=== PATIENT | female | born 1965 | race Caucasian/White ===

== ENCOUNTER 2016-05-09 00:04 | Inpatient (IN) | payer MEDICARE ==
[2016-05-09] MEDS ORDERED: IV VANCOMYCIN PER PHARMACY 1 EACH MISC MISCELLANE PRN (00:44)
[2016-05-09] MEDS ORDERED: SODIUM CHLORIDE 0.9% 1,000 ML IV STA (00:44)
[2016-05-09] MEDS ORDERED: VANCOMYCIN 1,500 MG in SODIUM CHLORIDE 0.9% 250 ML IVPB ONE (01:00)
[2016-05-09] MEDS ORDERED: SODIUM CHLORIDE 0.9% 1,000 ML IV ONE (01:20)
--- NOTE | 2016-05-09 01:24 | ED ---
General Adult HPI - General Chief complaint: Skin/Abscess/Foreign Body Stated complaint: Infection Axilla Time Seen by Provider: 05/09/16 00:39 Source: patient, RN notes reviewed, old records reviewed Mode of arrival: wheelchair Limitations: no limitations - History of Present Illness Initial comments: This is a 20-year-old female ER for evaluation. Patient brought every effort continued drainage of left arm abscess. Patient has history of severe rheumatoid arthritis and chronic steroid dose. Patient coming in with feel outpatient treatment Bactrim for Infection, No Improvement. Patient Also Has Significant Ulcers of Her Lower Extremities Which Are Chronic in Nature and She Does See the Wound Clinic for. Patient Denies Any Fevers Cough or Congestion. No Abdominal Pain. Patient States This Abscess, Ulcers Getting Worse on Her Arm with Increasing Redness - Related Data Home Medications Medication Instructions Recorded Confirmed Ascorbic Acid [Vitamin C] 500 mg PO DAILY 01/03/15 04/29/16 Aspirin 81 mg PO DAILY 01/03/15 05/09/16 Biotin 4,000 mcg PO DAILY 01/03/15 05/09/16 Ca/D3/Mag/Zinc/Crow/Jorge/Mgbor 1 each PO BID 01/03/15 05/09/16 [Caltrate 600+D3+Min Chew Tab] Celecoxib [CeleBREX] 200 mg PO BID 01/03/15 04/29/16 Folic Acid 1 mg PO DAILY 01/03/15 05/09/16 Glimepiride [Amaryl] 4 mg PO BID 01/03/15 05/09/16 Methotrexate Sodium [Methotrexate] 25 mg PO TH 01/03/15 05/09/16 Omeprazole [PriLOSEC] 40 mg PO DAILY 01/03/15 05/09/16 Potassium Chloride ER [K-Dur 10] 10 meq PO DAILY PRN 01/03/15 05/09/16 Potassium Gluconate 595 mg PO DAILY 01/03/15 05/09/16 metFORMIN HCL 1,000 mg PO TID 01/03/15 05/09/16 predniSONE 10 mg PO TID 01/03/15 05/09/16 Cyclobenzaprine [Flexeril] 10 mg PO Q8H PRN 03/07/15 05/09/16 Hydrocodone/Acetaminophen [[place] 1 each PO Q6H 03/07/15 05/09/16 10-325] Pyridoxine [Vitamin B-6] 25 mg PO TID 03/06/16 05/09/16 Triamcinolone 0.5% Cream [Kenalog 1 applic TOPICAL DAILY PRN 03/06/16 05/09/16 0.5% Cream] Azithromycin [Zithromax Z-pack] 250 mg PO DIRECTED 04/29/16 04/29/16 Abatacept [Orencia] 0 mg SQ 05/09/16 Albuterol Inhaler [Ventolin Hfa 1 - 2 puff INHALATION Q6HR PRN 05/09/16 05/09/16 Inhaler] Ascorbic Acid [Vitamin C] 500 mg PO DAILY 05/09/16 05/09/16 Celecoxib [CeleBREX] 200 mg PO BID 05/09/16 05/09/16 Diphenoxylate HCl/Atropine 2 tab PO QID PRN 05/09/16 05/09/16 [Lomotil] Loperamide HCl [Imodium A-D] 2 mg PO 05/09/16 [place]-3 Acid Ethyl Esters [Lovaza] 4 gm PO DAILY 05/09/16 05/09/16 Telmisartan [Micardis] 40 mg PO DAILY 05/09/16 05/09/16 hydrOXYzine PAMOATE [Vistaril] 25 mg PO 05/09/16 Previous Rx's Medication Instructions Recorded Sulfamethox-Tmp 800-160Mg [Bactrim 1 tab PO Q12HR #20 tab 04/29/16 DS 800-160 mg] Allergies Allergy/AdvReac Type Severity Reaction Status Date / Time latex AdvReac Mild Swelling Verified 04/22/16 11:58 Penicillins AdvReac states Verified 04/22/16 11:58 "penicillin resistant-does not work on me" Review of Systems ROS Statement: Those systems with pertinent positive or pertinent negative responses have been documented in the HPI. ROS Other: All systems not noted in ROS Statement are negative. Past Medical History Past Medical History: Rheumatoid Arthritis (RA) Additional Past Medical History / Comment(s): sjogrens, raynauds, urinary urgency and incontinence, bowel incontinence, wound rt foot plantar surface, immunosuppressed, ventral hernia, rheumatic lung, rheumatic fever as a child, varicose veins, current steroid,pm>2yrs, severe cervical stenosis-bilat. neuro deficits in arms, PCN resistant, pleural pain, bleeding peptic ulcer,coffee ground emesis History of Any Multi-Drug Resistant Organisms: None Reported Past Surgical History: Adenoidectomy, Heart Catheterization, Hernia Repair, Orthopedic Surgery, Tonsillectomy Additional Past Surgical History / Comment(s): closed reduction rt elbow,laser vein surgery lt leg. CAT SCAN Past Anesthesia/Blood Transfusion Reactions: Previous Problems w/ Anesthesia Additional Past Anesthesia/Blood Transfusion Reaction / Comment(s): pt states experienced swelling of throat with anesthesia as a child with tonsil removal- no further swelling problems with anesthesia,Severe Cervical Stenosis, family hx of blood transfusion reaction with mother and brother-rx rash,hives Past Psychological History: Anxiety, Depression Smoking Status: Current every day smoker Past Alcohol Use History: None Reported Additional Past Alcohol Use History / Comment(s): started smoking 1979 Past Drug Use History: None Reported - Past Family History Brother(s) Family Medical History: Coronary Artery Disease (CAD) Mother Family Medical History: Diabetes Mellitus Additional Family Medical History / Comment(s): with Castro's Disease Father Family Medical History: Coronary Artery Disease (CAD), Diabetes Mellitus, Hyperlipidemia, Vascular Disorder Additional Family Medical History / Comment(s): at age 89 General Exam Limitations: no limitations General appearance: anxious Head exam: Present: atraumatic, normocephalic, normal inspection Eye exam: Present: normal appearance, PERRL, EOMI. Absent: scleral icterus, conjunctival injection, periorbital swelling ENT exam: Present: normal exam, mucous membranes moist Neck exam: Present: normal inspection. Absent: tenderness, meningismus, lymphadenopathy Respiratory exam: Present: normal lung sounds bilaterally. Absent: respiratory distress, wheezes, rales, rhonchi, stridor Cardiovascular Exam: Present: regular rate, normal rhythm, normal heart sounds. Absent: systolic murmur, diastolic murmur, rubs, gallop, clicks GI/Abdominal exam: Present: soft, normal bowel sounds. Absent: distended, tenderness, guarding, rebound, rigid Extremities exam: Present: normal inspection, full ROM, normal capillary refill , other (She does have also left upper axilla with drainage). Absent: tenderness, pedal edema, joint swelling, calf tenderness Back exam: Present: normal inspection Neurological exam: Present: alert, oriented X3, CN II-XII intact Psychiatric exam: Present: normal affect, normal mood Skin exam: Present: warm, dry, intact, normal color. Absent: rash Course Vital Signs 05/09/16 00:19 Temperature 99.3 F Pulse Rate 122 H Respiratory 18 Rate Blood Pressure 131/78 O2 Sat by Pulse 95 Oximetry - Reevaluation(s) Reevaluation #1: 05/09/16 01:23 Patient is in no significant acute distress, tachycardic Medical Decision Making - Medical Decision Making 50 seen at ER for evaluation of drainage of left axillary all circumflex, abscess, draining by itself, no one did incise or drain it. Abscess is open and draining at this time. Low-grade fever, patient is seen by wound clinic not getting any better, has been on Bactrim for a week with no improvement. Disposition Clinical Impression: Abscess of left arm, Ulcer, Failure of outpatient treatment Disposition: ADMITTED IP TO THIS HOSP Condition: Good
[2016-05-09 01:56] LABS: Anisocytosis Slight; Basophils # (A) 0.1 k/uL (0-0.2); Basophils % (A) 1 %; CHCM 34.5; Eosinophils % (A) 0 %; HGB 14.8 gm/dL (11.4-16.0); Luc # (Auto) 0.09; Luc % (Auto) 1; Lymphocytes # (A) 1.3 k/uL (1.0-4.8); Lymphocytes % (A) 8 %; MCH 30.8 pg (25.0-35.0); MCV 93.3 fL (80.0-100.0); Mean Platelet Volume 7.7; Monocytes # (A) 0.7 k/uL (0-1.0); Monocytes % (A) 4 %; Neutrophils # (A) 14.7 k/uL (1.3-7.7); Neutrophils % (A) 87 %; RBC 4.82 m/uL (3.80-5.40); WBC 16.9 k/uL (3.8-10.6); WBC (Perox) 16.16
[2016-05-09 02:10] LABS: ALT 37 U/L (9-52); AST 20 U/L (14-36); Alkaline Phosphatase 152 U/L (38-126); Anion Gap 11 mmol/L; Blood Urea Nitrogen 21 mg/dL (7-17); Calcium 9.5 mg/dL (8.4-10.2); Carbon Dioxide 25 mmol/L (22-30); Chloride 93 mmol/L (98-107); Glucose 316 mg/dL (74-99); Magnesium 1.6 mg/dL (1.6-2.3); Non-African American GFR(MDRD) >60 (>60 ml/min/1.73 sqM); Phosphorous 3.4 mg/dL (2.5-4.5); Potassium 4.9 mmol/L (3.5-5.1); Sodium 129 mmol/L (137-145); Total Bilirubin 0.4 mg/dL (0.2-1.3); Total Protein 5.9 g/dL (6.3-8.2)
[2016-05-09 02:12] LABS: INR 1.1 (<1.1)
[2016-05-09 02:21] LABS: Partial Thromboplastin Time 21.6 sec (22.0-30.0)
[2016-05-09] MEDS ORDERED: MORPHINE SULFATE 4 MG/ML SYRINGE IVP STA (02:49)
[2016-05-09 02:59] LABS: Glucose,Whole Blood 231 mg/dL (75-99)
[2016-05-09 03:03] LABS: Creatine Kinase MB 3.3 ng/mL (0.0-2.4)
[2016-05-09 03:09] LABS: Appearance,Urine Clear (Clear); Bilirubin,Urine Negative (Negative); Glucose,Urine (UA) 4+ (Negative); Granular Casts,Urine 1 /lpf (0); Ketones,Urine Negative (Negative); Leukocyte Esterase,Urine Negative (Negative); Mucus,Urine Rare /hpf; Nitrite,Urine Negative (Negative); Particle Count 2112; Protein,Urine Trace (Negative); RBC,Urine 42 /hpf (0-5); Specific Gravity,Urine 1.012 (1.001-1.035); Squamous Epithelial Cell,Urine 1 /hpf (0-4); UA Billing (MACRO vs. MICRO) MICRO; Urobilinogen,Urine <2.0 mg/dL (<2.0); WBC,Urine 2 /hpf (0-5)
[2016-05-09 07:38] LABS: Glucose,Whole Blood 187 mg/dL (75-99)
[2016-05-09] MEDS: ENOXAPARIN 40 MG/0.4 ML SYRINGE SQ SCH (09:07)
[2016-05-09] MEDS: INSULIN LISPRO (humaLOG) 300 UNIT/3 ML VIAL SQ SCH ×3 (09:07→17:36)
[2016-05-09 10:47] VITALS: BMI 28.8
[2016-05-09] MEDS ORDERED: TRIAMCINOLONE ACET 0.5% CREAM 15 GM TUBE TOPICAL PRN (11:02)
[2016-05-09] MEDS ORDERED: hydrOXYzine PAMOATE 25 MG CAP PO PRN (11:02)
[2016-05-09] MEDS ORDERED: POTASSIUM CHLORIDE ER 10 MEQ TAB.ER.PRT PO PRN (11:02)
[2016-05-09] MEDS ORDERED: DIPHENOX-ATROP 2.5-0.025 MG 1 EACH TAB PO PRN (11:02)
[2016-05-09] MEDS ORDERED: CYCLOBENZAPRINE 10 MG TAB PO PRN (11:02)
[2016-05-09] MEDS ORDERED: HYDROcodone/APAP 10-325MG 1 EACH TAB PO SCH (11:15)
[2016-05-09] MEDS ORDERED: BIOTIN PO SCH (11:15)
[2016-05-09 11:33] LABS: Glucose,Whole Blood 221 mg/dL (75-99)
[2016-05-09] MEDS ORDERED: VANCOMYCIN 1,500 MG in SODIUM CHLORIDE 0.9% 250 ML IVPB SCH ×2 (12:00→14:00)
[2016-05-09] MEDS: MELOXICAM 7.5 MG TAB PO SCH ×2 (12:31→12:58)
[2016-05-09] MEDS: predniSONE 10 MG TAB PO SCH ×3 (12:31→20:30)
[2016-05-09] MEDS: ASCORBIC ACID 500 MG TAB PO SCH (12:31)
[2016-05-09] MEDS: LOSARTAN 50 MG TAB PO SCH (12:31)
[2016-05-09] MEDS: metFORMIN 500 MG TAB PO SCH ×2 (12:31→16:37)
[2016-05-09] MEDS ORDERED: OMEGA ACID ETHYL ESTERS PO SCH (13:00)
[2016-05-09] MEDS: NICOTINE 21MG/24HR PATCH TRANSDERM SCH ×2 (14:06→21:59)
--- NOTE | 2016-05-09 14:52 | XR ---
EXAMINATION TYPE: XR chest 2V DATE OF EXAM: 05/09/2016 2:34 PM COMPARISON: 02/05/2016 HISTORY: Pain FINDINGS: The lungs are clear and there is no pneumothorax, pleural effusion, or focal pneumonia. Chronic rib cage deformities noted. Heart is enlarged. Underlying COPD suspected. Compression deformities in the thoracic spine are seen. Kyphosis of the spine noted. Pleural-based thickening appears stable. IMPRESSION: 1. Stable suspected chronic interstitial lung disease and COPD. 2. Stable cardiomegaly
--- NOTE | 2016-05-09 16:22 | P.GSCN ---
History of Present Illness Consult date: 05/09/16 Reason for Consult: Left Axillary Abscess Requesting physician: Nydia Christiansen History of present illness: 50 years old female with multiple comorbid conditions including rheumatoid arthritis and immunosuppression secondary to steroids and methotrexate presents with draining ulcer in the left axilla. Patient is well-known at wound center for evaluation of bilateral lower extremity ulcers. She is a chronic active smoker. Uses wheelchair. She noticed copulent drainage from the left axilla . Also has some pinpoint openings in the left armpit. No fever, chills or rigors. She has chronic leukocytosis. WBC greater than 15 back in 2015. Currently WBC is 16.9 Her comorbid conditions include sjogrens, raynauds, urinary urgency and incontinence, bowel incontinence, wound rt foot plantar surface, immunosuppressed, ventral hernia, rheumatic lung, rheumatic fever as a child, varicose veins, current steroid,pm>2yrs, severe cervical stenosis-bilat. neuro deficits in arms, Review of Systems As stated in history of present illness Past Medical History Past Medical History: Diabetes Mellitus, Hyperlipidemia, Hypertension, Rheumatoid Arthritis (RA) Additional Past Medical History / Comment(s): sjogrens, raynauds, urinary urgency and incontinence, bowel incontinence, wound rt foot plantar surface, immunosuppressed, ventral hernia, rheumatic lung, rheumatic fever as a child, varicose veins, current steroid,pm>2yrs, severe cervical stenosis-bilat. neuro deficits in arms, PCN resistant, pleural pain, bleeding peptic ulcer,coffee ground emesis,hemmroids, heart rate usually runs 100-120 History of Any Multi-Drug Resistant Organisms: None Reported Past Surgical History: Adenoidectomy, Heart Catheterization, Hernia Repair, Orthopedic Surgery, Tonsillectomy Additional Past Surgical History / Comment(s): closed reduction rt elbow as a child,laser vein surgery lt leg. Past Anesthesia/Blood Transfusion Reactions: Previous Problems w/ Anesthesia Additional Past Anesthesia/Blood Transfusion Reaction / Comm: pt states experienced swelling of throat with anesthesia as a child with tonsil removal- no further swelling problems with anesthesia,Severe Cervical Stenosis, family hx of blood transfusion reaction with mother and brother-rx rash,hives Past Psychological History: Anxiety, Depression Smoking Status: Current every day smoker Past Alcohol Use History: None Reported Additional Past Alcohol Use History / Comment(s): started smoking 1979 Past Drug Use History: None Reported - Past Family History Brother(s) Family Medical History: Coronary Artery Disease (CAD) Mother Family Medical History: Diabetes Mellitus Additional Family Medical History / Comment(s): with Castro's Disease Father Family Medical History: Coronary Artery Disease (CAD), Diabetes Mellitus, Hyperlipidemia, Vascular Disorder Additional Family Medical History / Comment(s): at age 89 Medications and Allergies Home Medications Medication Instructions Recorded Confirmed Type Aspirin 81 mg PO HS 01/03/15 05/09/16 History Biotin 4,000 mcg PO BID 01/03/15 05/09/16 History Ca/D3/Mag/Zinc/Crow/Jorge/Mgbor 1 each PO BID 01/03/15 05/09/16 History [Caltrate 600+D3+Min Chew Tab] Folic Acid 1 mg PO DAILY 01/03/15 05/09/16 History Glimepiride [Amaryl] 4 mg PO BID 01/03/15 05/09/16 History Methotrexate Sodium [Methotrexate] 25 mg PO TH 01/03/15 05/09/16 History Omeprazole [PriLOSEC] 40 mg PO HS 01/03/15 05/09/16 History Potassium Chloride ER [K-Dur 10] 10 meq PO DAILY PRN 01/03/15 05/09/16 History Potassium Gluconate 595 mg PO DAILY 01/03/15 05/09/16 History metFORMIN HCL 1,000 mg PO TID 01/03/15 05/09/16 History predniSONE 10 mg PO TID 01/03/15 05/09/16 History Cyclobenzaprine [Flexeril] 10 mg PO Q8H PRN 03/07/15 05/09/16 History Hydrocodone/Acetaminophen [[place] 1 each PO Q6H 03/07/15 05/09/16 History 10-325] Pyridoxine [Vitamin B-6] 50 mg PO TID 03/06/16 05/09/16 History Triamcinolone 0.5% Cream [Kenalog 1 applic TOPICAL DAILY PRN 03/06/16 05/09/16 History 0.5% Cream] Albuterol Inhaler [Ventolin Hfa 1 - 2 puff INHALATION Q6HR PRN 05/09/16 History Inhaler] Ascorbic Acid [Vitamin C] 500 mg PO DAILY 05/09/16 05/09/16 History Celecoxib [CeleBREX] 200 mg PO BID 05/09/16 05/09/16 History Diphenoxylate HCl/Atropine 2 tab PO QID PRN 05/09/16 05/09/16 History [Lomotil] Loperamide HCl [Imodium A-D] 2 mg PO BID 05/09/16 05/09/16 History [place]-3 Acid Ethyl Esters [Lovaza] 4 gm PO QID 05/09/16 05/09/16 History Telmisartan [Micardis] 40 mg PO DAILY 05/09/16 05/09/16 History hydrOXYzine PAMOATE [Vistaril] 25 mg PO Q6HR PRN 05/09/16 05/09/16 History Allergies Allergy/AdvReac Type Severity Reaction Status Date / Time latex AdvReac Mild Swelling Verified 05/09/16 04:15 Penicillins AdvReac states Verified 05/09/16 04:15 "penicillin resistant-does not work on me" Surgical - Exam Vital Signs Temp Pulse Resp BP Pulse Ox 99.3 F 122 H 18 131/78 95 05/09/16 00:19 05/09/16 00:19 05/09/16 00:19 05/09/16 00:19 05/09/16 00:19 Patient is alert and oriented to time place and person and cooperative with exam. Integumentary: 4 x 4 centimeter opening in the left axilla with deep undermining and tunneling extending to the subcutaneous tissue and muscle. Multiple pinpoint openings along the left axilla. There is a 0.5 x 0.5 cm ulcer in the left elbow with exudates and drainage Results - Labs 05/09/16 01:30 05/09/16 01:30 Abnormal Lab Results - Last 24 Hours (Table) 05/09/16 05/09/16 05/09/16 Range/Units 01:30 01:30 01:30 WBC 16.9 H (3.8-10.6) k/uL RDW 16.0 H (11.5-15.5) % Neutrophils # 14.7 H (1.3-7.7) k/uL APTT (22.0-30.0) sec Sodium 129 L (137-145) mmol/L Chloride 93 L (98-107) mmol/L BUN 21 H (7-17) mg/dL Glucose 316 H (74-99) mg/dL POC Glucose (mg/dL) (75-99) mg/dL Hemoglobin A1c (4.2-6.1) % Alkaline Phosphatase 152 H (38-126) U/L CK-MB (CK-2) 3.3 H* (0.0-2.4) ng/mL Total Protein 5.9 L (6.3-8.2) g/dL Urine Protein (Negative) Urine Glucose (UA) (Negative) Urine Blood (Negative) Urine RBC (0-5) /hpf Urine Mucus (None) /hpf 05/09/16 05/09/16 05/09/16 Range/Units 01:30 01:30 02:50 WBC (3.8-10.6) k/uL RDW (11.5-15.5) % Neutrophils # (1.3-7.7) k/uL APTT 21.6 L (22.0-30.0) sec Sodium (137-145) mmol/L Chloride (98-107) mmol/L BUN (7-17) mg/dL Glucose (74-99) mg/dL POC Glucose (mg/dL) (75-99) mg/dL Hemoglobin A1c 9.0 H (4.2-6.1) % Alkaline Phosphatase (38-126) U/L CK-MB (CK-2) (0.0-2.4) ng/mL Total Protein (6.3-8.2) g/dL Urine Protein Trace H (Negative) Urine Glucose (UA) 4+ H (Negative) Urine Blood Small H (Negative) Urine RBC 42 H (0-5) /hpf Urine Mucus Rare H (None) /hpf 05/09/16 05/09/16 05/09/16 Range/Units 02:56 07:32 11:31 WBC (3.8-10.6) k/uL RDW (11.5-15.5) % Neutrophils # (1.3-7.7) k/uL APTT (22.0-30.0) sec Sodium (137-145) mmol/L Chloride (98-107) mmol/L BUN (7-17) mg/dL Glucose (74-99) mg/dL POC Glucose (mg/dL) 231 H 187 H 221 H (75-99) mg/dL Hemoglobin A1c (4.2-6.1) % Alkaline Phosphatase (38-126) U/L CK-MB (CK-2) (0.0-2.4) ng/mL Total Protein (6.3-8.2) g/dL Urine Protein (Negative) Urine Glucose (UA) (Negative) Urine Blood (Negative) Urine RBC (0-5) /hpf Urine Mucus (None) /hpf Microbiology - Last 24 Hours (Table) 05/09/16 02:50 Urine Culture - Preliminary Urine,Voided Diabetes panel 05/09/16 05/09/16 Range/Units 01:30 01:30 Sodium 129 L (137-145) mmol/L Potassium 4.9 (3.5-5.1) mmol/L Chloride 93 L (98-107) mmol/L Carbon Dioxide 25 (22-30) mmol/L BUN 21 H (7-17) mg/dL Creatinine 0.60 (0.52-1.04) mg/dL Glucose 316 H (74-99) mg/dL Hemoglobin A1c 9.0 H (4.2-6.1) % Calcium 9.5 (8.4-10.2) mg/dL AST 20 (14-36) U/L ALT 37 (9-52) U/L Alkaline Phosphatase 152 H (38-126) U/L Total Protein 5.9 L (6.3-8.2) g/dL Albumin 3.5 (3.5-5.0) g/dL Calcium panel 05/09/16 Range/Units 01:30 Calcium 9.5 (8.4-10.2) mg/dL Phosphorus 3.4 (2.5-4.5) mg/dL Albumin 3.5 (3.5-5.0) g/dL Pituitary panel 05/09/16 Range/Units 01:30 Sodium 129 L (137-145) mmol/L Potassium 4.9 (3.5-5.1) mmol/L Chloride 93 L (98-107) mmol/L Carbon Dioxide 25 (22-30) mmol/L BUN 21 H (7-17) mg/dL Creatinine 0.60 (0.52-1.04) mg/dL Glucose 316 H (74-99) mg/dL Calcium 9.5 (8.4-10.2) mg/dL Adrenal panel 05/09/16 Range/Units 01:30 Sodium 129 L (137-145) mmol/L Potassium 4.9 (3.5-5.1) mmol/L Chloride 93 L (98-107) mmol/L Carbon Dioxide 25 (22-30) mmol/L BUN 21 H (7-17) mg/dL Creatinine 0.60 (0.52-1.04) mg/dL Glucose 316 H (74-99) mg/dL Calcium 9.5 (8.4-10.2) mg/dL Total Bilirubin 0.4 (0.2-1.3) mg/dL AST 20 (14-36) U/L ALT 37 (9-52) U/L Alkaline Phosphatase 152 H (38-126) U/L Total Protein 5.9 L (6.3-8.2) g/dL Albumin 3.5 (3.5-5.0) g/dL Assessment and Plan (1) Abscess of left axilla Status: Acute (2) Diabetic foot ulcer associated with type 2 diabetes mellitus, with fat layer exposed Status: Acute (3) Rheumatoid arthritis Status: Acute Plan: 1. Incision and drainage of left axillary abscesses with possible application of wound VAC 2. Incision and drainage of left elbow abscess 3. Nothing by mouth after midnight 4. Clindamycin 600 mg IV piggyback 1 in preop 5. Informed consent obtained and patient elected to undergo the procedure
[2016-05-09] MEDS: GLIMEPIRIDE 4 MG TAB PO SCH (16:36)
[2016-05-09] MEDS: oxyCODONE-APAP 7.5-325MG 1 EACH TAB PO PRN ×2 (16:36→20:28)
[2016-05-09] MEDS: COLLAGENASE 250 UNIT/GM OINTMENT 30 GM TUBE TOPICAL SCH (16:37)
[2016-05-09] MEDS: AMPICILLIN-SULBACTAM 3 GM in SODIUM CHLORIDE 0.9% 100 ML IVPB SCH ×2 (16:37→23:05)
[2016-05-09 17:20] LABS: Glucose,Whole Blood 204 mg/dL (75-99)
[2016-05-09] MEDS: CALCIUM CARB-VIT D 500MG-200UN 1 EACH TAB PO SCH ×2 (17:38→20:30)
[2016-05-09] MEDS: FOLIC ACID 1 MG TAB PO SCH (17:38)
--- NOTE | 2016-05-09 19:19 | P.HPIM ---
History of Present Illness H&P Date: 05/09/16 Chief Complaint: Left armpit swelling redness and drainage, purulent This is a 50-year-old pleasant female patient of Dr. Spring and Dr. Downing. She has underlying history of rheumatid arthritis, Sjogren's, Raynaud's, diabetes mellitus type 2, hyperlipidemia, hypertension, rheumatoid lung, chronic immunosuppression cervical stenosis with upper extremity weakness, impaired balance impaired gait admitted to emergency room secondary to left axillary abscess. She follows at the wound clinic secondary to cellulitis of the lower extremities bilateral, she complained off swelling in the left arm. 1-1/2 weeks prior to admission for which patient took notice and got to see Dr. Spring and Dr. Downing. She had been started on Bactrim DS 1 tab twice a day for which she is completing her last 2 doses for this treatment. Patient refused are to be admitted week ago when he saw Dr. Munoz. The swelling in the left armpit now has gotten so big she said it was a red tomato, she developed fever of 101, patient does not have any diarrhea this time. She has off-and-on chills chills she has off-and-on fever she was last seen by Dr. Downing in the 1 clinic approximately 04/29/2016 for bilateral lower extremity ulcers and redness. She says that the left plantar ulcer is stable however the redness in the left leg medially shinbone is new, she has chronic changes in the right foot plantar region for which she has full-thickness debridement last 04/29/2016, on her stage II lesions please see full documentation off the visit from Dr. Downing . Cultures from the left arm shows streptococcus species from 2015 also growing diphtheroid species She presented to emergency room with failure off improvement using Bactrim on a lesion in the left elbow, drainage on the right axilla with now an open fistula measuring 3 cm long by 0.5 cm wide and subcutaneous tissues including muscles are visible on this hole. Consults were made with Dr. Luo general surgery Dr. Downing, infectious disease. Patient currently is on IV clindamycin IV Unasyn. Cultures would need to be sent intraoperatively Review of Systems Constitutional: Reports as per HPI, Denies anorexia, Denies chills, Denies chronic headaches, Denies chronic pain, Denies daytime sleepiness, Denies fatigue, Denies fever, Denies lethargy, Denies malaise, Denies night sweats, Denies poor appetite, Denies sweats, Denies weakness, Denies weight gain, Denies weight loss Ears, nose, mouth and throat: Reports as per HPI, Denies ant. neck pain, Denies bleeding gums, Denies dental pain, Denies dysphagia, Denies epistaxis, Denies headache, Denies hoarseness, Denies mouth pain, Denies nasal congestion, Denies nasal discharge, Denies neck fullness/pressure, Denies neck lump, Denies nose pain, Denies odynophagia, Denies post-nasal drip, Denies sinus pain, Denies sinus pressure, Denies swelling in mouth, Denies swelling in throat, Denies sore throat, Denies vertigo, Denies voice changes Cardiovascular: Reports as per HPI, Denies chest pain, Denies claudication, Denies decreased exercise tolerance, Denies dyspnea on exertion, Denies edema, Denies high blood pressure, Denies irregular heart beat, Denies leg edema, Denies lightheadedness, Denies orthopnea, Denies palpitations, Denies paroxysmal nocturnal dyspnea, Denies phlebitis, Denies rapid heart beat, Denies shortness of breath, Denies syncope Respiratory: Reports as per HPI, Reports cough, Reports cough with sputum, Reports pain on inspiration Gastrointestinal: Reports as per HPI, Denies abdominal pain, Denies belching, Denies bloating, Denies BRBPR, Denies change in bowel habits, Denies coffee ground emesis, Denies constipation, Denies diarrhea, Denies dyspepsia, Denies early satiety, Denies excessive gas, Denies heartburn, Denies hematemesis, Denies hematochezia, Denies indigestion, Denies jaundice, Denies lactose intolerance, Denies loss of appetite, Denies melena, Denies nausea, Denies vomiting Genitourinary: Reports as per HPI, Denies abnormal vaginal bleeding, Denies decreased libido, Denies difficulty conceiving, Denies difficulty voiding, Denies dysmenorrhea, Denies dyspareunia, Denies dysuria, Denies flank pain, Denies genital sores, Denies hematuria, Denies hot flashes, Denies incomplete emptying, Denies kidney stones, Denies menorrhagia, Denies mixed incontinence, Denies nocturia, Denies pelvic pain, Denies post void dribbling, Denies , Denies prolapse symptoms, Denies stress incontinence, Denies urge incontinence , Denies urgency, Denies urinary frequency, Denies vaginal discharge, Denies vaginal dryness, Denies vaginal itching, Denies vaginal odor Menstruation: Reports as per HPI Musculoskeletal: Reports as per HPI, Reports gait dysfunction, Reports limitation of motion, Reports loss of height, Reports low back pain, Reports shooting arm pain, Denies arm numbness/tingling, Denies atrophy, Denies fractures, Denies frequent falls, Denies hot joints, Denies leg numbness/ tingling, Denies morning stiffness, Denies muscle cramps, Denies muscle weakness , Denies myalgias, Denies neck pain, Denies neck stiffness, Denies prior amputations, Denies redness of joints, Denies shooting leg pain Integumentary: Reports as per HPI, Reports boils, Reports color changes, Reports lesions, Reports wounds Neurological: Reports as per HPI, Reports gait dysfunction, Reports motor disturbance, Denies aphasia, Denies ataxia, Denies balance difficulties, Denies burning pain, Denies change in mentation, Denies change in smell/taste, Denies change in speech, Denies confusion, Denies convulsions, Denies double vision, Denies head injury, Denies headaches, Denies hearing difficulties, Denies lack of coordination, Denies loss of vision, Denies memory loss, Denies migraines, Denies numbness, Denies paralysis, Denies paresthesias, Denies seizures, Denies sensory deficit, Denies spasticity, Denies syncope, Denies tic, Denies tingling , Denies transient paralysis, Denies tremors, Denies vertigo, Denies weakness, Denies visual changes Psychiatric: Reports as per HPI, Denies anhedonia, Denies anxiety, Denies anxiety attacks, Denies change in appetite, Denies change in libido, Denies change in sleep habits, Denies confusion, Denies depression, Denies difficulty concentrating, Denies disorientation, Denies hallucinations, Denies hopelessness , Denies hypersomnia, Denies insomnia, Denies irritability, Denies memory loss, Denies mood swings, Denies paranoia, Denies sadness/tearfulness, Denies sleep disturbances, Denies suicidal ideation Endocrine: Reports as per HPI, Denies cold intolerance, Denies deepening of the voice, Denies excessive sweating, Denies excessive thirst, Denies fatigue, Denies flushing, Denies heat intolerance, Denies high blood sugars, Denies increase in ring/shoe/hat size, Denies low blood sugars, Denies nocturia, Denies palpitations, Denies polydipsia, Denies polyphagia, Denies polyuria, Denies proptosis, Denies recent glucocorticoid use, Denies thyroid mass, Denies weight change Hematologic/Lymphatic: Reports as per HPI, Denies easy bleeding, Denies easy bruising, Denies lymphadenopathy, Denies lymphedema, Denies thrombophilia Allergic/Immunologic: Reports as per HPI, Denies allergic rhinitis, Denies anaphylaxis, Denies angioedema, Denies gluten intolerance, Denies persistent infections, Denies seasonal allergies, Denies urticaria, Denies wheezing Past Medical History Past Medical History: Diabetes Mellitus, Hyperlipidemia, Hypertension, Rheumatoid Arthritis (RA) Additional Past Medical History / Comment(s): sjogrens, raynauds, urinary urgency and incontinence, bowel incontinence, wound rt foot plantar surface, immunosuppressed, ventral hernia, rheumatic lung, rheumatic fever as a child, varicose veins, current steroid,pm>2yrs, severe cervical stenosis-bilat. neuro deficits in arms, PCN resistant, pleural pain, bleeding peptic ulcer,coffee ground emesis,hemmroids, heart rate usually runs 100-120 History of Any Multi-Drug Resistant Organisms: None Reported Past Surgical History: Adenoidectomy, Heart Catheterization, Hernia Repair, Orthopedic Surgery, Tonsillectomy Additional Past Surgical History / Comment(s): closed reduction rt elbow as a child,laser vein surgery lt leg. Past Anesthesia/Blood Transfusion Reactions: Previous Problems w/ Anesthesia Additional Past Anesthesia/Blood Transfusion Reaction / Comment(s): pt states experienced swelling of throat with anesthesia as a child with tonsil removal- no further swelling problems with anesthesia,Severe Cervical Stenosis, family hx of blood transfusion reaction with mother and brother-rx rash,hives Past Psychological History: Anxiety, Depression Smoking Status: Current every day smoker Past Alcohol Use History: None Reported Additional Past Alcohol Use History / Comment(s): started smoking 1979 Past Drug Use History: None Reported - Past Family History Brother(s) Family Medical History: Coronary Artery Disease (CAD) Mother Family Medical History: Diabetes Mellitus Additional Family Medical History / Comment(s): with Castro's Disease Father Family Medical History: Coronary Artery Disease (CAD), Diabetes Mellitus, Hyperlipidemia, Vascular Disorder Additional Family Medical History / Comment(s): at age 89 Medications and Allergies Home Medications Medication Instructions Recorded Confirmed Type Aspirin 81 mg PO HS 01/03/15 05/09/16 History Biotin 4,000 mcg PO BID 01/03/15 05/09/16 History Ca/D3/Mag/Zinc/Crow/Jorge/Mgbor 1 each PO BID 01/03/15 05/09/16 History [Caltrate 600+D3+Min Chew Tab] Folic Acid 1 mg PO DAILY 01/03/15 05/09/16 History Glimepiride [Amaryl] 4 mg PO BID 01/03/15 05/09/16 History Methotrexate Sodium [Methotrexate] 25 mg PO TH 01/03/15 05/09/16 History Omeprazole [PriLOSEC] 40 mg PO HS 01/03/15 05/09/16 History Potassium Chloride ER [K-Dur 10] 10 meq PO DAILY PRN 01/03/15 05/09/16 History Potassium Gluconate 595 mg PO DAILY 01/03/15 05/09/16 History metFORMIN HCL 1,000 mg PO TID 01/03/15 05/09/16 History predniSONE 10 mg PO TID 01/03/15 05/09/16 History Cyclobenzaprine [Flexeril] 10 mg PO Q8H PRN 03/07/15 05/09/16 History Hydrocodone/Acetaminophen [[place] 1 each PO Q6H 03/07/15 05/09/16 History 10-325] Pyridoxine [Vitamin B-6] 50 mg PO TID 03/06/16 05/09/16 History Triamcinolone 0.5% Cream [Kenalog 1 applic TOPICAL DAILY PRN 03/06/16 05/09/16 History 0.5% Cream] Albuterol Inhaler [Ventolin Hfa 1 - 2 puff INHALATION Q6HR PRN 05/09/16 History Inhaler] Ascorbic Acid [Vitamin C] 500 mg PO DAILY 05/09/16 05/09/16 History Celecoxib [CeleBREX] 200 mg PO BID 05/09/16 05/09/16 History Diphenoxylate HCl/Atropine 2 tab PO QID PRN 05/09/16 05/09/16 History [Lomotil] Loperamide HCl [Imodium A-D] 2 mg PO BID 05/09/16 05/09/16 History Beulah-3 Acid Ethyl Esters [Lovaza] 4 gm PO QID 05/09/16 05/09/16 History Telmisartan [Micardis] 40 mg PO DAILY 05/09/16 05/09/16 History hydrOXYzine PAMOATE [Vistaril] 25 mg PO Q6HR PRN 05/09/16 05/09/16 History Allergies Allergy/AdvReac Type Severity Reaction Status Date / Time latex AdvReac Mild Swelling Verified 05/09/16 04:15 Penicillins AdvReac states Verified 05/09/16 04:15 "penicillin resistant-does not work on me" Physical Exam Vitals: Vital Signs Temp Pulse Pulse Resp BP BP Pulse Ox 05/09/16 15:00 98.8 F 66 16 126/51 97 05/09/16 07:00 97.7 F 114 H 18 124/79 91 L 05/09/16 03:50 98.3 F 116 H 19 134/65 94 L 05/09/16 02:59 113 H 18 145/72 94 L 05/09/16 01:34 117 H 18 137/77 95 Intake and Output 05/09/16 05/09/16 05/09/16 06:59 14:59 22:59 Intake Total 950 Balance 950 Intake: Intake, IV Titration 950 Amount Ampicillin-Sulbactam 3 gm 100 In Sodium Chloride 0.9% 100 ml @ 100 mls/hr IVPB Q6HR [facility] Rx#:[id number] Sodium Chloride 0.9% 1, 600 000 ml @ 100 mls/hr IV . Q10H ONE Rx#:[id number] Vancomycin 1,500 mg In 250 Sodium Chloride 0.9% 250 ml @ 125 mls/hr IVPB Q12H [facility] Rx#:[id number] Other: Voiding Method Toilet # Voids 2 Weight 83.461 kg Patient Weight 05/10/16 06:59 Weight 83.461 kg - Constitutional General appearance: cooperative, no acute distress - EENT Eyes: anicteric sclerae, EOMI, PERRLA, dentition normal, normal appearance ENT: hearing grossly normal, NA/AT, normal oropharynx - Neck Neck: no lymphadenopathy, normal ROM, no other, no rigidity, no stridor, no thyromegaly - Respiratory Respiratory: bilateral: CTA, diminished, negative: dullness, rales, rhonchi, wheezing - Cardiovascular Rhythm: regular Heart sounds: normal: S1, S2 Abnormal Heart Sounds: no systolic murmur, no diastolic murmur, no rub, no S3 Gallop, no S4 Gallop, no click, no other - Gastrointestinal General gastrointestinal: no absent bowel sounds, no decreased bowel sounds, no distended, no hepatomegaly, no hyperactive bowel sounds, normal bowel sounds, no organomegaly, no rigid, no scaphoid, soft, no splenomegaly, no tenderness, no umbilical hernia, no ventral hernia - Integumentary Integumentary: cellulitis (Left axilla has a big fistula measuring approximately 5 cm long by 1 cm wide muscle tissue is exposed bone is not visible deep lesion that measured), normal turgor, rash (Redness left tibial anterior region, non-circumferential from below the knee up to up her ankle), ulcer (Decubitus ulcer bilateral ischium 11 5 cm x 1 cm left buttock, unknown depth, right 1 cm x 1 cm x 0.2 cm) - Neurologic Neurologic: CNII-XII intact - Musculoskeletal Musculoskeletal: generalized weakness - Psychiatric Psychiatric: A&O x's 3, appropriate affect, intact judgment & insight Results CBC & Chem 7: 05/09/16 01:30 05/09/16 01:30 Labs: Abnormal Lab Results - Last 24 Hours (Table) 05/09/16 05/09/16 05/09/16 Range/Units 01:30 01:30 01:30 WBC 16.9 H (3.8-10.6) k/uL RDW 16.0 H (11.5-15.5) % Neutrophils # 14.7 H (1.3-7.7) k/uL APTT (22.0-30.0) sec Sodium 129 L (137-145) mmol/L Chloride 93 L (98-107) mmol/L BUN 21 H (7-17) mg/dL Glucose 316 H (74-99) mg/dL POC Glucose (mg/dL) (75-99) mg/dL Hemoglobin A1c (4.2-6.1) % Alkaline Phosphatase 152 H (38-126) U/L CK-MB (CK-2) 3.3 H* (0.0-2.4) ng/mL Total Protein 5.9 L (6.3-8.2) g/dL Urine Protein (Negative) Urine Glucose (UA) (Negative) Urine Blood (Negative) Urine RBC (0-5) /hpf Urine Mucus (None) /hpf 05/09/16 05/09/16 05/09/16 Range/Units 01:30 01:30 02:50 WBC (3.8-10.6) k/uL RDW (11.5-15.5) % Neutrophils # (1.3-7.7) k/uL APTT 21.6 L (22.0-30.0) sec Sodium (137-145) mmol/L Chloride (98-107) mmol/L BUN (7-17) mg/dL Glucose (74-99) mg/dL POC Glucose (mg/dL) (75-99) mg/dL Hemoglobin A1c 9.0 H (4.2-6.1) % Alkaline Phosphatase (38-126) U/L CK-MB (CK-2) (0.0-2.4) ng/mL Total Protein (6.3-8.2) g/dL Urine Protein Trace H (Negative) Urine Glucose (UA) 4+ H (Negative) Urine Blood Small H (Negative) Urine RBC 42 H (0-5) /hpf Urine Mucus Rare H (None) /hpf 05/09/16 05/09/16 05/09/16 Range/Units 02:56 07:32 11:31 WBC (3.8-10.6) k/uL RDW (11.5-15.5) % Neutrophils # (1.3-7.7) k/uL APTT (22.0-30.0) sec Sodium (137-145) mmol/L Chloride (98-107) mmol/L BUN (7-17) mg/dL Glucose (74-99) mg/dL POC Glucose (mg/dL) 231 H 187 H 221 H (75-99) mg/dL Hemoglobin A1c (4.2-6.1) % Alkaline Phosphatase (38-126) U/L CK-MB (CK-2) (0.0-2.4) ng/mL Total Protein (6.3-8.2) g/dL Urine Protein (Negative) Urine Glucose (UA) (Negative) Urine Blood (Negative) Urine RBC (0-5) /hpf Urine Mucus (None) /hpf 05/09/16 Range/Units 17:17 WBC (3.8-10.6) k/uL RDW (11.5-15.5) % Neutrophils # (1.3-7.7) k/uL APTT (22.0-30.0) sec Sodium (137-145) mmol/L Chloride (98-107) mmol/L BUN (7-17) mg/dL Glucose (74-99) mg/dL POC Glucose (mg/dL) 204 H (75-99) mg/dL Hemoglobin A1c (4.2-6.1) % Alkaline Phosphatase (38-126) U/L CK-MB (CK-2) (0.0-2.4) ng/mL Total Protein (6.3-8.2) g/dL Urine Protein (Negative) Urine Glucose (UA) (Negative) Urine Blood (Negative) Urine RBC (0-5) /hpf Urine Mucus (None) /hpf Microbiology - Last 24 Hours (Table) 05/09/16 02:50 Urine Culture - Preliminary Urine,Voided Thrombosis Risk Factor Assmnt - DVT/VTE Prophylaxis DVT/VTE Prophylaxis: Pharmacologic Prophylaxis ordered, Contraindicated - See note (Bilateral leg ulcers and redness deformities from rheumatoid arthritis) - Choose All That Apply Any of the Below Risk Factors Present?: Yes Each Factor Represents 1 point: Age 41-60 years, Obesity (BMI >25), Sepsis (< 1month), Swollen legs (current) Other Risk Factors: No Other congenital or acquired thrombophilia - If yes, enter type in comment: No Thrombosis Risk Factor Assessment Total Risk Factor Score: 4 Thrombosis Risk Factor Assessment Level: Low Risk Assessment and Plan Plan: 1. Abscess formation left medial humerus, with deep fistulous formation, abscess still noted in the axilla, patient's in consultation by Dr. Downing and Dr. Cerda's car, IV Unasyn was started. Patient will be receiving preoperative clindamycin. Intraoperative cultures will be obtained, she has no previous visit April 29 Streptococcus species isolated in the left arm. Patient most likely would need wound VAC. Patient's chronically immunosuppressed with methotrexate for which this is currently on hold until resolution off her infection had 2. Rheumatoid arthritis is chronically on methotrexate, Plaquenil would be an appropriate substitute, patient currently is on prednisone 10 mg 3 times a day which we'll going to maintain Patient follows with Dr. Preston as an outpatient 3. Diabetes mellitus type 2 on metformin, glimepiride A1c will be obtained Accu -Cheks with NovoLog coverage next 5. IBS with diarrhea currently constipated she is on Lomotil 2 mg 4 times a day when necessary no changes were made 6. Decubitus ulcer on santyl 7. DVT prophylaxis on Lovenox 40 8. Chronic pain related to RA and musculoskeletal deformities including spinal stenosis this examination, cervical and lumbar spine affected, patient's on Percocet now and hydrocodone was discontinued secondary to ineffectiveness continue on Flexeril 9. Chronic tobacco dependency at 2 packs per day patient was started on nicotine patch 21 mics per day 10. Hypertension on losartan 100 mg daily 7. DVT prophylaxis with Lovenox GI prophylaxis. On maintenance omeprazole 40 Time with Patient: Greater than 30
[2016-05-09] MEDS: PANTOPRAZOLE 40 MG TABLET PO SCH (20:30)
[2016-05-09] MEDS: ASPIRIN 81 MG CHEW PO SCH (20:30)
[2016-05-09] MEDS ORDERED: LOPERAMIDE 2 MG CAP PO SCH (21:00)
[2016-05-09 21:32] LABS: Glucose,Whole Blood 195 mg/dL (75-99)
[2016-05-09] MEDS ORDERED: SENNOSIDES-DOCUSATE SODIUM 1 EACH TAB PO STA (21:44)
[2016-05-10] MEDS: oxyCODONE-APAP 7.5-325MG 1 EACH TAB PO PRN ×4 (02:09→20:47)
[2016-05-10] MEDS: AMPICILLIN-SULBACTAM 3 GM in SODIUM CHLORIDE 0.9% 100 ML IVPB SCH ×5 (05:11→23:00)
[2016-05-10] MEDS ORDERED: CLINDAMYCIN 600 MG in DEXTROSE 5% IN WATER 50 ML IVPB ONE ×2 (06:00)
[2016-05-10] MEDS ORDERED: LACTATED RINGERS 1,000 ML IV SCH (06:45)
[2016-05-10] MEDS ORDERED: ONDANSETRON 4 MG/2 ML VIAL IVP ONE (06:45)
[2016-05-10 07:02] LABS: Glucose,Whole Blood 80 mg/dL (75-99)
[2016-05-10] MEDS: COLLAGENASE 250 UNIT/GM OINTMENT 30 GM TUBE TOPICAL SCH (09:45)
[2016-05-10] MEDS: GLIMEPIRIDE 4 MG TAB PO SCH ×2 (09:55→16:24)
[2016-05-10] MEDS: CALCIUM CARB-VIT D 500MG-200UN 1 EACH TAB PO SCH ×2 (09:55→20:48)
[2016-05-10] MEDS: INSULIN LISPRO (humaLOG) 300 UNIT/3 ML VIAL SQ SCH ×3 (09:55→18:25)
[2016-05-10] MEDS: metFORMIN 500 MG TAB PO SCH ×3 (09:55→18:26)
--- NOTE | 2016-05-10 10:12 | CONS ---
DATE OF CONSULTATION: DATE OF SERVICE: 05/09/2016 REASON FOR CONSULTATION: Left axilla, left elbow and sacral wound. 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 Patient does follow with Dr. Downing in the wound care center and recently presented to him with painful swelling in her left axillary area that has been going on for a few days prior to being evaluated by Dr. Downing on 04/30/2016. He did obtain cultures and started the patient on Bactrim DS. She subsequently followed with Dr. Spring in the office and she had significant amount of drainage of purulent material from that site. Dr. Spring advised her to go to the hospital and be admitted, however, the patient refused. The patient is now coming to [facility] ER with persistent pain, swelling and drainage from the left axillary wound along with the wound on the left elbow where the patient has been evaluated by the ER physician. She was admitted to the hospital on vancomycin. ID was consulted for further recommendation regarding antibiotic therapy. The wound culture that was obtained by Dr. Downing on 04/29 is growing Peptostreptococcus along with anaerobic gram positive bacilli. The patient also had wound on the sacral area that has been going on for more than a week now. She has some dull pain especially when she sits on it. There is no drainage from it. REVIEW OF SYSTEMS: CONSTITUTIONAL: Positive for weakness and some chills, though no fever has been recorded here. EYES: No complaint. ENT: No complaint. RESPIRATORY: Some shortness of breath. CARDIOVASCULAR: No complaint. GENITOURINARY: No complaint. GASTROINTESTINAL: No complaint. MUSCULOSKELETAL: As per HPI. INTEGUMENTARY: As per HPI. PSYCHOLOGIC: No complaint. ENDOCRINE: No complaint. NEUROLOGIC: No complaint. PAST MEDICAL HISTORY: Significant for diabetes mellitus, hypertension, hyperlipidemia, rheumatoid arthritis. , Sjogren's syndrome, Raynaud's phenomenon, UTI, multiple wounds. PAST SURGICAL HISTORY: Adenoidectomy, heart catheterization, hernia repair, orthopedic surgery, tonsillectomy. SOCIAL HISTORY: Patient is a current every day smoker. Smoked since 1979. Denies any drinking or drug use. FAMILY HISTORY: Brother has history of coronary artery disease. Mother with history of diabetes and from Castro disease. Allergies to PENICILLIN which she said did not work for her, which is not a true allergy. Also allergic to LATEX. Medications currently include the patient is on vancomycin. She is on morphine, prednisone, K-Dur, Protonix, Glucophage, Mobic, Cozaar, Humalog, Restoril, Amaryl, Lovenox, Flexeril, aspirin. On examination, blood pressure is 126/51 with a pulse of 66, temperature 98.8. She is 97% on room air. General description is a middle-age female lying in bed in no distress. No tachypnea or accessory muscles of respiration use. HEENT examination shows no pallor or scleral icterus. Oral mucous membrane dry. NECK: Trachea central. No thyromegaly. LUNGS: Unlabored breathing. Clear to auscultation. HEART: S1, S2, regular rate and rhythm. ABDOMEN: Soft, no tenderness. EXTREMITIES: No edema of feet. EXAMINATION OF LEFT AXILLA: She did have open wound, which is painful to touch. No drainage was noticed though or any induration. She also had wound on the left elbow with minimal slough tissue and some surrounding erythema and stage II pressure ulcer to the sacral area x2 with some slough tissue, but no surrounding erythema. NEUROLOGICAL: The patient is awake, alert, oriented x3. Mood and affect normal. LABS: BUN of 21, creatinine 0.60. Hemoglobin is 14.8, white count 16.9. The wound culture done on 04/29 is growing Peptostreptococcus and anaerobic gram positive bacilli. DIAGNOSTIC IMPRESSION AND PLAN: 1. Patient with left axillary abscess with some spontaneous drainage with resultant wound. Outpatient culture has been Peptostreptococcus and anaerobic gram-negative bacilli likely the pathogen. 2. Patient also had wound on the left elbow with some slough tissue and minimal surrounding erythema. No fluctuance. 3. Patient with stage II pressure ulcer in the sacral area. PLAN: 1. We will discontinue the vancomycin as no MRSA has been grown. 2. We will start the patient on Unasyn 3 grams q.6 hours for the Peptostreptococcus and the anaerobic Gram-positive bacilli. 3. Await the surgical drainage and afterwards recommend applying a wound VAC to the area to help the healing process. 4. Will apply Santyl to the wound of the sacral area and keep the area off pressure. 5. Will follow up on the clinical condition and cultures to further adjust the medication if needed. Thank you for this consultation. We will follow this patient along with you. NELA
[2016-05-10 10:44] LABS: Glucose,Whole Blood 77 mg/dL (75-99)
[2016-05-10] MEDS ORDERED: IV FLUID CONTINUATION 1,000 ML IV ONE (11:24)
[2016-05-10] MEDS: predniSONE 10 MG TAB PO SCH ×3 (11:40→20:48)
[2016-05-10 11:57] LABS: Anisocytosis Slight; Basophils # (A) 0.1 k/uL (0-0.2); Basophils % (A) 1 %; CH 32.1; CHCM 32.9; Eosinophils # (A) 0.1 k/uL (0-0.7); Eosinophils % (A) 0 %; HCT 45.9 % (34.0-46.0); HDW 2.76; HGB 13.8 gm/dL (11.4-16.0); Luc # (Auto) 0.24; Luc % (Auto) 2; Lymphocytes # (A) 3.3 k/uL (1.0-4.8); Lymphocytes % (A) 21 %; MCH 29.4 pg (25.0-35.0); Macrocytosis Slight; Mean Platelet Volume 7.8; Monocytes # (A) 0.7 k/uL (0-1.0); Monocytes % (A) 4 %; Neutrophils # (A) 11.9 k/uL (1.3-7.7); Neutrophils % (A) 73 %; RBC 4.68 m/uL (3.80-5.40); RDW 16.1 % (11.5-15.5); WBC 16.3 k/uL (3.8-10.6); WBC (Perox) 15.44
[2016-05-10] MEDS ORDERED: fentaNYL (PF) 50 MCG/ML 2 ML AMP IV ONE (12:06)
[2016-05-10 12:10] LABS: Glucose,Whole Blood 85 mg/dL (75-99)
[2016-05-10 12:16] LABS: ALT 45 U/L (9-52); AST 29 U/L (14-36); Alkaline Phosphatase 135 U/L (38-126); Anion Gap 10 mmol/L; Blood Urea Nitrogen 11 mg/dL (7-17); Calcium 9.2 mg/dL (8.4-10.2); Carbon Dioxide 26 mmol/L (22-30); Chloride 105 mmol/L (98-107); Glucose 72 mg/dL (74-99); Non-African American GFR(MDRD) >60 (>60 ml/min/1.73 sqM); Potassium 4.4 mmol/L (3.5-5.1); Sodium 141 mmol/L (137-145); Total Bilirubin 0.5 mg/dL (0.2-1.3); Total Protein 5.9 g/dL (6.3-8.2)
[2016-05-10] MEDS ORDERED: HYDROmorphone (PF) 1 MG/ML ONE (12:28)
[2016-05-10] MEDS ORDERED: MIDAZOLAM 2 MG/2 ML VIAL ONE (12:28)
[2016-05-10] MEDS ORDERED: PROPOFOL 10 MG/ML 20 ML VIAL IV ONE (12:28)
[2016-05-10] MEDS ORDERED: fentaNYL (PF) 50 MCG/ML 2 ML AMP ONE (12:28)
[2016-05-10] MEDS ORDERED: LIDOCAINE 1% INJ 10MG/ML (20 ML MDV) SQ ONE (12:57)
[2016-05-10 14:10] LABS: Glucose,Whole Blood 170 mg/dL (75-99)
--- NOTE | 2016-05-10 14:12 | P.OP ---
Date of Procedure: 05/10/16 Preoperative Diagnosis: Multiple skin and subcutaneous abscesses Rheumatoid arthritis Chronic immunosuppression secondary to steroids and methotrexate Diabetes mellitus Chronic nicotine dependence Postoperative Diagnosis: Same Procedure(s) Performed: Sharp excisional debridement of skin, subcu tissue, muscle of left axilla using scalpel and Bovie electrocautery. Post debridement measurement 8 x 7.5 x 4 cm Sharp excisional debridement of skin, subcu tissue of left elbow using scalpel and Bovie electrocautery. Post debridement measurements 2 x 2 x0.3 cm Placement of wound VAC left axilla covering 8 x 7.5 x 4 cm. Implants: Wound vac left axilla Anesthesia: MAC Pathology: other Condition: stable Disposition: PACU Indications for Procedure: 50 years old female with multiple comorbid conditions including rheumatoid arthritis, diabetes mellitus, chronic smoking, immunocompromised state presents with a draining ulceration in the left axilla and left elbow. Informed consent obtained and patient elected to undergo excisional debridement in the OR with application of wound VAC. The risks, benefits and potential complications explained and patient agreed. Operative Findings: Large chronic abscess cavity with septations and tunneling deep to the axilla . Description of Procedure: The patient was brought to the operating room and placed in supine position. The arm was positioned above the head. Betadine was used to prep the skin and a timeout was performed to verify correct patient, correct procedure and correct site. Sterile dressings were applied. Sharp excisional debridement was performed to remove skin, subcu tissue from left elbow ulcer since scalpel and Bovie electrocautery. There was circumferential undermining. Fresh pinpoint bleeding was obtained. Final post- debridement measurement 2 x 2 x0.3cm. The axillary also had circumferential undermining and deep tunneling. The roof of the ulcer was excised using Bovie electrocautery. The underlying abscess cavity was exposed. It had chronic granulation tissue and septations with intermittent tunnels. This is indicating chronic abscess. The abscess cavity was extending deep to the pectoralis major muscle to the deep axillary space. The skin, subcu tissues tissue and hyper granulation tissue was excised. The muscle of the arm and chest wall appeared atrophic. Hemostasis was checked. Final post-debridement measurements 8 x 7.5 x 4 cm. The resulting cavity was copiously irrigated with pulse evacuator with 3 L saline. The resulting cavity was checked for hemostasis. Bleeding vessels were tied using 2-0 silk. Adaptic dressing was applied followed by application of standard wound VAC black foam. The dressing was sealed and was connected to a continuous suction of 125 mm of Hg. The sponge, instrument and needle count were correct 2. Patient tolerated the procedure well and was taken to postanesthesia unit in stable condition.
[2016-05-10] MEDS: HYDROmorphone 1 MG/ML 1 ML SYRINGE IVP PRN ×2 (14:13→14:18)
[2016-05-10] MEDS: LACTATED RINGERS 1,000 ML IV SCH (15:37)
[2016-05-10] MEDS: ENOXAPARIN 40 MG/0.4 ML SYRINGE SQ SCH (16:19)
[2016-05-10] MEDS: LOSARTAN 50 MG TAB PO SCH (16:21)
[2016-05-10] MEDS: FOLIC ACID 1 MG TAB PO SCH (16:22)
[2016-05-10] MEDS: ASCORBIC ACID 500 MG TAB PO SCH (16:23)
[2016-05-10] MEDS: MELOXICAM 7.5 MG TAB PO SCH (16:23)
[2016-05-10] MEDS: NICOTINE 21MG/24HR PATCH TRANSDERM SCH (16:24)
[2016-05-10] MEDS: POTASSIUM CHLORIDE ORAL LIQUID 40 MEQ/30 ML CUP PO SCH (16:24)
[2016-05-10 16:48] LABS: Glucose,Whole Blood 249 mg/dL (75-99)
[2016-05-10] MEDS: PANTOPRAZOLE 40 MG TABLET PO SCH (20:48)
[2016-05-10] MEDS: ASPIRIN 81 MG CHEW PO SCH (20:48)
[2016-05-10 21:20] LABS: Glucose,Whole Blood 326 mg/dL (75-99)
--- NOTE | 2016-05-10 22:00 | P.PN ---
Subjective This is a 50-year-old pleasant female patient of Dr. Spring and Dr. Downing. She has underlying history of rheumatid arthritis, Sjogren's, Raynaud's, diabetes mellitus type 2, hyperlipidemia, hypertension, rheumatoid lung, chronic immunosuppression cervical stenosis with upper extremity weakness, impaired balance impaired gait admitted to emergency room secondary to left axillary abscess. She follows at the wound clinic secondary to cellulitis of the lower extremities bilateral, she complained off swelling in the left arm. 1-1/2 weeks prior to admission for which patient took notice and got to see Dr. Spring and Dr. Downing. She had been started on Bactrim DS 1 tab twice a day for which she is completing her last 2 doses for this treatment. Patient refused are to be admitted week ago when he saw Dr. Munoz. The swelling in the left armpit now has gotten so big she said it was a red tomato, she developed fever of 101, patient does not have any diarrhea this time. She has off-and-on chills chills she has off-and-on fever she was last seen by Dr. Downing in the 1 clinic approximately 04/29/2016 for bilateral lower extremity ulcers and redness. She says that the left plantar ulcer is stable however the redness in the left leg medially shinbone is new, she has chronic changes in the right foot plantar region for which she has full-thickness debridement last 04/29/2016, on her stage II lesions please see full documentation off the visit from Dr. Downing . Cultures from the left arm shows streptococcus species from 2015 also growing diphtheroid species She presented to emergency room with failure off improvement using Bactrim on a lesion in the left elbow, drainage on the right axilla with now an open fistula measuring 3 cm long by 0.5 cm wide and subcutaneous tissues including muscles are visible on this hole. Consults were made with Dr. Luo general surgery Dr. Downing, infectious disease. Patient currently is on IV clindamycin IV Unasyn. Cultures would need to be sent intraoperatively 05/10: patient went for surgical debridement on the left armpit abscess Objective - Vital Signs Vital signs: Vital Signs Temp 97.2 F L 05/10/16 15:54 Pulse 111 H 05/10/16 15:54 Resp 20 05/10/16 15:54 BP 131/67 05/10/16 15:54 Pulse Ox 91 L 05/10/16 15:54 Intake & Output 05/10/16 05/10/16 05/11/16 06:59 18:59 06:59 Intake Total 400 1050 Output Total 2 475 Balance 398 575 Intake: IV 1050 Oral 400 Output: Urine 400 Stool 2 Estimated Blood Loss 75 Other: # Voids 1 2 # Bowel Movements 1 - Constitutional General appearance: Present: cooperative, no acute distress, obese - EENT Eyes: Present: anicteric sclerae, PERRLA, dentition normal ENT: Present: hearing grossly normal, NA/AT, normal oropharynx - Neck Neck: Present: normal ROM - Respiratory Respiratory: bilateral: CTA, negative: diminished, dullness, rales, rhonchi - Cardiovascular Rhythm: irregularly irregular Heart sounds: normal: S1, S2 - Gastrointestinal General gastrointestinal: Present: normal bowel sounds, soft - Integumentary Integumentary Comment(s): see previous Integumentary: Present: normal, normal turgor - Neurologic Neurologic: Present: CNII-XII intact - Psychiatric Psychiatric: Present: A&O x's 3, appropriate affect, intact judgment & insight - Labs CBC & Chem 7: 05/10/16 11:04 05/10/16 11:04 Labs: Abnormal Lab Results - Last 24 Hours (Table) 05/10/16 05/10/16 05/10/16 Range/Units 11:04 11:04 14:07 WBC 16.3 H (3.8-10.6) k/uL MCHC 30.0 L (31.0-37.0) g/dL RDW 16.1 H (11.5-15.5) % Neutrophils # 11.9 H (1.3-7.7) k/uL Glucose 72 L (74-99) mg/dL POC Glucose (mg/dL) 170 H (75-99) mg/dL Alkaline Phosphatase 135 H (38-126) U/L Total Protein 5.9 L (6.3-8.2) g/dL Albumin 3.3 L (3.5-5.0) g/dL 05/10/16 05/10/16 Range/Units 16:46 21:15 WBC (3.8-10.6) k/uL MCHC (31.0-37.0) g/dL RDW (11.5-15.5) % Neutrophils # (1.3-7.7) k/uL Glucose (74-99) mg/dL POC Glucose (mg/dL) 249 H 326 H (75-99) mg/dL Alkaline Phosphatase (38-126) U/L Total Protein (6.3-8.2) g/dL Albumin (3.5-5.0) g/dL Microbiology - Last 24 Hours (Table) 05/09/16 20:18 Gram Stain - Preliminary Axilla - Left Wound Culture - Preliminary 05/10/16 13:10 Wound Culture - Preliminary Elbow - Left 05/10/16 13:10 Anaerobic Culture - Preliminary Elbow - Left 05/10/16 13:10 Wound Culture - Preliminary Axilla - Left 05/10/16 13:10 Anaerobic Culture - Preliminary Axilla - Left 05/09/16 02:50 Urine Culture - Final Urine,Voided 05/09/16 01:30 Blood Culture - Preliminary Blood No Growth after 24 hours 05/09/16 20:18 Anaerobic Culture - Preliminary Axilla - Left Assessment and Plan Plan: 1. Abscess formation left medial humerus, with deep fistulous formation, abscess still noted in the axilla, patient's in consultation by Dr. Downing and Dr. Cerda's car, IV Unasyn was started. Patient will be receiving preoperative clindamycin. Intraoperative cultures will be obtained, she has no previous visit April 29 peptoStreptococcus species isolated in the left arm. Patient most likely would need wound VAC. Patient's chronically immunosuppressed with methotrexate for which this is currently on hold until resolution off her infection. 2. Rheumatoid arthritis is chronically on methotrexate, Plaquenil would be an appropriate substitute, patient currently is on prednisone 10 mg 3 times a day which we'll maintain Patient follows with Dr. Preston as an outpatient 3. Diabetes mellitus type 2 on metformin, glimepiride A1c will be obtained Accu -Cheks with NovoLog coverage next 5. IBS with diarrhea currently constipated she is on Lomotil 2 mg 4 times a day when necessary no changes were made 6. Decubitus ulcer on santyl 7. DVT prophylaxis on Lovenox 40 8. Chronic pain related to RA and musculoskeletal deformities including spinal stenosis this examination, cervical and lumbar spine affected, patient's on Percocet now and hydrocodone was discontinued secondary to ineffectiveness continue on Flexeril 9. Chronic tobacco dependency at 2 packs per day patient was started on nicotine patch 21 mics per day 10. Hypertension on losartan 100 mg daily 7. DVT prophylaxis with Lovenox GI prophylaxis. On maintenance omeprazole 40 Time with Patient: Greater than 30
[2016-05-10 23:15] LABS: Glucose,Whole Blood 183 mg/dL (75-99)
[2016-05-11] MEDS: oxyCODONE-APAP 7.5-325MG 1 EACH TAB PO PRN ×6 (01:42→21:57)
[2016-05-11] MEDS: AMPICILLIN-SULBACTAM 3 GM in SODIUM CHLORIDE 0.9% 100 ML IVPB SCH ×4 (05:19→23:42)
[2016-05-11] MEDS: LACTATED RINGERS 1,000 ML IV SCH (05:19)
[2016-05-11 07:45] LABS: Glucose,Whole Blood 83 mg/dL (75-99)
[2016-05-11] MEDS: GLIMEPIRIDE 4 MG TAB PO SCH ×2 (07:47→17:37)
[2016-05-11] MEDS: INSULIN LISPRO (humaLOG) 300 UNIT/3 ML VIAL SQ SCH ×3 (07:47→17:38)
[2016-05-11] MEDS: metFORMIN 500 MG TAB PO SCH ×3 (07:47→17:37)
[2016-05-11 09:02] LABS: Anisocytosis Slight; Basophils % (A) 0 %; CH 31.9; CHCM 34.1; Eosinophils # (A) 0.1 k/uL (0-0.7); Eosinophils % (A) 0 %; HDW 2.87; HGB 14.8 gm/dL (11.4-16.0); Luc # (Auto) 0.24; Luc % (Auto) 1; Lymphocytes # (A) 2.2 k/uL (1.0-4.8); Lymphocytes % (A) 11 %; MCH 31.6 pg (25.0-35.0); MCHC 33.6 g/dL (31.0-37.0); MCV 94.1 fL (80.0-100.0); Mean Platelet Volume 7.4; Monocytes # (A) 0.8 k/uL (0-1.0); Monocytes % (A) 4 %; Neutrophils # (A) 16.3 k/uL (1.3-7.7); Neutrophils % (A) 83 %; RBC 4.68 m/uL (3.80-5.40); RDW 16.3 % (11.5-15.5); WBC 19.6 k/uL (3.8-10.6); WBC (Perox) 18.51
[2016-05-11] MEDS: CALCIUM CARB-VIT D 500MG-200UN 1 EACH TAB PO SCH ×2 (09:19→21:13)
[2016-05-11] MEDS: ASCORBIC ACID 500 MG TAB PO SCH (09:19)
[2016-05-11] MEDS: POTASSIUM CHLORIDE ORAL LIQUID 40 MEQ/30 ML CUP PO SCH (09:20)
[2016-05-11] MEDS: MELOXICAM 7.5 MG TAB PO SCH (09:20)
[2016-05-11] MEDS: predniSONE 10 MG TAB PO SCH ×3 (09:20→21:13)
[2016-05-11] MEDS: LOSARTAN 50 MG TAB PO SCH (09:20)
[2016-05-11] MEDS: ENOXAPARIN 40 MG/0.4 ML SYRINGE SQ SCH (09:21)
[2016-05-11] MEDS: COLLAGENASE 250 UNIT/GM OINTMENT 30 GM TUBE TOPICAL SCH (09:22)
[2016-05-11] MEDS: NICOTINE 21MG/24HR PATCH TRANSDERM SCH (09:39)
--- NOTE | 2016-05-11 09:44 | PN ---
DATE OF SERVICE: 05/10/2016 Reason for follow-up is left axillary abscess, left elbow wound as well as sacral pressure wound. INTERVAL HISTORY: The patient is status post drainage of the left axillary abscess. Subsequently wound VAC has been applied. Deep cultures have been obtained. Patient's pain is currently controlled. Denies having any chest pain, shortness of breath, or cough. No abdominal pain or any diarrhea. On examination blood pressure is 131/67 with pulse of 111, temperature 97.2. She is 91% on room air. General description is a middle-age female up in the bed in no distress. RESPIRATORY SYSTEM: Unlabored breathing. Clear to auscultation anteriorly. HEART: S1, S2 regular rate and rhythm. ABDOMEN: Soft, no tenderness. LABS: Hemoglobin is 13.8, white count 16.3 with a BUN of 11, creatinine 0.52. Surgical wound culture currently pending. Blood culture so far negative. DIAGNOSTIC IMPRESSION AND PLAN: 1. Patient with left axillary abscess. Culture done as an outpatient did show Peptostreptococcus and status post repeat I&D today. While waiting for the deep cultures to finalize on the basis of previous culture the patient will continue on Unasyn and wound V.A.C. has been applied. 2. Sacral wound to which I will continue with the Santyl and keep the area of pressure. Dr. Downing will follow this patient as of tomorrow to whom the patient is known. NELA
[2016-05-11 09:53] LABS: Anion Gap 11 mmol/L; Calcium 9.5 mg/dL (8.4-10.2); Carbon Dioxide 27 mmol/L (22-30); Chloride 106 mmol/L (98-107); Glucose 55 mg/dL (74-99); Non-African American GFR(MDRD) >60 (>60 ml/min/1.73 sqM); Sodium 144 mmol/L (137-145)
[2016-05-11 10:00] LABS: Potassium 6.1 mmol/L (3.5-5.1); Total Protein 6.1 g/dL (6.3-8.2)
[2016-05-11 10:01] LABS: Blood Urea Nitrogen 9 mg/dL (7-17); Total Bilirubin 0.8 mg/dL (0.2-1.3)
[2016-05-11 10:02] LABS: ALT 41 U/L (9-52); AST 58 U/L (14-36); Alkaline Phosphatase 110 U/L (38-126)
[2016-05-11 12:10] LABS: Glucose,Whole Blood 143 mg/dL (75-99)
[2016-05-11] MEDS: FOLIC ACID 1 MG TAB PO SCH (12:50)
[2016-05-11 17:21] LABS: Glucose,Whole Blood 166 mg/dL (75-99)
--- NOTE | 2016-05-11 18:40 | P.PN ---
Subjective Principal diagnosis: Axillary abscess left 50-year-old woman who has multiple medical troubles and corroboratory arthritis Sjogren's disease and Raynaud's phenomena as well as diabetes mellitus type 2 poorly controlled obesity and lung disease from her chronic smoking presents to the hospital with significant abscess to her left axillary area. She was evaluated in the wound center and she had some scant drainage to the area which was sent elaborative for culture. Antibiotic therapy was begun. However by the time the patient presents to Hospital she is evidence of a large abscess is opened and draining to the axillary area. She's been taking the operating room for the incision and drainage to this area. Wound VAC is being utilized for now. Likely will need outpatient antibiotic therapy and negative pressure therapy system when she goes to home given the size of the defect Objective - Vital Signs Vital signs: Vital Signs Temp 98.1 F 05/11/16 15:00 Pulse 118 H 05/11/16 15:00 Resp 20 05/11/16 15:00 BP 157/75 05/11/16 15:00 Pulse Ox 90 L 05/11/16 15:00 Intake & Output 05/10/16 05/11/16 05/11/16 18:59 06:59 18:59 Intake Total 1050 100 580 Output Total 475 Balance 575 100 580 Intake: IV 1050 100 Ampicillin-Sulbactam 3 gm 100 In Sodium Chloride 0.9% 100 ml @ 100 mls/hr IVPB Q6HR [facility] Rx#:[id number] Oral 100 480 Output: Urine 400 Estimated Blood Loss 75 Other: Voiding Method Toilet # Voids 2 1 - Exam HEENT: Anicteric conjunctiva are pink and moist nasal mucosa grossly intact without significant lesions, there is no thrush. Neck: The neck is supple without significant lymphadenopathy or thyromegaly. Lungs: Symmetrical air entry with expiratory wheezes Heart: Regular rate and rhythm with an audible S1-S2, no S3 no S4. There is no significant murmur click or rub, PMI was nondisplaced. Abdomen: Obese Positive bowel sounds soft and nontender without palpable masses or organomegaly. There was no guarding or rebound. Extremities: The right arm is without difficulties. Left arm reveals evidence of recent surgical intervention to the left axillary area. The wound VAC is in place. The 8 x 3 x 3 cm defect was reported. The site is tender to touch but this running erythema is improved. The small lesion to the left elbow was also depressed. The patient so far is refused the nursing to be able to change the dressing to her right foot. Her friend is being some dressings in and hopefully she'll allow us to use those. This the chronic ulcer Neuro: Awake alert oriented to person place and time. - Labs CBC & Chem 7: 05/11/16 08:00 05/11/16 08:00 Labs: Abnormal Lab Results - Last 24 Hours (Table) 05/10/16 05/10/16 05/11/16 Range/Units 21:15 23:12 08:00 WBC 19.6 H (3.8-10.6) k/uL RDW 16.3 H (11.5-15.5) % Neutrophils # 16.3 H (1.3-7.7) k/uL Potassium (3.5-5.1) mmol/L Creatinine (0.52-1.04) mg/dL Glucose (74-99) mg/dL POC Glucose (mg/dL) 326 H 183 H (75-99) mg/dL AST (14-36) U/L Total Protein (6.3-8.2) g/dL Albumin (3.5-5.0) g/dL 05/11/16 05/11/16 05/11/16 Range/Units 08:00 12:05 17:14 WBC (3.8-10.6) k/uL RDW (11.5-15.5) % Neutrophils # (1.3-7.7) k/uL Potassium 6.1 H (3.5-5.1) mmol/L Creatinine 0.49 L (0.52-1.04) mg/dL Glucose 55 L (74-99) mg/dL POC Glucose (mg/dL) 143 H 166 H (75-99) mg/dL AST 58 H (14-36) U/L Total Protein 6.1 L (6.3-8.2) g/dL Albumin 3.2 L (3.5-5.0) g/dL Microbiology - Last 24 Hours (Table) 05/09/16 20:18 Gram Stain - Final Axilla - Left Wound Culture - Final 05/10/16 13:10 Gram Stain - Preliminary Axilla - Left Tissue Culture - Preliminary 05/10/16 13:10 Gram Stain - Preliminary Elbow - Left Wound Culture - Preliminary 05/10/16 13:10 Gram Stain - Preliminary Axilla - Left Wound Culture - Preliminary 05/09/16 01:30 Blood Culture - Preliminary Blood No Growth after 48 hours 05/10/16 13:10 Anaerobic Culture - Preliminary Elbow - Left 05/10/16 13:10 Anaerobic Culture - Preliminary Axilla - Left 05/09/16 02:50 Urine Culture - Final Urine,Voided Laboratory Results WBC 19.6 k/uL (3.8-10.6) H 05/11/16 08:00 RBC 4.68 m/uL (3.80-5.40) 05/11/16 08:00 Hgb 14.8 gm/dL (11.4-16.0) 05/11/16 08:00 Hct 44.0 % (34.0-46.0) 05/11/16 08:00 MCV 94.1 fL (80.0-100.0) 05/11/16 08:00 MCH 31.6 pg (25.0-35.0) 05/11/16 08:00 MCHC 33.6 g/dL (31.0-37.0) 05/11/16 08:00 RDW 16.3 % (11.5-15.5) H 05/11/16 08:00 Plt Count 367 k/uL (150-450) 05/11/16 08:00 Neutrophils % 83 % 05/11/16 08:00 Lymphocytes % 11 % 05/11/16 08:00 Monocytes % 4 % 05/11/16 08:00 Eosinophils % 0 % 05/11/16 08:00 Basophils % 0 % 05/11/16 08:00 Neutrophils # 16.3 k/uL (1.3-7.7) H 05/11/16 08:00 Lymphocytes # 2.2 k/uL (1.0-4.8) 05/11/16 08:00 Monocytes # 0.8 k/uL (0-1.0) 05/11/16 08:00 Eosinophils # 0.1 k/uL (0-0.7) 05/11/16 08:00 Basophils # 0.0 k/uL (0-0.2) 05/11/16 08:00 Anisocytosis Slight 05/11/16 08:00 Macrocytosis Slight 05/10/16 11:04 PT 11.0 sec (9.0-12.0) 05/09/16 01:30 INR 1.1 (<1.1) 05/09/16 01:30 APTT 21.6 sec (22.0-30.0) L 05/09/16 01:30 Sodium 144 mmol/L (137-145) 05/11/16 08:00 Potassium 6.1 mmol/L (3.5-5.1) H 05/11/16 08:00 Chloride 106 mmol/L (98-107) 05/11/16 08:00 Carbon Dioxide 27 mmol/L (22-30) 05/11/16 08:00 Anion Gap 11 mmol/L 05/11/16 08:00 BUN 9 mg/dL (7-17) 05/11/16 08:00 Creatinine 0.49 mg/dL (0.52-1.04) L 05/11/16 08:00 Est GFR (MDRD) Af Amer >60 (>60 ml/min/1.73 sqM) 05/11/16 08:00 Est GFR (MDRD) Non-Af >60 (>60 ml/min/1.73 sqM) 05/11/16 08:00 Glucose 55 mg/dL (74-99) L 05/11/16 08:00 POC Glucose (mg/dL) 166 mg/dL (75-99) H 05/11/16 17:14 POC Glu [employer] ID Varsha Stoll 05/11/16 17:[address] Glu mg/dL 212 mg/dL 05/09/16 01:30 Hemoglobin A1c 9.0 % (4.2-6.1) H 05/09/16 01:30 Plasma Lactic Acid Rony 1.9 mmol/L (0.7-2.0) 05/09/16 01:30 Calcium 9.5 mg/dL (8.4-10.2) 05/11/16 08:00 Phosphorus 3.4 mg/dL (2.5-4.5) 05/09/16 01:30 Magnesium 1.6 mg/dL (1.6-2.3) 05/09/16 01:30 Total Bilirubin 0.8 mg/dL (0.2-1.3) 05/11/16 08:00 AST 58 U/L (14-36) H 05/11/16 08:00 ALT 41 U/L (9-52) 05/11/16 08:00 Alkaline Phosphatase 110 U/L (38-126) 05/11/16 08:00 Total Creatine Kinase 87 U/L (30-135) 05/09/16 01:30 CK-MB (CK-2) 3.3 ng/mL (0.0-2.4) H* 05/09/16 01:30 CK-MB (CK-2) Rel Index 3.8 05/09/16 01:30 Total Protein 6.1 g/dL (6.3-8.2) L 05/11/16 08:00 Albumin 3.2 g/dL (3.5-5.0) L 05/11/16 08:00 Urine Color Yellow 05/09/16 02:50 Urine Appearance Clear (Clear) 05/09/16 02:50 Urine pH 6.0 (5.0-8.0) 05/09/16 02:50 Ur Specific [place] 1.012 (1.001-1.035) 05/09/16 02:50 Urine Protein Trace (Negative) H 05/09/16 02:50 Urine Glucose (UA) 4+ (Negative) H 05/09/16 02:50 Urine Ketones Negative (Negative) 05/09/16 02:50 Urine Blood Small (Negative) H 05/09/16 02:50 Urine Nitrate Negative (Negative) 05/09/16 02:50 Urine Bilirubin Negative (Negative) 05/09/16 02:50 Urine Urobilinogen <2.0 mg/dL (<2.0) 05/09/16 02:50 Ur Leukocyte Esterase Negative (Negative) 05/09/16 02:50 Urine RBC 42 /hpf (0-5) H 05/09/16 02:50 Urine WBC 2 /hpf (0-5) 05/09/16 02:50 Ur Squamous Epith Cells 1 /hpf (0-4) 05/09/16 02:50 Hyaline Casts 2 /lpf (0-2) 05/09/16 02:50 Granular Casts 1 /lpf (0) 05/09/16 02:50 Urine Mucus Rare /hpf (None) H 05/09/16 02:50 Urine HCG, Qual Not Detected (Not Detectd) 05/10/16 10:35 Vancomycin Trough 6.6 ug/mL 05/10/16 11:04 Microbiology 05/09/16 20:18 Axilla - Left Gram Stain - Final 05/09/16 20:18 Axilla - Left Wound Culture - Final 05/10/16 13:10 Axilla - Left Gram Stain - Preliminary 05/10/16 13:10 Axilla - Left Tissue Culture - Preliminary 05/10/16 13:10 Elbow - Left Gram Stain - Preliminary 05/10/16 13:10 Elbow - Left Wound Culture - Preliminary 05/10/16 13:10 Axilla - Left Gram Stain - Preliminary 05/10/16 13:10 Axilla - Left Wound Culture - Preliminary 05/09/16 01:30 Blood Blood Culture - Preliminary No Growth after 48 hours 05/10/16 13:10 Elbow - Left Anaerobic Culture - Preliminary 05/10/16 13:10 Axilla - Left Anaerobic Culture - Preliminary 05/09/16 02:50 Urine,Voided Urine Culture - Final 05/09/16 20:18 Axilla - Left Anaerobic Culture - Preliminary Assessment and Plan (1) Abscess of left axilla Narrative/Plan: 50-year-old woman who has multiple medical troubles including rheumatoid arthritis and Sjogren's that is on chronic immunosuppressive therapy presents with a significant abscess to her left axillary area. It is Located because of her somewhat uncontrolled diabetes and obesity. She is now status post incision and drainage of the site and a wound VAC has been applied. This seems to be working quite well. There was recent culture that showed evidence of the Peptostreptococcus and anaerobic gram-positive bacilli for which Unison is being utilized in hospital. No other resistant pathogens been found. Deep tissue cultures are pending at this time. We'll continue the antibiotic therapy with Unasyn for now. There may be the option for outpatient intravenous antibiotic therapy at discharge and could be altered to ertapenem. However given the size of this defect negative pressure therapy will likely be utilized in the home setting. If the patient will comply. Alex will be utilizes ulceration to the right foot if she will allow. She does have severe leukocytosis likely due to significant infection to left axillary area. He had no her blood sugars are better in hospital though we would see in the wound center on a routine basis. Status: Acute (2) Diabetic foot ulcer associated with type 2 diabetes mellitus, with fat layer exposed Status: Acute (3) Rheumatoid arthritis Status: Acute
[2016-05-11 19:02] LABS: Anion Gap 11 mmol/L; Blood Urea Nitrogen 13 mg/dL (7-17); Calcium 9.1 mg/dL (8.4-10.2); Carbon Dioxide 26 mmol/L (22-30); Chloride 103 mmol/L (98-107); Glucose 125 mg/dL (74-99); Non-African American GFR(MDRD) >60 (>60 ml/min/1.73 sqM); Potassium 4.6 mmol/L (3.5-5.1); Sodium 140 mmol/L (137-145)
[2016-05-11] MEDS: PANTOPRAZOLE 40 MG TABLET PO SCH (21:13)
[2016-05-11] MEDS: ASPIRIN 81 MG CHEW PO SCH (21:13)
[2016-05-11] MEDS: WITCH HAZEL 1 EACH MED..PAD TOPICAL SCH ×2 (21:15→23:42)
[2016-05-11 21:30] LABS: Glucose,Whole Blood 191 mg/dL (75-99)
[2016-05-12] MEDS: oxyCODONE-APAP 7.5-325MG 1 EACH TAB PO PRN ×6 (02:03→23:42)
[2016-05-12] MEDS: AMPICILLIN-SULBACTAM 3 GM in SODIUM CHLORIDE 0.9% 100 ML IVPB SCH ×4 (05:46→23:41)
[2016-05-12] MEDS: WITCH HAZEL 1 EACH MED..PAD TOPICAL SCH ×5 (05:46→23:42)
[2016-05-12] MEDS: LACTATED RINGERS 1,000 ML IV SCH (05:52)
[2016-05-12 07:33] LABS: Glucose,Whole Blood 86 mg/dL (75-99)
[2016-05-12] MEDS: LOSARTAN 50 MG TAB PO SCH (07:45)
[2016-05-12] MEDS: predniSONE 10 MG TAB PO SCH ×3 (07:45→20:59)
[2016-05-12] MEDS: metFORMIN 500 MG TAB PO SCH ×3 (07:45→17:53)
[2016-05-12] MEDS: ENOXAPARIN 40 MG/0.4 ML SYRINGE SQ SCH (07:45)
[2016-05-12] MEDS: CALCIUM CARB-VIT D 500MG-200UN 1 EACH TAB PO SCH ×2 (07:45→20:58)
[2016-05-12] MEDS: NICOTINE 21MG/24HR PATCH TRANSDERM SCH (07:45)
[2016-05-12] MEDS: MELOXICAM 7.5 MG TAB PO SCH ×2 (07:46→10:32)
[2016-05-12] MEDS: ASCORBIC ACID 500 MG TAB PO SCH (07:46)
[2016-05-12] MEDS: GLIMEPIRIDE 4 MG TAB PO SCH ×2 (07:47→17:53)
[2016-05-12] MEDS: INSULIN LISPRO (humaLOG) 300 UNIT/3 ML VIAL SQ SCH ×4 (07:47→22:19)
[2016-05-12] MEDS: POTASSIUM CHLORIDE ORAL LIQUID 40 MEQ/30 ML CUP PO SCH (07:48)
[2016-05-12 09:13] LABS: Anisocytosis Slight; Basophils % (A) 0 %; CH 31.5; CHCM 32.8; Eosinophils # (A) 0.1 k/uL (0-0.7); Eosinophils % (A) 0 %; HCT 43.8 % (34.0-46.0); HDW 2.78; HGB 13.6 gm/dL (11.4-16.0); Luc # (Auto) 0.24; Luc % (Auto) 1; Lymphocytes # (A) 2.4 k/uL (1.0-4.8); Lymphocytes % (A) 14 %; MCHC 31.1 g/dL (31.0-37.0); MCV 96.4 fL (80.0-100.0); Mean Platelet Volume 6.7; Monocytes # (A) 0.5 k/uL (0-1.0); Monocytes % (A) 3 %; Neutrophils # (A) 13.8 k/uL (1.3-7.7); Neutrophils % (A) 81 %; RBC 4.54 m/uL (3.80-5.40); RDW 16.2 % (11.5-15.5); WBC (Perox) 17.35
[2016-05-12 09:35] LABS: ALT 38 U/L (9-52); AST 20 U/L (14-36); Alkaline Phosphatase 129 U/L (38-126); Anion Gap 9 mmol/L; Blood Urea Nitrogen 15 mg/dL (7-17); Calcium 9.4 mg/dL (8.4-10.2); Carbon Dioxide 29 mmol/L (22-30); Chloride 104 mmol/L (98-107); Glucose 90 mg/dL (74-99); Non-African American GFR(MDRD) >60 (>60 ml/min/1.73 sqM); Potassium 4.4 mmol/L (3.5-5.1); Sodium 142 mmol/L (137-145); Total Bilirubin 0.3 mg/dL (0.2-1.3); Total Protein 5.9 g/dL (6.3-8.2)
--- NOTE | 2016-05-12 11:39 | PN ---
INTERVAL HISTORY: Patient continues to have discomfort to the axillary area, where the wound VAC was applied. The patient seems to be in no acute distress. Denying chest pain, shortness of breath, nausea, vomiting, or abdominal pain. Patient has been tolerating diet without difficulty. PHYSICAL EXAMINATION: VITAL SIGNS: Patient continues to be afebrile over the last 24 hours. Heart rate has been slightly elevated at between 95 and 110, respiratory rate normal, blood pressure is under fair control and saturation is above 90% on room air. LUNGS: Clear to auscultation bilaterally. HEART: S1, S2. ABDOMEN: Soft, nontender. Positive bowel sounds in all 4 quadrants. Left axillary area with wound VAC in place with minimal drainage through the wound VAC machine. PSYCH: Alert, and oriented x3. SKIN: No new rash. IMAGING AND LABS: Normal hemoglobin and platelets. Potassium was elevated at 6.1 this morning. Creatinine at 0.49. Glucose fluctuating between 83 and 166. Total protein is 6.1 and albumin is 3.2. ASSESSMENT AND PLAN: 1. Hyperkalemia, unknown etiology. I would like to repeat the chem 7 right now and reevaluate the hyperkalemia. If still elevated, will do protocol for hyperkalemia. 2. Leukocytosis likely secondary to the abscess and infection process. We will continue monitoring her CBC in the morning. 3. Axillary abscess is status post I&D by General Surgery. We will continue current IV antibiotics and wound VAC and will follow-up on the final culture results. 4. Sacral wound. Patient was started on Santyl. 5. Diabetes, seems to be under fair control. 6. Prognosis is still guarded. 7. Rheumatoid arthritis. Pain under fair control.
[2016-05-12] MEDS: FOLIC ACID 1 MG TAB PO SCH (12:18)
[2016-05-12] MEDS: COLLAGENASE 250 UNIT/GM OINTMENT 30 GM TUBE TOPICAL SCH (12:20)
[2016-05-12 12:23] LABS: Glucose,Whole Blood 85 mg/dL (75-99)
[2016-05-12 16:39] LABS: Glucose,Whole Blood 62 mg/dL (75-99)
[2016-05-12 16:59] LABS: Glucose,Whole Blood 70 mg/dL (75-99)
[2016-05-12] MEDS: ASPIRIN 81 MG CHEW PO SCH (20:58)
[2016-05-12] MEDS: PANTOPRAZOLE 40 MG TABLET PO SCH (20:59)
[2016-05-12 21:49] LABS: Glucose,Whole Blood 85 mg/dL (75-99)
--- NOTE | 2016-05-13 | P.PN ---
Subjective Principal diagnosis: Axillary abscess left 50-year-old woman who has multiple medical troubles and corroboratory arthritis Sjogren's disease and Raynaud's phenomena as well as diabetes mellitus type 2 poorly controlled obesity and lung disease from her chronic smoking presents to the hospital with significant abscess to her left axillary area. She was evaluated in the wound center and she had some scant drainage to the area which was sent elaborative for culture. Antibiotic therapy was begun. However by the time the patient presents to Hospital she is evidence of a large abscess is opened and draining to the axillary area. She's been taking the operating room for the incision and drainage to this area. Wound VAC is being utilized for now. Likely will need outpatient antibiotic therapy and negative pressure therapy system when she goes to home given the size of the defect Denies any new acute difficulties today. Pain is under good control. Does have ongoing troubles with her blood sugars. Objective - Vital Signs Vital signs: Vital Signs Temp 98.1 F 05/12/16 15:00 Pulse 106 H 05/12/16 15:00 Resp 16 05/12/16 15:00 BP 142/83 05/12/16 15:00 Pulse Ox 95 05/12/16 15:00 Intake & Output 05/12/16 05/12/16 05/13/16 06:59 18:59 06:59 Intake Total 200 Balance 200 Intake: Oral 200 Other: Voiding Method Toilet Toilet # Voids 3 1 # Bowel Movements 2 0 - Exam HEENT: Anicteric conjunctiva are pink and moist nasal mucosa grossly intact without significant lesions, there is no thrush. Neck: The neck is supple without significant lymphadenopathy or thyromegaly. Lungs: Symmetrical air entry with expiratory wheezes Heart: Regular rate and rhythm with an audible S1-S2, no S3 no S4. There is no significant murmur click or rub, PMI was nondisplaced. Abdomen: Obese Positive bowel sounds soft and nontender without palpable masses or organomegaly. There was no guarding or rebound. Extremities: The right arm is without difficulties. Left arm reveals evidence of recent surgical intervention to the left axillary area. The wound VAC is in place. The 8 x 3 x 3 cm defect was reported. The site is tender to touch but this running erythema is improved. The small lesion to the left elbow was also depressed. The patient so far is refused the nursing to be able to change the dressing to her right foot. Her friend is being some dressings in and hopefully she'll allow us to use those. This the chronic ulcer Neuro: Awake alert oriented to person place and time. - Labs CBC & Chem 7: 05/12/16 08:47 05/12/16 08:47 Labs: Abnormal Lab Results - Last 24 Hours (Table) 05/12/16 05/12/16 05/12/16 Range/Units 08:47 08:47 16:38 WBC 17.0 H (3.8-10.6) k/uL RDW 16.2 H (11.5-15.5) % Neutrophils # 13.8 H (1.3-7.7) k/uL POC Glucose (mg/dL) 62 L (75-99) mg/dL Alkaline Phosphatase 129 H (38-126) U/L Total Protein 5.9 L (6.3-8.2) g/dL Albumin 3.2 L (3.5-5.0) g/dL 05/12/16 Range/Units 16:54 WBC (3.8-10.6) k/uL RDW (11.5-15.5) % Neutrophils # (1.3-7.7) k/uL POC Glucose (mg/dL) 70 L (75-99) mg/dL Alkaline Phosphatase (38-126) U/L Total Protein (6.3-8.2) g/dL Albumin (3.5-5.0) g/dL Microbiology - Last 24 Hours (Table) 05/10/16 13:10 Gram Stain - Final Elbow - Left Wound Culture - Final 05/10/16 13:10 Gram Stain - Preliminary Axilla - Left Tissue Culture - Preliminary 05/10/16 13:10 Anaerobic Culture - Preliminary Elbow - Left 05/10/16 13:10 Anaerobic Culture - Preliminary Axilla - Left 05/09/16 01:30 Blood Culture - Preliminary Blood No Growth after 72 hours 05/09/16 20:18 Anaerobic Culture - Preliminary Axilla - Left Laboratory Results WBC 17.0 k/uL (3.8-10.6) H 05/12/16 08:47 RBC 4.54 m/uL (3.80-5.40) 05/12/16 08:47 Hgb 13.6 gm/dL (11.4-16.0) 05/12/16 08:47 Hct 43.8 % (34.0-46.0) 05/12/16 08:47 MCV 96.4 fL (80.0-100.0) 05/12/16 08:47 MCH 30.0 pg (25.0-35.0) 05/12/16 08:47 MCHC 31.1 g/dL (31.0-37.0) 05/12/16 08:47 RDW 16.2 % (11.5-15.5) H 05/12/16 08:47 Plt Count 408 k/uL (150-450) 05/12/16 08:47 Neutrophils % 81 % 05/12/16 08:47 Lymphocytes % 14 % 05/12/16 08:47 Monocytes % 3 % 05/12/16 08:47 Eosinophils % 0 % 05/12/16 08:47 Basophils % 0 % 05/12/16 08:47 Neutrophils # 13.8 k/uL (1.3-7.7) H 05/12/16 08:47 Lymphocytes # 2.4 k/uL (1.0-4.8) 05/12/16 08:47 Monocytes # 0.5 k/uL (0-1.0) 05/12/16 08:47 Eosinophils # 0.1 k/uL (0-0.7) 05/12/16 08:47 Basophils # 0.0 k/uL (0-0.2) 05/12/16 08:47 Anisocytosis Slight 05/12/16 08:47 Macrocytosis Slight 05/10/16 11:04 PT 11.0 sec (9.0-12.0) 05/09/16 01:30 INR 1.1 (<1.1) 05/09/16 01:30 APTT 21.6 sec (22.0-30.0) L 05/09/16 01:30 Sodium 142 mmol/L (137-145) 05/12/16 08:47 Potassium 4.4 mmol/L (3.5-5.1) 05/12/16 08:47 Chloride 104 mmol/L (98-107) 05/12/16 08:47 Carbon Dioxide 29 mmol/L (22-30) 05/12/16 08:47 Anion Gap 9 mmol/L 05/12/16 08:47 BUN 15 mg/dL (7-17) 05/12/16 08:47 Creatinine 0.57 mg/dL (0.52-1.04) 05/12/16 08:47 Est GFR (MDRD) Af Amer >60 (>60 ml/min/1.73 sqM) 05/12/16 08:47 Est GFR (MDRD) Non-Af >60 (>60 ml/min/1.73 sqM) 05/12/16 08:47 Glucose 90 mg/dL (74-99) 05/12/16 08:47 POC Glucose (mg/dL) 85 mg/dL (75-99) 05/12/16 21:41 POC Glu Pet Care Attendant Varsha Oliveira 05/12/16 21:[address] Glu mg/dL 212 mg/dL 05/09/16 01:30 Hemoglobin A1c 9.0 % (4.2-6.1) H 05/09/16 01:30 Plasma Lactic Acid Rony 1.9 mmol/L (0.7-2.0) 05/09/16 01:30 Calcium 9.4 mg/dL (8.4-10.2) 05/12/16 08:47 Phosphorus 3.4 mg/dL (2.5-4.5) 05/09/16 01:30 Magnesium 1.6 mg/dL (1.6-2.3) 05/09/16 01:30 Total Bilirubin 0.3 mg/dL (0.2-1.3) 05/12/16 08:47 AST 20 U/L (14-36) 05/12/16 08:47 ALT 38 U/L (9-52) 05/12/16 08:47 Alkaline Phosphatase 129 U/L (38-126) H 05/12/16 08:47 Total Creatine Kinase 87 U/L (30-135) 05/09/16 01:30 CK-MB (CK-2) 3.3 ng/mL (0.0-2.4) H* 05/09/16 01:30 CK-MB (CK-2) Rel Index 3.8 05/09/16 01:30 Total Protein 5.9 g/dL (6.3-8.2) L 05/12/16 08:47 Albumin 3.2 g/dL (3.5-5.0) L 05/12/16 08:47 Urine Color Yellow 05/09/16 02:50 Urine Appearance Clear (Clear) 05/09/16 02:50 Urine pH 6.0 (5.0-8.0) 05/09/16 02:50 Ur Specific [place] 1.012 (1.001-1.035) 05/09/16 02:50 Urine Protein Trace (Negative) H 05/09/16 02:50 Urine Glucose (UA) 4+ (Negative) H 05/09/16 02:50 Urine Ketones Negative (Negative) 05/09/16 02:50 Urine Blood Small (Negative) H 05/09/16 02:50 Urine Nitrate Negative (Negative) 05/09/16 02:50 Urine Bilirubin Negative (Negative) 05/09/16 02:50 Urine Urobilinogen <2.0 mg/dL (<2.0) 05/09/16 02:50 Ur Leukocyte Esterase Negative (Negative) 05/09/16 02:50 Urine RBC 42 /hpf (0-5) H 05/09/16 02:50 Urine WBC 2 /hpf (0-5) 05/09/16 02:50 Ur Squamous Epith Cells 1 /hpf (0-4) 05/09/16 02:50 Hyaline Casts 2 /lpf (0-2) 05/09/16 02:50 Granular Casts 1 /lpf (0) 05/09/16 02:50 Urine Mucus Rare /hpf (None) H 05/09/16 02:50 Urine HCG, Qual Not Detected (Not Detectd) 05/10/16 10:35 Vancomycin Trough 6.6 ug/mL 05/10/16 11:04 Microbiology 05/10/16 13:10 Elbow - Left Gram Stain - Final 05/10/16 13:10 Elbow - Left Wound Culture - Final 05/10/16 13:10 Axilla - Left Gram Stain - Preliminary 05/10/16 13:10 Axilla - Left Tissue Culture - Preliminary 05/10/16 13:10 Elbow - Left Anaerobic Culture - Preliminary 05/10/16 13:10 Axilla - Left Anaerobic Culture - Preliminary 05/09/16 01:30 Blood Blood Culture - Preliminary No Growth after 72 hours 05/09/16 20:18 Axilla - Left Anaerobic Culture - Preliminary 05/09/16 20:18 Axilla - Left Gram Stain - Final 05/09/16 20:18 Axilla - Left Wound Culture - Final 05/09/16 02:50 Urine,Voided Urine Culture - Final Assessment and Plan (1) Abscess of left axilla Narrative/Plan: 50-year-old woman who has multiple medical troubles including rheumatoid arthritis and Sjogren's that is on chronic immunosuppressive therapy presents with a significant abscess to her left axillary area. It is Located because of her somewhat uncontrolled diabetes and obesity. She is now status post incision and drainage of the site and a wound VAC has been applied. This seems to be working quite well. There was recent culture that showed evidence of the Peptostreptococcus and anaerobic gram-positive bacilli for which Unison is being utilized in hospital. No other resistant pathogens been found. Deep tissue cultures are pending at this time. We'll continue the antibiotic therapy with Unasyn for now. There may be the option for outpatient intravenous antibiotic therapy at discharge and could be altered to ertapenem. However given the size of this defect negative pressure therapy will likely be utilized in the home setting. If the patient will comply. Alex will be utilizes ulceration to the right foot if she will allow. She does have leukocytosis likely due to significant infection to left axillary area. currently attempting to have her blood sugars improved while sheis in hospital though we would see in the wound center on a routine basis. Status: Acute (2) Diabetic foot ulcer associated with type 2 diabetes mellitus, with fat layer exposed Status: Acute (3) Rheumatoid arthritis Status: Acute
[2016-05-13] MEDS: oxyCODONE-APAP 7.5-325MG 1 EACH TAB PO PRN ×5 (04:36→20:58)
[2016-05-13] MEDS: AMPICILLIN-SULBACTAM 3 GM in SODIUM CHLORIDE 0.9% 100 ML IVPB SCH ×4 (06:06→23:55)
[2016-05-13] MEDS: WITCH HAZEL 1 EACH MED..PAD TOPICAL SCH ×5 (06:06→23:55)
[2016-05-13 06:58] LABS: Glucose,Whole Blood 134 mg/dL (75-99)
[2016-05-13] MEDS: POTASSIUM CHLORIDE ORAL LIQUID 40 MEQ/30 ML CUP PO SCH (08:10)
[2016-05-13] MEDS: ASCORBIC ACID 500 MG TAB PO SCH (08:11)
[2016-05-13] MEDS: INSULIN LISPRO (humaLOG) 300 UNIT/3 ML VIAL SQ SCH ×4 (08:12→20:59)
[2016-05-13] MEDS: predniSONE 10 MG TAB PO SCH ×3 (08:12→21:00)
[2016-05-13] MEDS: metFORMIN 500 MG TAB PO SCH ×2 (08:12→17:16)
[2016-05-13] MEDS: GLIMEPIRIDE 4 MG TAB PO SCH ×2 (08:13→17:15)
[2016-05-13] MEDS: COLLAGENASE 250 UNIT/GM OINTMENT 30 GM TUBE TOPICAL SCH (08:13)
[2016-05-13] MEDS: LOSARTAN 50 MG TAB PO SCH (08:13)
[2016-05-13] MEDS: CALCIUM CARB-VIT D 500MG-200UN 1 EACH TAB PO SCH ×2 (08:13→20:01)
[2016-05-13] MEDS: ENOXAPARIN 40 MG/0.4 ML SYRINGE SQ SCH (08:14)
[2016-05-13] MEDS: MELOXICAM 7.5 MG TAB PO SCH (08:14)
[2016-05-13] MEDS: NICOTINE 21MG/24HR PATCH TRANSDERM SCH (08:14)
--- NOTE | 2016-05-13 08:22 | PN ---
INTERVAL HISTORY: The patient continues to be hemodynamically stable. No major events reports by nursing staff. The patient currently is complaining of intractable pain in the axillary area and the patient is very lethargic and sleepy due to pain medication at the same time. PHYSICAL EXAMINATION: VITAL SIGNS: Afebrile with stable blood pressure. LUNGS: Clear to auscultation bilaterally. HEART: S1, S2. CHEST: Left axillary area stable from prior examination with wound VAC in place with decent amount of suctioning. SKIN: No new rash. NEUROLOGICAL: Lethargic and sleepy. Imaging and labs: CBC showed white blood count of 17, normal otherwise. Chem-7 showed normal findings. Glucose is on the lower side, albumin is 3.2. Culture still pending, negative. ASSESSMENT AND PLAN: 1. Left axillary abscesses status post incision and drainage with wound VAC placement. We will follow-up on ( ) Final culture results. Continue current antibiotic regimen and infectious disease has been on the case and following up closely. 2. Diabetes. We will optimize her medical management and avoid hypoglycemia. 3. Diabetic foot ulcer associated with Type 2 diabetes. ( ) exposed. Will continue wound care. 4. Rheumatoid arthritis, will continue home regimen. 5. Intractable pain. Discussed with the nursing staff and will avoid heavy sedation. 6. Obesity. 7. Sacral wound will continue Santyl.
[2016-05-13 12:04] LABS: Glucose,Whole Blood 128 mg/dL (75-99)
[2016-05-13] MEDS: FOLIC ACID 1 MG TAB PO SCH (13:04)
[2016-05-13 17:12] LABS: Glucose,Whole Blood 90 mg/dL (75-99)
--- NOTE | 2016-05-13 17:53 | CT ---
EXAMINATION TYPE: CT CervThorLumbar spine wo con DATE OF EXAM: 05/13/2016 4:45 PM COMPARISON: NONE HISTORY: 50-year-old female complains of back pain. TECHNIQUE: Contiguous axial scanning of the cervical, thoracic, and lumbar spine without IV contrast. Coronal and sagittal reconstructions performed. CT DLP: 2633.3 mGycm Automated exposure control for dose reduction was used. FINDINGS: Cervical spine: No craniocervical junction and normally, predental space widening, or prevertebral soft tissue swelli ng. While there is preserved alignment of the cervical spine, there is straightening of the normal cervic al lordosis. Moderate disc/end plate degenerative change present especially from C5 through C7 levels with disc os teophyte complexes causing variable [id number] narrowing of the spinal canal. Additional facet and uncovertebral joint degenerative change. Changes result in variable mild narrowi ng of the spinal canal, moderate on both sides at C5-C6 and C6-C7. Thoracic spine: There are extensive parenchymal changes with a chronic appearing interstitial densities in small area s of microcystic change as well as patchy groundglass. Underlying fibrosis is suspected. There are numerous acute to subacute fractures of right-sided ribs including second second through ei ghth ribs. Suspect mild subpleural hematoma in the right lateral hemithorax. Multilevel mild degenerative disc disease but more moderate to severe from T5 through T10 levels wher e there is significant narrowing of this interspace and vacuum phenomenon. There is endplate sclerosis at the T5-T7 vertebral bodies relating to degenerative disc disease. Ther e is anterior wedging of T6 with approximately 50% anterior height loss and anterior wedging of T7 wi th approximately 40% anterior height loss. The overall anterior height loss has progressed from CT of 02/16/2016. There is accentuated midthoracic kyphosis at this level without retropulsion into the spi nal canal.. Scattered facet arthropathy especially in the upper thoracic spine with variable mild to moderate rig ht-sided neural foraminal stenoses and mild on the left. Alignment is maintained Bilateral punctate renal calculi measuring up to 4 mm in the right kidney. No hydronephrosis. Lumbar spine: No prevertebral or paravertebral soft tissue abnormality seen. There is severe hypertrophic facet arthropathy at L4-L5 and L5-S1 with grade 2 anterolisthesis at L4- L5. Corresponding moderate to severe degenerative disc disease at these levels. Vertebral body heights are preserved. At L4-L5, changes resulting in mild left and moderate to severe right neuroforaminal stenoses. There is moderate to severe spinal canal stenosis. At L5-S1, there is diffuse disc bulge with facet degenerative change resulting in moderate to severe left and mild right neuroforaminal stenosis without spinal canal stenosis. IMPRESSION: CERVICAL SPINE: 1. DISC/ENDPLATE DEGENERATIVE CHANGES ESPECIALLY FROM C5 THROUGH C7 LEVELS AND ADDITIONAL FACET AND U NCOVERTEBRAL JOINT ARTHROPATHY. 2. CHANGES RESULT IN VARIABLE [id number] NARROWING OF THE SPINAL CANAL ESPECIALLY AT THESE LEVE LS. 3. ADDITIONAL MODERATE NEURAL FORAMINAL STENOSES AT C5-C6 AND C6-C7. THORACIC SPINE: 1. MULTIPLE ACUTE AND SUBACUTE RIGHT-SIDED RIB FRACTURES INVOLVING SECOND THROUGH EIGHTH RIBS. 2. ANTERIOR WEDGING OF T6 AND T7 VERTEBRAL BODIES WITH 50% AND 40% ANTERIOR HEIGHT LOSS, RESPECTIVELY . ANTERIOR WEDGING HAS PROGRESSED FROM 02/16/2016 AND ACUTE OR SUBACUTE ON CHRONIC COMPRESSION INJURIE S ARE NOT EXCLUDED. CORRELATE FOR ANY PAIN AT THIS LEVEL. NO RETROPULSION INTO THE SPINAL CANAL. 3. ACCENTUATED MIDTHORACIC KYPHOSIS A RESULT. 4. MODERATE TO SEVERE DISC/ENDPLATE DEGENERATIVE CHANGE FROM T5 THROUGH T10 LEVELS. 5. VARIABLE MILD TO MODERATE NEUROFORAMINAL STENOSES IN THE UPPER THORACIC SPINE. 6. THERE APPEARS TO BE UNDERLYING FIBROTIC CHANGES IN THE LUNGS. LUMBAR SPINE: 1. MODERATE TO SEVERE DEGENERATIVE DISC DISEASE AND HYPERTROPHIC FACET ARTHROPATHY AT L4-L5 AND L5-S1 . 2. AT L4-L5, THERE IS A GRADE 2 ANTEROLISTHESIS WITH MODERATE TO SEVERE SPINAL CANAL STENOSIS AND MOD ERATE TO SEVERE RIGHT NEUROFORAMINAL STENOSIS. 3. AT L5-S1, CHANGES RESULT IN MODERATE TO SEVERE LEFT NEUROFORAMINAL STENOSIS.
[2016-05-13] MEDS: ASPIRIN 81 MG CHEW PO SCH (20:01)
[2016-05-13] MEDS: PANTOPRAZOLE 40 MG TABLET PO SCH (20:59)
[2016-05-13 21:35] LABS: Glucose,Whole Blood 93 mg/dL (75-99)
[2016-05-14] MEDS: oxyCODONE-APAP 7.5-325MG 1 EACH TAB PO PRN ×6 (01:02→22:56)
[2016-05-14] MEDS: WITCH HAZEL 1 EACH MED..PAD TOPICAL SCH ×4 (05:44→21:22)
[2016-05-14] MEDS: AMPICILLIN-SULBACTAM 3 GM in SODIUM CHLORIDE 0.9% 100 ML IVPB SCH ×4 (05:44→23:33)
[2016-05-14 06:56] LABS: Glucose,Whole Blood 127 mg/dL (75-99)
[2016-05-14] MEDS: INSULIN LISPRO (humaLOG) 300 UNIT/3 ML VIAL SQ SCH ×4 (07:51→21:21)
--- NOTE | 2016-05-14 08:13 | PN ---
INTERVAL HISTORY: Patient said that she is complaining of back pain and has reported that this back pain is something new. Patient was complaining of numbness of her left upper extremity radiating from the wound VAC machine all the way to her elbow area but physical examination revealed normal sensation and normal skin without erythema, wound VAC is still suctioning decent amount of drainage. PHYSICAL EXAMINATION: VITAL SIGNS: Reviewed and stable. LUNGS: Clear to auscultation bilaterally. HEART: S1, S2. Left axillary area with wound VAC in place, stable from prior examination. Pulses are positive in all 4 extremities. SPINE: Normal examination with tenderness bilaterally to the mid spine. No erythema or skin break noted. SKIN: No new rash. PSYCH: Alert, and oriented x3. IMAGING AND LABS: Glucose fluctuating between 90 and 134/culture of the axilla is still negative. Blood cultures are pending negative. ASSESSMENT AND PLAN: 1. New onset back pain. Would like to obtain a CT of the lumbar, thoracic and cervical areas to rule out any fractures or any other etiology. Discussed with the patient who agreed to the above. No contrast will be provided during this testing. 2. Left upper extremity numbness. I would like to have Surgery re-evaluate the patient, re-evaluate the wound VAC and I will discuss with the nursing staff who left message to the primary surgery services. Continue wound VAC at this point. 3. Left axillary abscess, status post I&D. Will continue IV antibiotics, PICC line was ordered by Infectious Disease. We will consider discharging in the morning if all the testings turned to be negative. 4. Debility and weakness. Will have PT, OT evaluate the patient, consider discharging patient based on their recommendation. 5. Diabetes. Patient seems to be on the lower side. She is on Amaryl and metformin, but I would like to decrease the dose of metformin by half to 500 mg p.o. twice daily and continue monitoring her sugar closely and avoid any hypoglycemia episodes that were discussed with the nursing staff at length. 6. Discharge planning based on clinical progress.
[2016-05-14] MEDS: GLIMEPIRIDE 4 MG TAB PO SCH ×2 (08:15→17:38)
[2016-05-14] MEDS: NICOTINE 21MG/24HR PATCH TRANSDERM SCH (08:15)
[2016-05-14] MEDS: metFORMIN 500 MG TAB PO SCH ×2 (08:15→17:38)
[2016-05-14] MEDS: ENOXAPARIN 40 MG/0.4 ML SYRINGE SQ SCH (08:16)
[2016-05-14] MEDS: COLLAGENASE 250 UNIT/GM OINTMENT 30 GM TUBE TOPICAL SCH (08:16)
[2016-05-14] MEDS: CALCIUM CARB-VIT D 500MG-200UN 1 EACH TAB PO SCH ×2 (08:16→21:22)
[2016-05-14] MEDS: ASCORBIC ACID 500 MG TAB PO SCH (08:16)
[2016-05-14] MEDS: POTASSIUM CHLORIDE ORAL LIQUID 40 MEQ/30 ML CUP PO SCH (08:17)
[2016-05-14] MEDS: MELOXICAM 7.5 MG TAB PO SCH (08:17)
[2016-05-14] MEDS: LOSARTAN 50 MG TAB PO SCH (08:17)
[2016-05-14] MEDS: predniSONE 10 MG TAB PO SCH ×3 (08:19→22:56)
[2016-05-14 12:30] LABS: Glucose,Whole Blood 116 mg/dL (75-99)
--- NOTE | 2016-05-14 12:48 | IR ---
PICC LINE PLACEMENT: HISTORY: Infection requiring long-term antibiotic therapy PROCEDURE: Ultrasound and fluoroscopic guidance of PICC line placement. COMPLICATIONS: None ANESTHESIA: 1. 1% Lidocaine locally. FINDINGS/TECHNIQUE: The procedure was explained to the patient. The risks, complications, benefits and alternatives were discussed and any questions were answered. Informed consent was obtained. The patient was placed supine on the fluoroscopic table and prepped and draped in the usual sterile [facility] ion. Utilizing a 21 gauge needle and sonographic and fluoroscopic guidance, access in the vein was achieved and there is placement of a 0.018 guidewire. The vein is patent. A 4-F sheath was placed o clarisse the guidewire. The guidewire and dilator were removed and a 4-F. PICC line was placed through th e sheath with the tip at the level of the SVC. The sheath was removed, the catheter was flushed and sutured into position. The patient was stable throughout the procedure and remained stable upon disc harge from the Department of Radiology. The vein puncture was patent under ultrasound. A young scale image was obtained to document patency of the vein punctured. All elements of the maximal barrier technique were utilized. FLUOROSCOPY TIME: 0.1 minute IMPRESSION: Successful PICC line placement under ultrasound and fluoroscopic guidance.
[2016-05-14] MEDS: FOLIC ACID 1 MG TAB PO SCH (12:51)
--- NOTE | 2016-05-14 13:48 | P.CNOR ---
History of Present Illness - [facility] Consult date: 05/14/16 Requesting physician: Lynette Atkinson Consult reason: fracture (T6 and T7), back pain (Thoracic) History of present illness: Patient is a very pleasant 50-year-old female who is seen and examined at bedside for further evaluation of her ongoing thoracic back pain. Patient states she is known to have a significant history of prednisone usage with significant changes along her entire spine. She states she was seen and examined by Dr. Irwin Bolaños approximately 3-1/2 years ago in regards her cervical spine and was planning surgical intervention at that time until an expected loss in the family. Since that time she's been dealing with her symptoms. She states she's had ongoing low back pain for approximately 20 years. Currently her most significant symptom in regards to her spine is midthoracic back pain. She states she is known have significant rheumatoid arthritis with with pleurisy. She states she has experienced multiple falls over the years but cannot state any recent specific fall. She is known to have a draining ulcer of the left axilla. She is being seen and examined by Dr. Luo in general surgery for further evaluation treatment. Patient states she underwent an I&D of the left axilla and is currently playing to have a wound VAC placed over her left axilla. Patient is also been seen by Dr. Downing in infectious disease. A PICC line was placed this morning. They're currently planning for discharge. Patient is also known to have diabetes mellitus type 2 , obesity, and lung disease due to chronic smoking. She also has a chronic foot ulcer the right lower extremity. Patient currently denies any specific upper extremity or lower extremity radiculopathy or weakness symptoms. She states her pain is most significant in the mid thoracic spine. She also has some pain of the right ribs with coughing and certain movements. Past Medical History Past Medical History: Diabetes Mellitus, Hyperlipidemia, Hypertension, Rheumatoid Arthritis (RA) Additional Past Medical History / Comment(s): sjogrens, raynauds, urinary urgency and incontinence, bowel incontinence, wound rt foot plantar surface, immunosuppressed, ventral hernia, rheumatic lung, rheumatic fever as a child, varicose veins, current steroid,pm>2yrs, severe cervical stenosis-bilat. neuro deficits in arms, PCN resistant, pleural pain, bleeding peptic ulcer,coffee ground emesis,hemmroids, heart rate usually runs 100-120 History of Any Multi-Drug Resistant Organisms: None Reported Past Surgical History: Adenoidectomy, Heart Catheterization, Hernia Repair, Orthopedic Surgery, Tonsillectomy Additional Past Surgical History / Comment(s): closed reduction rt elbow as a child,laser vein surgery lt leg. Past Anesthesia/Blood Transfusion Reactions: Previous Problems w/ Anesthesia Additional Past Anesthesia/Blood Transfusion Reaction / Comm: pt states experienced swelling of throat with anesthesia as a child with tonsil removal- no further swelling problems with anesthesia,Severe Cervical Stenosis, family hx of blood transfusion reaction with mother and brother-rx rash,hives Past Psychological History: Anxiety, Depression Smoking Status: Current every day smoker Past Alcohol Use History: None Reported Additional Past Alcohol Use History / Comment(s): started smoking 1979 Past Drug Use History: None Reported - Past Family History Brother(s) Family Medical History: Coronary Artery Disease (CAD) Mother Family Medical History: Diabetes Mellitus Additional Family Medical History / Comment(s): with Castro's Disease Father Family Medical History: Coronary Artery Disease (CAD), Diabetes Mellitus, Hyperlipidemia, Vascular Disorder Additional Family Medical History / Comment(s): at age 89 Medications and Allergies Home Medications Medication Instructions Recorded Confirmed Type Aspirin 81 mg PO HS 01/03/15 05/09/16 History Biotin 4,000 mcg PO BID 01/03/15 05/09/16 History Ca/D3/Mag/Zinc/Crow/Jorge/Mgbor 1 each PO BID 01/03/15 05/09/16 History [Caltrate 600+D3+Min Chew Tab] Folic Acid 1 mg PO DAILY 01/03/15 05/09/16 History Glimepiride [Amaryl] 4 mg PO BID 01/03/15 05/09/16 History Methotrexate Sodium [Methotrexate] 25 mg PO TH 01/03/15 05/09/16 History Omeprazole [PriLOSEC] 40 mg PO HS 01/03/15 05/09/16 History Potassium Chloride ER [K-Dur 10] 10 meq PO DAILY PRN 01/03/15 05/09/16 History Potassium Gluconate 595 mg PO DAILY 01/03/15 05/09/16 History predniSONE 10 mg PO TID 01/03/15 05/09/16 History Cyclobenzaprine [Flexeril] 10 mg PO Q8H PRN 03/07/15 05/09/16 History Pyridoxine [Vitamin B-6] 50 mg PO TID 03/06/16 05/09/16 History Triamcinolone 0.5% Cream [Kenalog 1 applic TOPICAL DAILY PRN 03/06/16 05/09/16 History 0.5% Cream] Albuterol Inhaler [Ventolin Hfa 1 - 2 puff INHALATION Q6HR PRN 05/09/16 History Inhaler] Ascorbic Acid [Vitamin C] 500 mg PO DAILY 05/09/16 05/09/16 History Celecoxib [CeleBREX] 200 mg PO BID 05/09/16 05/09/16 History Diphenoxylate HCl/Atropine 2 tab PO QID PRN 05/09/16 05/09/16 History [Lomotil] Loperamide HCl [Imodium A-D] 2 mg PO BID 05/09/16 05/09/16 History [place]-3 Acid Ethyl Esters [Lovaza] 4 gm PO QID 05/09/16 05/09/16 History Telmisartan [Micardis] 40 mg PO DAILY 05/09/16 05/09/16 History hydrOXYzine PAMOATE [Vistaril] 25 mg PO Q6HR PRN 05/09/16 05/09/16 History Allergies Allergy/AdvReac Type Severity Reaction Status Date / Time latex AdvReac Mild Swelling Verified 05/10/16 11:48 Penicillins AdvReac states Verified 05/10/16 11:48 "penicillin resistant-does not work on me" Physical Examination Physical exam: Patient is awake, alert, and oriented 3 Vital signs stable Good chest excursion with deep inspiration and expiration Abdomen soft nontender Examination of lumbar spine reveals skin is intact with no abrasions, restorations, or bruises; no erythema, purulence or signs of infection Pain with palpation along the midline of the mid thoracic spine Dorsiflexion, plantarflexion, and extensor hallucis longus positive sustained bilaterally Lower extremity strength positive sustained throughout range of motion bilaterally Upper extremity strength positive sustained throughout range of motion bilaterally Evidence of a PICC line placed in the right upper extremity Evidence of an IV placed the distal left upper extremity Adequate range of motion the cervical spine throughout range of motion Results Pertinent studies: CT of the cervical, thoracic, lumbar spines without contrast: C5-6 and C6-7 degenerative disc disease, facet arthropathy, and uncovertebral joint arthropathy resulting in moderate central canal narrowing and moderate neural foraminal stenosis; T6 and T7 wedging compression fracture deformities with approximately 50% height loss and 40% height loss anteriorly in which the wedging has shown some progression as compared to previous study taken on 2015; multiple right sided rib fractures from T2-T8; accenuated midthoracic kyphosis; T5-10 degenerative disc disease; L4-5 grade 2 spondylolisthesis, degenerative disc disease, and hypertrophic facet arthropathy with moderate to severe spinal canal stenosis and severe right neuroforaminal stenosis; L5-S1 degenerative disc disease and hypertrophic facet arthropathy resulting in moderate to severe left neural foraminal stenosis - Labs Labs: Abnormal Lab Results - Last 24 Hours (Table) 05/14/16 05/14/16 Range/Units 06:45 12:28 POC Glucose (mg/dL) 127 H 116 H (75-99) mg/dL Microbiology - Last 24 Hours (Table) 05/10/16 13:10 Gram Stain - Final Axilla - Left Tissue Culture - Final 05/10/16 13:10 Anaerobic Culture - Final Axilla - Left 05/10/16 13:10 Anaerobic Culture - Final Elbow - Left 05/09/16 01:30 Blood Culture - Preliminary Blood No Growth after 120 hours 05/09/16 20:18 Anaerobic Culture - Final Axilla - Left H & H 05/09/16 05/10/16 05/11/16 Range/Units 01:30 11:04 08:00 Hgb 14.8 13.8 14.8 (11.4-16.0) gm/dL Hct 45.0 45.9 44.0 (34.0-46.0) % 05/12/16 Range/Units 08:47 Hgb 13.6 (11.4-16.0) gm/dL Hct 43.8 (34.0-46.0) % Coagulation 05/09/16 Range/Units 01:30 INR 1.1 (<1.1) Result Diagrams: 05/12/16 08:47 05/12/16 08:47 Assessment and Plan (1) Closed T6 spinal fracture Status: Acute (2) Closed T7 fracture Status: Acute (3) Thoracic back pain Status: Acute (4) Spondylolisthesis of lumbar region Status: Acute (5) Lumbar stenosis Status: Acute (6) Lumbar spondylosis Status: Acute (7) Lumbar degenerative disc disease Status: Acute (8) Thoracic degenerative disc disease Status: Acute (9) Degenerative disc disease, cervical Status: Acute (10) Cervical spondylosis Status: Acute (11) Cervical stenosis of spinal canal Status: Acute (12) Abscess of left axilla Status: Acute (13) Diabetic foot ulcer associated with type 2 diabetes mellitus, with fat layer exposed Status: Acute (14) Rheumatoid arthritis Status: Acute Plan: Assessment: T6 wedging compression fracture deformity with approximately 50% height loss T7 wedging compression fracture deformity approximately 40% height loss Multiple right-sided rib fractures Thoracic back pain T5-10 degenerative disc disease Cervical degenerative disc disease and spondylosis with moderate central canal narrowing L4-5 grade 2 spondylolisthesis with spinal canal stenosis Lumbar degenerative disc disease and spondylosis Abscess of the left axilla Diabetic foot ulcer Rheumatoid arthritis Plan: 1. Given her significant symptoms of thoracic back pain and imaging showing compression fracture at T6 and T7, I do feel her compression fractures more acute nature. Given her other significant medical diagnoses I am unsure she would be able to tolerate bracing at this time. We will plan to continue with conservative treatment options and will plan to have her follow-up in office in approximately 2-3 weeks for further evaluation. We discussed she should avoid excessive activities including bending, twisting, and lifting. If her symptoms are not improving at her next follow-up appointment, we may plan to try to obtain a brace at that time if we feel she would be able to tolerable it. We discussed we are not currently planning any surgical intervention as she is currently receiving IV antibiotic medications through her PICC line. 2. Patient will be continue to be followed by Dr. Luo and Dr. Downing. 3. From an orthopedic spine standpoint, patient is clear for discharge once cleared by infectious disease, general surgery, and medicine 4. Following discharge, patient may follow-up with Kalin Isaac PA-C or Dr. Irwin Bolaños at [facility] in approximately 2-3 weeks for further evaluation 5. I have discussed this patient detail with Dr. Irwin Bolaños and he agrees with this plan Time with Patient: Greater than 30
[2016-05-14] MEDS: ERTAPENEM 1 GM in SODIUM CHLORIDE 0.9% 50 ML IVPB SCH (15:08)
--- NOTE | 2016-05-14 16:37 | P.DS ---
Providers Date of admission: 05/09/16 01:20 Expected date of discharge: 05/14/16 Attending physician: Mt Spring Consults: 05/13/16 18:32 Consult Physician Routine Consulting Provider: Genet Bolaños Consult Reason/Comments: spinal arthroplasty, rib fractures, kyphosis Do you want consulting provider notified?: Yes 05/09/16 12:45 Consult Physician Routine Consulting Provider: Mable Luo Consult Reason/Comments: armpit abscess with large fistula Do you want consulting provider notified?: Yes Primary care physician: [facility] Course: This is a 50-year-old pleasant female patient of Dr. Spring and Dr. Downing. She has underlying history of rheumatid arthritis, Sjogren's, Raynaud's, diabetes mellitus type 2, hyperlipidemia, hypertension, rheumatoid lung, chronic immunosuppression cervical stenosis with upper extremity weakness, impaired balance impaired gait admitted to emergency room secondary to left axillary abscess. She follows at the wound clinic secondary to cellulitis of the lower extremities bilateral, she complained off swelling in the left arm. 1-1/2 weeks prior to admission for which patient took notice and got to see Dr. Spring and Dr. Downing. She had been started on Bactrim DS 1 tab twice a day for which she is completing her last 2 doses for this treatment. Patient refused are to be admitted week ago when he saw Dr. Munoz. The swelling in the left armpit now has gotten so big she said it was a red tomato, she developed fever of 101, patient does not have any diarrhea this time. She has off-and-on chills chills she has off-and-on fever she was last seen by Dr. Downing in the 1 clinic approximately 04/29/2016 for bilateral lower extremity ulcers and redness. She says that the left plantar ulcer is stable however the redness in the left leg medially shinbone is new, she has chronic changes in the right foot plantar region for which she has full-thickness debridement last 04/29/2016, on her stage II lesions please see full documentation off the visit from Dr. Downing . Cultures from the left arm shows streptococcus species from 2015 also growing diphtheroid species She presented to emergency room with failure off improvement using Bactrim on a lesion in the left elbow, drainage on the right axilla with now an open fistula measuring 3 cm long by 0.5 cm wide and subcutaneous tissues including muscles are visible on this hole. Consults were made with Dr. Luo general surgery Dr. Downing, infectious disease. Patient currently is on IV clindamycin IV Unasyn. Cultures would need to be sent intraoperatively Patient initially underwent TURP excisional debridement left axilla abscess, left elbow with Dr. Luo on May 10. Dr. Downing as recommended ertapenem for discharge with plan for wound VAC. PICC line has been placed. Patient has been seen by orthopedics for T6 and T7 compression fractures, multiple right-sided rib fractures, T5-10 degenerative disc disease, cervical degenerative disc disease and spondylosis with moderate central canal narrowing L4-5 grade 2 spondylolisthesis and spinal canal stenosis, lumbar degenerative disc disease and spondylosis with recommendations to follow up in the office in 2-3 weeks. Case management is making arrangements for home care and home IV, wound VAC. Patient will be discharged home today in stable condition. Discharge diagnoses: 1. Abscess formation left axilla and left elbow status post debridement, wound VAC. 2. Rheumatoid arthritis 3. Diabetes mellitus type 2 5. IBS 6. Decubitus ulcer right foot 7. Chronic pain related to RA and musculoskeletal deformities including spinal stenosis 9. Chronic tobacco dependency 10. Hypertension Discharge home with [facility] home care Impression and plan of care have been directed as dictated by the signing physician. Tiki Mcpherson nurse practitioner acting as scribe for signing physician. Patient Condition at Discharge: Good Plan - Discharge Summary New Discharge Prescriptions: Ertapenem [INVanz] 1 gm IVPB Q24H #30 bag Nicotine 21Mg/24Hr Patch [Habitrol] 1 patch TRANSDERM DAILY #30 patch oxyCODONE-APAP 7.5-325MG [Percocet 7.5-325 mg] 1 each PO Q4HR PRN #90 tab PRN Reason: Pain Discharge Medication List Aspirin 81 mg PO HS 01/03/15 [History] Biotin 4,000 mcg PO BID 01/03/15 [History] Ca/D3/Mag/Zinc/Crow/Jorge/Mgbor [Caltrate 600+D3+Min Chew Tab] 1 each PO BID [History] Folic Acid 1 mg PO DAILY 01/03/15 [History] Glimepiride [Amaryl] 4 mg PO BID 01/03/15 [History] Methotrexate Sodium [Methotrexate] 25 mg PO TH 01/03/15 [History] Omeprazole [PriLOSEC] 40 mg PO HS 01/03/15 [History] Potassium Chloride ER [K-Dur 10] 10 meq PO DAILY PRN 01/03/15 [History] Potassium Gluconate 595 mg PO DAILY 01/03/15 [History] predniSONE 10 mg PO TID 01/03/15 [History] Cyclobenzaprine [Flexeril] 10 mg PO Q8H PRN 03/07/15 [History] Pyridoxine [Vitamin B-6] 50 mg PO TID 03/06/16 [History] Triamcinolone 0.5% Cream [Kenalog 0.5% Cream] 1 applic TOPICAL DAILY PRN [History] Albuterol Inhaler [Ventolin Hfa Inhaler] 1 - 2 puff INHALATION Q6HR PRN [History] Ascorbic Acid [Vitamin C] 500 mg PO DAILY 05/09/16 [History] Celecoxib [CeleBREX] 200 mg PO BID 05/09/16 [History] Diphenoxylate HCl/Atropine [Lomotil] 2 tab PO QID PRN 05/09/16 [History] Loperamide HCl [Imodium A-D] 2 mg PO BID 05/09/16 [History] [place]-3 Acid Ethyl Esters [Lovaza] 4 gm PO QID 05/09/16 [History] Telmisartan [Micardis] 40 mg PO DAILY 05/09/16 [History] hydrOXYzine PAMOATE [Vistaril] 25 mg PO Q6HR PRN 05/09/16 [History] Ertapenem [INVanz] 1 gm IVPB Q24H #30 bag 05/14/16 [Rx] Nicotine 21Mg/24Hr Patch [Habitrol] 1 patch TRANSDERM DAILY #30 patch 05/14/16 [ Rx] metFORMIN HCL [Glucophage] 500 mg PO BID-W/MEALS tab 05/14/16 [Rx] oxyCODONE-APAP 7.5-325MG [Percocet 7.5-325 mg] 1 each PO Q4HR PRN #90 tab [Rx] Follow up Appointment(s)/Referral(s): Mt Downing MD [STAFF PHYSICIAN] - 05/20/16 ([facility]) Mt Spring MD [Primary Care Provider] - 1 Week ([facility]) Kalin Isaac PAC [PHYSICIAN TOWER CONTROL OPERATOR] - 2 Weeks (Patient may follow-up with Kalin Isaac PA-C or Dr. Irwin Bolaños at [facility] in 2-3 weeks following discharge. ) [facility], [NON-STAFF] - Ambulatory/Diagnostic Orders: Basic Metabolic Panel [LAB.AMB] Location: Determined By Patient Complete Blood Count w/diff [LAB.AMB] Location: Determined By Patient Patient Instructions/Handouts: Type 2 Diabetes in Adults (DC) Activity/Diet/Wound Care/Special Instructions: 1. Patient should avoid excessive bending, twisting, and lifting; no lifting greater than 10 pounds Discharge Disposition: TRANSFER TO SNF/ECF
[2016-05-14 17:29] LABS: Glucose,Whole Blood 126 mg/dL (75-99)
[2016-05-14 20:56] LABS: Glucose,Whole Blood 154 mg/dL (75-99)
[2016-05-14] MEDS: ASPIRIN 81 MG CHEW PO SCH (21:22)
[2016-05-14] MEDS: PANTOPRAZOLE 40 MG TABLET PO SCH (21:22)
--- NOTE | 2016-05-14 22:39 | P.PN ---
Subjective Principal diagnosis: Axillary abscess left 50-year-old woman who has multiple medical troubles and corroboratory arthritis Sjogren's disease and Raynaud's phenomena as well as diabetes mellitus type 2 poorly controlled obesity and lung disease from her chronic smoking presents to the hospital with significant abscess to her left axillary area. She was evaluated in the wound center and she had some scant drainage to the area which was sent elaborative for culture. Antibiotic therapy was begun. However by the time the patient presents to Hospital she is evidence of a large abscess is opened and draining to the axillary area. She's been taking the operating room for the incision and drainage to this area. Wound VAC is being utilized for now. Likely will need outpatient antibiotic therapy and negative pressure therapy system when she goes to home given the size of the defect Denies any new acute difficulties today. Pain is under good control. Does have ongoing troubles with her blood sugars. Patient is very anxious today. Is even contemplating leaving the hospital. Given her complex history and multiple troubles she's been offered a stay at rehab. She relates she would rather than go to rehab and lose her house. Objective - Vital Signs Vital signs: Vital Signs Temp 98.4 F 05/14/16 15:00 Pulse 108 H 05/14/16 15:00 Resp 16 05/14/16 15:00 BP 145/84 05/14/16 15:00 Pulse Ox 96 05/14/16 15:00 Intake & Output 05/14/16 05/14/16 05/15/16 06:59 18:59 06:59 Weight 83.461 kg Other: Voiding Method Toilet Toilet # Voids 2 1 - Exam HEENT: Anicteric conjunctiva are pink and moist nasal mucosa grossly intact without significant lesions, there is no thrush. Neck: The neck is supple without significant lymphadenopathy or thyromegaly. Lungs: Symmetrical air entry with expiratory wheezes Heart: Regular rate and rhythm with an audible S1-S2, no S3 no S4. There is no significant murmur click or rub, PMI was nondisplaced. Abdomen: Obese Positive bowel sounds soft and nontender without palpable masses or organomegaly. There was no guarding or rebound. Extremities: The right arm is without difficulties. Left arm reveals evidence of recent surgical intervention to the left axillary area. The wound VAC is in place. The 8 x 3 x 3 cm defect was reported. The site is tender to touch but this running erythema is improved. The small lesion to the left elbow was also depressed. The patient so far is refused the nursing to be able to change the dressing to her right foot. Her friend is being some dressings in and hopefully she'll allow us to use those. This the chronic ulcer Neuro: Awake alert oriented to person place and time. - Labs CBC & Chem 7: 05/12/16 08:47 05/12/16 08:47 Labs: Abnormal Lab Results - Last 24 Hours (Table) 05/14/16 05/14/16 05/14/16 Range/Units 06:45 12:28 17:28 POC Glucose (mg/dL) 127 H 116 H 126 H (75-99) mg/dL 05/14/16 Range/Units 20:53 POC Glucose (mg/dL) 154 H (75-99) mg/dL Microbiology - Last 24 Hours (Table) 05/10/16 13:10 Gram Stain - Final Axilla - Left Tissue Culture - Final 05/10/16 13:10 Anaerobic Culture - Final Axilla - Left 05/10/16 13:10 Anaerobic Culture - Final Elbow - Left 05/09/16 01:30 Blood Culture - Preliminary Blood No Growth after 120 hours 05/09/16 20:18 Anaerobic Culture - Final Axilla - Left Laboratory Results WBC 17.0 k/uL (3.8-10.6) H 05/12/16 08:47 RBC 4.54 m/uL (3.80-5.40) 05/12/16 08:47 Hgb 13.6 gm/dL (11.4-16.0) 05/12/16 08:47 Hct 43.8 % (34.0-46.0) 05/12/16 08:47 MCV 96.4 fL (80.0-100.0) 05/12/16 08:47 MCH 30.0 pg (25.0-35.0) 05/12/16 08:47 MCHC 31.1 g/dL (31.0-37.0) 05/12/16 08:47 RDW 16.2 % (11.5-15.5) H 05/12/16 08:47 Plt Count 408 k/uL (150-450) 05/12/16 08:47 Neutrophils % 81 % 05/12/16 08:47 Lymphocytes % 14 % 05/12/16 08:47 Monocytes % 3 % 05/12/16 08:47 Eosinophils % 0 % 05/12/16 08:47 Basophils % 0 % 05/12/16 08:47 Neutrophils # 13.8 k/uL (1.3-7.7) H 05/12/16 08:47 Lymphocytes # 2.4 k/uL (1.0-4.8) 05/12/16 08:47 Monocytes # 0.5 k/uL (0-1.0) 05/12/16 08:47 Eosinophils # 0.1 k/uL (0-0.7) 05/12/16 08:47 Basophils # 0.0 k/uL (0-0.2) 05/12/16 08:47 Anisocytosis Slight 05/12/16 08:47 Macrocytosis Slight 05/10/16 11:04 PT 11.0 sec (9.0-12.0) 05/09/16 01:30 INR 1.1 (<1.1) 05/09/16 01:30 APTT 21.6 sec (22.0-30.0) L 05/09/16 01:30 Sodium 142 mmol/L (137-145) 05/12/16 08:47 Potassium 4.4 mmol/L (3.5-5.1) 05/12/16 08:47 Chloride 104 mmol/L (98-107) 05/12/16 08:47 Carbon Dioxide 29 mmol/L (22-30) 05/12/16 08:47 Anion Gap 9 mmol/L 05/12/16 08:47 BUN 15 mg/dL (7-17) 05/12/16 08:47 Creatinine 0.57 mg/dL (0.52-1.04) 05/12/16 08:47 Est GFR (MDRD) Af Amer >60 (>60 ml/min/1.73 sqM) 05/12/16 08:47 Est GFR (MDRD) Non-Af >60 (>60 ml/min/1.73 sqM) 05/12/16 08:47 Glucose 90 mg/dL (74-99) 05/12/16 08:47 POC Glucose (mg/dL) 154 mg/dL (75-99) H 05/14/16 20:53 POC Glu Aircraft Sales Representative ID Geraldine Siegel 05/14/16 20:[address] Glu mg/dL 212 mg/dL 05/09/16 01:30 Hemoglobin A1c 9.0 % (4.2-6.1) H 05/09/16 01:30 Plasma Lactic Acid Rony 1.9 mmol/L (0.7-2.0) 05/09/16 01:30 Calcium 9.4 mg/dL (8.4-10.2) 05/12/16 08:47 Phosphorus 3.4 mg/dL (2.5-4.5) 05/09/16 01:30 Magnesium 1.6 mg/dL (1.6-2.3) 05/09/16 01:30 Total Bilirubin 0.3 mg/dL (0.2-1.3) 05/12/16 08:47 AST 20 U/L (14-36) 05/12/16 08:47 ALT 38 U/L (9-52) 05/12/16 08:47 Alkaline Phosphatase 129 U/L (38-126) H 05/12/16 08:47 Total Creatine Kinase 87 U/L (30-135) 05/09/16 01:30 CK-MB (CK-2) 3.3 ng/mL (0.0-2.4) H* 05/09/16 01:30 CK-MB (CK-2) Rel Index 3.8 05/09/16 01:30 Total Protein 5.9 g/dL (6.3-8.2) L 05/12/16 08:47 Albumin 3.2 g/dL (3.5-5.0) L 05/12/16 08:47 Urine Color Yellow 05/09/16 02:50 Urine Appearance Clear (Clear) 05/09/16 02:50 Urine pH 6.0 (5.0-8.0) 05/09/16 02:50 Ur Specific [place] 1.012 (1.001-1.035) 05/09/16 02:50 Urine Protein Trace (Negative) H 05/09/16 02:50 Urine Glucose (UA) 4+ (Negative) H 05/09/16 02:50 Urine Ketones Negative (Negative) 05/09/16 02:50 Urine Blood Small (Negative) H 05/09/16 02:50 Urine Nitrate Negative (Negative) 05/09/16 02:50 Urine Bilirubin Negative (Negative) 05/09/16 02:50 Urine Urobilinogen <2.0 mg/dL (<2.0) 05/09/16 02:50 Ur Leukocyte Esterase Negative (Negative) 05/09/16 02:50 Urine RBC 42 /hpf (0-5) H 05/09/16 02:50 Urine WBC 2 /hpf (0-5) 05/09/16 02:50 Ur Squamous Epith Cells 1 /hpf (0-4) 05/09/16 02:50 Hyaline Casts 2 /lpf (0-2) 05/09/16 02:50 Granular Casts 1 /lpf (0) 05/09/16 02:50 Urine Mucus Rare /hpf (None) H 05/09/16 02:50 Urine HCG, Qual Not Detected (Not Detectd) 05/10/16 10:35 Vancomycin Trough 6.6 ug/mL 05/10/16 11:04 C. difficile (EIA) Intrp Negative (Negative) 05/13/16 07:46 Microbiology 05/10/16 13:10 Axilla - Left Gram Stain - Final 05/10/16 13:10 Axilla - Left Tissue Culture - Final 05/10/16 13:10 Axilla - Left Anaerobic Culture - Final 05/10/16 13:10 Elbow - Left Anaerobic Culture - Final 05/09/16 01:30 Blood Blood Culture - Preliminary No Growth after 120 hours 05/09/16 20:18 Axilla - Left Anaerobic Culture - Final 05/10/16 13:10 Elbow - Left Gram Stain - Final 05/10/16 13:10 Elbow - Left Wound Culture - Final 05/09/16 20:18 Axilla - Left Gram Stain - Final 05/09/16 20:18 Axilla - Left Wound Culture - Final 05/09/16 02:50 Urine,Voided Urine Culture - Final Assessment and Plan (1) Abscess of left axilla Narrative/Plan: 50-year-old woman who has multiple medical troubles including rheumatoid arthritis and Sjogren's that is on chronic immunosuppressive therapy presents with a significant abscess to her left axillary area. It is Located because of her somewhat uncontrolled diabetes and obesity. She is now status post incision and drainage of the site and a wound VAC has been applied. This seems to be working quite well. There was recent culture that showed evidence of the Peptostreptococcus and anaerobic gram-positive bacilli for which Unison is being utilized in hospital. No other resistant pathogens been found. Deep tissue cultures are pending at this time. We'll continue the antibiotic therapy with Unasyn for now. There may be the option for outpatient intravenous antibiotic therapy at discharge and could be altered to ertapenem. However given the size of this defect negative pressure therapy will likely be utilized in the home setting. If the patient will comply. Alex will be utilizes ulceration to the right foot if she will allow. She does have leukocytosis likely due to significant infection to left axillary area. currently attempting to have her blood sugars improved while sheis in hospital though we would see in the wound center on a routine basis. At this time plan will be for her discharge to home in the near future once her further authorization for her antibiotic therapy and are negative pressure therapy. Prescriptions are written for both. She has only Medicare. We'll continue to come to the hospital on a daily basis for her ertapenem infusion. She understands importance of compliance with this outpatient plan. Status: Acute (2) Diabetic foot ulcer associated with type 2 diabetes mellitus, with fat layer exposed Status: Acute (3) Rheumatoid arthritis Status: Acute
[2016-05-15] MEDS: WITCH HAZEL 1 EACH MED..PAD TOPICAL SCH ×3 (00:03→11:00)
[2016-05-15 02:02] LABS: Glucose,Whole Blood 134 mg/dL (75-99)
[2016-05-15] MEDS: oxyCODONE-APAP 7.5-325MG 1 EACH TAB PO PRN ×3 (03:33→12:02)
[2016-05-15] MEDS: AMPICILLIN-SULBACTAM 3 GM in SODIUM CHLORIDE 0.9% 100 ML IVPB SCH ×2 (05:33→11:00)
[2016-05-15 06:07] VITALS: RESP 18
[2016-05-15 07:02] LABS: Glucose,Whole Blood 192 mg/dL (75-99)
[2016-05-15] MEDS: metFORMIN 500 MG TAB PO SCH (07:36)
[2016-05-15] MEDS: ASCORBIC ACID 500 MG TAB PO SCH (07:36)
[2016-05-15] MEDS: ERTAPENEM 1 GM in SODIUM CHLORIDE 0.9% 50 ML IVPB SCH (07:36)
[2016-05-15] MEDS: ENOXAPARIN 40 MG/0.4 ML SYRINGE SQ SCH (07:36)
[2016-05-15] MEDS: COLLAGENASE 250 UNIT/GM OINTMENT 30 GM TUBE TOPICAL SCH (07:36)
[2016-05-15] MEDS: CALCIUM CARB-VIT D 500MG-200UN 1 EACH TAB PO SCH (07:36)
[2016-05-15] MEDS: GLIMEPIRIDE 4 MG TAB PO SCH (07:36)
[2016-05-15] MEDS: LOSARTAN 50 MG TAB PO SCH (07:37)
[2016-05-15] MEDS: NICOTINE 21MG/24HR PATCH TRANSDERM SCH (07:37)
[2016-05-15] MEDS: MELOXICAM 7.5 MG TAB PO SCH (07:37)
[2016-05-15] MEDS: POTASSIUM CHLORIDE ORAL LIQUID 40 MEQ/30 ML CUP PO SCH (07:37)
[2016-05-15] MEDS: predniSONE 10 MG TAB PO SCH (07:37)
[2016-05-15] MEDS: INSULIN LISPRO (humaLOG) 300 UNIT/3 ML VIAL SQ SCH ×2 (07:41→12:03)
[2016-05-15 07:46] VITALS: BP 161/100; PULSE 107; TEMP 96.7
[2016-05-15] MEDS: FOLIC ACID 1 MG TAB PO SCH (11:00)
--- NOTE | 2016-05-15 11:24 | P.PN ---
Subjective Principal diagnosis: Multiple cutaneous abscesses 50 years old female with multiple comorbid conditions including rheumatoid arthritis, chronic immunosuppression, uncontrolled diabetes mellitus presented with large draining abscess of left axilla and elbow. Status post incision and drainage in or with application of wound VAC. Patient started some tingling sensation and numbness along the inner left arm and hence wound VAC was discontinued. Currently has wet-to-dry dressing and difficulty in maintaining the dressing. No acute overnight events. Last WBC count is 17, her baseline WBC count is 15 during prior hospital admission. Tolerating regular diet. No new complaints. Wound cultures did not grow any organisms Objective - Vital Signs Vital signs: Vital Signs Temp 96.7 F L 05/15/16 07:00 Pulse 107 H 05/15/16 07:00 Resp 18 05/15/16 07:00 BP 161/100 05/15/16 07:00 Pulse Ox 91 L 05/15/16 07:00 Intake & Output 05/14/16 05/15/16 05/15/16 18:59 06:59 18:59 Intake Total 1280 Balance 1280 Weight 83.461 kg Intake: Oral 1280 Other: Voiding Method Toilet Toilet Toilet # Voids 1 2 1 - Exam Left axillary wound: Minimal exudates. Good granulation tissue. Large cavity with serosanguineous drainage. - Labs CBC & Chem 7: 05/12/16 08:47 05/12/16 08:47 Labs: Abnormal Lab Results - Last 24 Hours (Table) 05/14/16 05/14/16 05/14/16 Range/Units 12:28 17:28 20:53 POC Glucose (mg/dL) 116 H 126 H 154 H (75-99) mg/dL 05/15/16 05/15/16 Range/Units 01:56 07:00 POC Glucose (mg/dL) 134 H 192 H (75-99) mg/dL Microbiology - Last 24 Hours (Table) 05/09/16 01:30 Blood Culture - Final Blood No Growth after 144 hours 05/10/16 13:10 Gram Stain - Final Axilla - Left Tissue Culture - Final 05/10/16 13:10 Anaerobic Culture - Final Axilla - Left 05/10/16 13:10 Anaerobic Culture - Final Elbow - Left Assessment and Plan (1) Abscess of left axilla Status: Acute (2) Diabetic foot ulcer associated with type 2 diabetes mellitus, with fat layer exposed Status: Acute (3) Rheumatoid arthritis Status: Acute Plan: 1. Patient reassured. Apply Adaptic dressing followed by wound VAC therapy. 2. Antibiotics as per infectious disease. 3. Follow up at [facility]
[2016-05-15 11:36] LABS: Glucose,Whole Blood 190 mg/dL (75-99)
== END 2016-05-15 13:00 | disposition home health service (06) | DRG 571 ==
LOC: EC 00:04 → 4MS4W 01:20
PROVIDERS: ADMIT Internal Medicine Geriatric Medicine; ATTEND Internal Medicine Geriatric Medicine
DX: L02.412 Cutaneous abscess of left axilla (principal); M48.54XA Collapsed vertebra, not elsewhere classified, thoracic region, initial encounter for fracture; L89.152 Pressure ulcer of sacral region, stage 2; E11.621 Type 2 diabetes mellitus with foot ulcer; E11.65 Type 2 diabetes mellitus with hyperglycemia; S22.41XA Multiple fractures of ribs, right side, initial encounter for closed fracture; E87.5 Hyperkalemia; L03.115 Cellulitis of right lower limb; L03.116 Cellulitis of left lower limb; M35.00 Sjogren syndrome, unspecified; L97.512 Non-pressure chronic ulcer of other part of right foot with fat layer exposed; L02.414 Cutaneous abscess of left upper limb; E78.5 Hyperlipidemia, unspecified; F17.200 Nicotine dependence, unspecified, uncomplicated; F32.9 Major depressive disorder, single episode, unspecified; F41.9 Anxiety disorder, unspecified; G89.29 Other chronic pain; I10 Essential (primary) hypertension; I73.00 Raynaud's syndrome without gangrene; I83.90 Asymptomatic varicose veins of unspecified lower extremity; K58.0 Irritable bowel syndrome with diarrhea; M06.9 Rheumatoid arthritis, unspecified; M40.209 Unspecified kyphosis, site unspecified; M43.16 Spondylolisthesis, lumbar region; M47.812 Spondylosis without myelopathy or radiculopathy, cervical region; M47.816 Spondylosis without myelopathy or radiculopathy, lumbar region; M48.02 Spinal stenosis, cervical region; M48.06 Spinal stenosis, lumbar region; M50.30 Other cervical disc degeneration, unspecified cervical region; M51.34 Other intervertebral disc degeneration, thoracic region; M51.36 Other intervertebral disc degeneration, lumbar region; T38.0X5A Adverse effect of glucocorticoids and synthetic analogues, initial encounter; Z79.52 Long term (current) use of systemic steroids; Z79.82 Long term (current) use of aspirin; Z79.84 Long term (current) use of oral hypoglycemic drugs; Z82.49 Family history of ischemic heart disease and other diseases of the circulatory system
CPT/HCPCS: 36415; 36569; 71020; 72125; 72128; 72131; 76937; 77001; 80048; 80053; 80202; 80299; 81001; 81025; 82550; 82553; 83036; 83605; 83735; 84100; 85025; 85610; 85730; 87040; 87070; 87075; 87086; 87205; 93005; 96365; 99284

== ENCOUNTER → 2016-05-27 | Outpatient (CLI) | payer MEDICARE ==
--- NOTE | 2016-05-27 15:57 | XR ---
"EXAMINATION TYPE: XR chest 2V DATE OF EXAM: 05/27/2016 3:50 PM COMPARISON: Prior chest x-ray April, CT chest 16 February 2016 HISTORY: Shortness of breath TECHNIQUE: Frontal and lateral views of the chest are obtained on a total of 3 images. FINDINGS: Marked kyphosis with compression deformities in the midthoracic spine again noted. Chest w all deformity shows a similar appearance. The heart is enlarged. Interstitium is increased. Lucency i n the subcutaneous tissues of the left axilla noted. No pneumothorax or pleural effusion. Right-sided PICC line shows the distal tip near the cavoatrial junction. IMPRESSION: Correlate to exclude pulmonary venous hypertension with interstitial edema. Correlate fo r postop changes in the left axilla, difficult to exclude gas forming organisms within the soft tissu es, abscess. Findings could be related to axillary lipoma. A Yellow message has been communicated to [place] MD via the [employer] | Critical Result sy stem on 05/27/2016 3:54 PM, Message ID [id number]."
== END | disposition home or self-care (01) ==
LOC: RADXRMAIN 15:32
PROVIDERS: ATTEND Internal Medicine Geriatric Medicine
DX: R06.02 Shortness of breath (principal)
CPT/HCPCS: 71020

== ENCOUNTER 2016-05-28 15:07 | Inpatient (IN) | payer MEDICARE ==
[2016-05-28] MEDS ORDERED: IPRATROPIUM-ALBUTEROL 3 ML NEB INHALATION STA (15:31)
[2016-05-28 16:07] LABS: Appearance,Urine Clear (Clear); Bilirubin,Urine Negative (Negative); Glucose,Urine (UA) Negative (Negative); Ketones,Urine Negative (Negative); Leukocyte Esterase,Urine Negative (Negative); Mucus,Urine Occasional /hpf; Nitrite,Urine Negative (Negative); PH, Urine 5.5 (5.0-8.0); Particle Count 2151; Protein,Urine 1+ (Negative); RBC,Urine >182 /hpf (0-5); Specific Gravity,Urine 1.019 (1.001-1.035); Squamous Epithelial Cell,Urine 1 /hpf (0-4); UA Billing (MACRO vs. MICRO) MICRO; Urobilinogen,Urine <2.0 mg/dL (<2.0); WBC,Urine 9 /hpf (0-5)
--- NOTE | 2016-05-28 16:32 | ED ---
SOB HPI - General Chief Complaint: Shortness of Breath Stated Complaint: Sob Time Seen by Provider: 05/28/16 15:10 Source: patient, RN/MD, RN notes reviewed Mode of arrival: wheelchair Limitations: no limitations - History of Present Illness Initial Comments: This is a 50-year-old female history of COPD who is being treated currently the wound center for the wound including wound VAC who states she had the onset about 2 days ago shortness of breath which is getting progressively worse. She has a cough she denies any overt fevers chills or sweats. She was noted have a pulse ox of 89-93% initially upon arrival here she was noted have a pulse ox of 9192 on 3 L of oxygen. She does not use oxygen at home. She is a smoker 2 packs per day. We a long discussion regarding quitting this. She recently was hospitalized. She's been out of the hospital for 2 weeks. She has been exposed to someone with upper respiratory symptoms recently. MD Complaint: shortness of breath - Related Data Home Medications Medication Instructions Recorded Confirmed Aspirin 81 mg PO HS 01/03/15 05/28/16 Ca/D3/Mag/Zinc/Crow/Jorge/Mgbor 1 tab PO BID 01/03/15 05/28/16 [Caltrate 600+D3+Min Chew Tab] Folic Acid 1 mg PO DAILY 01/03/15 05/28/16 Glimepiride [Amaryl] 4 mg PO BID 01/03/15 05/28/16 Methotrexate Sodium [Methotrexate] 25 mg PO TH 01/03/15 05/28/16 Omeprazole [PriLOSEC] 40 mg PO HS 01/03/15 05/28/16 Potassium Chloride ER [K-Dur 10] 10 meq PO DAILY PRN 01/03/15 05/28/16 Potassium Gluconate 99 mg PO HS 01/03/15 05/28/16 predniSONE 10 mg PO TID 01/03/15 05/28/16 Cyclobenzaprine [Flexeril] 10 mg PO Q8H PRN 03/07/15 05/28/16 Pyridoxine [Vitamin B-6] 50 mg PO TID 03/06/16 05/28/16 Triamcinolone 0.5% Cream [Kenalog 1 applic TOPICAL DAILY PRN 03/06/16 05/28/16 0.5% Cream] Albuterol Inhaler [Ventolin Hfa 2 puff INHALATION Q6HR PRN 05/09/16 05/28/16 Inhaler] Ascorbic Acid [Vitamin C] 500 mg PO DAILY 05/09/16 05/28/16 Celecoxib [CeleBREX] 200 mg PO BID 05/09/16 05/28/16 Diphenoxylate HCl/Atropine 2 tab PO QID PRN 05/09/16 05/28/16 [Lomotil] Loperamide HCl [Imodium A-D] 2 mg PO BID 05/09/16 05/28/16 [place]-3 Acid Ethyl Esters [Lovaza] 1 gm PO QID 05/09/16 05/28/16 Telmisartan [Micardis] 40 mg PO HS 05/09/16 05/28/16 hydrOXYzine PAMOATE [Vistaril] 25 mg PO Q6HR PRN 05/09/16 05/28/16 Fluconazole [Diflucan] 200 mg PO Q72H 05/25/16 05/28/16 Biotin 5 mg PO BID 05/28/16 05/28/16 Nystatin 100,000 Unit/gm Powd 1 applic TOPICAL TID 05/28/16 05/28/16 [Mycostatin Powder] oxyCODONE-APAP 7.5-325MG [Percocet 1 tab PO Q4HR PRN 05/28/16 05/28/16 7.5-325 mg] Previous Rx's Medication Instructions Recorded Ertapenem [INVanz] 1 gm IVPB Q24H #30 bag 05/14/16 metFORMIN HCL [Glucophage] 500 mg PO BID-W/MEALS tab 05/14/16 Allergies Allergy/AdvReac Type Severity Reaction Status Date / Time latex Allergy Mild Swelling Verified 05/28/16 16:31 Penicillins Allergy Rash/Hives Verified 05/28/16 16:31 Review of Systems ROS Statement: Those systems with pertinent positive or pertinent negative responses have been documented in the HPI. ROS Other: All systems not noted in ROS Statement are negative. Past Medical History Past Medical History: Diabetes Mellitus, Hyperlipidemia, Hypertension, Rheumatoid Arthritis (RA), Hypertension, Respiratory Disorder, Rheumatoid Arthritis (RA) Additional Past Medical History / Comment(s): sjogrens, raynauds, urinary urgency and incontinence, bowel incontinence, wound rt foot plantar surface, immunosuppressed, ventral hernia, rheumatic lung, rheumatic fever as a child, varicose veins, current steroid,pm>2yrs, severe cervical stenosis-bilat. neuro deficits in arms, PCN resistant, pleural pain, bleeding peptic ulcer,coffee ground emesis,hemmroids, heart rate usually runs 100-120 History of Any Multi-Drug Resistant Organisms: None Reported Past Surgical History: Adenoidectomy, Heart Catheterization, Hernia Repair, Orthopedic Surgery, Tonsillectomy Additional Past Surgical History / Comment(s): closed reduction rt elbow as a child,laser vein surgery lt leg. Past Anesthesia/Blood Transfusion Reactions: Previous Problems w/ Anesthesia Additional Past Anesthesia/Blood Transfusion Reaction / Comment(s): pt states experienced swelling of throat with anesthesia as a child with tonsil removal- no further swelling problems with anesthesia,Severe Cervical Stenosis, family hx of blood transfusion reaction with mother and brother-rx rash,hives Past Psychological History: Anxiety, Depression Smoking Status: Current every day smoker Past Alcohol Use History: Rare Additional Past Alcohol Use History / Comment(s): started smoking 1979 Past Drug Use History: None Reported - Past Family History Brother(s) Family Medical History: Coronary Artery Disease (CAD) Mother Family Medical History: Diabetes Mellitus Additional Family Medical History / Comment(s): with Castro's Disease Father Family Medical History: Coronary Artery Disease (CAD), Diabetes Mellitus, Hyperlipidemia, Vascular Disorder Additional Family Medical History / Comment(s): at age 89 General Exam - General Exam Comments Initial Comments: This is a well-developed well-nourished awake alert anxious appearing female she is dyspneic Limitations: no limitations General appearance: alert, anxious Head exam: Present: atraumatic, normocephalic, normal inspection Eye exam: Present: normal appearance, PERRL, EOMI. Absent: scleral icterus, conjunctival injection, periorbital swelling ENT exam: Present: normal exam, mucous membranes moist Neck exam: Present: normal inspection. Absent: tenderness, meningismus, lymphadenopathy Respiratory exam: Present: respiratory distress, wheezes, accessory muscle use, decreased breath sounds, prolonged expiratory, other (The patient does demonstrate marked kyphosis) Cardiovascular Exam: Present: normal rhythm, tachycardia, normal heart sounds. Absent: systolic murmur, diastolic murmur, rubs, gallop, clicks GI/Abdominal exam: Present: soft, normal bowel sounds. Absent: distended, tenderness, guarding, rebound, rigid Rectal exam: Present: deferred Extremities exam: Present: pedal edema Course Vital Signs 05/28/16 05/28/16 05/28/16 15:09 15:55 16:10 Temperature 97.8 F Pulse Rate 127 H 118 H 118 H Respiratory 22 Rate Blood Pressure 145/84 O2 Sat by Pulse 92 L Oximetry - Reevaluation(s) Reevaluation #1: 05/28/16 17:10 Reevaluation of the patient after initial treatment revealed some increased aeration rales or appreciable at the bases. Medical Decision Making - Medical Decision Making Did a long discussion with patient regarding the findings and with Dr. Christiansen. Patient be admitted with consultation by cardiology. - Lab Data Result diagrams: 05/28/16 16:28 05/28/16 16:28 Lab Results 05/28/16 05/28/16 05/28/16 Range/Units 15:42 16:28 16:28 WBC 13.1 H (3.8-10.6) k/uL RBC 4.43 (3.80-5.40) m/uL Hgb 13.4 (11.4-16.0) gm/dL Hct 43.1 (34.0-46.0) % MCV 97.2 (80.0-100.0) fL MCH 30.3 (25.0-35.0) pg MCHC 31.2 (31.0-37.0) g/dL RDW 16.9 H (11.5-15.5) % Plt Count 286 (150-450) k/uL Neutrophils % 93 % Lymphocytes % 2 % Monocytes % 4 % Eosinophils % 1 % Basophils % 1 % Neutrophils # 12.1 H (1.3-7.7) k/uL Lymphocytes # 0.3 L (1.0-4.8) k/uL Monocytes # 0.5 (0-1.0) k/uL Eosinophils # 0.1 (0-0.7) k/uL Basophils # 0.1 (0-0.2) k/uL Anisocytosis Slight Macrocytosis Slight PT (9.0-12.0) sec INR (<1.1) APTT (22.0-30.0) sec Sodium (137-145) mmol/L Potassium (3.5-5.1) mmol/L Chloride (98-107) mmol/L Carbon Dioxide (22-30) mmol/L Anion Gap mmol/L BUN (7-17) mg/dL Creatinine (0.52-1.04) mg/dL Est GFR (MDRD) Af Amer (>60 ml/min/1.73 sqM) Est GFR (MDRD) Non-Af (>60 ml/min/1.73 sqM) Glucose (74-99) mg/dL Plasma Lactic Acid Rony 1.5 (0.7-2.0) mmol/L Calcium (8.4-10.2) mg/dL Magnesium (1.6-2.3) mg/dL Total Bilirubin (0.2-1.3) mg/dL AST (14-36) U/L ALT (9-52) U/L Alkaline Phosphatase (38-126) U/L Total Protein (6.3-8.2) g/dL Albumin (3.5-5.0) g/dL Urine Color Yellow Urine Appearance Clear (Clear) Urine pH 5.5 (5.0-8.0) Ur Specific [place] 1.019 (1.001-1.035) Urine Protein 1+ H (Negative) Urine Glucose (UA) Negative (Negative) Urine Ketones Negative (Negative) Urine Blood Moderate H (Negative) Urine Nitrate Negative (Negative) Urine Bilirubin Negative (Negative) Urine Urobilinogen <2.0 (<2.0) mg/dL Ur Leukocyte Esterase Negative (Negative) Urine RBC >182 H (0-5) /hpf Urine WBC 9 H (0-5) /hpf Ur Squamous Epith Cells 1 (0-4) /hpf Urine Mucus Occasional H (None) /hpf 05/28/16 05/28/16 Range/Units 16:28 16:28 WBC (3.8-10.6) k/uL RBC (3.80-5.40) m/uL Hgb (11.4-16.0) gm/dL Hct (34.0-46.0) % MCV (80.0-100.0) fL MCH (25.0-35.0) pg MCHC (31.0-37.0) g/dL RDW (11.5-15.5) % Plt Count (150-450) k/uL Neutrophils % % Lymphocytes % % Monocytes % % Eosinophils % % Basophils % % Neutrophils # (1.3-7.7) k/uL Lymphocytes # (1.0-4.8) k/uL Monocytes # (0-1.0) k/uL Eosinophils # (0-0.7) k/uL Basophils # (0-0.2) k/uL Anisocytosis Macrocytosis PT 10.8 (9.0-12.0) sec INR 1.1 (<1.1) APTT 22.1 (22.0-30.0) sec Sodium 139 (137-145) mmol/L Potassium 4.7 (3.5-5.1) mmol/L Chloride 99 (98-107) mmol/L Carbon Dioxide 33 H (22-30) mmol/L Anion Gap 7 mmol/L BUN 14 (7-17) mg/dL Creatinine 0.52 (0.52-1.04) mg/dL Est GFR (MDRD) Af Amer >60 (>60 ml/min/1.73 sqM) Est GFR (MDRD) Non-Af >60 (>60 ml/min/1.73 sqM) Glucose 195 H (74-99) mg/dL Plasma Lactic Acid Rony (0.7-2.0) mmol/L Calcium 9.0 (8.4-10.2) mg/dL Magnesium 1.8 (1.6-2.3) mg/dL Total Bilirubin 0.3 (0.2-1.3) mg/dL AST 30 (14-36) U/L ALT 59 H (9-52) U/L Alkaline Phosphatase 159 H (38-126) U/L Total Protein 5.7 L (6.3-8.2) g/dL Albumin 3.2 L (3.5-5.0) g/dL Urine Color Urine Appearance (Clear) Urine pH (5.0-8.0) Ur Specific [place] (1.001-1.035) Urine Protein (Negative) Urine Glucose (UA) (Negative) Urine Ketones (Negative) Urine Blood (Negative) Urine Nitrate (Negative) Urine Bilirubin (Negative) Urine Urobilinogen (<2.0) mg/dL Ur Leukocyte Esterase (Negative) Urine RBC (0-5) /hpf Urine WBC (0-5) /hpf Ur Squamous Epith Cells (0-4) /hpf Urine Mucus (None) /hpf - EKG Data -: EKG Interpreted by Me EKG shows normal: sinus rhythm (Sinus tachycardia rate 120 GA interval 134 QRS duration 78 QT/QTC of 324/[address]-T wave changes) - Radiology Data Radiology results: report reviewed (X-ray was reviewed there is evidence of pulmonary edema.), image reviewed Critical Care Time Critical Care Time: Yes Critical Care Time: 37 minutes of critical care time which includes initial history physical lab and x-ray orders reevaluation patient several occasions including after initial therapy. Discussion with the patient regarding the findings review of all x- ray and labs. Discussion with the admitting physician and admission orders and documentation the above. Review of old charting. Disposition Clinical Impression: Congestive heart failure, Acute exacerbation of chronic obstructive airways disease, Adult respiratory distress syndrome, Acute pulmonary edema, Smoking Disposition: ADMITTED IP TO THIS HOSP Condition: Stable
[2016-05-28 16:36] LABS: Anisocytosis Slight; Basophils # (A) 0.1 k/uL (0-0.2); Basophils % (A) 1 %; CH 31.7; CHCM 32.9; Eosinophils # (A) 0.1 k/uL (0-0.7); Eosinophils % (A) 1 %; HCT 43.1 % (34.0-46.0); HDW 2.87; HGB 13.4 gm/dL (11.4-16.0); Luc # (Auto) 0.04; Luc % (Auto) 0; Lymphocytes # (A) 0.3 k/uL (1.0-4.8); Lymphocytes % (A) 2 %; MCH 30.3 pg (25.0-35.0); MCHC 31.2 g/dL (31.0-37.0); MCV 97.2 fL (80.0-100.0); Macrocytosis Slight; Mean Platelet Volume 7.7; Monocytes # (A) 0.5 k/uL (0-1.0); Monocytes % (A) 4 %; Neutrophils # (A) 12.1 k/uL (1.3-7.7); Neutrophils % (A) 93 %; RBC 4.43 m/uL (3.80-5.40); RDW 16.9 % (11.5-15.5); WBC 13.1 k/uL (3.8-10.6); WBC (Perox) 13.66
[2016-05-28 16:43] LABS: ALT 59 U/L (9-52); AST 30 U/L (14-36); Alkaline Phosphatase 159 U/L (38-126); Anion Gap 7 mmol/L; Blood Urea Nitrogen 14 mg/dL (7-17); Carbon Dioxide 33 mmol/L (22-30); Chloride 99 mmol/L (98-107); Glucose 195 mg/dL (74-99); Magnesium 1.8 mg/dL (1.6-2.3); Non-African American GFR(MDRD) >60 (>60 ml/min/1.73 sqM); Potassium 4.7 mmol/L (3.5-5.1); Sodium 139 mmol/L (137-145); Total Bilirubin 0.3 mg/dL (0.2-1.3); Total Protein 5.7 g/dL (6.3-8.2)
[2016-05-28 16:45] LABS: INR 1.1 (<1.1); Partial Thromboplastin Time 22.1 sec (22.0-30.0); Prothrombin Time 10.8 sec (9.0-12.0)
--- NOTE | 2016-05-28 17:10 | XR ---
EXAMINATION TYPE: XR chest 2V DATE OF EXAM: 05/28/2016 5:02 PM COMPARISON: 05/27/2016 INDICATION: Difficulty breathing cough and congestion TECHNIQUE: Frontal and lateral views of the chest are obtained. FINDINGS: The heart size is normal. Pulmonary vascular markings are slightly prominent. Scattered increased lung markings can be compatible some alveolar infiltrate. There is exaggeration of thoracic kyphosis. There may be posttraumatic changes along the right lateral chest. IMPRESSION: 1. Clinical correlation recommended for pulmonary edema.
[2016-05-28] MEDS ORDERED: NICOTINE 21MG/24HR PATCH TRANSDERM STA (17:11)
[2016-05-28] MEDS ORDERED: NITROGLYCERIN OINT 1 INCH/GM PACKET TOPICAL STA (17:12)
[2016-05-28] MEDS ORDERED: POTASSIUM CHLORIDE ER 10 MEQ TAB.ER.PRT PO PRN (17:17)
[2016-05-28] MEDS ORDERED: DIPHENOX-ATROP 2.5-0.025 MG 1 EACH TAB PO PRN (17:17)
[2016-05-28] MEDS ORDERED: TRIAMCINOLONE ACET 0.5% CREAM 15 GM TUBE TOPICAL PRN (17:17)
[2016-05-28] MEDS ORDERED: CYCLOBENZAPRINE 10 MG TAB PO PRN (17:17)
[2016-05-28 17:20] LABS: Creatine Kinase MB 3.3 ng/mL (0.0-2.4); Troponin I 0.047 ng/mL (0.000-0.034)
[2016-05-28] MEDS ORDERED: ERTAPENEM 1 GM VIAL IVPB SCH (17:30)
[2016-05-28] MEDS ORDERED: NON-FORMULARY DRUG (Omega-3 Acid Ethyl Esters [Lovaza] 1 GM) PO SCH (18:00)
[2016-05-28] MEDS: INSULIN LISPRO (humaLOG) 300 UNIT/3 ML VIAL SQ SCH ×2 (18:06→21:51)
[2016-05-28] MEDS: oxyCODONE-APAP 7.5-325MG 1 EACH TAB PO PRN ×2 (18:43→23:21)
[2016-05-28] MEDS: FUROSEMIDE 10 MG/ML 4 ML VIAL IV SCH (18:44)
[2016-05-28] MEDS: SODIUM CHLORIDE 0.9% 1,000 ML IV SCH (18:45)
[2016-05-28] MEDS: metFORMIN 500 MG TAB PO SCH (18:45)
[2016-05-28] MEDS: IPRATROPIUM-ALBUTEROL 3 ML NEB INHALATION SCH (19:56)
[2016-05-28 20:46] LABS: Hemoglobin A1C 8.7 % (4.2-6.1)
[2016-05-28 20:58] LABS: Glucose,Whole Blood 238 mg/dL (75-99)
[2016-05-28] MEDS ORDERED: NON-FORMULARY DRUG (Biotin [Biotin] 5 MG) PO SCH (21:00)
[2016-05-28] MEDS: FLUCONAZOLE 100 MG TAB PO SCH (21:23)
[2016-05-28] MEDS: CALCIUM CARB-VIT D 500MG-200UN 1 EACH TAB PO SCH (21:23)
[2016-05-28] MEDS: ASPIRIN 81 MG CHEW PO SCH (21:23)
[2016-05-28] MEDS: GLIMEPIRIDE 4 MG TAB PO SCH (21:24)
[2016-05-28] MEDS: PANTOPRAZOLE 40 MG TABLET PO SCH (21:24)
[2016-05-28] MEDS: POTASSIUM CHLORIDE ORAL LIQUID 40 MEQ/30 ML CUP PO SCH ×2 (21:24→21:45)
[2016-05-28] MEDS: LOPERAMIDE 2 MG CAP PO SCH (21:24)
[2016-05-28] MEDS: LOSARTAN 50 MG TAB PO SCH (21:24)
[2016-05-28] MEDS: NITROGLYCERIN OINT 1 INCH/GM PACKET TOPICAL SCH (21:25)
[2016-05-28] MEDS: PYRIDOXINE 50 MG TAB PO SCH (21:25)
[2016-05-28] MEDS: predniSONE 10 MG TAB PO SCH (21:25)
[2016-05-28] MEDS: NYSTATIN 100,000 UNIT/GM POWD 15 GM TOPICAL SCH (21:52)
[2016-05-29 00:50] LABS: Creatine Kinase MB 3.1 ng/mL (0.0-2.4)
[2016-05-29] MEDS: IPRATROPIUM-ALBUTEROL 3 ML NEB INHALATION SCH ×6 (01:15→20:04)
[2016-05-29] MEDS: FUROSEMIDE 10 MG/ML 4 ML VIAL IV SCH ×4 (02:27→23:43)
[2016-05-29] MEDS: oxyCODONE-APAP 7.5-325MG 1 EACH TAB PO PRN ×5 (03:57→22:57)
[2016-05-29 06:05] LABS: Glucose,Whole Blood 107 mg/dL (75-99)
[2016-05-29] MEDS: INSULIN LISPRO (humaLOG) 300 UNIT/3 ML VIAL SQ SCH ×4 (07:08→22:54)
[2016-05-29] MEDS: metFORMIN 500 MG TAB PO SCH ×2 (07:20→20:17)
[2016-05-29] MEDS ORDERED: MELOXICAM 7.5 MG TAB PO SCH (09:00)
[2016-05-29] MEDS: predniSONE 10 MG TAB PO SCH (09:09)
[2016-05-29] MEDS: LOPERAMIDE 2 MG CAP PO SCH ×2 (09:10→22:55)
[2016-05-29] MEDS: CALCIUM CARB-VIT D 500MG-200UN 1 EACH TAB PO SCH ×2 (09:10→22:55)
[2016-05-29] MEDS: GLIMEPIRIDE 4 MG TAB PO SCH ×2 (09:10→22:54)
[2016-05-29] MEDS: NICOTINE 21MG/24HR PATCH TRANSDERM SCH (09:11)
[2016-05-29] MEDS: NYSTATIN 100,000 UNIT/GM POWD 15 GM TOPICAL SCH ×3 (09:11→23:42)
[2016-05-29] MEDS: NITROGLYCERIN OINT 1 INCH/GM PACKET TOPICAL SCH ×4 (09:11→22:57)
[2016-05-29] MEDS: PYRIDOXINE 50 MG TAB PO SCH ×3 (09:12→22:57)
--- NOTE | 2016-05-29 09:40 | P.CRDCN ---
History of Present Illness Consult date: 05/29/16 Requesting physician: Nydia Christiansen Consult reason: shortness of breath Chief complaint: Shortness of breath History of present illness: His is a 50-year-old female with history of rheumatoid arthritis, Sjogren's, Ranauds, diabetes, I pretension, hyperlipidemia, nicotine dependence , patient smokes 2 packs of cigarettes per day, emphysema, chronic immunosuppression cervical stenosis, patient was recently in the hospital and was found to have a axillary abscess, patient underwent surgery for this continues to have a drain in place. Follows with Dr. Downing at the wound center , she had a Barriga been following their because of significant bilateral lower extremity ulcers and wounds. On this occasion she presents to the hospital with symptoms of progressively worsening shortness of breath. States she always has some symptoms of shortness of breath but this was much different than her usual. Blood pressure on arrival here 145/80, heart rate 127, room air oxygenation 89%, 92% on 3 L of oxygen. Laboratory data, WBC 13.1, hemoglobin 13.4. Potassium 4.7, BUN 14, creatinine 0.5. Troponin 0.047. BNP level 355. Chest x-ray impression clinical correlation recommended for pulmonary edema. EKG on arrival sinus tachycardia with no acute changes. At the time of my examination this morning, patient is quite short of breath, persistent cough, nonproductive, although patient states when she is able to cough something up it is thick and yellow. She denies any fever or chills at home. The patient has been afebrile here. Past Medical History Past Medical History: Diabetes Mellitus, Hyperlipidemia, Hypertension, Rheumatoid Arthritis (RA), Hypertension, Respiratory Disorder, Rheumatoid Arthritis (RA) Additional Past Medical History / Comment(s): sjogrens, raynauds, urinary urgency and incontinence, bowel incontinence, wound rt foot plantar surface, immunosuppressed, ventral hernia, rheumatic lung, rheumatic fever as a child, varicose veins, current steroid,pm>2yrs, severe cervical stenosis-bilat. neuro deficits in arms, PCN resistant, pleural pain, bleeding peptic ulcer,coffee ground emesis,hemmroids, heart rate usually runs 100-120 History of Any Multi-Drug Resistant Organisms: None Reported Past Surgical History: Adenoidectomy, Heart Catheterization, Hernia Repair, Orthopedic Surgery, Tonsillectomy Additional Past Surgical History / Comment(s): closed reduction rt elbow as a child,laser vein surgery lt leg. Past Anesthesia/Blood Transfusion Reactions: Previous Problems w/ Anesthesia Additional Past Anesthesia/Blood Transfusion Reaction / Comment(s): pt states experienced swelling of throat with anesthesia as a child with tonsil removal- no further swelling problems with anesthesia,Severe Cervical Stenosis, family hx of blood transfusion reaction with mother and brother-rx rash,hives Past Psychological History: Anxiety, Depression Smoking Status: Current every day smoker Past Alcohol Use History: Rare Additional Past Alcohol Use History / Comment(s): started smoking 1979 Past Drug Use History: None Reported - Past Family History Brother(s) Family Medical History: Coronary Artery Disease (CAD) Mother Family Medical History: Diabetes Mellitus Additional Family Medical History / Comment(s): with Castro's Disease Father Family Medical History: Coronary Artery Disease (CAD), Diabetes Mellitus, Hyperlipidemia, Vascular Disorder Additional Family Medical History / Comment(s): at age 89 Medications and Allergies Home Medications Medication Instructions Recorded Confirmed Type Aspirin 81 mg PO HS 01/03/15 05/28/16 History Ca/D3/Mag/Zinc/Crow/Jorge/Mgbor 1 tab PO BID 01/03/15 05/28/16 History [Caltrate 600+D3+Min Chew Tab] Folic Acid 1 mg PO DAILY 01/03/15 05/28/16 History Glimepiride [Amaryl] 4 mg PO BID 01/03/15 05/28/16 History Methotrexate Sodium [Methotrexate] 25 mg PO TH 01/03/15 05/28/16 History Omeprazole [PriLOSEC] 40 mg PO HS 01/03/15 05/28/16 History Potassium Chloride ER [K-Dur 10] 10 meq PO DAILY PRN 01/03/15 05/28/16 History Potassium Gluconate 99 mg PO 01/03/15 05/28/16 History predniSONE 10 mg PO TID 01/03/15 05/28/16 History Cyclobenzaprine [Flexeril] 10 mg PO Q8H PRN 03/07/15 05/28/16 History Pyridoxine [Vitamin B-6] 50 mg PO TID 03/06/16 05/28/16 History Triamcinolone 0.5% Cream [Kenalog 1 applic TOPICAL DAILY PRN 03/06/16 05/28/16 History 0.5% Cream] Albuterol Inhaler [Ventolin Hfa 2 puff INHALATION Q6HR PRN 05/09/16 05/28/16 History Inhaler] Ascorbic Acid [Vitamin C] 500 mg PO DAILY 05/09/16 05/28/16 History Celecoxib [CeleBREX] 200 mg PO BID 05/09/16 05/28/16 History Diphenoxylate HCl/Atropine 2 tab PO QID PRN 05/09/16 05/28/16 History [Lomotil] Loperamide HCl [Imodium A-D] 2 mg PO BID 05/09/16 05/28/16 History [place]-3 Acid Ethyl Esters [Lovaza] 1 gm PO QID 05/09/16 05/28/16 History Telmisartan [Micardis] 40 mg PO HS 05/09/16 05/28/16 History hydrOXYzine PAMOATE [Vistaril] 25 mg PO Q6HR PRN 05/09/16 05/28/16 History Fluconazole [Diflucan] 200 mg PO Q72H 05/25/16 05/28/16 History Biotin 5 mg PO BID 05/28/16 05/28/16 History Nystatin 100,000 Unit/gm Powd 1 applic TOPICAL TID 05/28/16 05/28/16 History [Mycostatin Powder] oxyCODONE-APAP 7.5-325MG [Percocet 1 tab PO Q4HR PRN 05/28/16 05/28/16 History 7.5-325 mg] Allergies Allergy/AdvReac Type Severity Reaction Status Date / Time latex Allergy Mild Swelling Verified 05/28/16 16:31 Penicillins Allergy Rash/Hives Verified 05/28/16 16:31 Physical Exam Vitals: Vital Signs Temp Pulse Pulse Resp BP BP Pulse Ox 05/29/16 08:59 104 H 05/29/16 08:43 104 H 05/29/16 08:00 111 H 20 05/29/16 07:30 96.8 F L 111 H 20 115/84 05/29/16 04:49 120 H 05/29/16 04:35 114 H 05/29/16 04:00 109 H 05/29/16 01:34 100 05/29/16 01:15 104 H 05/29/16 00:00 118 H 18 141/87 94 L 05/28/16 20:05 126 H 05/28/16 20:00 125 H 20 124/97 93 L 05/28/16 19:56 118 H 05/28/16 18:52 120 H 22 05/28/16 18:51 97.0 F L 120 H 22 144/70 92 L 05/28/16 17:52 97.3 F L 115 H 18 144/66 91 L 05/28/16 17:47 97.0 F L 120 H 22 144/70 92 L 05/28/16 17:24 120 H 22 156/94 97 Intake and Output 05/28/16 05/29/16 05/29/16 22:59 06:59 14:59 Intake Total 120 160 Output Total 950 Balance 120 -950 160 Intake: Oral 120 160 Output: Urine 950 Other: Voiding Method Toilet Toilet Toilet Urinal Urinal # Voids 1 # Bowel Movements 1 Weight 85.729 kg 86.7 kg PHYSICAL EXAMINATION: HEENT: Head is atraumatic, normocephalic. Pupils equal, round. Neck is supple. There is elevated jugular venous pressure. HEART EXAMINATION: Heart S1, S2 normal. No murmur or gallop heard. CHEST EXAMINATION: His reveal scattered coarse rhonchi and wheezing throughout. ABDOMEN: Soft, obese, nontender. Bowel sounds are heard. No organomegaly noted. EXTREMITIES: 1+ peripheral pulses with 2+ evidence of peripheral edema and no calf tenderness noted. Drain in place at left axilla area. Positive ulcerations and wounds on bilateral legs, wraps in place. NEUROLOGIC patient is awake, alert and oriented -3. . Results 05/28/16 16:28 05/28/16 16:28 Cardiac Enzymes 05/28/16 05/29/16 Range/Units 23:34 06:13 CK-MB (CK-2) 3.1 H* 2.6 H* (0.0-2.4) ng/mL Current Medications Generic Name Dose Route Start Last Admin Trade Name Freq PRN Reason Stop Dose Admin Albuterol/Ipratropium 3 ml 05/28/16 20:00 05/29/16 08:42 Duoneb 0.5 Mg-3 Mg/3 Ml Soln INHALATION 3 ml RT-Q4H [facility]A Administration Ascorbic Acid 500 mg 05/29/16 12:00 Vitamin C PO DAILY@1200 [facility] Aspirin 81 mg 05/28/16 21:00 05/28/16 21:23 Aspirin PO 81 mg HS [facility] Administration Calcium Carbonate 1 each 05/28/16 21:00 05/28/16 21:23 Oscal 500+D PO 1 each BID [facility] Administration Cyclobenzaprine HCl 10 mg 05/28/16 17:17 Flexeril PO Q8H PRN Pain Diphenoxylate HCl/Atropine 2 each 05/28/16 17:17 Lomotil PO QID PRN Diarrhea Fluconazole 200 mg 05/28/16 21:00 05/28/16 21:23 Diflucan PO 200 mg Q72H [facility] Administration Folic Acid 1 mg 05/29/16 12:00 Folic Acid PO DAILY@1200 [facility] Furosemide 40 mg 05/28/16 18:00 05/29/16 02:27 Lasix IV 40 mg Q8HR [facility] Administration Glimepiride 4 mg 05/28/16 21:00 05/28/16 21:24 Amaryl PO 4 mg BID [facility] Administration Hydroxyzine Pamoate 25 mg 05/28/16 17:17 Vistaril PO Q6HR PRN itching Sodium Chloride 1,000 mls @ 20 mls/hr 05/28/16 17:15 05/28/16 18:45 Saline 0.9% IV Not Given .Q24H [facility] Ertapenem 1 gm/ Sodium 50 mls @ 100 mls/hr 05/29/16 09:00 Chloride IVPB DAILY [facility] Insulin Human Lispro 0 unit 05/28/16 17:30 05/29/16 07:08 Humalog SQ Not Given [facility] Protocol Loperamide HCl 2 mg 05/28/16 21:00 05/28/16 21:24 Imodium PO 2 mg BID [facility] Administration Losartan Potassium 100 mg 05/28/16 21:00 05/28/16 21:24 Cozaar PO 100 mg HS [facility] Administration Meloxicam 15 mg 05/29/16 09:00 05/29/16 07:16 Mobic PO Not Given DAILY [facility] Metformin HCl 500 mg 05/28/16 17:30 05/29/16 07:20 Glucophage PO Not Given BID-W/MEALS [facility] Methotrexate 25 mg 05/30/16 12:00 Methotrexate PO TH [facility] Nicotine 1 patch 05/29/16 09:00 Habitrol 21mg/24hr Patch TRANSDERM DAILY [facility] Nitroglycerin 1 inch 05/28/16 22:00 05/28/16 21:25 Nitro-Bid Oint TOPICAL 1 inch QID [facility] Administration Nystatin 1 applic 05/28/16 22:00 05/28/16 21:52 Mycostatin Powder TOPICAL 1 applic TID [facility] Administration Oxycodone/Acetaminophen 1 each 05/28/16 17:17 05/29/16 03:57 Percocet 7.5-325 PO 1 each Q4HR PRN Administration Pain Pantoprazole Sodium 40 mg 05/28/16 21:00 05/28/16 21:24 Protonix PO 40 mg HS [facility] Administration Potassium Chloride 2.5 meq 05/28/16 21:00 05/28/16 21:45 Potassium Chloride Oral Liquid PO Not Given HS [facility] Potassium Chloride 10 meq 05/28/16 17:17 K-Dur 10 PO DAILY PRN muscle cramps,twitches Prednisone 10 mg 05/28/16 22:00 05/28/16 21:25 PO 10 mg TID [facility] Administration Pyridoxine HCl 50 mg 05/28/16 22:00 05/28/16 21:25 Vitamin B-6 PO 50 mg TID [facility] Administration Triamcinolone Acetonide 1 applic 05/28/16 17:17 Kenalog 0.5% Cream TOPICAL DAILY PRN Rash Intake and Output 05/28/16 05/29/16 05/29/16 22:59 06:59 14:59 Intake Total 120 160 Output Total 950 Balance 120 -950 160 Intake: Oral 120 160 Output: Urine 950 Other: Voiding Method Toilet Toilet Toilet Urinal Urinal # Voids 1 # Bowel Movements 1 Weight 85.729 kg 86.7 kg EKG Interpretations (text) EKG shows a sinus tachycardia with no acute changes. Assessment and Plan Plan: Assessment and plan #1 symptoms of progressively worsening shortness of breath, possible exacerbation of COPD with acute bronchitis, possible mild congestive cardiac failure, BNP level 355. Rule out pulmonary embolism #2 rheumatoid arthritis #3 COPD #4 nicotine dependence, patient smokes 2 packs of cigarettes per day Number 5 diabetes #6 hypertension #7 hyperlipidemia #8 GERD #9 history of abscess in the left axilla area, drain in place. Patient currently on IV antibiotics #10 chronic wounds, followed at the wound clinic. #11 abnormal troponin, likely secondary to oxygen supply and demand mismatch. We will obtain to further troponins. Patient denies having any chest pain. Patient did undergo a cardiac catheterization in 2010 which revealed normal coronary arteries at that time. Plan We will obtain an echocardiogram with Doppler study. Obtained to further troponin values. We will also request a d-dimer, rule out the possibility of a pulmonary embolism. Further recommendations to follow. DNP note has been reviewed, I agree with a documented findings and plan of care. Patient was seen and examined.
[2016-05-29] MEDS: ERTAPENEM 1 GM in SODIUM CHLORIDE 0.9% 50 ML IVPB SCH (10:40)
[2016-05-29] MEDS: SODIUM CHLORIDE 0.9% 1,000 ML IV SCH (10:44)
--- NOTE | 2016-05-29 11:20 | ECHOF ---
Referral Reason:CHF MEASUREMENTS -------- HEIGHT: 170.2 cm WEIGHT: 86.6 kg BP: RVIDd: 3.2 cm (< 3.3) IVSd: 1.2 cm (0.6 - 1.1) LVIDd: 4.4 cm (3.9 - 5.3) LVPWd: 1.3 cm (0.6 - 1.1) IVSs: 1.5 cm LVIDs: 4.1 cm LVPWs: 1.7 cm LAESV Index (A-L): 26.64 ml/m Ao Diam: 2.9 cm (2.0 - 3.7) AV Cusp: 1.4 cm (1.5 - 2.6) LA Diam: 3.7 cm (2.7 - 3.8) MV E Dontae: 0.43 m/s MV DecT: 168 ms MV A Dontae: 0.60 m/s MV E/A Ratio: 0.71 RAP: 5.00 mmHg RVSP: 35.45 mmHg FINDINGS -------- Undetermined rhythm. This was a technically adequate study. There is mild concentric left ventricular hypertrophy. Overall left ventricular systolic function is low-normal with, an EF between 50 - 55 %. The right ventricle is normal in size. RV not well visualised, difficult Pt and limited Acoustic Window-- Consider CARY if there are clinical concerns. Normal LA size by volume 22+/-6 ml/m2. The right atrial size is normal. There is mild aortic valve sclerosis. There is no evidence of aortic regurgitation. Mild mitral annular calcification present. Mild mitral regurgitation is present. Mild tricuspid regurgitation present. There is no evidence of pulmonary hypertension. The right ventricular systolic pressure, as measured by Doppler, is 35.45mmHg. There is no pulmonic regurgitation present. The aortic root size is normal. There is no pericardial effusion. CONCLUSIONS -------- 1. There is mild concentric left ventricular hypertrophy. 2. Normal LA size by volume 22+/-6 ml/m2. 3. There is mild aortic valve sclerosis. 4. Mild mitral annular calcification present. 5. Mild mitral regurgitation is present. 6. Mild tricuspid regurgitation present. 7. There is no evidence of pulmonary hypertension. 8. The right ventricular systolic pressure, as measured by Doppler, is 35.45mmHg. MECHANICAL CAD DESIGNER: Ruma Serna RDCS
[2016-05-29 11:50] LABS: Troponin I 0.045 ng/mL (0.000-0.034)
[2016-05-29 12:11] LABS: Glucose,Whole Blood 133 mg/dL (75-99)
[2016-05-29] MEDS: ASCORBIC ACID 500 MG TAB PO SCH (12:47)
[2016-05-29] MEDS: FOLIC ACID 1 MG TAB PO SCH (12:47)
[2016-05-29] MEDS: methylPREDNISolone SOD SUCCI 125 MG/2 ML VIAL IV SCH ×3 (12:48→23:43)
--- NOTE | 2016-05-29 13:40 | P.HPIM ---
History of Present Illness H&P Date: 05/29/16 Chief Complaint: Shortness of breath This is a 50-year-old pleasant female patient of Dr. Spring and Dr. Downing. She has underlying history of rheumatid arthritis, Sjogren's, Raynaud's, diabetes mellitus type 2, hyperlipidemia, hypertension, rheumatoid lung, chronic immunosuppression, cervical stenosis with upper extremity weakness, impaired balance impaired gait. She had a recent hospitalization from May 09 through 05/15/2016 at which time she was treated for abscess formation left axilla and left elbow status post debridement with Dr. Luo. She was discharged with a wound VAC in place. She has been returning to the [facility] for ertapenem 1 g to complete 30 days. She also follows with Dr. Downing in the wound healing Center and her last appointment was yesterday. Patient states that she developed suddenly shortness of breath. She does have lower extremity edema and chronic venous stasis changes to the lower extremities which has not changed. She denies having any fevers at home. She came into [facility] emergency center for evaluation. It is noted the patient continues to smoke. Chest x-ray shows pulmonary edema. Urinalysis was positive for blood. ALT 59, alkaline phosphatase 159. Troponins 0.047, 0.045 and 0.039. Patient was diagnosed with heart failure and admitted to the selective care unit. Consults requested with cardiology. She has been started on Lasix 40 mg IV every 8 hours. The d-dimer 0.79. Echocardiogram reveals mild concentric left ventricular hypertrophy, mild mitral regurgitation, mild tricuspid regurgitation, no pulmonary hypertension. EF 50-55%. Review of Systems All systems: negative Constitutional: Denies chills, Denies fever Eyes: denies blurred vision, denies pain Ears, nose, mouth and throat: Denies headache, Denies sore throat Cardiovascular: Reports leg edema, Denies chest pain, Denies lightheadedness, Denies shortness of breath, Denies syncope Respiratory: Reports cough, Reports cough with sputum, Reports dyspnea, Reports wheezing Gastrointestinal: Denies abdominal pain, Denies diarrhea, Denies nausea, Denies vomiting Genitourinary: Denies dysuria, Denies hematuria Musculoskeletal: Denies myalgias Integumentary: Reports wounds, Denies pruritus, Denies rash Neurological: Denies numbness, Denies weakness Psychiatric: Denies anxiety, Denies depression Endocrine: Denies fatigue, Denies weight change Past Medical History Past Medical History: Diabetes Mellitus, Hyperlipidemia, Hypertension, Rheumatoid Arthritis (RA), Hypertension, Respiratory Disorder, Rheumatoid Arthritis (RA) Additional Past Medical History / Comment(s): sjogrens, raynauds, urinary urgency and incontinence, bowel incontinence, wound rt foot plantar surface, immunosuppressed, ventral hernia, rheumatic lung, rheumatic fever as a child, varicose veins, current steroid,pm>2yrs, severe cervical stenosis-bilat. neuro deficits in arms, PCN resistant, pleural pain, bleeding peptic ulcer,coffee ground emesis,hemmroids, heart rate usually runs 100-120 History of Any Multi-Drug Resistant Organisms: None Reported Past Surgical History: Adenoidectomy, Heart Catheterization, Hernia Repair, Orthopedic Surgery, Tonsillectomy Additional Past Surgical History / Comment(s): closed reduction rt elbow as a child,laser vein surgery lt leg. Past Anesthesia/Blood Transfusion Reactions: Previous Problems w/ Anesthesia Additional Past Anesthesia/Blood Transfusion Reaction / Comment(s): pt states experienced swelling of throat with anesthesia as a child with tonsil removal- no further swelling problems with anesthesia,Severe Cervical Stenosis, family hx of blood transfusion reaction with mother and brother-rx rash,hives Past Psychological History: Anxiety, Depression Smoking Status: Current every day smoker Past Alcohol Use History: Rare Additional Past Alcohol Use History / Comment(s): started smoking 1979 Past Drug Use History: None Reported - Past Family History Brother(s) Family Medical History: Coronary Artery Disease (CAD) Mother Family Medical History: Diabetes Mellitus Additional Family Medical History / Comment(s): with Castro's Disease Father Family Medical History: Coronary Artery Disease (CAD), Diabetes Mellitus, Hyperlipidemia, Vascular Disorder Additional Family Medical History / Comment(s): at age 89 Medications and Allergies Home Medications Medication Instructions Recorded Confirmed Type Aspirin 81 mg PO HS 01/03/15 05/28/16 History Ca/D3/Mag/Zinc/Crow/Jorge/Mgbor 1 tab PO BID 01/03/15 05/28/16 History [Caltrate 600+D3+Min Chew Tab] Folic Acid 1 mg PO DAILY 01/03/15 05/28/16 History Glimepiride [Amaryl] 4 mg PO BID 01/03/15 05/28/16 History Methotrexate Sodium [Methotrexate] 25 mg PO TH 01/03/15 05/28/16 History Omeprazole [PriLOSEC] 40 mg PO HS 01/03/15 05/28/16 History Potassium Chloride ER [K-Dur 10] 10 meq PO DAILY PRN 01/03/15 05/28/16 History Potassium Gluconate 99 mg PO HS 01/03/15 05/28/16 History predniSONE 10 mg PO TID 01/03/15 05/28/16 History Cyclobenzaprine [Flexeril] 10 mg PO Q8H PRN 03/07/15 05/28/16 History Pyridoxine [Vitamin B-6] 50 mg PO TID 03/06/16 05/28/16 History Triamcinolone 0.5% Cream [Kenalog 1 applic TOPICAL DAILY PRN 03/06/16 05/28/16 History 0.5% Cream] Albuterol Inhaler [Ventolin Hfa 2 puff INHALATION Q6HR PRN 05/09/16 05/28/16 History Inhaler] Ascorbic Acid [Vitamin C] 500 mg PO DAILY 05/09/16 05/28/16 History Celecoxib [CeleBREX] 200 mg PO BID 05/09/16 05/28/16 History Diphenoxylate HCl/Atropine 2 tab PO QID PRN 05/09/16 05/28/16 History [Lomotil] Loperamide HCl [Imodium A-D] 2 mg PO BID 05/09/16 05/28/16 History [place]-3 Acid Ethyl Esters [Lovaza] 1 gm PO QID 05/09/16 05/28/16 History Telmisartan [Micardis] 40 mg PO HS 05/09/16 05/28/16 History hydrOXYzine PAMOATE [Vistaril] 25 mg PO Q6HR PRN 05/09/16 05/28/16 History Fluconazole [Diflucan] 200 mg PO Q72H 05/25/16 05/28/16 History Biotin 5 mg PO BID 05/28/16 05/28/16 History Nystatin 100,000 Unit/gm Powd 1 applic TOPICAL TID 05/28/16 05/28/16 History [Mycostatin Powder] oxyCODONE-APAP 7.5-325MG [Percocet 1 tab PO Q4HR PRN 05/28/16 05/28/16 History 7.5-325 mg] Allergies Allergy/AdvReac Type Severity Reaction Status Date / Time latex Allergy Mild Swelling Verified 05/28/16 16:31 Penicillins Allergy Rash/Hives Verified 05/28/16 16:31 Physical Exam Vitals: Vital Signs Temp Pulse Pulse Resp BP BP Pulse Ox 05/29/16 08:59 104 H 05/29/16 08:43 104 H 05/29/16 07:30 96.8 F L 111 H 20 115/84 05/29/16 04:49 120 H 05/29/16 04:35 114 H 05/29/16 04:00 109 H 05/29/16 01:34 100 05/29/16 01:15 104 H 05/29/16 00:00 118 H 18 141/87 94 L 05/28/16 20:05 126 H 05/28/16 20:00 125 H 20 124/97 93 L 05/28/16 19:56 118 H 05/28/16 18:52 120 H 22 05/28/16 18:51 97.0 F L 120 H 22 144/70 92 L 05/28/16 17:52 97.3 F L 115 H 18 144/66 91 L 05/28/16 17:47 97.0 F L 120 H 22 144/70 92 L 05/28/16 17:24 120 H 22 156/94 97 Intake and Output 05/28/16 05/29/16 05/29/16 22:59 06:59 14:59 Intake Total 120 Output Total 950 Balance 120 -950 Intake: Oral 120 Output: Urine 950 Other: Voiding Method Toilet Toilet Urinal # Voids 1 # Bowel Movements 1 Weight 85.729 kg 86.7 kg General appearance: Present: cooperative, no acute distress, obese - EENT Eyes: Present: anicteric sclerae, PERRLA, dentition normal ENT: Present: hearing grossly normal, NA/AT, normal oropharynx - Neck Neck: Present: normal ROM - Respiratory Respiratory: bilateral: Scattered coarse rhonchi and expiratory wheeze - Cardiovascular Rhythm: regular Heart sounds: normal: S1, S2, 2+ pedal edema - Gastrointestinal General gastrointestinal: Present: normal bowel sounds, soft - Integumentary Integumentary Comment(s): Wound VAC to left axilla wound, dressing in place to the left elbow wound, PICC line right upper arm. Integumentary: Present: normal, normal turgor - Neurologic Neurologic: Present: CNII-XII intact - Psychiatric Psychiatric: Present: A&O x's 3, appropriate affect, intact judgment & insight Results CBC & Chem 7: 05/28/16 16:28 05/28/16 16:28 Labs: Abnormal Lab Results - Last 24 Hours (Table) 05/28/16 05/28/16 05/29/16 Range/Units 20:57 23:34 06:03 POC Glucose (mg/dL) 238 H 107 H (75-99) mg/dL CK-MB (CK-2) 3.1 H* (0.0-2.4) ng/mL 05/29/16 Range/Units 06:13 POC Glucose (mg/dL) (75-99) mg/dL CK-MB (CK-2) 2.6 H* (0.0-2.4) ng/mL Thrombosis Risk Factor Assmnt - DVT/VTE Prophylaxis DVT/VTE Prophylaxis: Pharmacologic Prophylaxis ordered - Choose All That Apply Other Risk Factors: Yes Each Risk Factor Represents 2 Points: Age 61-74 years Thrombosis Risk Factor Assessment Total Risk Factor Score: 2 Thrombosis Risk Factor Assessment Level: Low Risk Assessment and Plan Plan: 1. Acute hypoxic respiratory failure, acute exacerbation of COPD, acute diastolic heart failure. Continue Lasix 40 mg IV every 8 hours, Solu-Medrol 60 mg IV every 8 hours, DuoNeb treatments every 4 hours. Consult with 2. Abscess left medial humerus, with deep fistulous formation, and axilla, status post I&D. Patient currently has wound VAC to the axilla wound. Wound halfway [facility] [place]. She follows in the wound center with Dr. Downing. Consult with Dr. Downing. Patient continued on ertapenem. 3. Rheumatoid arthritis is chronically on methotrexate and prednisone 10 mg 3 times a day. Prednisone on hold while patient is taking Solu-Medrol. Patient follows with Dr. Preston as an outpatient 4. Diabetes mellitus type 2 on metformin, glimepiride and Humalog scale 5. IBS with diarrhea currently constipated she is on Lomotil 2 mg 4 times a day when necessary no changes were made 6. Decubitus ulcer stage II, present on admission on santyl 7. Chronic pain related to RA and musculoskeletal deformities including spinal stenosis. Continue Percocet, Flexeril. 8. Chronic tobacco dependency at 2 packs per day. Nicotine patch 21 mics per day 9. Hypertension on losartan 100 mg daily 10. DVT prophylaxis with Lovenox 11. GI prophylaxis. Protonix. Discharge plan: Social work consult for subacute rehab Patient will be admitted to the hospital for a minimum of 2 night stay. Impression and plan of care have been directed as dictated by the signing physician. Tiki Mcpherson nurse practitioner acting as scribe for signing physician. Time with Patient: Greater than 30
--- NOTE | 2016-05-29 13:47 | P.CONS ---
History of Present Illness - Reason for Consult Consult date: 05/29/16 Wound care - History of Present Illness This is a 50-year-old pleasant female patient well known to ID services due to her recent hospitalization from May 09 through 05/15/2016 at which time she was treated for abscess formation left axilla and left elbow status post debridement with Dr. Luo. She was discharged with a wound VAC in place. She has been returning to the [facility] for ertapenem 1 g to complete 30 days. She follows with Dr. Downing in the wound healing Center and her last appointment was yesterday. She denies having any problems with her wounds at home. She denies any problems with her PICC line. No fever or chills. Patient states that she developed suddenly shortness of breath. She does have lower extremity edema and chronic venous stasis changes to the lower extremities which has not changed. She came into [facility] emergency center for evaluation. It is noted the patient continues to smoke. Chest x-ray shows pulmonary edema. Urinalysis was positive for blood. ALT 59, alkaline phosphatase 159. Troponins 0.047, 0.045 and 0.039. Patient was diagnosed with heart failure and COPD exacerbation and admitted to the selective care unit. Cardiology consult in place. She has been started on Lasix 40 mg IV every 8 hours, Solu-Medrol and DuoNeb treatments. The d-dimer 0.79. Echocardiogram reveals mild concentric left ventricular hypertrophy, mild mitral regurgitation, mild tricuspid regurgitation, no pulmonary hypertension. EF 50-55%. She has been resumed on ertapenem. Review of Systems All systems: negative Constitutional: Denies chills, Denies fever Eyes: denies blurred vision, denies pain Ears, nose, mouth and throat: Denies headache, Denies sore throat Cardiovascular: Reports leg edema, Reports shortness of breath, Denies chest pain Respiratory: Reports cough, Reports cough with sputum, Reports dyspnea, Reports wheezing Gastrointestinal: Denies abdominal pain, Denies diarrhea, Denies nausea, Denies vomiting Genitourinary: Denies dysuria, Denies hematuria Musculoskeletal: Denies myalgias Integumentary: Reports wounds, Denies pruritus, Denies rash Neurological: Denies numbness, Denies weakness Psychiatric: Denies anxiety, Denies depression Endocrine: Denies fatigue, Denies weight change Past Medical History Past Medical History: Diabetes Mellitus, Hyperlipidemia, Hypertension, Rheumatoid Arthritis (RA), Hypertension, Respiratory Disorder, Rheumatoid Arthritis (RA) Additional Past Medical History / Comment(s): sjogrens, raynauds, urinary urgency and incontinence, bowel incontinence, wound rt foot plantar surface, immunosuppressed, ventral hernia, rheumatic lung, rheumatic fever as a child, varicose veins, current steroid,pm>2yrs, severe cervical stenosis-bilat. neuro deficits in arms, PCN resistant, pleural pain, bleeding peptic ulcer,coffee ground emesis,hemmroids, heart rate usually runs 100-120 History of Any Multi-Drug Resistant Organisms: None Reported Past Surgical History: Adenoidectomy, Heart Catheterization, Hernia Repair, Orthopedic Surgery, Tonsillectomy Additional Past Surgical History / Comment(s): closed reduction rt elbow as a child,laser vein surgery lt leg. Past Anesthesia/Blood Transfusion Reactions: Previous Problems w/ Anesthesia Additional Past Anesthesia/Blood Transfusion Reaction / Comm: pt states experienced swelling of throat with anesthesia as a child with tonsil removal- no further swelling problems with anesthesia,Severe Cervical Stenosis, family hx of blood transfusion reaction with mother and brother-rx rash,hives Past Psychological History: Anxiety, Depression Smoking Status: Current every day smoker Past Alcohol Use History: Rare Additional Past Alcohol Use History / Comment(s): started smoking 1979 Past Drug Use History: None Reported - Past Family History Brother(s) Family Medical History: Coronary Artery Disease (CAD) Mother Family Medical History: Diabetes Mellitus Additional Family Medical History / Comment(s): with Castro's Disease Father Family Medical History: Coronary Artery Disease (CAD), Diabetes Mellitus, Hyperlipidemia, Vascular Disorder Additional Family Medical History / Comment(s): at age 89 Medications and Allergies Home Medications Medication Instructions Recorded Confirmed Type Aspirin 81 mg PO HS 01/03/15 05/28/16 History Ca/D3/Mag/Zinc/Crow/Jorge/Mgbor 1 tab PO BID 01/03/15 05/28/16 History [Caltrate 600+D3+Min Chew Tab] Folic Acid 1 mg PO DAILY 01/03/15 05/28/16 History Glimepiride [Amaryl] 4 mg PO BID 01/03/15 05/28/16 History Methotrexate Sodium [Methotrexate] 25 mg PO TH 01/03/15 05/28/16 History Omeprazole [PriLOSEC] 40 mg PO HS 01/03/15 05/28/16 History Potassium Chloride ER [K-Dur 10] 10 meq PO DAILY PRN 01/03/15 05/28/16 History Potassium Gluconate 99 mg PO HS 01/03/15 05/28/16 History predniSONE 10 mg PO TID 01/03/15 05/28/16 History Cyclobenzaprine [Flexeril] 10 mg PO Q8H PRN 03/07/15 05/28/16 History Pyridoxine [Vitamin B-6] 50 mg PO TID 03/06/16 05/28/16 History Triamcinolone 0.5% Cream [Kenalog 1 applic TOPICAL DAILY PRN 03/06/16 05/28/16 History 0.5% Cream] Albuterol Inhaler [Ventolin Hfa 2 puff INHALATION Q6HR PRN 05/09/16 05/28/16 History Inhaler] Ascorbic Acid [Vitamin C] 500 mg PO DAILY 05/09/16 05/28/16 History Celecoxib [CeleBREX] 200 mg PO BID 05/09/16 05/28/16 History Diphenoxylate HCl/Atropine 2 tab PO QID PRN 05/09/16 05/28/16 History [Lomotil] Loperamide HCl [Imodium A-D] 2 mg PO BID 05/09/16 05/28/16 History [place]-3 Acid Ethyl Esters [Lovaza] 1 gm PO QID 05/09/16 05/28/16 History Telmisartan [Micardis] 40 mg PO HS 05/09/16 05/28/16 History hydrOXYzine PAMOATE [Vistaril] 25 mg PO Q6HR PRN 05/09/16 05/28/16 History Fluconazole [Diflucan] 200 mg PO Q72H 05/25/16 05/28/16 History Biotin 5 mg PO BID 05/28/16 05/28/16 History Nystatin 100,000 Unit/gm Powd 1 applic TOPICAL TID 05/28/16 05/28/16 History [Mycostatin Powder] oxyCODONE-APAP 7.5-325MG [Percocet 1 tab PO Q4HR PRN 05/28/16 05/28/16 History 7.5-325 mg] Allergies Allergy/AdvReac Type Severity Reaction Status Date / Time latex Allergy Mild Swelling Verified 05/28/16 16:31 Penicillins Allergy Rash/Hives Verified 05/28/16 16:31 Physical Exam Vitals: Vital Signs Temp Pulse Pulse Resp BP BP Pulse Ox 05/29/16 08:59 104 H 05/29/16 08:43 104 H 05/29/16 08:20 111 H 20 05/29/16 08:00 111 H 20 05/29/16 07:30 96.8 F L 111 H 20 115/84 05/29/16 04:49 120 H 05/29/16 04:35 114 H 05/29/16 04:00 109 H 05/29/16 01:34 100 05/29/16 01:15 104 H 05/29/16 00:00 118 H 18 141/87 94 L 05/28/16 20:05 126 H 05/28/16 20:00 125 H 20 124/97 93 L 05/28/16 19:56 118 H 05/28/16 18:52 120 H 22 05/28/16 18:51 97.0 F L 120 H 22 144/70 92 L 05/28/16 17:52 97.3 F L 115 H 18 144/66 91 L 05/28/16 17:47 97.0 F L 120 H 22 144/70 92 L 05/28/16 17:24 120 H 22 156/94 97 Intake and Output 05/28/16 05/29/16 05/29/16 22:59 06:59 14:59 Intake Total 120 160 Output Total 950 Balance 120 -950 160 Intake: Oral 120 160 Output: Urine 950 Other: Voiding Method Toilet Toilet Toilet Urinal Bedside Commode # Voids 1 # Bowel Movements 1 Weight 85.729 kg 86.7 kg Gen: This is a 50-year-old female. She is sitting up at the edge of the bed and appears to be in no acute distress. HEENT: Head is atraumatic, normocephalic. Pupils equal, round. Sclerae is anicteric. NECK: Supple. No JVD. No lymphadenopathy. No thyromegaly. LUNGS: Scattered coarse rhonchi in the next 3 wheezes. No intercostal retractions. HEART: Regular rate and rhythm. No murmur. ABDOMEN: Soft. Bowel sounds are present. No masses. No tenderness. EXTREMITIES: 2+ pedal edema. Chronic venous stasis changes. Wound VAC in place left axilla, all dressing left elbow, stage II decubitus to the coccyx. NEUROLOGICAL: Patient is awake, alert and oriented x3. Cranial nerves 2 through 12 are grossly intact. Results Results: Laboratory Results WBC 13.1 k/uL (3.8-10.6) H 05/28/16 16:28 RBC 4.43 m/uL (3.80-5.40) 05/28/16 16:28 Hgb 13.4 gm/dL (11.4-16.0) 05/28/16 16: Hct 43.1 % (34.0-46.0) 05/28/16 16: MCV 97.2 fL (80.0-100.0) 05/28/16 16: MCH 30.3 pg (25.0-35.0) 05/28/16 16: MCHC 31.2 g/dL (31.0-37.0) 05/28/16 16: RDW 16.9 % (11.5-15.5) H 05/28/16 16:28 Plt Count 286 k/uL (150-450) 05/28/16 16:28 Neutrophils % 93 % 05/28/16 16:28 Lymphocytes % 2 % 05/28/16 16:28 Monocytes % 4 % 05/28/16 16:28 Eosinophils % 1 % 05/28/16 16:28 Basophils % 1 % 05/28/16 16:28 Neutrophils # 12.1 k/uL (1.3-7.7) H 05/28/16 16:28 Lymphocytes # 0.3 k/uL (1.0-4.8) L 05/28/16 16:28 Monocytes # 0.5 k/uL (0-1.0) 05/28/16 16:28 Eosinophils # 0.1 k/uL (0-0.7) 05/28/16 16:28 Basophils # 0.1 k/uL (0-0.2) 05/28/16 16:28 Anisocytosis Slight 05/28/16 16:28 Macrocytosis Slight 05/28/16 16:28 PT 10.8 sec (9.0-12.0) 05/28/16 16:28 INR 1.1 (<1.1) 05/28/16 16:28 APTT 22.1 sec (22.0-30.0) 05/28/16 16:28 D-Dimer 0.79 mg/L FEU (<0.60) H 05/29/16 09:08 Sodium 139 mmol/L (137-145) 05/28/16 16:28 Potassium 4.7 mmol/L (3.5-5.1) 05/28/16 16:28 Chloride 99 mmol/L (98-107) 05/28/16 16:28 Carbon Dioxide 33 mmol/L (22-30) H 05/28/16 16:28 Anion Gap 7 mmol/L 05/28/16 16:28 BUN 14 mg/dL (7-17) 05/28/16 16:28 Creatinine 0.52 mg/dL (0.52-1.04) 05/28/16 16:28 Est GFR (MDRD) Af Amer >60 (>60 ml/min/1.73 sqM) 05/28/16 16:28 Est GFR (MDRD) Non-Af >60 (>60 ml/min/1.73 sqM) 05/28/16 16:28 Glucose 195 mg/dL (74-99) H 05/28/16 16:28 POC Glucose (mg/dL) 133 mg/dL (75-99) H 05/29/16 11:54 POC Glu Dressing Room Porter ID Julito Schmidt 05/29/16 11:[address] Glu mg/dL 203 mg/dL 05/28/16 16:28 Hemoglobin A1c 8.7 % (4.2-6.1) H 05/28/16 16:28 Plasma Lactic Acid Rony 1.5 mmol/L (0.7-2.0) 05/28/16 16:28 Calcium 9.0 mg/dL (8.4-10.2) 05/28/16 16:28 Magnesium 1.8 mg/dL (1.6-2.3) 05/28/16 16:28 Total Bilirubin 0.3 mg/dL (0.2-1.3) 05/28/16 16:28 AST 30 U/L (14-36) 05/28/16 16:28 ALT 59 U/L (9-52) H 05/28/16 16:28 Alkaline Phosphatase 159 U/L (38-126) H 05/28/16 16:28 Total Creatine Kinase 56 U/L (30-135) 05/28/16 16:28 CK-MB (CK-2) 2.6 ng/mL (0.0-2.4) H* 05/29/16 06:13 CK-MB (CK-2) Rel Index 5.9 05/28/16 16:28 Troponin I 0.039 ng/mL (0.000-0.034) H* 05/29/16 11:57 NT-Pro-B Natriuret Pep 355 pg/mL 05/28/16 16:28 Total Protein 5.7 g/dL (6.3-8.2) L 05/28/16 16:28 Albumin 3.2 g/dL (3.5-5.0) L 05/28/16 16:28 Urine Color Yellow 05/28/16 15:42 Urine Appearance Clear (Clear) 05/28/16 15:42 Urine pH 5.5 (5.0-8.0) 05/28/16 15:42 Ur Specific Vici 1.019 (1.001-1.035) 05/28/16 15:42 Urine Protein 1+ (Negative) H 05/28/16 15:42 Urine Glucose (UA) Negative (Negative) 05/28/16 15:42 Urine Ketones Negative (Negative) 05/28/16 15:42 Urine Blood Moderate (Negative) H 05/28/16 15:42 Urine Nitrate Negative (Negative) 05/28/16 15:42 Urine Bilirubin Negative (Negative) 05/28/16 15:42 Urine Urobilinogen <2.0 mg/dL (<2.0) 05/28/16 15:42 Ur Leukocyte Esterase Negative (Negative) 05/28/16 15:42 Urine RBC >182 /hpf (0-5) H 05/28/16 15:42 Urine WBC 9 /hpf (0-5) H 05/28/16 15:42 Ur Squamous Epith Cells 1 /hpf (0-4) 05/28/16 15:42 Urine Mucus Occasional /hpf (None) H 05/28/16 15:42 CBC & Chem 7: 05/28/16 16:28 05/28/16 16:28 Labs: Abnormal Lab Results - Last 24 Hours (Table) 05/28/16 05/28/16 05/29/16 Range/Units 20:57 23:34 06:03 D-Dimer (<0.60) mg/L FEU POC Glucose (mg/dL) 238 H 107 H (75-99) mg/dL CK-MB (CK-2) 3.1 H* (0.0-2.4) ng/mL 05/29/16 05/29/16 Range/Units 06:13 09:08 D-Dimer 0.79 H (<0.60) mg/L FEU POC Glucose (mg/dL) (75-99) mg/dL CK-MB (CK-2) 2.6 H* (0.0-2.4) ng/mL Assessment and Plan Plan: This is a 50-year-old female who is well-known to ID service. She is under treatment for abscess to the left axilla and left elbow status post I&D on her last hospitalization. Ertapenem will be continued. Local wound care will be addressed. Continue care for acute exacerbation of COPD and acute diastolic heart failure. Further recommendations as patient progresses. The above dictated assessment and findings were discussed with Dr. Dowinng. The impression and plan of care have been directed as dictated. Tiki Mcpherson nurse practitioner acting as scribe for Dr. Downing. Time with Patient: Greater than 30
[2016-05-29] MEDS ORDERED: RX INFO: IV CONTRAST WAS GIVEN 1 EACH MISC MISCELLANE PRN (15:14)
--- NOTE | 2016-05-29 16:28 | CT ---
EXAMINATION TYPE: CT angio chest DATE OF EXAM: 05/29/2016 4:08 PM COMPARISON: 02/16/2016 HISTORY: 50-year-old female complains of chest pain and difficulty breathing. TECHNIQUE: Contiguous axial scanning of the chest performed with IV Contrast, patient injected with 1 00 mL of Omnipaque 350. Coronal/sagittal MIP reconstructions performed. CT DLP: 486 mGycm Automated exposure control for dose reduction was used. FINDINGS: Heart is borderline enlarged without pericardial effusion. Coronary vessel calcifications are present in the remarkable for coronary artery disease. Aorta is normal caliber with conventional arch vessel branching anatomy. Prominent but nonenlarged mediastinal lymph nodes are present measuring up to 9 mm. These lymph nodes are seen in the paratracheal region, AP window, and subcarinal levels and have increased in size fro m 02/16/2016 but are still probably reactive. While there is satisfactory opacification of the pulmonary arterial system, there is excessive respir atory motion degrading the exam and limiting assessment for pulmonary embolus. No definite pulmonary embolus is identified at least to the proximal segmental level. Diffuse increased interstitial opacities with peribronchovascular and subpleural patchy areas of grou ndglass as well as nodular and groundglass nodular densities throughout the lungs are new from prior exam. No pleural effusion. There is soft tissue gas within the left axilla which will require clinical correlation. Visualized upper abdomen shows no gross abnormality. Bones: There are there are worsening vertebral compression deformities of T6 and T7 and new mild ante rior wedging of T8, greatest showing 60% anterior height loss at T6. No prevertebral or paravertebra l soft tissue abnormality seen. Ununited fracture deformities on the right were seen on 02/16/2016 suggesting chronic deformities. There are chronic fracture deformities on the left as well though to appear superimposed acute to sub acute including left lateral fourth and fifth ribs. IMPRESSION: 1. EXTENSIVE NEW PULMONARY FINDINGS COMPARED TO 02/16/2016 INCLUDING INTERSTITIAL LUNG DISEASE, SMA LL NODULES, GROUNDGLASS NODULAR DENSITIES, AND PATCHY PERIBRONCHOVASCULAR AND SUBPLEURAL GROUNDGLASS. SOME DIFFERENTIAL CONSIDERATIONS INCLUDE INTERSTITIAL PNEUMONITIS SUCH USER EXPERIENCE ANALYST, HYPERSENSITIVITY PNEU MONITIS, AND ATYPICAL INFECTIONS. CLINICAL CORRELATION WILL BE REQUIRED. ATYPICAL PULMONARY EDEMA CON SIDERED LESS LIKELY THERE ARE NO PLEURAL EFFUSIONS. 3 MONTH FOLLOW-UP EXAM RECOMMENDED TO ASSESS F OR CLEARANCE. 2. THERE IS RESPIRATORY MOTION DEGRADING THE EXAM BUT NO DEFINITE PULMONARY EMBOLUS AT LEAST TO THE P ROXIMAL SEGMENTAL LEVEL. 3. MULTIPLE CHRONIC NONUNITED RIGHT-SIDED RIB FRACTURES. ADDITIONAL CHRONIC RIB FRACTURE DEFORMITIES ON THE LEFT THOUGH LEFT LATERAL FOURTH AND FIFTH RIB FRACTURES APPEAR ACUTE TO SUBACUTE. 4. CLINICALLY CORRELATE FOR THE SOFT TISSUE GAS IN THE LEFT AXILLA. QUERY ANY PENETRATING INJURY OR S OFT TISSUE INFECTIOUS PROCESS. 5. VERTEBRAL COMPRESSION DEFORMITIES INVOLVING T6 AND T7 HAVE PROGRESSED FROM 02/16/2016 AND COULD BE SUBACUTE TO CHRONIC. MILD ANTERIOR WEDGING OF T8 IS NEW FROM 02/16/2016. CORRELATE FOR ANY FOCAL PAIN AT THESE LEVELS.
[2016-05-29 18:28] LABS: Glucose,Whole Blood 270 mg/dL (75-99)
--- NOTE | 2016-05-29 21:30 | P.CON ---
Consult Note - . Consult date: 05/29/16 Assessment/Plan:: This is a 50-year-old pleasant female patient well known to ID services due to her recent hospitalization from May 09 through 05/15/2016 at which time she was treated for abscess formation left axilla and left elbow status post debridement with Dr. Luo. She was discharged with a wound VAC in place. She has been returning to the [facility] for ertapenem 1 g to complete 30 days. She follows with Dr. Downing in the wound healing Center and her last appointment was yesterday. She denies having any problems with her wounds at home. She denies any problems with her PICC line. No fever or chills. Patient states that she developed suddenly shortness of breath. She does have lower extremity edema and chronic venous stasis changes to the lower extremities which has not changed. She came into [facility] emergency center for evaluation. She has a known history of underlying COPD. But she was a [facility] for her infusion of Invanz for her axillary abscess and a pulse ox of 77%. She was directed to the emergency center It is noted the patient continues to smoke. Chest x-ray shows pulmonary edema. Urinalysis was positive for blood. ALT 59, alkaline phosphatase 159. Troponins 0.047, 0.045 and 0.039. Patient was diagnosed with heart failure and COPD exacerbation and admitted to the selective care unit. Cardiology consult in place. She has been started on Lasix 40 mg IV every 8 hours, Solu-Medrol and DuoNeb treatments. The d-dimer 0.79. Echocardiogram reveals mild concentric left ventricular hypertrophy, mild mitral regurgitation, mild tricuspid regurgitation, no pulmonary hypertension. EF 50-55%. She has been resumed on ertapenem. Please see the consult note as dictated by nurse practitioner Anju Tiki Mcpherson. patient is very short of breath. She is anxious. I'm able to fan her try to make her feel less short of breath help her anxiety. She's had a significant change of her pulmonary status by her last computed tomography scan. We discussed that she'll be seen by pulmonary critical care. Further interventions may need to be performed. In that she is profoundly ill at this point in time. For antibiotic therapy the ertapenem continues. The wound VAC was discontinued and the axillary area while she is in hospital. Silver dressings are applied to the left elbow and the right foot. Compression to the lower extremities discontinued. The patient has difficulties with Hospital dressings in her cling wrap from home is brought in from her friend for the dressing changes. Nursing photography should be able to show the left axillary left elbow and right foot ulcerations. Last evaluation was revealed that the left axillary abscess cavity was much improved. Her pain control seems to be modest at this time but he has significant discomfort in her spine and ribs from the many fracture that she has. She does follow with orthopedic spine. As noted patient is aware that she is acutely and severely ill. She is full code and is being monitored closely in the intensive care unit and may require intubation if there is any further worsening of her pulmonary status. Multiple cultures are in process but ertapenem should be adequate based on the recent findings. I agree with evaluation, assessment and plan is dictated a nurse practitioner Mrs. Tiki Mcpherson.
[2016-05-29 22:51] LABS: Glucose,Whole Blood 288 mg/dL (75-99)
[2016-05-29] MEDS: ASPIRIN 81 MG CHEW PO SCH (22:53)
[2016-05-29] MEDS: PANTOPRAZOLE 40 MG TABLET PO SCH (22:55)
[2016-05-29] MEDS: LOSARTAN 50 MG TAB PO SCH (22:55)
[2016-05-29] MEDS: POTASSIUM CHLORIDE ORAL LIQUID 40 MEQ/30 ML CUP PO SCH (22:55)
[2016-05-30] MEDS: IPRATROPIUM-ALBUTEROL 3 ML NEB INHALATION SCH ×7 (00:45→23:57)
[2016-05-30 01:52] LABS: Glucose,Whole Blood 194 mg/dL (75-99)
[2016-05-30] MEDS: oxyCODONE-APAP 7.5-325MG 1 EACH TAB PO PRN ×5 (03:53→23:09)
[2016-05-30 04:20] LABS: Anisocytosis Slight; Basophils # (A) 0.2 k/uL (0-0.2); Basophils % (A) 2 %; CH 31.4; CHCM 32.4; Eosinophils # (A) 0.1 k/uL (0-0.7); Eosinophils % (A) 0 %; HCT 45.6 % (34.0-46.0); HDW 3.06; Luc # (Auto) 0.05; Luc % (Auto) 0; Lymphocytes # (A) 0.1 k/uL (1.0-4.8); Lymphocytes % (A) 1 %; MCH 29.9 pg (25.0-35.0); MCHC 30.6 g/dL (31.0-37.0); MCV 97.5 fL (80.0-100.0); Macrocytosis Slight; Mean Platelet Volume 7.7; Monocytes # (A) 0.5 k/uL (0-1.0); Monocytes % (A) 3 %; Neutrophils # (A) 13.7 k/uL (1.3-7.7); Neutrophils % (A) 94 %; RBC 4.68 m/uL (3.80-5.40); RDW 16.4 % (11.5-15.5); WBC 14.6 k/uL (3.8-10.6); WBC (Perox) 15.01
[2016-05-30 04:27] LABS: Anion Gap 9 mmol/L; Blood Urea Nitrogen 21 mg/dL (7-17); Calcium 9.1 mg/dL (8.4-10.2); Carbon Dioxide 37 mmol/L (22-30); Chloride 91 mmol/L (98-107); Glucose 179 mg/dL (74-99); Magnesium 1.8 mg/dL (1.6-2.3); Non-African American GFR(MDRD) >60 (>60 ml/min/1.73 sqM); Phosphorous 4.3 mg/dL (2.5-4.5); Potassium 4.7 mmol/L (3.5-5.1); Sodium 137 mmol/L (137-145)
[2016-05-30] MEDS ORDERED: Magnesium Replacement Protocol 1 EACH MISC MISCELLANE PRN (04:43)
[2016-05-30] MEDS: MAGNESIUM SULFATE-D5W PMX 1 GM in DEXTROSE/WATER 1 100ML.BAG IVPB SCH ×2 (06:24→08:43)
[2016-05-30] MEDS: methylPREDNISolone SOD SUCCI 125 MG/2 ML VIAL IV SCH (06:24)
--- NOTE | 2016-05-30 08:14 | XR ---
EXAMINATION TYPE: XR chest 1V portable DATE OF EXAM: 05/30/2016 6:37 AM COMPARISON: Prior chest x-ray 28 May 2016 HISTORY: Congestive heart failure TECHNIQUE: Single frontal view of the chest is obtained. FINDINGS: The heart remains enlarged. Interstitium is increased. Question some associated airspace d isease. Subcutaneous fat shows lucency in the left axilla as on prior exam. Right-sided PICC line rem ains in place, chest wall deformities again noted. No evident pneumothorax or pleural effusion. IMPRESSION: Interstitial lung disease. Suspect there may be an associated alveolar component. See froylan augustin report of chest CT 29 May 2016. Cardiomegaly.
[2016-05-30] MEDS: ERTAPENEM 1 GM in SODIUM CHLORIDE 0.9% 50 ML IVPB SCH (08:44)
[2016-05-30] MEDS: metFORMIN 500 MG TAB PO SCH ×2 (08:46→18:06)
[2016-05-30] MEDS: FUROSEMIDE 10 MG/ML 4 ML VIAL IV SCH ×3 (08:46→23:09)
[2016-05-30] MEDS: NICOTINE 21MG/24HR PATCH TRANSDERM SCH (08:46)
[2016-05-30] MEDS: CALCIUM CARB-VIT D 500MG-200UN 1 EACH TAB PO SCH ×2 (08:46→21:26)
[2016-05-30] MEDS: LOPERAMIDE 2 MG CAP PO SCH ×2 (08:47→21:26)
[2016-05-30] MEDS: GLIMEPIRIDE 4 MG TAB PO SCH ×3 (08:47→21:41)
[2016-05-30] MEDS: ENOXAPARIN 40 MG/0.4 ML SYRINGE SQ SCH (08:47)
[2016-05-30] MEDS: PYRIDOXINE 50 MG TAB PO SCH ×3 (08:48→21:29)
[2016-05-30] MEDS: NYSTATIN 100,000 UNIT/GM POWD 15 GM TOPICAL SCH ×3 (08:48→21:29)
[2016-05-30 10:04] LABS: Glucose,Whole Blood 217 mg/dL (75-99)
[2016-05-30] MEDS: NITROGLYCERIN OINT 1 INCH/GM PACKET TOPICAL SCH ×4 (10:38→21:28)
[2016-05-30] MEDS: HYDROCORTISONE SUCCINATE 100 MG/2 ML VIAL IV SCH ×3 (10:39→23:09)
[2016-05-30] MEDS: INSULIN LISPRO (humaLOG) 300 UNIT/3 ML VIAL SQ SCH ×3 (10:40→21:41)
[2016-05-30 11:55] LABS: Glucose,Whole Blood 256 mg/dL (75-99)
--- NOTE | 2016-05-30 12:24 | P.CNPUL ---
History of Present Illness Consult date: 05/30/16 Requesting physician: Lynette Atkinson Reason for consult: dyspnea Chief complaint: Shortness of breath History of present illness: This is a 50-year-old female with history of severe rheumatoid arthritis. Interstitial lung disease related to rheumatoid arthritis, could also be related to previous medications given to her rheumatoid arthritis including methotrexate, patient is also known to have history of secondary Sjogren's, COPD , nicotine dependence, cervical stenosis, chronic immunosuppression with high dose of prednisone, and this is mostly given for her rheumatoid arthritis. Patient was recently noted to have a large axillary abscess and she underwent surgery by Dr. Luo, and the drain was put in place, patient also had a wound VAC. Patient is being followed by Dr. Downing at the wound care center, he is managing her axillary abscess, and she has bilateral lower extremity ulcers and once being handled by Dr. Downing. Patient had chronic shortness of breath, however this time her shortness of breath seems to be more pronounced. Patient has also been complaining of coughing and wheezing. And her CT of the chest is strongly suspicious for interstitial lung disease, however the possibility of underlying infection is not entirely ruled out. Patient is definitely not the most ideal candidate to consider bronchoscopy or transbronchial biopsy or even a bronchoalveolar lavage at this point. She is being managed empirically with high doses of steroids and antibiotics. Patient is now on Invanz which she has been taking mostly for her axillary abscess. Yesterday, patient was transferred to the ICU and I was asked to see her on consultation. Her sugars have been running to be dehydrated requiring insulin drip. And this not surprising considering the patient is on relatively high doses of steroids. Patient denies any headaches, no blurred vision no dizziness , no nausea no vomiting no abdominal pain, she has mostly symptoms of cough, shortness of breath, wheezing, and issues related to her axillary wound and lower extremities ulcerations. Review of Systems 14 point review of systems were obtained, please refer to pertinent positives and negatives in HPI. Past Medical History Past Medical History: Diabetes Mellitus, Hyperlipidemia, Hypertension, Rheumatoid Arthritis (RA), Hypertension, Respiratory Disorder, Rheumatoid Arthritis (RA) Additional Past Medical History / Comment(s): sjogrens, raynauds, urinary urgency and incontinence, bowel incontinence, wound rt foot plantar surface, immunosuppressed, ventral hernia, rheumatic lung, rheumatic fever as a child, varicose veins, current steroid,pm>2yrs, severe cervical stenosis-bilat. neuro deficits in arms, PCN resistant, pleural pain, bleeding peptic ulcer,coffee ground emesis,hemmroids, heart rate usually runs 100-120 History of Any Multi-Drug Resistant Organisms: None Reported Past Surgical History: Adenoidectomy, Heart Catheterization, Hernia Repair, Orthopedic Surgery, Tonsillectomy Additional Past Surgical History / Comment(s): closed reduction rt elbow as a child,laser vein surgery lt leg. Past Anesthesia/Blood Transfusion Reactions: Previous Problems w/ Anesthesia Additional Past Anesthesia/Blood Transfusion Reaction / Comment(s): pt states experienced swelling of throat with anesthesia as a child with tonsil removal- no further swelling problems with anesthesia,Severe Cervical Stenosis, family hx of blood transfusion reaction with mother and brother-rx rash,hives Past Psychological History: Anxiety, Depression Smoking Status: Current every day smoker Past Alcohol Use History: Rare Additional Past Alcohol Use History / Comment(s): started smoking 1979 Past Drug Use History: None Reported - Past Family History Brother(s) Family Medical History: Coronary Artery Disease (CAD) Mother Family Medical History: Diabetes Mellitus Additional Family Medical History / Comment(s): with Castro's Disease Father Family Medical History: Coronary Artery Disease (CAD), Diabetes Mellitus, Hyperlipidemia, Vascular Disorder Additional Family Medical History / Comment(s): at age 89 Medications and Allergies Home Medications Medication Instructions Recorded Confirmed Type Aspirin 81 mg PO HS 01/03/15 05/28/16 History Ca/D3/Mag/Zinc/Crow/Jorge/Mgbor 1 tab PO BID 01/03/15 05/28/16 History [Caltrate 600+D3+Min Chew Tab] Folic Acid 1 mg PO DAILY 01/03/15 05/28/16 History Glimepiride [Amaryl] 4 mg PO BID 01/03/15 05/28/16 History Methotrexate Sodium [Methotrexate] 25 mg PO TH 01/03/15 05/28/16 History Omeprazole [PriLOSEC] 40 mg PO HS 01/03/15 05/28/16 History Potassium Chloride ER [K-Dur 10] 10 meq PO DAILY PRN 01/03/15 05/28/16 History Potassium Gluconate 99 mg PO HS 01/03/15 05/28/16 History predniSONE 10 mg PO TID 01/03/15 05/28/16 History Cyclobenzaprine [Flexeril] 10 mg PO Q8H PRN 03/07/15 05/28/16 History Pyridoxine [Vitamin B-6] 50 mg PO TID 03/06/16 05/28/16 History Triamcinolone 0.5% Cream [Kenalog 1 applic TOPICAL DAILY PRN 03/06/16 05/28/16 History 0.5% Cream] Albuterol Inhaler [Ventolin Hfa 2 puff INHALATION Q6HR PRN 05/09/16 05/28/16 History Inhaler] Ascorbic Acid [Vitamin C] 500 mg PO DAILY 05/09/16 05/28/16 History Celecoxib [CeleBREX] 200 mg PO BID 05/09/16 05/28/16 History Diphenoxylate HCl/Atropine 2 tab PO QID PRN 05/09/16 05/28/16 History [Lomotil] Loperamide HCl [Imodium A-D] 2 mg PO BID 05/09/16 05/28/16 History [place]-3 Acid Ethyl Esters [Lovaza] 1 gm PO QID 05/09/16 05/28/16 History Telmisartan [Micardis] 40 mg PO HS 05/09/16 05/28/16 History hydrOXYzine PAMOATE [Vistaril] 25 mg PO Q6HR PRN 05/09/16 05/28/16 History Fluconazole [Diflucan] 200 mg PO Q72H 05/25/16 05/28/16 History Biotin 5 mg PO BID 05/28/16 05/28/16 History Nystatin 100,000 Unit/gm Powd 1 applic TOPICAL TID 05/28/16 05/28/16 History [Mycostatin Powder] oxyCODONE-APAP 7.5-325MG [Percocet 1 tab PO Q4HR PRN 05/28/16 05/28/16 History 7.5-325 mg] Allergies Allergy/AdvReac Type Severity Reaction Status Date / Time latex Allergy Mild Swelling Verified 05/28/16 16:31 Penicillins Allergy Rash/Hives Verified 05/28/16 16:31 Physical Exam Vitals: Vital Signs Temp Pulse Pulse Resp BP BP Pulse Ox 05/30/16 12:03 123 H 05/30/16 11:51 127 H 05/30/16 10:00 95 9 L 143/75 97 05/30/16 09:00 101 H 8 L 110/74 96 05/30/16 08:00 101 H 9 L 110/74 96 05/30/16 07:50 98 05/30/16 07:31 99 05/30/16 07:00 100 12 149/77 94 L 05/30/16 06:00 103 H 22 90/65 94 L 05/30/16 05:00 105 H 26 H 121/67 95 05/30/16 04:29 110 H 05/30/16 04:05 105 H 05/30/16 04:00 97.5 F L 109 H 34 H 111/61 92 L 05/30/16 03:00 97 12 109/75 95 05/30/16 02:00 104 H 14 95 05/30/16 01:00 110 H 24 109/75 96 05/30/16 00:58 112 H 05/30/16 00:45 115 H 05/30/16 00:00 98.6 F 115 H 18 138/95 95 05/29/16 23:00 111 H 16 138/95 92 L 05/29/16 22:00 105 H 12 133/86 95 05/29/16 21:00 108 H 13 160/93 94 L 05/29/16 20:15 112 H 05/29/16 20:04 109 H 05/29/16 20:00 98.6 F 114 H 24 153/78 92 L 05/29/16 19:04 121 H 18 153/78 92 L 05/29/16 19:00 98.4 F 119 H 30 H 153/78 93 L 05/29/16 18:50 118 H 12 153/78 90 L 05/29/16 18:46 117 H 28 H 153/78 93 L 05/29/16 15:57 118 H 24 05/29/16 15:56 96.6 F L 118 H 24 154/99 92 L 05/29/16 15:24 93 L Intake and Output 05/29/16 05/30/16 05/30/16 22:59 06:59 14:59 Intake Total 360 380 Output Total 800 1650 900 Balance -800 -1290 -520 Intake: IV 200 Magnesium Sulfate-D5w Pmx 200 1 gm In Dextrose/Water 1 100ml.bag @ 100 mls/hr IVPB Q1H [facility] Rx#: [id number] Intake, IV Titration 60 Amount Ertapenem 1 gm In Sodium 50 Chloride 0.9% 50 ml @ 100 mls/hr IVPB DAILY [facility] Rx #:[id number] Sodium Chloride 0.9% 1, 10 000 ml @ 20 mls/hr IV . Q24H [facility] Rx#:[id number] Oral 360 120 Output: Urine 800 1650 900 Other: Voiding Method Toilet Toilet Toilet Bedside Commode Bedside Commode Bedside Commode # Voids 2 1 1 Weight 80.9 kg 80.9 kg Patient Weight 05/31/16 06:59 Weight 80.9 kg Gen: This is a 50-year-old female. Noted to be dyspneic with activity. HEENT: Cushingoid from chronic use of prednisone. Head is atraumatic, normocephalic. Pupils equal, round. Sclerae is anicteric. NECK: Supple. No JVD. No lymphadenopathy. No thyromegaly. LUNGS: Scattered rhonchi and wheezes bilaterally HEART: Regular rate and rhythm. No murmur. ABDOMEN: Soft. Bowel sounds are present. No masses. No tenderness. EXTREMITIES: 2+ pedal edema. Chronic venous stasis changes. Wound VAC was removed from left axilla, all dressing left elbow, stage II decubitus to the coccyx. NEUROLOGICAL: Patient is awake, alert and oriented x3. Cranial nerves 2 through 12 are grossly intact. Results - Laboratory Findings CBC and BMP: 05/30/16 04:10 05/30/16 04:10 PT/INR, D-dimer PT 10.8 sec (9.0-12.0) 05/28/16 16:28 INR 1.1 (<1.1) 05/28/16 16:28 D-Dimer 0.79 mg/L FEU (<0.60) H 05/29/16 09:08 Abnormal lab findings: Abnormal Labs 05/28/16 05/28/16 05/29/16 20:57 23:34 06:03 WBC MCHC RDW Neutrophils # Lymphocytes # D-Dimer Chloride Carbon Dioxide BUN Creatinine Glucose POC Glucose (mg/dL) 238 H 107 H CK-MB (CK-2) 3.1 H* Troponin I 0.045 H* 05/29/16 05/29/16 05/29/16 06:13 09:08 11:54 WBC MCHC RDW Neutrophils # Lymphocytes # D-Dimer 0.79 H Chloride Carbon Dioxide BUN Creatinine Glucose POC Glucose (mg/dL) 133 H CK-MB (CK-2) 2.6 H* Troponin I 05/29/16 05/29/16 05/29/16 11:57 18:26 22:50 WBC MCHC RDW Neutrophils # Lymphocytes # D-Dimer Chloride Carbon Dioxide BUN Creatinine Glucose POC Glucose (mg/dL) 270 H 288 H CK-MB (CK-2) Troponin I 0.039 H* 05/30/16 05/30/16 05/30/16 01:49 04:10 04:10 WBC 14.6 H MCHC 30.6 L RDW 16.4 H Neutrophils # 13.7 H Lymphocytes # 0.1 L D-Dimer Chloride 91 L Carbon Dioxide 37 H BUN 21 H Creatinine 0.50 L Glucose 179 H POC Glucose (mg/dL) 194 H CK-MB (CK-2) Troponin I 05/30/16 05/30/16 10:01 11:54 WBC MCHC RDW Neutrophils # Lymphocytes # D-Dimer Chloride Carbon Dioxide BUN Creatinine Glucose POC Glucose (mg/dL) 217 H 256 H CK-MB (CK-2) Troponin I - Diagnostic Findings Chest x-ray: image reviewed (Strongly suspect interstitial lung disease, difficult to rule out underlying alveolitis.) Assessment and Plan Plan: Impression: 1 acute hypoxic respiratory failure, multifactorial, it is mostly secondary to interstitial lung disease/rheumatoid lungs, however the possibility of underlying pneumonitis is not entirely ruled out, plus the patient is known to have COPD with acute exacerbation, she is known to have history of diastolic heart failure. Ideally speaking, the patient will need to be bronchoscoped, and at least be able to perform BAL, however considering the patient conditions at this point, she is not actually a candidate for bronchoscopy or transbronchial biopsy. However the patient and supple on mechanical ventilation , that would be the first option is to do a bronchoscopy and BAL. In the meantime I would recommend continuation of medical treatment, she will need to remain on antibiotics, diuretics, bronchodilators, high doses of steroids, and again if her condition gets any worse, or if the patient ends up on mechanical ventilation, I would proceed with bronchoscopy and BAL. At this point it would be best to treat empirically for all the potential causes of her shortness of breath. 2 severe rheumatoid arthritis, chronically on methotrexate and prednisone, her rheumatoid arthritis is usually managed by the industrial relations analyst, but for the time being it would be best to treat the patient with stress doses of Solu-Cortef. 3 multiple comorbidities including diabetes, irritable bowel syndrome, recent left axillary abscess requiring surgery, multiple decubitus ulcers, chronic pain related to rheumatoid arthritis and spinal stenosis, chronic tobacco dependence and underlying COPD, history of hypertension. Recommendation: Continue present treatment plan, and that includes diuretics, antibiotics, bronchodilators, steroids, and we will continue to monitor closely. Her elevated blood sugar is being managed by insulin drip at present. I would likely cut down the dose of hydrocortisone to 50 mg every 8 hours tomorrow. Prognosis is definitely poor and guarded. Time with Patient: Greater than 30
[2016-05-30] MEDS ORDERED: INSULIN REGULAR BOLUS (FROM DRIP BAG) IV PRN ×2 (12:41→12:53)
[2016-05-30] MEDS ORDERED: INSULIN REGULAR 100 UNIT in SODIUM CHLORIDE 0.9% 100 ML IV SCH (13:00)
[2016-05-30] MEDS: METOPROLOL TARTRATE 25 MG TAB PO SCH ×2 (14:22→21:27)
[2016-05-30] MEDS: FOLIC ACID 1 MG TAB PO SCH (14:23)
[2016-05-30] MEDS: METHOTREXATE SODIUM 2.5 MG TAB PO SCH (14:23)
[2016-05-30] MEDS: ASCORBIC ACID 500 MG TAB PO SCH (14:23)
[2016-05-30 14:44] LABS: Glucose,Whole Blood 142 mg/dL (75-99)
--- NOTE | 2016-05-30 14:46 | P.PN ---
Subjective This is a 50-year-old pleasant female patient of Dr. Spring and Dr. Downing. She has underlying history of rheumatid arthritis, Sjogren's, Raynaud's, diabetes mellitus type 2, hyperlipidemia, hypertension, rheumatoid lung, chronic immunosuppression, cervical stenosis with upper extremity weakness, impaired balance impaired gait. She had a recent hospitalization from May 09 through 05/15/2016 at which time she was treated for abscess formation left axilla and left elbow status post debridement with Dr. Luo. She was discharged with a wound VAC in place. She has been returning to the [facility] for ertapenem 1 g to complete 30 days. She also follows with Dr. Downing in the wound healing Center and her last appointment was yesterday. Patient states that she developed suddenly shortness of breath. She does have lower extremity edema and chronic venous stasis changes to the lower extremities which has not changed. She denies having any fevers at home. She came into [facility] emergency center for evaluation. It is noted the patient continues to smoke. Chest x-ray shows pulmonary edema. Urinalysis was positive for blood. ALT 59, alkaline phosphatase 159. Troponins 0.047, 0.045 and 0.039. Patient was diagnosed with heart failure and admitted to the selective care unit. Consults requested with cardiology. She has been started on Lasix 40 mg IV every 8 hours. The d-dimer 0.79. Echocardiogram reveals mild concentric left ventricular hypertrophy, mild mitral regurgitation, mild tricuspid regurgitation, no pulmonary hypertension. EF 50-55%. 05/30: Patient developed respiratory distress last evening and transferred into intensive care unit. She was unable to tolerate BiPAP due to anxiety. Patient' s blood sugars were quite elevated and she refused insulin drip. Consult has been added for Dr. Concepcion for intensive care management and pulmonary medicine with concern for rheumatoid lung.. Patient is now agreeable to have insulin drip. Yesterday she was started on Solu-Medrol 60 mg and this has been changed to hydrocortisone 100 mg IV every [address] Concepcion. Objective - Vital Signs Vital signs: Vital Signs Temp 97.5 F L 05/30/16 04:00 Pulse 95 05/30/16 10:00 Resp 9 L 05/30/16 10:00 BP 143/75 05/30/16 10:00 Pulse Ox 97 05/30/16 10:00 Intake & Output 05/29/16 05/30/16 05/30/16 18:59 06:59 18:59 Intake Total 546 360 380 Output Total 800 1950 900 Balance -567 -8293 -911 Weight 86.7 kg 80.9 kg 80.9 kg Intake: IV 200 Magnesium Sulfate-D5w Pmx 200 1 gm In Dextrose/Water 1 100ml.bag @ 100 mls/hr IVPB Q1H [facility] Rx#: [id number] Intake, IV Titration 150 60 Amount Ertapenem 1 gm In Sodium 50 50 Chloride 0.9% 50 ml @ 100 mls/hr IVPB DAILY [facility] Rx #:[id number] Sodium Chloride 0.9% 1, 100 10 000 ml @ 20 mls/hr IV . Q24H [facility] Rx#:[id number] Oral 396 360 120 Output: Urine 800 1950 900 Other: Voiding Method Toilet Toilet Toilet Bedside Commode Bedside Commode Bedside Commode # Voids 1 1 1 - Exam General appearance: Present: cooperative, mild to moderate acute distress, obese - EENT Eyes: Present: anicteric sclerae, PERRLA, dentition normal ENT: Present: hearing grossly normal, NA/AT, normal oropharynx - Neck Neck: Present: normal ROM - Respiratory Respiratory: bilateral: Scattered coarse rhonchi and expiratory wheeze, accessory muscle usage, tachypnea - Cardiovascular Rhythm: regular Heart sounds: normal: S1, S2, 2+ pedal edema - Gastrointestinal General gastrointestinal: Present: normal bowel sounds, soft - Integumentary Integumentary Comment(s): Wound VAC to left axilla wound, dressing in place to the left elbow wound, PICC line right upper arm. Integumentary: Present: normal, normal turgor - Neurologic Neurologic: Present: CNII-XII intact - Psychiatric Psychiatric: Present: A&O x's 3, appropriate affect, intact judgment & insight - Labs CBC & Chem 7: 05/30/16 04:10 05/30/16 04:10 Labs: Abnormal Lab Results - Last 24 Hours (Table) 05/28/16 05/29/16 05/29/16 Range/Units 23:34 06:13 11:54 WBC (3.8-10.6) k/uL MCHC (31.0-37.0) g/dL RDW (11.5-15.5) % Neutrophils # (1.3-7.7) k/uL Lymphocytes # (1.0-4.8) k/uL Chloride (98-107) mmol/L Carbon Dioxide (22-30) mmol/L BUN (7-17) mg/dL Creatinine (0.52-1.04) mg/dL Glucose (74-99) mg/dL POC Glucose (mg/dL) 133 H (75-99) mg/dL CK-MB (CK-2) 3.1 H* 2.6 H* (0.0-2.4) ng/mL Troponin I 0.045 H* (0.000-0.034) ng/mL 05/29/16 05/29/16 05/29/16 Range/Units 11:57 18:26 22:50 WBC (3.8-10.6) k/uL MCHC (31.0-37.0) g/dL RDW (11.5-15.5) % Neutrophils # (1.3-7.7) k/uL Lymphocytes # (1.0-4.8) k/uL Chloride (98-107) mmol/L Carbon Dioxide (22-30) mmol/L BUN (7-17) mg/dL Creatinine (0.52-1.04) mg/dL Glucose (74-99) mg/dL POC Glucose (mg/dL) 270 H 288 H (75-99) mg/dL CK-MB (CK-2) (0.0-2.4) ng/mL Troponin I 0.039 H* (0.000-0.034) ng/mL 05/30/16 05/30/16 05/30/16 Range/Units 01:49 04:10 04:10 WBC 14.6 H (3.8-10.6) k/uL MCHC 30.6 L (31.0-37.0) g/dL RDW 16.4 H (11.5-15.5) % Neutrophils # 13.7 H (1.3-7.7) k/uL Lymphocytes # 0.1 L (1.0-4.8) k/uL Chloride 91 L (98-107) mmol/L Carbon Dioxide 37 H (22-30) mmol/L BUN 21 H (7-17) mg/dL Creatinine 0.50 L (0.52-1.04) mg/dL Glucose 179 H (74-99) mg/dL POC Glucose (mg/dL) 194 H (75-99) mg/dL CK-MB (CK-2) (0.0-2.4) ng/mL Troponin I (0.000-0.034) ng/mL 05/30/16 Range/Units 10:01 WBC (3.8-10.6) k/uL MCHC (31.0-37.0) g/dL RDW (11.5-15.5) % Neutrophils # (1.3-7.7) k/uL Lymphocytes # (1.0-4.8) k/uL Chloride (98-107) mmol/L Carbon Dioxide (22-30) mmol/L BUN (7-17) mg/dL Creatinine (0.52-1.04) mg/dL Glucose (74-99) mg/dL POC Glucose (mg/dL) 217 H (75-99) mg/dL CK-MB (CK-2) (0.0-2.4) ng/mL Troponin I (0.000-0.034) ng/mL Assessment and Plan Plan: 1. Acute hypoxic respiratory failure, acute exacerbation of COPD, acute diastolic heart failurel pneumonia not entirely ruled out. Continue Lasix 40 mg IV every 8 hours, hydrocortisone IV every 8 hours, DuoNeb treatments every [address] stew goodson. Concern for rheumatoid lung. Patient is not candidate for bronchoscopy at this point. 2. Abscess left medial humerus, with deep fistulous formation, and axilla, status post I&D. Patient currently has wound VAC to the axilla wound. Wound retirement is [facility]. She follows in the wound center with Dr. Downing. Consult with Dr. Downing. Patient continued on ertapenem. 3. Rheumatoid arthritis is chronically on methotrexate and prednisone 10 mg 3 times a day. Prednisone on hold while patient is taking Solu-Cortef. Patient follows with Dr. Preston as an outpatient 4. Diabetes mellitus type 2 on metformin, glimepiride and Humalog scale. She is now agreeable to insulin drip. 5. IBS with diarrhea currently constipated she is on Lomotil 2 mg 4 times a day when necessary no changes were made 6. Decubitus ulcer stage II, present on admission on santyl 7. Chronic pain related to RA and musculoskeletal deformities including spinal stenosis. Continue Percocet, Flexeril. 8. Chronic tobacco dependency at 2 packs per day. Nicotine patch 21 mics per day 9. Hypertension on losartan 100 mg daily 10. DVT prophylaxis with Lovenox 11. GI prophylaxis. Protonix. Discharge plan: Social work consult for subacute rehab Patient will be admitted to the hospital for a minimum of 2 night stay. Impression and plan of care have been directed as dictated by the signing physician. Tiki Mcpherson nurse practitioner acting as scribe for signing physician. Time with Patient: Greater than 30
[2016-05-30 17:29] LABS: Glucose,Whole Blood 138 mg/dL (75-99)
[2016-05-30] MEDS: SODIUM CHLORIDE 0.9% 1,000 ML IV SCH (18:03)
[2016-05-30] MEDS: ASPIRIN 81 MG CHEW PO SCH (21:26)
[2016-05-30] MEDS: LOSARTAN 50 MG TAB PO SCH (21:27)
[2016-05-30] MEDS: PANTOPRAZOLE 40 MG TABLET PO SCH (21:28)
[2016-05-30] MEDS: POTASSIUM CHLORIDE ORAL LIQUID 40 MEQ/30 ML CUP PO SCH (21:28)
[2016-05-30 21:34] LABS: Glucose,Whole Blood 78 mg/dL (75-99)
[2016-05-30] MEDS: hydrOXYzine PAMOATE 25 MG CAP PO PRN (22:26)
--- NOTE | 2016-05-30 22:57 | P.PN ---
Subjective Principal diagnosis: Shortness of breath This is a 50-year-old pleasant female patient well known to ID services due to her recent hospitalization from May 09 through 05/15/2016 at which time she was treated for abscess formation left axilla and left elbow status post debridement with Dr. Luo. She was discharged with a wound VAC in place. She has been returning to the [facility] for ertapenem 1 g to complete 30 days. She follows with Dr. Downing in the wound healing Center and her last appointment was yesterday. She denies having any problems with her wounds at home. She denies any problems with her PICC line. No fever or chills. Patient states that she developed suddenly shortness of breath. She does have lower extremity edema and chronic venous stasis changes to the lower extremities which has not changed. She came into [facility] emergency center for evaluation. It is noted the patient continues to smoke. Chest x-ray shows pulmonary edema. Urinalysis was positive for blood. ALT 59, alkaline phosphatase 159. Troponins 0.047, 0.045 and 0.039. Patient was diagnosed with heart failure and COPD exacerbation and admitted to the selective care unit. Cardiology consult in place. She has been started on Lasix 40 mg IV every 8 hours, Solu-Medrol and DuoNeb treatments. The d-dimer 0.79. Echocardiogram reveals mild concentric left ventricular hypertrophy, mild mitral regurgitation, mild tricuspid regurgitation, no pulmonary hypertension. EF 50-55%. She has been resumed on ertapenem. Her main in intensive care unit. As an extensive diuresis and is feeling considerably better. She is no longer in basia respiratory distress. Still feels somewhat poorly. And when she becomes agitated does get more short of breath. New irritation to the right elbow was noted. Objective - Vital Signs Vital signs: Vital Signs Temp 97.9 F 05/30/16 20:00 Pulse 121 H 05/30/16 22:00 Resp 28 H 05/30/16 22:00 BP 161/89 05/30/16 22:00 Pulse Ox 94 L 05/30/16 22:00 Intake & Output 05/30/16 05/30/16 05/31/16 06:59 18:59 06:59 Intake Total 360 1820 640 Output Total 1950 2400 800 Balance -1590 -580 -160 Weight 80.9 kg 80.9 kg Intake: IV 200 Magnesium Sulfate-D5w Pmx 200 1 gm In Dextrose/Water 1 100ml.bag @ 100 mls/hr IVPB Q1H [facility] Rx#: [id number] Intake, IV Titration 180 40 Amount Ertapenem 1 gm In Sodium 60 Chloride 0.9% 50 ml @ 100 mls/hr IVPB DAILY [facility] Rx #:[id number] Sodium Chloride 0.9% 1, 120 40 000 ml @ 20 mls/hr IV . Q24H [facility] Rx#:[id number] Oral 360 1440 600 Output: Urine 1950 2400 800 Other: Voiding Method Toilet Toilet Toilet Bedside Commode Bedside Commode Bedside Commode # Voids 1 1 # Bowel Movements 1 - Exam Gen: This is a 50-year-old female. She is sitting up at the edge of the bed and appears to be in no acute distress. HEENT: Head is atraumatic, normocephalic. Pupils equal, round. Sclerae is anicteric. NECK: Supple. No JVD. No lymphadenopathy. No thyromegaly. LUNGS: Scattered coarse rhonchi in the next 3 wheezes. No intercostal retractions. HEART: Regular rate and rhythm. No murmur. ABDOMEN: Soft. Bowel sounds are present. No masses. No tenderness. EXTREMITIES: 2+ pedal edema. Chronic venous stasis changes. Wound VAC was removed from the axillary area. Is packed with saline dressing in place. Doing well at this time. Ulcer to the left elbow was been treated with the opticell as has the right ankle wound. optifoam will be utilized to the new irritation to the right elbow area. NEUROLOGICAL: Patient is awake, alert and oriented x3 - Labs CBC & Chem 7: 05/30/16 04:10 05/30/16 04:10 Labs: Abnormal Lab Results - Last 24 Hours (Table) 05/30/16 05/30/16 05/30/16 Range/Units 01:49 04:10 04:10 WBC 14.6 H (3.8-10.6) k/uL MCHC 30.6 L (31.0-37.0) g/dL RDW 16.4 H (11.5-15.5) % Neutrophils # 13.7 H (1.3-7.7) k/uL Lymphocytes # 0.1 L (1.0-4.8) k/uL Chloride 91 L (98-107) mmol/L Carbon Dioxide 37 H (22-30) mmol/L BUN 21 H (7-17) mg/dL Creatinine 0.50 L (0.52-1.04) mg/dL Glucose 179 H (74-99) mg/dL POC Glucose (mg/dL) 194 H (75-99) mg/dL 05/30/16 05/30/16 05/30/16 Range/Units 10:01 11:54 14:42 WBC (3.8-10.6) k/uL MCHC (31.0-37.0) g/dL RDW (11.5-15.5) % Neutrophils # (1.3-7.7) k/uL Lymphocytes # (1.0-4.8) k/uL Chloride (98-107) mmol/L Carbon Dioxide (22-30) mmol/L BUN (7-17) mg/dL Creatinine (0.52-1.04) mg/dL Glucose (74-99) mg/dL POC Glucose (mg/dL) 217 H 256 H 142 H (75-99) mg/dL 05/30/16 Range/Units 17:27 WBC (3.8-10.6) k/uL MCHC (31.0-37.0) g/dL RDW (11.5-15.5) % Neutrophils # (1.3-7.7) k/uL Lymphocytes # (1.0-4.8) k/uL Chloride (98-107) mmol/L Carbon Dioxide (22-30) mmol/L BUN (7-17) mg/dL Creatinine (0.52-1.04) mg/dL Glucose (74-99) mg/dL POC Glucose (mg/dL) 138 H (75-99) mg/dL Laboratory Results WBC 14.6 k/uL (3.8-10.6) H 05/30/16 04:10 RBC 4.68 m/uL (3.80-5.40) 05/30/16 04:10 Hgb 14.0 gm/dL (11.4-16.0) 05/30/16 04:10 Hct 45.6 % (34.0-46.0) 05/30/16 04:10 MCV 97.5 fL (80.0-100.0) 05/30/16 04:10 MCH 29.9 pg (25.0-35.0) 05/30/16 04:10 MCHC 30.6 g/dL (31.0-37.0) L 05/30/16 04:10 RDW 16.4 % (11.5-15.5) H 05/30/16 04:10 Plt Count 285 k/uL (150-450) 05/30/16 04:10 Neutrophils % 94 % 05/30/16 04:10 Lymphocytes % 1 % 05/30/16 04:10 Monocytes % 3 % 05/30/16 04:10 Eosinophils % 0 % 05/30/16 04:10 Basophils % 2 % 05/30/16 04:10 Neutrophils # 13.7 k/uL (1.3-7.7) H 05/30/16 04:10 Lymphocytes # 0.1 k/uL (1.0-4.8) L 05/30/16 04:10 Monocytes # 0.5 k/uL (0-1.0) 05/30/16 04:10 Eosinophils # 0.1 k/uL (0-0.7) 05/30/16 04:10 Basophils # 0.2 k/uL (0-0.2) 05/30/16 04:10 Anisocytosis Slight 05/30/16 04:10 Macrocytosis Slight 05/30/16 04:10 PT 10.8 sec (9.0-12.0) 05/28/16 16:28 INR 1.1 (<1.1) 05/28/16 16:28 APTT 22.1 sec (22.0-30.0) 05/28/16 16:28 D-Dimer 0.79 mg/L FEU (<0.60) H 05/29/16 09:08 Sodium 137 mmol/L (137-145) 05/30/16 04:10 Potassium 4.7 mmol/L (3.5-5.1) 05/30/16 04:10 Chloride 91 mmol/L (98-107) L 05/30/16 04:10 Carbon Dioxide 37 mmol/L (22-30) H 05/30/16 04:10 Anion Gap 9 mmol/L 05/30/16 04:10 BUN 21 mg/dL (7-17) H 05/30/16 04:10 Creatinine 0.50 mg/dL (0.52-1.04) L 05/30/16 04:10 Est GFR (MDRD) Af Amer >60 (>60 ml/min/1.73 sqM) 05/30/16 04:10 Est GFR (MDRD) Non-Af >60 (>60 ml/min/1.73 sqM) 05/30/16 04:10 Glucose 179 mg/dL (74-99) H 05/30/16 04:10 POC Glucose (mg/dL) 78 mg/dL (75-99) 05/30/16 21:32 POC Glu Dry End Tester Luma Shelley 05/30/16 21:[address] Glu mg/dL 203 mg/dL 05/28/16 16:28 Hemoglobin A1c 8.7 % (4.2-6.1) H 05/28/16 16:28 Plasma Lactic Acid Rony 1.5 mmol/L (0.7-2.0) 05/28/16 16:28 Calcium 9.1 mg/dL (8.4-10.2) 05/30/16 04:10 Phosphorus 4.3 mg/dL (2.5-4.5) 05/30/16 04:10 Magnesium 1.8 mg/dL (1.6-2.3) 05/30/16 04:10 Total Bilirubin 0.3 mg/dL (0.2-1.3) 05/28/16 16:28 AST 30 U/L (14-36) 05/28/16 16:28 ALT 59 U/L (9-52) H 05/28/16 16:28 Alkaline Phosphatase 159 U/L (38-126) H 05/28/16 16:28 Total Creatine Kinase 56 U/L (30-135) 05/28/16 16:28 CK-MB (CK-2) 2.6 ng/mL (0.0-2.4) H* 05/29/16 06:13 CK-MB (CK-2) Rel Index 5.9 05/28/16 16:28 Troponin I 0.039 ng/mL (0.000-0.034) H* 05/29/16 11:57 NT-Pro-B Natriuret Pep 355 pg/mL 05/28/16 16:28 Total Protein 5.7 g/dL (6.3-8.2) L 05/28/16 16:28 Albumin 3.2 g/dL (3.5-5.0) L 05/28/16 16:28 Urine Color Yellow 05/28/16 15:42 Urine Appearance Clear (Clear) 05/28/16 15:42 Urine pH 5.5 (5.0-8.0) 05/28/16 15:42 Ur Specific [place] 1.019 (1.001-1.035) 05/28/16 15:42 Urine Protein 1+ (Negative) H 05/28/16 15:42 Urine Glucose (UA) Negative (Negative) 05/28/16 15:42 Urine Ketones Negative (Negative) 05/28/16 15:42 Urine Blood Moderate (Negative) H 05/28/16 15:42 Urine Nitrate Negative (Negative) 05/28/16 15:42 Urine Bilirubin Negative (Negative) 05/28/16 15:42 Urine Urobilinogen <2.0 mg/dL (<2.0) 05/28/16 15:42 Ur Leukocyte Esterase Negative (Negative) 05/28/16 15:42 Urine RBC >182 /hpf (0-5) H 05/28/16 15:42 Urine WBC 9 /hpf (0-5) H 05/28/16 15:42 Ur Squamous Epith Cells 1 /hpf (0-4) 05/28/16 15:42 Urine Mucus Occasional /hpf (None) H 05/28/16 15:42 Assessment and Plan (1) Respiratory failure with hypoxia and hypercapnia Narrative/Plan: 50-year-old female who was multiple medical troubles including rheumatoid arthritis, COPD with what appears to be a new interstitial lung disease. The patient spent about by pulmonary critical care. And when she is more stable bronchoscopy will be planned. At this time metabolic therapy is continuing with ertapenem for her prior isolated pathogens. She is improved with her extensive diuresis. Continues a leukocytosis with receiving large doses of steroid therapy She is less anxious and less short of breath but is having some difficulties with a high doses of steroids affecting her mental status. He has significant hyperglycemia and is starting to come under control she did refuse an insulin drip Dressing changes of been requested with the addition of the foam dressing to the right elbow. Status: Acute (2) Diabetic foot ulcer associated with type 2 diabetes mellitus, with fat layer exposed Status: Acute (3) Smoking Status: Acute (4) Rheumatoid arthritis Status: Acute
[2016-05-31] MEDS: IPRATROPIUM-ALBUTEROL 3 ML NEB INHALATION SCH ×6 (03:52→23:39)
[2016-05-31 04:25] LABS: Anisocytosis Slight; Basophils % (A) 0 %; CHCM 31.9; Eosinophils # (A) 0.1 k/uL (0-0.7); Eosinophils % (A) 1 %; HCT 41.7 % (34.0-46.0); HDW 3.09; HGB 13.1 gm/dL (11.4-16.0); Hypochromasia Slight; Luc % (Auto) 1; Lymphocytes # (A) 0.5 k/uL (1.0-4.8); Lymphocytes % (A) 4 %; MCH 30.7 pg (25.0-35.0); MCHC 31.4 g/dL (31.0-37.0); MCV 97.9 fL (80.0-100.0); Macrocytosis Slight; Mean Platelet Volume 6.8; Monocytes # (A) 0.4 k/uL (0-1.0); Monocytes % (A) 3 %; Neutrophils # (A) 11.6 k/uL (1.3-7.7); Neutrophils % (A) 91 %; RBC 4.27 m/uL (3.80-5.40); RDW 16.4 % (11.5-15.5); WBC 12.7 k/uL (3.8-10.6); WBC (Perox) 13.22
[2016-05-31] MEDS: oxyCODONE-APAP 7.5-325MG 1 EACH TAB PO PRN ×5 (04:26→23:09)
[2016-05-31 04:34] LABS: Blood Urea Nitrogen 32 mg/dL (7-17); Calcium 9.2 mg/dL (8.4-10.2); Chloride 90 mmol/L (98-107); Glucose 52 mg/dL (74-99); Magnesium 1.8 mg/dL (1.6-2.3); Non-African American GFR(MDRD) >60 (>60 ml/min/1.73 sqM); Phosphorous 3.8 mg/dL (2.5-4.5); Potassium 3.8 mmol/L (3.5-5.1); Sodium 138 mmol/L (137-145)
[2016-05-31 04:34] LABS: Glucose,Whole Blood 52 mg/dL (75-99)
[2016-05-31 04:40] LABS: Anion Gap 4 mmol/L
[2016-05-31 04:44] LABS: Carbon Dioxide 44 mmol/L (22-30)
[2016-05-31 04:51] LABS: Glucose,Whole Blood 73 mg/dL (75-99)
[2016-05-31] MEDS ORDERED: Potassium Replacement Protocol 1 EACH MISC MISCELLANE PRN ×2 (05:01→11:10)
[2016-05-31] MEDS: MAGNESIUM SULFATE-D5W PMX 1 GM in DEXTROSE/WATER 1 100ML.BAG IVPB SCH ×2 (05:47→06:51)
[2016-05-31] MEDS ORDERED: POTASSIUM CHLORIDE ORAL LIQUID 40 MEQ/30 ML CUP NG-TUBE SCH (06:00)
[2016-05-31 06:29] LABS: Glucose,Whole Blood 126 mg/dL (75-99)
[2016-05-31] MEDS: INSULIN LISPRO (humaLOG) 300 UNIT/3 ML VIAL SQ SCH ×5 (07:39→20:31)
[2016-05-31] MEDS: metFORMIN 500 MG TAB PO SCH (07:41)
[2016-05-31] MEDS: NICOTINE 21MG/24HR PATCH TRANSDERM SCH (08:13)
[2016-05-31] MEDS: FUROSEMIDE 10 MG/ML 4 ML VIAL IV SCH ×2 (08:15→15:16)
[2016-05-31] MEDS: HYDROCORTISONE SUCCINATE 100 MG/2 ML VIAL IV SCH ×2 (08:20→15:17)
--- NOTE | 2016-05-31 08:22 | XR ---
EXAMINATION TYPE: XR chest 1V portable DATE OF EXAM: 05/31/2016 6:50 AM COMPARISON: Prior chest x-ray May HISTORY: Congestive heart failure TECHNIQUE: Single frontal view of the chest is obtained. FINDINGS: Similar findings. Right-sided PICC line remains in place, the heart is enlarged. Chest wal l deformities are again noted. Interstitium is increased. No pneumothorax or pleural effusion. Left a xillary lucency is again seen. There are overlying cardiac leads. IMPRESSION: Cardiomegaly. Underlying interstitial lung disease. Additional findings above.
[2016-05-31] MEDS: CALCIUM CARB-VIT D 500MG-200UN 1 EACH TAB PO SCH ×2 (08:26→20:33)
[2016-05-31] MEDS: NYSTATIN 100,000 UNIT/GM POWD 15 GM TOPICAL SCH ×3 (08:26→21:16)
[2016-05-31] MEDS: ENOXAPARIN 40 MG/0.4 ML SYRINGE SQ SCH (08:26)
[2016-05-31] MEDS: PYRIDOXINE 50 MG TAB PO SCH ×3 (08:27→21:16)
[2016-05-31] MEDS: NITROGLYCERIN OINT 1 INCH/GM PACKET TOPICAL SCH ×4 (08:27→21:15)
[2016-05-31] MEDS: GLIMEPIRIDE 4 MG TAB PO SCH ×2 (08:30→20:51)
[2016-05-31] MEDS: LOPERAMIDE 2 MG CAP PO SCH ×2 (08:30→20:34)
[2016-05-31] MEDS: METOPROLOL TARTRATE 25 MG TAB PO SCH ×2 (08:30→20:35)
[2016-05-31] MEDS: ERTAPENEM 1 GM in SODIUM CHLORIDE 0.9% 50 ML IVPB SCH (08:35)
[2016-05-31] MEDS ORDERED: POTASSIUM CHLORIDE ER 20 MEQ TAB.ER PO SCH (12:00)
[2016-05-31] MEDS: ASCORBIC ACID 500 MG TAB PO SCH (12:20)
[2016-05-31] MEDS: FOLIC ACID 1 MG TAB PO SCH (12:20)
[2016-05-31 12:25] LABS: Glucose,Whole Blood 76 mg/dL (75-99)
--- NOTE | 2016-05-31 12:32 | PN ---
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 The patient was diagnosed with congestive heart failure exacerbation and was started on Lasix. Last night she was in mild respiratory distress and the patient was transferred to the intensive care unit. On follow up with her today, she feels slightly better in terms of shortness of breath. She continues denying having any chest pain or chest discomfort. Hemodynamically, she continues to be in a sinus tachycardia with a heart rate between 110 to 120. The cardiac enzymes were checked and came in to be slightly abnormal. She underwent a CTA of the chest, which showed no evidence of pulmonary embolus. I am going to start the patient on metoprolol 25 mg p.o. b.i.d. to control the heart rate. She continues to be on Lasix IV and she seems to be diuresing well. Down the line and once the patient is euvolemic, she is to have a heart catheterization to rule out any severe underlying coronary artery disease in view of her abnormal troponin as well as in view of her multiple risk factors for coronary artery disease. PHYSICAL EXAMINATION: GENERAL APPEARANCE: She looks in mild respiratory distress. Vitals showed heart rate is 99, respiratory rate is 30 per minute, pressure is 97/64 mmHg, saturation is 96%. Cardiovascular examination shows regular rate and rhythm with a sinus tachycardia. Respiratory examination showed bilateral crackles. Extremity examination showed bilateral pedal edema. DIAGNOSTIC WORK-UP: WBC 14.6, hemoglobin 14.0, platelet count 285. Sodium 137, potassium 4.7. GFR more than 60. ASSESSMENT: 1. Acute respiratory failure. 2. Mild congestive heart failure secondary to diastole dysfunction. 3. Mildly abnormal cardiac enzymes of unknown etiology at this point. 4. Multiple comorbid conditions. PLAN: 1. Continue the Lasix IV. 2. Continue monitor the kidney function and electrolytes. 3. The patient needs to have a heart catheterization once she is euvolemic. 4. Will continue following up her.
--- NOTE | 2016-05-31 14:54 | P.PN ---
Subjective Principal diagnosis: Acute hypoxic respiratory failure, multifactorial This is a 50-year-old female with history of severe rheumatoid arthritis. Interstitial lung disease related to rheumatoid arthritis, could also be related to previous medications given to her rheumatoid arthritis including methotrexate, patient is also known to have history of secondary Sjogren's, COPD , nicotine dependence, cervical stenosis, chronic immunosuppression with high dose of prednisone, and this is mostly given for her rheumatoid arthritis. Patient was recently noted to have a large axillary abscess and she underwent surgery by Dr. Luo, and the drain was put in place, patient also had a wound VAC. Patient is being followed by Dr. Downing at the wound care center, he is managing her axillary abscess, and she has bilateral lower extremity ulcers and once being handled by Dr. Downing. Patient had chronic shortness of breath, however this time her shortness of breath seems to be more pronounced. Patient has also been complaining of coughing and wheezing. And her CT of the chest is strongly suspicious for interstitial lung disease, however the possibility of underlying infection is not entirely ruled out. Patient is definitely not the most ideal candidate to consider bronchoscopy or transbronchial biopsy or even a bronchoalveolar lavage at this point. She is being managed empirically with high doses of steroids and antibiotics. Patient is now on Invanz which she has been taking mostly for her axillary abscess. Yesterday, patient was transferred to the ICU and I was asked to see her on consultation. Her sugars have been running to be dehydrated requiring insulin drip. And this not surprising considering the patient is on relatively high doses of steroids. Patient denies any headaches, no blurred vision no dizziness , no nausea no vomiting no abdominal pain, she has mostly symptoms of cough, shortness of breath, wheezing, and issues related to her axillary wound and lower extremities ulcerations. Patient was reevaluated today on 05/31/2016, slightly better, but overall about the same. Less shortness of breath, less cough, some wheezing. CBC was reviewed, basic metabolic profile was also reviewed and she has a bicarb of 44 which is not unexpected considering the patient has severe COPD this may improve a bit if we replace some of the Lasix with Diamox. Patient is not in basia respiratory distress at this point, and she is almost near her baseline. Objective - Vital Signs Vital signs: Vital Signs Temp 97.6 F 05/31/16 12:00 Pulse 116 H 05/31/16 14:00 Resp 30 H 05/31/16 14:00 BP 109/79 05/31/16 13:00 Pulse Ox 89 L 05/31/16 13:00 Intake & Output 05/30/16 05/31/16 05/31/16 18:59 06:59 18:59 Intake Total 1820 1200 950 Output Total 2400 1900 700 Balance -580 -700 250 Weight 80.9 kg 80.1 kg 80.1 kg Intake: IV 200 100 Magnesium Sulfate-D5w Pmx 200 100 1 gm In Dextrose/Water 1 100ml.bag @ 100 mls/hr IVPB Q1H [facility] Rx#: [id number] Intake, IV Titration 180 140 50 Amount Ertapenem 1 gm In Sodium 60 50 Chloride 0.9% 50 ml @ 100 mls/hr IVPB DAILY [facility] Rx #:[id number] Magnesium Sulfate-D5w Pmx 100 1 gm In Dextrose/Water 1 100ml.bag @ 100 mls/hr IVPB Q1H [facility] Rx#: [id number] Sodium Chloride 0.9% 1, 120 40 000 ml @ 20 mls/hr IV . Q24H [facility] Rx#:[id number] Oral 1440 960 900 Output: Urine 2400 1900 700 Other: Voiding Method Toilet Toilet Toilet Bedside Commode Bedside Commode Bedside Commode # Voids 1 1 1 # Bowel Movements 1 1 - Exam en: This is a 50-year-old female. Noted to be dyspneic with activity. HEENT: Cushingoid from chronic use of prednisone. Head is atraumatic, normocephalic. Pupils equal, round. Sclerae is anicteric. NECK: Supple. No JVD. No lymphadenopathy. No thyromegaly. LUNGS: Scattered rhonchi and wheezes bilaterally HEART: Regular rate and rhythm. No murmur. ABDOMEN: Soft. Bowel sounds are present. No masses. No tenderness. EXTREMITIES: 2+ pedal edema. Chronic venous stasis changes. Wound VAC was removed from left axilla, all dressing left elbow, stage II decubitus to the coccyx. NEUROLOGICAL: Patient is awake, alert and oriented x3. Cranial nerves 2 through 12 are grossly intact. - Labs CBC & Chem 7: 05/31/16 04:15 05/31/16 10:35 Labs: Abnormal Lab Results - Last 24 Hours (Table) 05/30/16 05/31/16 05/31/16 Range/Units 17:27 04:15 04:15 WBC 12.7 H (3.8-10.6) k/uL RDW 16.4 H (11.5-15.5) % Neutrophils # 11.6 H (1.3-7.7) k/uL Lymphocytes # 0.5 L (1.0-4.8) k/uL Chloride 90 L (98-107) mmol/L Carbon Dioxide 44 H* (22-30) mmol/L BUN 32 H (7-17) mg/dL Glucose 52 L (74-99) mg/dL POC Glucose (mg/dL) 138 H (75-99) mg/dL 05/31/16 05/31/16 05/31/16 Range/Units 04:29 04:49 06:27 WBC (3.8-10.6) k/uL RDW (11.5-15.5) % Neutrophils # (1.3-7.7) k/uL Lymphocytes # (1.0-4.8) k/uL Chloride (98-107) mmol/L Carbon Dioxide (22-30) mmol/L BUN (7-17) mg/dL Glucose (74-99) mg/dL POC Glucose (mg/dL) 52 L 73 L 126 H (75-99) mg/dL Assessment and Plan Plan: Impression: 1 acute hypoxic respiratory failure, multifactorial, it is mostly secondary to interstitial lung disease/rheumatoid lungs, however the possibility of underlying pneumonitis is not entirely ruled out, plus the patient is known to have COPD with acute exacerbation, she is known to have history of diastolic heart failure. Ideally speaking, the patient will need to be bronchoscoped, and at least be able to perform BAL, however considering the patient conditions at this point, she is not actually a candidate for bronchoscopy or transbronchial biopsy. However the patient and supple on mechanical ventilation , that would be the first option is to do a bronchoscopy and BAL. In the meantime I would recommend continuation of medical treatment, she will need to remain on antibiotics, diuretics, bronchodilators, high doses of steroids, and again if her condition gets any worse, or if the patient ends up on mechanical ventilation, I would proceed with bronchoscopy and BAL. At this point it would be best to treat empirically for all the potential causes of her shortness of breath. 2 severe rheumatoid arthritis, chronically on methotrexate and prednisone, her rheumatoid arthritis is usually managed by the edge banding off bearer, but for the time being it would be best to treat the patient with stress doses of Solu-Cortef. 3 multiple comorbidities including diabetes, irritable bowel syndrome, recent left axillary abscess requiring surgery, multiple decubitus ulcers, chronic pain related to rheumatoid arthritis and spinal stenosis, chronic tobacco dependence and underlying COPD, history of hypertension. Recommendation: Continue present treatment plan, and that includes diuretics, antibiotics, bronchodilators, steroids, and we will continue to monitor closely. Her elevated blood sugar is being managed by insulin drip at present. I would likely cut down the dose of hydrocortisone to 50 mg every 8 hours tomorrow. Prognosis is definitely poor and guarded. I will add Diamox today, and I will cut down the Lasix dose. Time with Patient: Less than 30
--- NOTE | 2016-05-31 15:16 | P.PN ---
Subjective This is a 50-year-old pleasant female patient of Dr. Spring and Dr. Downing. She has underlying history of rheumatid arthritis, Sjogren's, Raynaud's, diabetes mellitus type 2, hyperlipidemia, hypertension, rheumatoid lung, chronic immunosuppression, cervical stenosis with upper extremity weakness, impaired balance impaired gait. She had a recent hospitalization from May 09 through 05/15/2016 at which time she was treated for abscess formation left axilla and left elbow status post debridement with Dr. Luo. She was discharged with a wound VAC in place. She has been returning to the [facility] for ertapenem 1 g to complete 30 days. She also follows with Dr. Downing in the wound healing Center and her last appointment was yesterday. Patient states that she developed suddenly shortness of breath. She does have lower extremity edema and chronic venous stasis changes to the lower extremities which has not changed. She denies having any fevers at home. She came into [facility] emergency center for evaluation. It is noted the patient continues to smoke. Chest x-ray shows pulmonary edema. Urinalysis was positive for blood. ALT 59, alkaline phosphatase 159. Troponins 0.047, 0.045 and 0.039. Patient was diagnosed with heart failure and admitted to the selective care unit. Consults requested with cardiology. She has been started on Lasix 40 mg IV every 8 hours. The d-dimer 0.79. Echocardiogram reveals mild concentric left ventricular hypertrophy, mild mitral regurgitation, mild tricuspid regurgitation, no pulmonary hypertension. EF 50-55%. 05/30: Patient developed respiratory distress last evening and transferred into intensive care unit. She was unable to tolerate BiPAP due to anxiety. Patient' s blood sugars were quite elevated and she refused insulin drip. Consult has been added for Dr. Concepcion for intensive care management and pulmonary medicine with concern for rheumatoid lung.. Patient is now agreeable to have insulin drip. Yesterday she was started on Solu-Medrol 60 mg and this has been changed to hydrocortisone 100 mg IV every [address] Concepcion. 05/31: Patient has shortness of breath and cough today. Blood sugar dropped to 52. Metformin has been discontinued. Patient is off insulin drip. She did eat breakfast today. Diamox added. Patient will be transferred selective care. Objective - Vital Signs Vital signs: Vital Signs Temp 97.3 F L 05/31/16 08:00 Pulse 93 05/31/16 10:00 Resp 24 05/31/16 10:00 BP 133/76 05/31/16 10:00 Pulse Ox 92 L 05/31/16 10:00 Intake & Output 05/30/16 05/31/16 05/31/16 18:59 06:59 18:59 Intake Total 1820 1200 350 Output Total 2400 1900 700 Balance -580 -700 -350 Weight 80.9 kg 80.1 kg Intake: IV 200 100 Magnesium Sulfate-D5w Pmx 200 100 1 gm In Dextrose/Water 1 100ml.bag @ 100 mls/hr IVPB Q1H [facility] Rx#: [id number] Intake, IV Titration 180 140 50 Amount Ertapenem 1 gm In Sodium 60 50 Chloride 0.9% 50 ml @ 100 mls/hr IVPB DAILY [facility] Rx #:[id number] Magnesium Sulfate-D5w Pmx 100 1 gm In Dextrose/Water 1 100ml.bag @ 100 mls/hr IVPB Q1H [facility] Rx#: [id number] Sodium Chloride 0.9% 1, 120 40 000 ml @ 20 mls/hr IV . Q24H [facility] Rx#:[id number] Oral 1440 960 300 Output: Urine 2400 1900 700 Other: Voiding Method Toilet Toilet Bedside Commode Bedside Commode # Voids 1 1 1 # Bowel Movements 1 1 - Exam General appearance: Present: cooperative, no acute distress, obese - EENT Eyes: Present: anicteric sclerae, PERRLA, dentition normal ENT: Present: hearing grossly normal, NA/AT, normal oropharynx - Neck Neck: Present: normal ROM - Respiratory Respiratory: bilateral: Scattered coarse rhonchi and expiratory wheeze, no accessory muscle usagea - Cardiovascular Rhythm: regular Heart sounds: normal: S1, S2, 2+ pedal edema - Gastrointestinal General gastrointestinal: Present: normal bowel sounds, soft - Integumentary Integumentary Comment(s): Wound VAC to left axilla wound, dressing in place to the left elbow wound, PICC line right upper arm. Integumentary: Present: normal, normal turgor - Neurologic Neurologic: Present: CNII-XII intact - Psychiatric Psychiatric: Present: A&O x's 3, appropriate affect, intact judgment & insight - Labs CBC & Chem 7: 05/31/16 04:15 05/31/16 10:35 Labs: Abnormal Lab Results - Last 24 Hours (Table) 05/30/16 05/30/16 05/30/16 Range/Units 11:54 14:42 17:27 WBC (3.8-10.6) k/uL RDW (11.5-15.5) % Neutrophils # (1.3-7.7) k/uL Lymphocytes # (1.0-4.8) k/uL Chloride (98-107) mmol/L Carbon Dioxide (22-30) mmol/L BUN (7-17) mg/dL Glucose (74-99) mg/dL POC Glucose (mg/dL) 256 H 142 H 138 H (75-99) mg/dL 05/31/16 05/31/16 05/31/16 Range/Units 04:15 04:15 04:29 WBC 12.7 H (3.8-10.6) k/uL RDW 16.4 H (11.5-15.5) % Neutrophils # 11.6 H (1.3-7.7) k/uL Lymphocytes # 0.5 L (1.0-4.8) k/uL Chloride 90 L (98-107) mmol/L Carbon Dioxide 44 H* (22-30) mmol/L BUN 32 H (7-17) mg/dL Glucose 52 L (74-99) mg/dL POC Glucose (mg/dL) 52 L (75-99) mg/dL 05/31/16 05/31/16 Range/Units 04:49 06:27 WBC (3.8-10.6) k/uL RDW (11.5-15.5) % Neutrophils # (1.3-7.7) k/uL Lymphocytes # (1.0-4.8) k/uL Chloride (98-107) mmol/L Carbon Dioxide (22-30) mmol/L BUN (7-17) mg/dL Glucose (74-99) mg/dL POC Glucose (mg/dL) 73 L 126 H (75-99) mg/dL Assessment and Plan Plan: 1. Acute hypoxic respiratory failure, acute exacerbation of COPD, acute diastolic heart failurel pneumonia not entirely ruled out. Continue Lasix 40 mg IV daily, diamox added, hydrocortisone IV every 8 hours, DuoNeb treatments every [address] Jamey goodson. Concern for rheumatoid lung. Patient is not candidate for bronchoscopy at this point. 2. Abscess left medial humerus, with deep fistulous formation, and axilla, status post I&D. Patient currently has wound VAC to the axilla wound. Wound alf is [facility]. She follows in the wound center with Dr. Downing. Consult with Dr. Downing. Patient continued on ertapenem. 3. Rheumatoid arthritis is chronically on methotrexate and prednisone 10 mg 3 times a day. Prednisone on hold while patient is taking Solu-Cortef. Patient follows with Dr. Preston as an outpatient 4. Diabetes mellitus type 2 on metformin discontinued. Continue glimepiride and Humalog scale. 5. IBS with diarrhea currently constipated she is on Lomotil 2 mg 4 times a day when necessary no changes were made 6. Decubitus ulcer stage II, present on admission on santyl 7. Chronic pain related to RA and musculoskeletal deformities including spinal stenosis. Continue Percocet, Flexeril. 8. Chronic tobacco dependency at 2 packs per day. Nicotine patch 21 mics per day 9. Hypertension on losartan 100 mg daily 10. DVT prophylaxis with Lovenox 11. GI prophylaxis. Protonix. Discharge plan: Social work consult for subacute rehab Patient will be admitted to the hospital for a minimum of 2 night stay. Impression and plan of care have been directed as dictated by the signing physician. Tiki Mcpherson nurse practitioner acting as scribe for signing physician. Time with Patient: Greater than 30
[2016-05-31] MEDS: SODIUM CHLORIDE 0.9% 1,000 ML IV SCH (17:03)
[2016-05-31 17:07] LABS: Glucose,Whole Blood 98 mg/dL (75-99)
[2016-05-31 20:32] LABS: Glucose,Whole Blood 158 mg/dL (75-99)
[2016-05-31] MEDS: ASPIRIN 81 MG CHEW PO SCH (20:33)
[2016-05-31] MEDS: FLUCONAZOLE 100 MG TAB PO SCH (20:34)
[2016-05-31] MEDS: PANTOPRAZOLE 40 MG TABLET PO SCH (20:35)
[2016-05-31] MEDS: POTASSIUM CHLORIDE ORAL LIQUID 40 MEQ/30 ML CUP PO SCH (20:35)
[2016-05-31] MEDS: LOSARTAN 50 MG TAB PO SCH (20:35)
--- NOTE | 2016-05-31 23:58 | P.PN ---
Subjective Principal diagnosis: Shortness of breath This is a 50-year-old pleasant female patient well known to ID services due to her recent hospitalization from May 09 through 05/15/2016 at which time she was treated for abscess formation left axilla and left elbow status post debridement with Dr. Luo. She was discharged with a wound VAC in place. She has been returning to the [facility] for ertapenem 1 g to complete 30 days. She follows with Dr. Downing in the wound healing Center and her last appointment was yesterday. She denies having any problems with her wounds at home. She denies any problems with her PICC line. No fever or chills. Patient states that she developed suddenly shortness of breath. She does have lower extremity edema and chronic venous stasis changes to the lower extremities which has not changed. She came into [facility] emergency center for evaluation. It is noted the patient continues to smoke. Chest x-ray shows pulmonary edema. Urinalysis was positive for blood. ALT 59, alkaline phosphatase 159. Troponins 0.047, 0.045 and 0.039. Patient was diagnosed with heart failure and COPD exacerbation and admitted to the selective care unit. Cardiology consult in place. She has been started on Lasix 40 mg IV every 8 hours, Solu-Medrol and DuoNeb treatments. The d-dimer 0.79. Echocardiogram reveals mild concentric left ventricular hypertrophy, mild mitral regurgitation, mild tricuspid regurgitation, no pulmonary hypertension. EF 50-55%. She has been resumed on ertapenem. Her main in intensive care unit. As an extensive diuresis and is feeling considerably better. She is no longer in basia respiratory distress. Still feels somewhat poorly. And when she becomes agitated does get more short of breath. New irritation to the right elbow was noted. less short of breath today again no other new acute complaints. Objective - Vital Signs Vital signs: Vital Signs Temp 98.5 F 05/31/16 20:00 Pulse 84 05/31/16 23:43 Resp 16 05/31/16 20:00 BP 128/69 05/31/16 20:00 Pulse Ox 93 L 05/31/16 20:00 Intake & Output 05/31/16 05/31/16 06/01/16 06:59 18:59 06:59 Intake Total 1200 1200 320 Output Total 1900 1500 Balance -700 -300 320 Weight 80.1 kg 80.1 kg Intake: IV 100 Magnesium Sulfate-D5w Pmx 100 1 gm In Dextrose/Water 1 100ml.bag @ 100 mls/hr IVPB Q1H [facility] Rx#: [id number] Intake, IV Titration 140 50 Amount Ertapenem 1 gm In Sodium 50 Chloride 0.9% 50 ml @ 100 mls/hr IVPB DAILY [facility] Rx #:[id number] Magnesium Sulfate-D5w Pmx 100 1 gm In Dextrose/Water 1 100ml.bag @ 100 mls/hr IVPB Q1H [facility] Rx#: [id number] Sodium Chloride 0.9% 1, 40 000 ml @ 20 mls/hr IV . Q24H [facility] Rx#:[id number] Oral 960 1150 320 Output: Urine 1900 1500 Other: Voiding Method Toilet Toilet Toilet Bedside Commode Bedside Commode Bedside Commode # Voids 1 0 # Bowel Movements 1 - Exam Gen: This is a 50-year-old female. She is sitting up at the edge of the bed and appears to be in no acute distress. HEENT: Head is atraumatic, normocephalic. Pupils equal, round. Sclerae is anicteric. NECK: Supple. No JVD. No lymphadenopathy. No thyromegaly. LUNGS: Scattered coarse rhonchi as well as inspiratory and expirator wheezes. No intercostal retractions. HEART: Regular rate and rhythm. No murmur. ABDOMEN: Soft. Bowel sounds are present. No masses. No tenderness. EXTREMITIES: 2+ pedal edema. Chronic venous stasis changes. Wound VAC was removed from the axillary area. Is packed with saline dressing in place. Doing well at this time. Ulcer to the left elbow was been treated with the opticell as has the right ankle wound. optifoam will be utilized to the new irritation to the right elbow area.the ulcerations are evaluated and hav NEUROLOGICAL: Patient is awake, alert and oriented x3 - Labs CBC & Chem 7: 05/31/16 04:15 05/31/16 10:35 Labs: Abnormal Lab Results - Last 24 Hours (Table) 05/31/16 05/31/16 05/31/16 Range/Units 04:15 04:15 04:29 WBC 12.7 H (3.8-10.6) k/uL RDW 16.4 H (11.5-15.5) % Neutrophils # 11.6 H (1.3-7.7) k/uL Lymphocytes # 0.5 L (1.0-4.8) k/uL Chloride 90 L (98-107) mmol/L Carbon Dioxide 44 H* (22-30) mmol/L BUN 32 H (7-17) mg/dL Glucose 52 L (74-99) mg/dL POC Glucose (mg/dL) 52 L (75-99) mg/dL 05/31/16 05/31/16 05/31/16 Range/Units 04:49 06:27 20:30 WBC (3.8-10.6) k/uL RDW (11.5-15.5) % Neutrophils # (1.3-7.7) k/uL Lymphocytes # (1.0-4.8) k/uL Chloride (98-107) mmol/L Carbon Dioxide (22-30) mmol/L BUN (7-17) mg/dL Glucose (74-99) mg/dL POC Glucose (mg/dL) 73 L 126 H 158 H (75-99) mg/dL Laboratory Results WBC 12.7 k/uL (3.8-10.6) H 05/31/16 04:15 RBC 4.27 m/uL (3.80-5.40) 05/31/16 04:15 Hgb 13.1 gm/dL (11.4-16.0) 05/31/16 04:15 Hct 41.7 % (34.0-46.0) 05/31/16 04:15 MCV 97.9 fL (80.0-100.0) 05/31/16 04:15 MCH 30.7 pg (25.0-35.0) 05/31/16 04:15 MCHC 31.4 g/dL (31.0-37.0) 05/31/16 04:15 RDW 16.4 % (11.5-15.5) H 05/31/16 04:15 Plt Count 255 k/uL (150-450) 05/31/16 04:15 Neutrophils % 91 % 05/31/16 04:15 Lymphocytes % 4 % 05/31/16 04:15 Monocytes % 3 % 05/31/16 04:15 Eosinophils % 1 % 05/31/16 04:15 Basophils % 0 % 05/31/16 04:15 Neutrophils # 11.6 k/uL (1.3-7.7) H 05/31/16 04:15 Lymphocytes # 0.5 k/uL (1.0-4.8) L 05/31/16 04:15 Monocytes # 0.4 k/uL (0-1.0) 05/31/16 04:15 Eosinophils # 0.1 k/uL (0-0.7) 05/31/16 04:15 Basophils # 0.0 k/uL (0-0.2) 05/31/16 04:15 Hypochromasia Slight 05/31/16 04:15 Anisocytosis Slight 05/31/16 04:15 Macrocytosis Slight 05/31/16 04:15 PT 10.8 sec (9.0-12.0) 05/28/16 16:28 INR 1.1 (<1.1) 05/28/16 16:28 APTT 22.1 sec (22.0-30.0) 05/28/16 16:28 D-Dimer 0.79 mg/L FEU (<0.60) H 05/29/16 09:08 Sodium 138 mmol/L (137-145) 05/31/16 04:15 Potassium 3.8 mmol/L (3.5-5.1) 05/31/16 10:35 Chloride 90 mmol/L (98-107) L 05/31/16 04:15 Carbon Dioxide 44 mmol/L (22-30) H* 05/31/16 04:15 Anion Gap 4 mmol/L 05/31/16 04:15 BUN 32 mg/dL (7-17) H 05/31/16 04:15 Creatinine 0.60 mg/dL (0.52-1.04) 05/31/16 04:15 Est GFR (MDRD) Af Amer >60 (>60 ml/min/1.73 sqM) 05/31/16 04:15 Est GFR (MDRD) Non-Af >60 (>60 ml/min/1.73 sqM) 05/31/16 04:15 Glucose 52 mg/dL (74-99) L 05/31/16 04:15 POC Glucose (mg/dL) 158 mg/dL (75-99) H 05/31/16 20:30 POC Glu Head Sampler Luma Shelley 05/31/16 20:[address] Glu mg/dL 203 mg/dL 05/28/16 16:28 Hemoglobin A1c 8.7 % (4.2-6.1) H 05/28/16 16:28 Plasma Lactic Acid Rony 1.5 mmol/L (0.7-2.0) 05/28/16 16:28 Calcium 9.2 mg/dL (8.4-10.2) 05/31/16 04:15 Phosphorus 3.8 mg/dL (2.5-4.5) 05/31/16 04:15 Magnesium 1.8 mg/dL (1.6-2.3) 05/31/16 04:15 Total Bilirubin 0.3 mg/dL (0.2-1.3) 05/28/16 16:28 AST 30 U/L (14-36) 05/28/16 16:28 ALT 59 U/L (9-52) H 05/28/16 16:28 Alkaline Phosphatase 159 U/L (38-126) H 05/28/16 16:28 Total Creatine Kinase 56 U/L (30-135) 05/28/16 16:28 CK-MB (CK-2) 2.6 ng/mL (0.0-2.4) H* 05/29/16 06:13 CK-MB (CK-2) Rel Index 5.9 05/28/16 16:28 Troponin I 0.039 ng/mL (0.000-0.034) H* 05/29/16 11:57 NT-Pro-B Natriuret Pep 355 pg/mL 05/28/16 16:28 Total Protein 5.7 g/dL (6.3-8.2) L 05/28/16 16:28 Albumin 3.2 g/dL (3.5-5.0) L 05/28/16 16:28 Urine Color Yellow 05/28/16 15:42 Urine Appearance Clear (Clear) 05/28/16 15:42 Urine pH 5.5 (5.0-8.0) 05/28/16 15:42 Ur Specific Anderson 1.019 (1.001-1.035) 05/28/16 15:42 Urine Protein 1+ (Negative) H 05/28/16 15:42 Urine Glucose (UA) Negative (Negative) 05/28/16 15:42 Urine Ketones Negative (Negative) 05/28/16 15:42 Urine Blood Moderate (Negative) H 05/28/16 15:42 Urine Nitrate Negative (Negative) 05/28/16 15:42 Urine Bilirubin Negative (Negative) 05/28/16 15:42 Urine Urobilinogen <2.0 mg/dL (<2.0) 05/28/16 15:42 Ur Leukocyte Esterase Negative (Negative) 05/28/16 15:42 Urine RBC >182 /hpf (0-5) H 05/28/16 15:42 Urine WBC 9 /hpf (0-5) H 05/28/16 15:42 Ur Squamous Epith Cells 1 /hpf (0-4) 05/28/16 15:42 Urine Mucus Occasional /hpf (None) H 05/28/16 15:42 Assessment and Plan (1) Respiratory failure with hypoxia and hypercapnia Narrative/Plan: 50-year-old female who was multiple medical troubles including rheumatoid arthritis, COPD with what appears to be a new interstitial lung disease. The patient spent about by pulmonary critical care. And when she is more stable bronchoscopy will be planned. At this time metabolic therapy is continuing with ertapenem for her prior isolated pathogens. She is improved with her extensive diuresis. Continues a leukocytosis with receiving large doses of steroid therapy She is less anxious and less short of breath but is having some difficulties with a high doses of steroids affecting her mental status. She has significant hyperglycemia and is starting to come under control she did refuse an insulin drip Dressing changes of been requested with the addition of the foam dressing to the right elbow. other than some significant agitation from the doses of steroids she is germán Status: Acute (2) Diabetic foot ulcer associated with type 2 diabetes mellitus, with fat layer exposed Status: Acute (3) Smoking Status: Acute (4) Rheumatoid arthritis Status: Acute
--- NOTE | 2016-06-01 00:15 | P.PN ---
Subjective Principal diagnosis: Acute respiratory failure This is a pleasant 48-year-old female patient with a past medical history significant for diabetes, hypertension, dyslipidemia, and rheumatoid arthritis, was admitted to the hospital with progressive dyspnea and was diagnosed with acute respiratory failure. The patient was diagnosed with acute exacerbation of congestive heart failure. She was started on Lasix IV. I'll follow-up with her today, she seems to be doing slightly better indeterminable shortness of breath. She continues to be dyspneic. I started the patient yesterday on metoprolol for heart rate control and the heart rate has been better over the last 24 hours. Her cardiac enzymes were checked and came in to be slightly abnormal. She underwent a CTA of the chest which showed no evidence of PE. I will continue the current medical treatment including the metoprolol for heart rate control for the sinus tachycardia and also continue the Lasix IV. We 'll continue monitor the kidney function and electrolytes. Down the line, the patient need to be ruled out for severe underlying coronary artery disease in view of her multiple risk factors for CAD, significant history of smoking, and the mildly abnormal cardiac enzymes. Objective - Vital Signs Vital signs: Vital Signs Temp 98.5 F 05/31/16 20:00 Pulse 84 05/31/16 23:43 Resp 16 05/31/16 20:00 BP 128/69 05/31/16 20:00 Pulse Ox 93 L 05/31/16 20:00 Intake & Output 05/31/16 05/31/16 06/01/16 06:59 18:59 06:59 Intake Total 1200 1200 320 Output Total 1900 1500 Balance -700 -300 320 Weight 80.1 kg 80.1 kg Intake: IV 100 Magnesium Sulfate-D5w Pmx 100 1 gm In Dextrose/Water 1 100ml.bag @ 100 mls/hr IVPB Q1H [facility] Rx#: [id number] Intake, IV Titration 140 50 Amount Ertapenem 1 gm In Sodium 50 Chloride 0.9% 50 ml @ 100 mls/hr IVPB DAILY [facility] Rx #:[id number] Magnesium Sulfate-D5w Pmx 100 1 gm In Dextrose/Water 1 100ml.bag @ 100 mls/hr IVPB Q1H [facility] Rx#: [id number] Sodium Chloride 0.9% 1, 40 000 ml @ 20 mls/hr IV . Q24H [facility] Rx#:[id number] Oral 960 1150 320 Output: Urine 1900 1500 Other: Voiding Method Toilet Toilet Toilet Bedside Commode Bedside Commode Bedside Commode # Voids 1 0 # Bowel Movements 1 - Constitutional General appearance: Present: no acute distress - Respiratory Respiratory: bilateral: rhonchi - Cardiovascular Rhythm: regular Heart sounds: normal: S1, S2 - Labs CBC & Chem 7: 05/31/16 04:15 05/31/16 10:35 Labs: Abnormal Lab Results - Last 24 Hours (Table) 05/31/16 05/31/16 05/31/16 Range/Units 04:15 04:15 04:29 WBC 12.7 H (3.8-10.6) k/uL RDW 16.4 H (11.5-15.5) % Neutrophils # 11.6 H (1.3-7.7) k/uL Lymphocytes # 0.5 L (1.0-4.8) k/uL Chloride 90 L (98-107) mmol/L Carbon Dioxide 44 H* (22-30) mmol/L BUN 32 H (7-17) mg/dL Glucose 52 L (74-99) mg/dL POC Glucose (mg/dL) 52 L (75-99) mg/dL 05/31/16 05/31/16 05/31/16 Range/Units 04:49 06:27 20:30 WBC (3.8-10.6) k/uL RDW (11.5-15.5) % Neutrophils # (1.3-7.7) k/uL Lymphocytes # (1.0-4.8) k/uL Chloride (98-107) mmol/L Carbon Dioxide (22-30) mmol/L BUN (7-17) mg/dL Glucose (74-99) mg/dL POC Glucose (mg/dL) 73 L 126 H 158 H (75-99) mg/dL Assessment and Plan Plan: Assessment #1 acute respiratory failure #2 congestive heart failure exacerbation secondary to diastole dysfunction #3 mildly abnormal cardiac enzymes of unknown etiology at this point #4 chronic lung disease #5 multiple comorbid conditions Plan #1 continue the Lasix IV #2 continue monitor the kidney function and electrolytes #3 follow-up with the patient
[2016-06-01] MEDS: HYDROCORTISONE SUCCINATE 100 MG/2 ML VIAL IV SCH ×4 (00:32→23:53)
[2016-06-01 01:18] LABS: Glucose,Whole Blood 96 mg/dL (75-99)
[2016-06-01] MEDS: IPRATROPIUM-ALBUTEROL 3 ML NEB INHALATION SCH ×5 (03:16→18:56)
[2016-06-01 05:17] LABS: Anisocytosis Slight; Basophils % (A) 0 %; CH 30.9; CHCM 31.8; Eosinophils % (A) 0 %; HCT 41.3 % (34.0-46.0); HDW 3.21; HGB 12.6 gm/dL (11.4-16.0); Hypochromasia Slight; Luc # (Auto) 0.04; Luc % (Auto) 0; Lymphocytes # (A) 0.5 k/uL (1.0-4.8); Lymphocytes % (A) 6 %; MCH 29.8 pg (25.0-35.0); MCHC 30.6 g/dL (31.0-37.0); MCV 97.6 fL (80.0-100.0); Macrocytosis Slight; Mean Platelet Volume 7.7; Monocytes # (A) 0.3 k/uL (0-1.0); Monocytes % (A) 4 %; Neutrophils # (A) 7.9 k/uL (1.3-7.7); Neutrophils % (A) 90 %; RBC 4.23 m/uL (3.80-5.40); RDW 16.2 % (11.5-15.5); WBC 8.8 k/uL (3.8-10.6); WBC (Perox) 9.33
[2016-06-01] MEDS: oxyCODONE-APAP 7.5-325MG 1 EACH TAB PO PRN ×5 (05:18→21:27)
[2016-06-01 05:22] LABS: Glucose,Whole Blood 103 mg/dL (75-99)
[2016-06-01 05:33] LABS: Blood Urea Nitrogen 27 mg/dL (7-17); Calcium 9.1 mg/dL (8.4-10.2); Chloride 91 mmol/L (98-107); Glucose 98 mg/dL (74-99); Magnesium 2.2 mg/dL (1.6-2.3); Non-African American GFR(MDRD) >60 (>60 ml/min/1.73 sqM); Phosphorous 3.4 mg/dL (2.5-4.5); Potassium 4.1 mmol/L (3.5-5.1); Sodium 138 mmol/L (137-145)
[2016-06-01 05:39] LABS: Anion Gap 4 mmol/L
[2016-06-01 05:45] LABS: Carbon Dioxide 43 mmol/L (22-30)
[2016-06-01 07:42] LABS: Glucose,Whole Blood 158 mg/dL (75-99)
[2016-06-01] MEDS: GLIMEPIRIDE 4 MG TAB PO SCH ×2 (09:14→20:36)
[2016-06-01] MEDS: ENOXAPARIN 40 MG/0.4 ML SYRINGE SQ SCH (09:14)
[2016-06-01] MEDS: NICOTINE 21MG/24HR PATCH TRANSDERM SCH (09:14)
[2016-06-01] MEDS: FUROSEMIDE 10 MG/ML 4 ML VIAL IV SCH (09:14)
[2016-06-01] MEDS: CALCIUM CARB-VIT D 500MG-200UN 1 EACH TAB PO SCH ×2 (09:15→20:36)
[2016-06-01] MEDS: PYRIDOXINE 50 MG TAB PO SCH ×3 (09:15→20:37)
[2016-06-01] MEDS: LOPERAMIDE 2 MG CAP PO SCH ×2 (09:15→20:37)
[2016-06-01] MEDS: ASCORBIC ACID 500 MG TAB PO SCH (09:15)
[2016-06-01] MEDS: FOLIC ACID 1 MG TAB PO SCH (09:16)
[2016-06-01] MEDS: METOPROLOL TARTRATE 25 MG TAB PO SCH ×2 (09:16→21:27)
[2016-06-01] MEDS: NYSTATIN 100,000 UNIT/GM POWD 15 GM TOPICAL SCH ×3 (09:18→20:39)
[2016-06-01] MEDS: NITROGLYCERIN OINT 1 INCH/GM PACKET TOPICAL SCH ×4 (09:19→20:42)
[2016-06-01] MEDS: ERTAPENEM 1 GM in SODIUM CHLORIDE 0.9% 50 ML IVPB SCH (09:23)
[2016-06-01] MEDS: INSULIN LISPRO (humaLOG) 300 UNIT/3 ML VIAL SQ SCH ×4 (09:24→20:42)
--- NOTE | 2016-06-01 10:03 | XR ---
EXAMINATION TYPE: XR chest 1V portable DATE OF EXAM: 06/01/2016 6:46 AM COMPARISON: 05/31/2016 INDICATION: CHF TECHNIQUE: Single frontal view of the chest is obtained. FINDINGS: The heart size is mildly prominent. The pulmonary vasculature is normal. The lungs are clear. Old deformity along the right lateral chest limited PICC line enters on the right with the tip in the distal superior vena cava region IMPRESSION: 1. Stable examination
--- NOTE | 2016-06-01 13:50 | P.PN ---
Subjective Principal diagnosis: Acute hypoxic respiratory failure, multifactorial This is a 50-year-old female with history of severe rheumatoid arthritis. Interstitial lung disease related to rheumatoid arthritis, could also be related to previous medications given to her rheumatoid arthritis including methotrexate, patient is also known to have history of secondary Sjogren's, COPD , nicotine dependence, cervical stenosis, chronic immunosuppression with high dose of prednisone, and this is mostly given for her rheumatoid arthritis. Patient was recently noted to have a large axillary abscess and she underwent surgery by Dr. Luo, and the drain was put in place, patient also had a wound VAC. Patient is being followed by Dr. Downing at the wound care center, he is managing her axillary abscess, and she has bilateral lower extremity ulcers and once being handled by Dr. Downing. Patient had chronic shortness of breath, however this time her shortness of breath seems to be more pronounced. Patient has also been complaining of coughing and wheezing. And her CT of the chest is strongly suspicious for interstitial lung disease, however the possibility of underlying infection is not entirely ruled out. Patient is definitely not the most ideal candidate to consider bronchoscopy or transbronchial biopsy or even a bronchoalveolar lavage at this point. She is being managed empirically with high doses of steroids and antibiotics. Patient is now on Invanz which she has been taking mostly for her axillary abscess. Yesterday, patient was transferred to the ICU and I was asked to see her on consultation. Her sugars have been running to be dehydrated requiring insulin drip. And this not surprising considering the patient is on relatively high doses of steroids. Patient denies any headaches, no blurred vision no dizziness , no nausea no vomiting no abdominal pain, she has mostly symptoms of cough, shortness of breath, wheezing, and issues related to her axillary wound and lower extremities ulcerations. Patient was reevaluated today on 05/31/2016, slightly better, but overall about the same. Less shortness of breath, less cough, some wheezing. CBC was reviewed, basic metabolic profile was also reviewed and she has a bicarb of 44 which is not unexpected considering the patient has severe COPD this may improve a bit if we replace some of the Lasix with Diamox. Patient is not in basia respiratory distress at this point, and she is almost near her baseline. Patient was reevaluated today on 06/01/2016, continues to slightly improved. Patient still has intermittent cough and wheezing, but overall there has been some improvement over the last couple of days. Patient is hemodynamically stable, her sugars are better controlled, CBC is relatively normal. Bicarb is 43 today, good renal profile. Objective - Vital Signs Vital signs: Vital Signs Temp 98 F 06/01/16 08:00 Pulse 110 H 06/01/16 08:00 Resp 24 06/01/16 08:00 BP 133/74 06/01/16 08:00 Pulse Ox 92 L 06/01/16 08:00 Intake & Output 05/31/16 06/01/16 06/01/16 18:59 06:59 18:59 Intake Total 1200 800 Output Total 1500 1350 Balance -300 -550 Weight 80.1 kg 79.4 kg Intake: Intake, IV Titration 50 Amount Ertapenem 1 gm In Sodium 50 Chloride 0.9% 50 ml @ 100 mls/hr IVPB DAILY [facility] Rx #:[id number] Oral 1150 800 Output: Urine 1500 1350 Other: Voiding Method Toilet Toilet Toilet Bedside Commode Bedside Commode Bedside Commode # Voids 0 1 2 - Exam en: This is a 50-year-old female. Less dyspneic today HEENT: Cushingoid from chronic use of prednisone. Head is atraumatic, normocephalic. Pupils equal, round. Sclerae is anicteric. NECK: Supple. No JVD. No lymphadenopathy. No thyromegaly. LUNGS: Scattered rhonchi and wheezes bilaterally HEART: Regular rate and rhythm. No murmur. ABDOMEN: Soft. Bowel sounds are present. No masses. No tenderness. EXTREMITIES: 2+ pedal edema. Chronic venous stasis changes. Wound VAC was removed from left axilla, all dressing left elbow, stage II decubitus to the coccyx. NEUROLOGICAL: Patient is awake, alert and oriented x3. Cranial nerves 2 through 12 are grossly intact. - Labs CBC & Chem 7: 06/01/16 05:00 06/01/16 05:00 Labs: Abnormal Lab Results - Last 24 Hours (Table) 05/31/16 06/01/16 06/01/16 Range/Units 20:30 05:00 05:00 MCHC 30.6 L (31.0-37.0) g/dL RDW 16.2 H (11.5-15.5) % Neutrophils # 7.9 H (1.3-7.7) k/uL Lymphocytes # 0.5 L (1.0-4.8) k/uL Chloride 91 L (98-107) mmol/L Carbon Dioxide 43 H* (22-30) mmol/L BUN 27 H (7-17) mg/dL POC Glucose (mg/dL) 158 H (75-99) mg/dL 06/01/16 06/01/16 Range/Units 05:20 07:40 MCHC (31.0-37.0) g/dL RDW (11.5-15.5) % Neutrophils # (1.3-7.7) k/uL Lymphocytes # (1.0-4.8) k/uL Chloride (98-107) mmol/L Carbon Dioxide (22-30) mmol/L BUN (7-17) mg/dL POC Glucose (mg/dL) 103 H 158 H (75-99) mg/dL Assessment and Plan Plan: Impression: 1 acute hypoxic respiratory failure, multifactorial, it is mostly secondary to interstitial lung disease/rheumatoid lungs, however the possibility of underlying pneumonitis is not entirely ruled out, plus the patient is known to have COPD with acute exacerbation, she is known to have history of diastolic heart failure. Ideally speaking, the patient will need to be bronchoscoped, and at least be able to perform BAL, however considering the patient conditions at this point, she is not actually a candidate for bronchoscopy or transbronchial biopsy. However the patient and supple on mechanical ventilation , that would be the first option is to do a bronchoscopy and BAL. In the meantime I would recommend continuation of medical treatment, she will need to remain on antibiotics, diuretics, bronchodilators, high doses of steroids, and again if her condition gets any worse, or if the patient ends up on mechanical ventilation, I would proceed with bronchoscopy and BAL. At this point it would be best to treat empirically for all the potential causes of her shortness of breath. 2 severe rheumatoid arthritis, chronically on methotrexate and prednisone, her rheumatoid arthritis is usually managed by the spotlight operator, but for the time being it would be best to treat the patient with stress doses of Solu-Cortef. Yesterday I cut down her Solu-Cortef from 100 mg IV push 3 times a day to 50 mg IV push 3 times a day, and I will cut it down further to 50 mg IV push every 12 hours. Eventually the patient could be switched back to her prednisone dose at 30 mg daily. 3 multiple comorbidities including diabetes, irritable bowel syndrome, recent left axillary abscess requiring surgery, multiple decubitus ulcers, chronic pain related to rheumatoid arthritis and spinal stenosis, chronic tobacco dependence and underlying COPD, history of hypertension. Recommendation: Continue present treatment plan, and that includes diuretics, antibiotics, bronchodilators, steroids, and we will continue to monitor closely. Patient could be transferred to a regular medical floor today. And will continue to follow. Time with Patient: Less than 30
[2016-06-01] MEDS: SODIUM CHLORIDE 0.9% 1,000 ML IV SCH (16:36)
[2016-06-01 17:16] LABS: Glucose,Whole Blood 158 mg/dL (75-99)
--- NOTE | 2016-06-01 19:14 | PN ---
The patient continues to be hemodynamically stable. Wound VAC still taking off. Patient feeling much better after increasing the dose of steroids and has no major events overnight. Currently denying chest pain, nausea, vomiting, abdominal pain, dizziness, lightheadedness or blurry vision. PHYSICAL EXAMINATION: LUNGS: Diffuse wheezing bilaterally, improved from prior examination. HEART: Normal S1, S2. ABDOMEN: Soft, no tenderness, positive bowel sounds in all 4 quadrants. Left axillary area wound seems to be clean, intact and dry. Bilateral lower extremity stable erythema and bandages in place. Imaging and labs: CBC revealed stable findings this morning. Chem-7 revealed elevated carbon dioxide at 43, normal otherwise kidney function. Glucose is fluctuating between 96 and 158. ASSESSMENT AND PLAN: 1. Acute hypoxic respiratory failure multifactorial including interstitial lung disease related to rheumatoid lung exacerbated with chronic obstructive pulmonary disease exacerbation and component of diastolic heart failure. The patient seems to be improving with increasing dose of steroids. We will continue with diuretics. We will monitor her vital signs closely. Monitor her weight closely and monitor her I's and O's as well. The patient will benefit from bronchoscopy still to be discussed by Dr. Concepcion as patient refused on first day and would like to continue monitoring closely. 2. Rheumatoid arthritis. We will continue current management. 3. Diabetes under fair control. We will continue current management. 4. Severe debility and weakness. We will continue with PT, OT recommendation. 5. Left axilla abscess status post I&D and wound VAC placement. We will continue with infectious disease recommendations regarding antibiotics and length of treatment. 6. Diabetic foot ulcer. We will continue wound care and we will continue monitoring the patient's ( ) current antibiotics. 7. Tobacco dependency, counselled regarding ( ).
[2016-06-01] MEDS ORDERED: IPRATROPIUM-ALBUTEROL 3 ML NEB INHALATION PRN (20:26)
[2016-06-01] MEDS: ASPIRIN 81 MG CHEW PO SCH (20:36)
[2016-06-01] MEDS: LOSARTAN 50 MG TAB PO SCH (20:37)
[2016-06-01] MEDS: PANTOPRAZOLE 40 MG TABLET PO SCH (20:37)
[2016-06-01] MEDS: POTASSIUM CHLORIDE ORAL LIQUID 40 MEQ/30 ML CUP PO SCH (20:38)
[2016-06-01 21:26] LABS: Glucose,Whole Blood 150 mg/dL (75-99)
[2016-06-02] MEDS: oxyCODONE-APAP 7.5-325MG 1 EACH TAB PO PRN ×6 (02:57→23:20)
[2016-06-02 06:19] LABS: Anisocytosis Slight; Basophils # (A) 0.1 k/uL (0-0.2); Basophils % (A) 2 %; CH 30.8; CHCM 31.5; Eosinophils % (A) 0 %; HCT 38.5 % (34.0-46.0); HDW 3.26; HGB 11.8 gm/dL (11.4-16.0); Hypochromasia Slight; Luc # (Auto) 0.03; Luc % (Auto) 0; Lymphocytes # (A) 0.3 k/uL (1.0-4.8); Lymphocytes % (A) 4 %; MCH 30.1 pg (25.0-35.0); MCHC 30.6 g/dL (31.0-37.0); MCV 98.2 fL (80.0-100.0); Macrocytosis Slight; Mean Platelet Volume 7.9; Monocytes # (A) 0.2 k/uL (0-1.0); Monocytes % (A) 3 %; Neutrophils # (A) 7.1 k/uL (1.3-7.7); Neutrophils % (A) 92 %; RBC 3.92 m/uL (3.80-5.40); WBC 7.8 k/uL (3.8-10.6); WBC (Perox) 7.55
[2016-06-02 06:34] LABS: Blood Urea Nitrogen 23 mg/dL (7-17); Calcium 8.8 mg/dL (8.4-10.2); Chloride 94 mmol/L (98-107); Glucose 210 mg/dL (74-99); Non-African American GFR(MDRD) >60 (>60 ml/min/1.73 sqM); Phosphorous 3.6 mg/dL (2.5-4.5); Sodium 138 mmol/L (137-145)
[2016-06-02 06:40] LABS: Anion Gap 3 mmol/L
[2016-06-02 06:48] LABS: Carbon Dioxide 41 mmol/L (22-30)
[2016-06-02 07:35] LABS: Glucose,Whole Blood 233 mg/dL (75-99)
[2016-06-02] MEDS: IPRATROPIUM-ALBUTEROL 3 ML NEB INHALATION SCH ×4 (07:44→21:01)
[2016-06-02] MEDS: HYDROCORTISONE SUCCINATE 100 MG/2 ML VIAL IV SCH ×3 (08:31→23:21)
[2016-06-02] MEDS: NICOTINE 21MG/24HR PATCH TRANSDERM SCH (08:31)
[2016-06-02] MEDS: INSULIN LISPRO (humaLOG) 300 UNIT/3 ML VIAL SQ SCH ×4 (08:31→23:18)
[2016-06-02] MEDS: CALCIUM CARB-VIT D 500MG-200UN 1 EACH TAB PO SCH ×2 (08:32→23:18)
[2016-06-02] MEDS: ENOXAPARIN 40 MG/0.4 ML SYRINGE SQ SCH (08:32)
[2016-06-02] MEDS: FUROSEMIDE 10 MG/ML 4 ML VIAL IV SCH (08:32)
[2016-06-02] MEDS: METOPROLOL TARTRATE 25 MG TAB PO SCH ×2 (08:33→23:19)
[2016-06-02] MEDS: PYRIDOXINE 50 MG TAB PO SCH ×3 (08:33→23:20)
[2016-06-02] MEDS: NITROGLYCERIN OINT 1 INCH/GM PACKET TOPICAL SCH ×4 (08:33→23:20)
[2016-06-02] MEDS: GLIMEPIRIDE 4 MG TAB PO SCH ×2 (08:33→23:18)
[2016-06-02] MEDS: NYSTATIN 100,000 UNIT/GM POWD 15 GM TOPICAL SCH ×3 (08:35→23:20)
[2016-06-02] MEDS: LOPERAMIDE 2 MG CAP PO SCH ×2 (08:36→23:19)
[2016-06-02] MEDS: ERTAPENEM 1 GM in SODIUM CHLORIDE 0.9% 50 ML IVPB SCH (10:33)
[2016-06-02 12:00] LABS: Glucose,Whole Blood 311 mg/dL (75-99)
[2016-06-02] MEDS: FOLIC ACID 1 MG TAB PO SCH (12:24)
[2016-06-02] MEDS: ASCORBIC ACID 500 MG TAB PO SCH (12:24)
--- NOTE | 2016-06-02 13:38 | P.PN ---
Subjective Principal diagnosis: Acute hypoxic respiratory failure, multifactorial This is a 50-year-old female with history of severe rheumatoid arthritis. Interstitial lung disease related to rheumatoid arthritis, could also be related to previous medications given to her rheumatoid arthritis including methotrexate, patient is also known to have history of secondary Sjogren's, COPD , nicotine dependence, cervical stenosis, chronic immunosuppression with high dose of prednisone, and this is mostly given for her rheumatoid arthritis. Patient was recently noted to have a large axillary abscess and she underwent surgery by Dr. Luo, and the drain was put in place, patient also had a wound VAC. Patient is being followed by Dr. Downing at the wound care center, he is managing her axillary abscess, and she has bilateral lower extremity ulcers and once being handled by Dr. Downing. Patient had chronic shortness of breath, however this time her shortness of breath seems to be more pronounced. Patient has also been complaining of coughing and wheezing. And her CT of the chest is strongly suspicious for interstitial lung disease, however the possibility of underlying infection is not entirely ruled out. Patient is definitely not the most ideal candidate to consider bronchoscopy or transbronchial biopsy or even a bronchoalveolar lavage at this point. She is being managed empirically with high doses of steroids and antibiotics. Patient is now on Invanz which she has been taking mostly for her axillary abscess. Yesterday, patient was transferred to the ICU and I was asked to see her on consultation. Her sugars have been running to be dehydrated requiring insulin drip. And this not surprising considering the patient is on relatively high doses of steroids. Patient denies any headaches, no blurred vision no dizziness , no nausea no vomiting no abdominal pain, she has mostly symptoms of cough, shortness of breath, wheezing, and issues related to her axillary wound and lower extremities ulcerations. Patient was reevaluated today on 05/31/2016, slightly better, but overall about the same. Less shortness of breath, less cough, some wheezing. CBC was reviewed, basic metabolic profile was also reviewed and she has a bicarb of 44 which is not unexpected considering the patient has severe COPD this may improve a bit if we replace some of the Lasix with Diamox. Patient is not in basia respiratory distress at this point, and she is almost near her baseline. Patient was reevaluated today on 06/01/2016, continues to slightly improved. Patient still has intermittent cough and wheezing, but overall there has been some improvement over the last couple of days. Patient is hemodynamically stable, her sugars are better controlled, CBC is relatively normal. Bicarb is 43 today, good renal profile. Reevaluated today on 06/02/2016, continues to show slight improvement. She has intermittent cough and wheezing, she has mostly aches and pains related to her arthritis. Hemodynamically patient is stable, labs from today were all reviewed including CBC and basic metabolic profile. Blood sugars are running just over 200. Objective - Vital Signs Vital signs: Vital Signs Temp 96.9 F L 06/02/16 07:00 Pulse 96 06/02/16 07:50 Resp 18 06/01/16 23:00 BP 120/67 06/02/16 07:00 Pulse Ox 96 06/02/16 07:44 Intake & Output 06/01/16 06/02/16 06/02/16 18:59 06:59 18:59 Other: Voiding Method Toilet Bedside Commode # Voids 2 3 # Bowel Movements 1 - Exam en: This is a 50-year-old female. Less dyspneic today HEENT: Cushingoid from chronic use of prednisone. Head is atraumatic, normocephalic. Pupils equal, round. Sclerae is anicteric. NECK: Supple. No JVD. No lymphadenopathy. No thyromegaly. LUNGS: Scattered rhonchi and wheezes bilaterally HEART: Regular rate and rhythm. No murmur. ABDOMEN: Soft. Bowel sounds are present. No masses. No tenderness. EXTREMITIES: 2+ pedal edema. Chronic venous stasis changes. Wound VAC was removed from left axilla, all dressing left elbow, stage II decubitus to the coccyx. NEUROLOGICAL: Patient is awake, alert and oriented x3. Cranial nerves 2 through 12 are grossly intact. - Labs CBC & Chem 7: 06/02/16 06:10 06/02/16 06:10 Labs: Abnormal Lab Results - Last 24 Hours (Table) 06/01/16 06/01/16 06/02/16 Range/Units 17:11 20:49 06:10 MCHC 30.6 L (31.0-37.0) g/dL RDW 16.0 H (11.5-15.5) % Lymphocytes # 0.3 L (1.0-4.8) k/uL Chloride (98-107) mmol/L Carbon Dioxide (22-30) mmol/L BUN (7-17) mg/dL Glucose (74-99) mg/dL POC Glucose (mg/dL) 158 H 150 H (75-99) mg/dL 06/02/16 06/02/16 06/02/16 Range/Units 06:10 07:33 11:53 MCHC (31.0-37.0) g/dL RDW (11.5-15.5) % Lymphocytes # (1.0-4.8) k/uL Chloride 94 L (98-107) mmol/L Carbon Dioxide 41 H* (22-30) mmol/L BUN 23 H (7-17) mg/dL Glucose 210 H (74-99) mg/dL POC Glucose (mg/dL) 233 H 311 H (75-99) mg/dL Assessment and Plan Plan: Impression: 1 acute hypoxic respiratory failure, multifactorial, it is mostly secondary to interstitial lung disease/rheumatoid lungs, however the possibility of underlying pneumonitis is not entirely ruled out, plus the patient is known to have COPD with acute exacerbation, she is known to have history of diastolic heart failure. Ideally speaking, the patient will need to be bronchoscoped, and at least be able to perform BAL, however considering the patient conditions at this point, she is not actually a candidate for bronchoscopy or transbronchial biopsy. However the patient and supple on mechanical ventilation , that would be the first option is to do a bronchoscopy and BAL. In the meantime I would recommend continuation of medical treatment, she will need to remain on antibiotics, diuretics, bronchodilators, high doses of steroids, and again if her condition gets any worse, or if the patient ends up on mechanical ventilation, I would proceed with bronchoscopy and BAL. At this point it would be best to treat empirically for all the potential causes of her shortness of breath. 2 severe rheumatoid arthritis, chronically on methotrexate and prednisone, her rheumatoid arthritis is usually managed by the sleeping car porter, but for the time being it would be best to treat the patient with stress doses of Solu-Cortef. Yesterday I cut down her Solu-Cortef from 100 mg IV push 3 times a day to 50 mg IV push 3 times a day, and I will cut it down further to 50 mg IV push every 12 hours. Eventually the patient could be switched back to her prednisone dose at 30 mg daily. 3 multiple comorbidities including diabetes, irritable bowel syndrome, recent left axillary abscess requiring surgery, multiple decubitus ulcers, chronic pain related to rheumatoid arthritis and spinal stenosis, chronic tobacco dependence and underlying COPD, history of hypertension. Recommendation: Continue present treatment plan, and that includes diuretics, antibiotics, bronchodilators, steroids, we'll continue to follow. Time with Patient: Less than 30
[2016-06-02 16:57] LABS: Glucose,Whole Blood 99 mg/dL (75-99)
[2016-06-02] MEDS: SODIUM CHLORIDE 0.9% 1,000 ML IV SCH (18:39)
[2016-06-02 21:46] LABS: Glucose,Whole Blood 154 mg/dL (75-99)
--- NOTE | 2016-06-02 22:43 | PN ---
INTERVAL HISTORY: The patient has been since yesterday without significant improvement. Yesterday she felt much better than before. No major illnesses reported by nursing staff. PHYSICAL EXAM: VITAL SIGNS: 96.9, heart rate 96, respiratory rate of 16, blood pressure 120/67, saturation 97% on nasal cannula. LUNGS: Diminished bilaterally. HEART: S1 and S2. ABDOMEN: Soft, no tenderness. Positive bowel sounds in all four quadrants. EXTREMITIES: Stable from prior examination. Left axillary area with healing wound, stable from prior examination. No wound VAC in place, has been removed over the last 48 hours. IMAGING AND LABS: CBC revealed normal findings. Chem-7 revealed elevation in carbon dioxide at 41. ( ). Glucose fluctuating between 150 and 210. ASSESSMENT AND PLAN: 1. Acute respiratory failure with hypoxia and hypercapnia. 2. Diabetic foot ulcer, associated with type 2 diabetes with fat layer exposed. 3. Recent left axillary abscess status post incision and drainage wound VAC placement currently off. 4. Rheumatoid arthritis with immunosuppression compromised state. 5. Irritable bowel syndrome. 6. Diabetes type 2. 7. Chronic obstructive pulmonary disease with exacerbation. 8. Tobacco dependency, ongoing. 9. Severe debility and weakness. PLAN: I would like to continue current steroid dose. Wean off as tolerated. Dr. Concepcion is following up on the patient's condition closely and we will discuss tapering the steroid dose off upon improvement and switch to oral steroids instead of discharging home. The patient has had difficulty with her condition where she requires steroids. Her immune system with compromised state and recurrent infection in the lower extremity and left axilla. Prognosis is still guarded. We will follow up with Dr. Downing in the morning regarding discharge planning and recommendations for IV antibiotics and wound VAC. Prognosis is still guarded.
[2016-06-02] MEDS: ASPIRIN 81 MG CHEW PO SCH (23:18)
[2016-06-02] MEDS: LOSARTAN 50 MG TAB PO SCH (23:19)
[2016-06-02] MEDS: PANTOPRAZOLE 40 MG TABLET PO SCH (23:19)
[2016-06-02] MEDS: POTASSIUM CHLORIDE ORAL LIQUID 40 MEQ/30 ML CUP PO SCH (23:19)
[2016-06-03] MEDS: oxyCODONE-APAP 7.5-325MG 1 EACH TAB PO PRN ×5 (03:40→20:21)
[2016-06-03 06:55] LABS: Glucose,Whole Blood 239 mg/dL (75-99)
[2016-06-03] MEDS: INSULIN LISPRO (humaLOG) 300 UNIT/3 ML VIAL SQ SCH ×4 (08:04→21:42)
[2016-06-03] MEDS: NICOTINE 21MG/24HR PATCH TRANSDERM SCH (08:05)
[2016-06-03] MEDS: HYDROCORTISONE SUCCINATE 100 MG/2 ML VIAL IV SCH (08:05)
[2016-06-03] MEDS: ERTAPENEM 1 GM in SODIUM CHLORIDE 0.9% 50 ML IVPB SCH (08:07)
[2016-06-03] MEDS: CALCIUM CARB-VIT D 500MG-200UN 1 EACH TAB PO SCH ×2 (08:07→20:18)
[2016-06-03] MEDS: FUROSEMIDE 10 MG/ML 4 ML VIAL IV SCH (08:07)
[2016-06-03] MEDS: GLIMEPIRIDE 4 MG TAB PO SCH ×2 (08:08→20:18)
[2016-06-03] MEDS: METOPROLOL TARTRATE 25 MG TAB PO SCH ×2 (08:09→20:18)
[2016-06-03] MEDS: NITROGLYCERIN OINT 1 INCH/GM PACKET TOPICAL SCH ×4 (08:09→21:44)
[2016-06-03] MEDS: PYRIDOXINE 50 MG TAB PO SCH ×3 (08:10→21:45)
[2016-06-03] MEDS: NYSTATIN 100,000 UNIT/GM POWD 15 GM TOPICAL SCH ×3 (08:10→21:43)
[2016-06-03] MEDS: LOPERAMIDE 2 MG CAP PO SCH ×2 (08:27→20:29)
[2016-06-03] MEDS: IPRATROPIUM-ALBUTEROL 3 ML NEB INHALATION SCH ×4 (09:32→19:17)
[2016-06-03] MEDS: ENOXAPARIN 40 MG/0.4 ML SYRINGE SQ SCH (10:44)
[2016-06-03] MEDS: metFORMIN 500 MG TAB PO SCH ×2 (12:08→18:50)
[2016-06-03] MEDS: ASCORBIC ACID 500 MG TAB PO SCH (12:09)
[2016-06-03] MEDS: FOLIC ACID 1 MG TAB PO SCH (12:09)
--- NOTE | 2016-06-03 12:17 | P.PN ---
Subjective This is a 50-year-old female who was admitted about 6 days ago. Her primary doctor's Dr. Spring. She was seen by Dr. Opal Canchola yesterday. She was showing slight improvement to him. 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 Again she is feeling better. Less short of breath. Objective - Vital Signs Vital signs: Vital Signs Temp 96.3 F L 06/03/16 07:00 Pulse 104 H 06/03/16 09:56 Resp 18 06/03/16 07:00 BP 124/56 06/03/16 07:00 Pulse Ox 97 06/03/16 09:32 Intake & Output 06/02/16 06/03/16 06/03/16 18:59 06:59 18:59 Intake Total 2350 960 Balance 2350 960 Intake: Intake, IV Titration 100 Amount Ertapenem 1 gm In Sodium 100 Chloride 0.9% 50 ml @ 100 mls/hr IVPB DAILY [facility] Rx #:[id number] Oral 2250 960 Other: Voiding Method Toilet Toilet Bedside Commode Bedside Commode # Voids 3 - Exam No acute distress, oriented 3. She is wearing nasal O2. She has a classic cushingoid face E some chronic steroid use. HEENT examination is grossly unremarkable. Neck supple. Full range of motion. Cardiovascular examination reveals regular rhythm rate. Lungs reveal some bibasilar crackles. Breath sounds are equal. May be a bit restricted in her breathing. Abdomen is obese. Extremities are intact. She does have obvious deformities of rheumatoid arthritis. She also has a classic Lagrange hump of chronic steroid use. - Labs CBC & Chem 7: 06/02/16 06:10 06/02/16 06:10 Labs: Abnormal Lab Results - Last 24 Hours (Table) 06/02/16 06/03/16 Range/Units 21:03 06:53 POC Glucose (mg/dL) 154 H 239 H (75-99) mg/dL Assessment and Plan (1) Pulmonary fibrosis Status: Acute (2) Acute exacerbation of chronic obstructive airways disease Status: Acute (3) Respiratory failure with hypoxia and hypercapnia Status: Acute (4) Rheumatoid arthritis Status: Acute Plan: Plan The patient's medications are reviewed. Additional recommendations and suggestions are forthcoming. The patient does not appear to need bronchoscopy at this time. Additional recommendations and suggestions are forthcoming. Time with Patient: Less than 30
[2016-06-03 12:25] LABS: Glucose,Whole Blood 141 mg/dL (75-99)
[2016-06-03 13:07] VITALS: BMI 27.3
--- NOTE | 2016-06-03 14:37 | P.PN ---
Subjective This is a 50-year-old pleasant female patient of Dr. Spring and Dr. Downing. She has underlying history of rheumatid arthritis, Sjogren's, Raynaud's, diabetes mellitus type 2, hyperlipidemia, hypertension, rheumatoid lung, chronic immunosuppression, cervical stenosis with upper extremity weakness, impaired balance impaired gait. She had a recent hospitalization from May 09 through 05/15/2016 at which time she was treated for abscess formation left axilla and left elbow status post debridement with Dr. Luo. She was discharged with a wound VAC in place. She has been returning to the [facility] for ertapenem 1 g to complete 30 days. She also follows with Dr. Downing in the wound healing Center and her last appointment was yesterday. Patient states that she developed suddenly shortness of breath. She does have lower extremity edema and chronic venous stasis changes to the lower extremities which has not changed. She denies having any fevers at home. She came into [facility] emergency center for evaluation. It is noted the patient continues to smoke. Chest x-ray shows pulmonary edema. Urinalysis was positive for blood. ALT 59, alkaline phosphatase 159. Troponins 0.047, 0.045 and 0.039. Patient was diagnosed with heart failure and admitted to the selective care unit. Consults requested with cardiology. She has been started on Lasix 40 mg IV every 8 hours. The d-dimer 0.79. Echocardiogram reveals mild concentric left ventricular hypertrophy, mild mitral regurgitation, mild tricuspid regurgitation, no pulmonary hypertension. EF 50-55%. 05/30: Patient developed respiratory distress last evening and transferred into intensive care unit. She was unable to tolerate BiPAP due to anxiety. Patient' s blood sugars were quite elevated and she refused insulin drip. Consult has been added for Dr. Concepcion for intensive care management and pulmonary medicine with concern for rheumatoid lung.. Patient is now agreeable to have insulin drip. Yesterday she was started on Solu-Medrol 60 mg and this has been changed to hydrocortisone 100 mg IV every [address] Concepcion. 05/31: Patient has shortness of breath and cough today. Blood sugar dropped to 52. Metformin has been discontinued. Patient is off insulin drip. She did eat breakfast today. Diamox added. Patient will be transferred selective care. 06/03: Patient has been transferred to the [facility] floor. She remains on site Cortef 50 mg every 8 hours. We'll plan to start prednisone in the morning and 40 mg. Lasix is 40 mg IV daily. IV fluids changed to saline lock. Patient is agreeable to speak with case management regarding subacute rehab. Objective - Vital Signs Vital signs: Vital Signs Temp 96.3 F L 06/03/16 07:00 Pulse 104 H 06/03/16 09:56 Resp 18 06/03/16 07:00 BP 124/56 06/03/16 07:00 Pulse Ox 97 06/03/16 09:32 Intake & Output 06/02/16 06/03/16 06/03/16 18:59 06:59 18:59 Intake Total 2350 960 Balance 2350 960 Weight 79.4 kg Intake: Intake, IV Titration 100 Amount Ertapenem 1 gm In Sodium 100 Chloride 0.9% 50 ml @ 100 mls/hr IVPB DAILY [facility] Rx #:[id number] Oral 2250 960 Other: Voiding Method Toilet Toilet Bedside Commode Bedside Commode # Voids 3 - Exam General appearance: Present: cooperative, no acute distress, obese - EENT Eyes: Present: anicteric sclerae, PERRLA, dentition normal ENT: Present: hearing grossly normal, NA/AT, normal oropharynx - Neck Neck: Present: normal ROM - Respiratory Respiratory: bilateral: Scattered coarse rhonchi and expiratory wheeze, no accessory muscle usagea - Cardiovascular Rhythm: regular Heart sounds: normal: S1, S2, 2+ pedal edema - Gastrointestinal General gastrointestinal: Present: normal bowel sounds, soft - Integumentary Integumentary Comment(s): Wound VAC to left axilla wound, dressing in place to the left elbow wound, PICC line right upper arm. Integumentary: Present: normal, normal turgor - Neurologic Neurologic: Present: CNII-XII intact - Psychiatric Psychiatric: Present: A&O x's 3, appropriate affect, intact judgment & insight - Labs CBC & Chem 7: 06/02/16 06:10 06/02/16 06:10 Labs: Abnormal Lab Results - Last 24 Hours (Table) 06/02/16 06/03/16 06/03/16 Range/Units 21:03 06:53 12:21 POC Glucose (mg/dL) 154 H 239 H 141 H (75-99) mg/dL Assessment and Plan Plan: 1. Acute hypoxic respiratory failure, acute exacerbation of COPD, acute diastolic heart failurel pneumonia not entirely ruled out. Continue Lasix 40 mg IV daily, diamox added, hydrocortisone IV every 8 hours to be changed to oral prednisone in the morning, DuoNeb treatments every [address] Jamey goodson. Concern for rheumatoid lung. Patient is not candidate for bronchoscopy at this point. 2. Abscess left medial humerus, with deep fistulous formation, and axilla, status post I&D. Patient currently has wound VAC to the axilla wound. Wound residential [facility]. She follows in the wound center with Dr. Downing. Consult with Dr. Downing. Patient continued on ertapenem. 3. Rheumatoid arthritis is chronically on methotrexate and prednisone 10 mg 3 times a day. Prednisone on hold while patient is taking Solu-Cortef. Patient follows with Dr. Preston as an outpatient 4. Diabetes mellitus type 2 on metformin discontinued. Continue glimepiride and Humalog scale. 5. IBS with diarrhea currently constipated she is on Lomotil 2 mg 4 times a day when necessary no changes were made 6. Decubitus ulcer stage II, present on admission on santyl 7. Chronic pain related to RA and musculoskeletal deformities including spinal stenosis. Continue Percocet, Flexeril. 8. Chronic tobacco dependency at 2 packs per day. Nicotine patch 21 mg per day 9. Hypertension on losartan 100 mg daily 10. DVT prophylaxis with Lovenox 11. GI prophylaxis. Protonix. Discharge plan: Social work consult for subacute rehab Impression and plan of care have been directed as dictated by the signing physician. Tiki Mcpherson nurse practitioner acting as scribe for signing physician. Time with Patient: Greater than 30
[2016-06-03] MEDS: SODIUM CHLORIDE 0.9% 1,000 ML IV SCH (16:10)
[2016-06-03 16:50] LABS: Glucose,Whole Blood 115 mg/dL (75-99)
[2016-06-03] MEDS: SYMBICORT 160-4.5 MCG INHALER INHALATION SCH (19:17)
--- NOTE | 2016-06-03 19:26 | P.PN ---
Subjective Principal diagnosis: Shortness of breath This is a 50-year-old pleasant female patient well known to ID services due to her recent hospitalization from May 09 through 05/15/2016 at which time she was treated for abscess formation left axilla and left elbow status post debridement with Dr. Luo. She was discharged with a wound VAC in place. She has been returning to the [facility] for ertapenem 1 g to complete 30 days. She follows with Dr. Downing in the wound healing Center and her last appointment was yesterday. She denies having any problems with her wounds at home. She denies any problems with her PICC line. No fever or chills. Patient states that she developed suddenly shortness of breath. She does have lower extremity edema and chronic venous stasis changes to the lower extremities which has not changed. She came into [facility] emergency center for evaluation. It is noted the patient continues to smoke. Chest x-ray shows pulmonary edema. Urinalysis was positive for blood. ALT 59, alkaline phosphatase 159. Troponins 0.047, 0.045 and 0.039. Patient was diagnosed with heart failure and COPD exacerbation and admitted to the selective care unit. Cardiology consult in place. She has been started on Lasix 40 mg IV every 8 hours, Solu-Medrol and DuoNeb treatments. The d-dimer 0.79. Echocardiogram reveals mild concentric left ventricular hypertrophy, mild mitral regurgitation, mild tricuspid regurgitation, no pulmonary hypertension. EF 50-55%. She has been resumed on ertapenem. Her main in intensive care unit. As an extensive diuresis and is feeling considerably better. She is no longer in basia respiratory distress. Still feels somewhat poorly. And when she becomes agitated does get more short of breath. New ulceration to the right elbow was noted. less short of breath today again no other new acute complaints. Objective - Vital Signs Vital signs: Vital Signs Temp 96.5 F L 06/03/16 15:00 Pulse 98 06/03/16 16:56 Resp 19 06/03/16 15:00 BP 128/75 06/03/16 15:00 Pulse Ox 84 L 06/03/16 16:56 Intake & Output 06/03/16 06/03/16 06/04/16 06:59 18:59 06:59 Intake Total 960 Balance 960 Weight 79.4 kg Intake: Oral 960 Other: Voiding Method Toilet Bedside Commode Bedside Commode # Voids 3 2 - Exam Gen: This is a 50-year-old female. She is sitting up at the edge of the bed and appears to be in no acute distress. HEENT: Head is atraumatic, normocephalic. Pupils equal, round. Sclerae is anicteric. NECK: Supple. No JVD. No lymphadenopathy. No thyromegaly. LUNGS: Scattered coarse rhonchi as well as inspiratory and expirator wheezes. No intercostal retractions. HEART: Regular rate and rhythm. No murmur. ABDOMEN: Soft. Bowel sounds are present. No masses. No tenderness. EXTREMITIES: 2+ pedal edema. Chronic venous stasis changes. Wound VAC was removed from the axillary area. Is packed with saline dressing in place. Doing well at this time. Ulcer to the left elbow was been treated with the opticell as has the right ankle wound. optifoam will be utilized to the new irritation to the right elbow area.the ulcerations are evaluated and have improvement NEUROLOGICAL: Patient is awake, alert and oriented x3 - Labs CBC & Chem 7: 06/02/16 06:10 06/02/16 06:10 Labs: Abnormal Lab Results - Last 24 Hours (Table) 06/02/16 06/03/16 06/03/16 Range/Units 21:03 06:53 12:21 POC Glucose (mg/dL) 154 H 239 H 141 H (75-99) mg/dL 06/03/16 Range/Units 16:48 POC Glucose (mg/dL) 115 H (75-99) mg/dL Laboratory Results WBC 7.8 k/uL (3.8-10.6) 06/02/16 06:10 RBC 3.92 m/uL (3.80-5.40) 06/02/16 06:10 Hgb 11.8 gm/dL (11.4-16.0) 06/02/16 06:10 Hct 38.5 % (34.0-46.0) 06/02/16 06:10 MCV 98.2 fL (80.0-100.0) 06/02/16 06:10 MCH 30.1 pg (25.0-35.0) 06/02/16 06:10 MCHC 30.6 g/dL (31.0-37.0) L 06/02/16 06:10 RDW 16.0 % (11.5-15.5) H 06/02/16 06:10 Plt Count 264 k/uL (150-450) 06/02/16 06:10 Neutrophils % 92 % 06/02/16 06:10 Lymphocytes % 4 % 06/02/16 06:10 Monocytes % 3 % 06/02/16 06:10 Eosinophils % 0 % 06/02/16 06:10 Basophils % 2 % 06/02/16 06:10 Neutrophils # 7.1 k/uL (1.3-7.7) 06/02/16 06:10 Lymphocytes # 0.3 k/uL (1.0-4.8) L 06/02/16 06:10 Monocytes # 0.2 k/uL (0-1.0) 06/02/16 06:10 Eosinophils # 0.0 k/uL (0-0.7) 06/02/16 06:10 Basophils # 0.1 k/uL (0-0.2) 06/02/16 06:10 Hypochromasia Slight 06/02/16 06:10 Anisocytosis Slight 06/02/16 06:10 Macrocytosis Slight 06/02/16 06:10 PT 10.8 sec (9.0-12.0) 05/28/16 16:28 INR 1.1 (<1.1) 05/28/16 16:28 APTT 22.1 sec (22.0-30.0) 05/28/16 16:28 D-Dimer 0.79 mg/L FEU (<0.60) H 05/29/16 09:08 Sodium 138 mmol/L (137-145) 06/02/16 06:10 Potassium 4.0 mmol/L (3.5-5.1) 06/02/16 06:10 Chloride 94 mmol/L (98-107) L 06/02/16 06:10 Carbon Dioxide 41 mmol/L (22-30) H* 06/02/16 06:10 Anion Gap 3 mmol/L 06/02/16 06:10 BUN 23 mg/dL (7-17) H 06/02/16 06:10 Creatinine 0.60 mg/dL (0.52-1.04) 06/02/16 06:10 Est GFR (MDRD) Af Amer >60 (>60 ml/min/1.73 sqM) 06/02/16 06:10 Est GFR (MDRD) Non-Af >60 (>60 ml/min/1.73 sqM) 06/02/16 06:10 Glucose 210 mg/dL (74-99) H 06/02/16 06:10 POC Glucose (mg/dL) 115 mg/dL (75-99) H 06/03/16 16:48 POC Glu Endocrinologist ID Bailey Ornelas 06/03/16 16:[address] Glu mg/dL 203 mg/dL 05/28/16 16:28 Hemoglobin A1c 8.7 % (4.2-6.1) H 05/28/16 16:28 Plasma Lactic Acid Rony 1.5 mmol/L (0.7-2.0) 05/28/16 16:28 Calcium 8.8 mg/dL (8.4-10.2) 06/02/16 06:10 Phosphorus 3.6 mg/dL (2.5-4.5) 06/02/16 06:10 Magnesium 2.0 mg/dL (1.6-2.3) 06/02/16 06:10 Total Bilirubin 0.3 mg/dL (0.2-1.3) 05/28/16 16:28 AST 30 U/L (14-36) 05/28/16 16:28 ALT 59 U/L (9-52) H 05/28/16 16:28 Alkaline Phosphatase 159 U/L (38-126) H 05/28/16 16:28 Total Creatine Kinase 56 U/L (30-135) 05/28/16 16:28 CK-MB (CK-2) 2.6 ng/mL (0.0-2.4) H* 05/29/16 06:13 CK-MB (CK-2) Rel Index 5.9 05/28/16 16:28 Troponin I 0.039 ng/mL (0.000-0.034) H* 05/29/16 11:57 NT-Pro-B Natriuret Pep 355 pg/mL 05/28/16 16:28 Total Protein 5.7 g/dL (6.3-8.2) L 05/28/16 16:28 Albumin 3.2 g/dL (3.5-5.0) L 05/28/16 16:28 Urine Color Yellow 05/28/16 15:42 Urine Appearance Clear (Clear) 05/28/16 15:42 Urine pH 5.5 (5.0-8.0) 05/28/16 15:42 Ur Specific [place] 1.019 (1.001-1.035) 05/28/16 15:42 Urine Protein 1+ (Negative) H 05/28/16 15:42 Urine Glucose (UA) Negative (Negative) 05/28/16 15:42 Urine Ketones Negative (Negative) 05/28/16 15:42 Urine Blood Moderate (Negative) H 05/28/16 15:42 Urine Nitrate Negative (Negative) 05/28/16 15:42 Urine Bilirubin Negative (Negative) 05/28/16 15:42 Urine Urobilinogen <2.0 mg/dL (<2.0) 05/28/16 15:42 Ur Leukocyte Esterase Negative (Negative) 05/28/16 15:42 Urine RBC >182 /hpf (0-5) H 05/28/16 15:42 Urine WBC 9 /hpf (0-5) H 05/28/16 15:42 Ur Squamous Epith Cells 1 /hpf (0-4) 05/28/16 15:42 Urine Mucus Occasional /hpf (None) H 05/28/16 15:42 Assessment and Plan (1) Respiratory failure with hypoxia and hypercapnia Narrative/Plan: 50-year-old female who was multiple medical troubles including rheumatoid arthritis, COPD with what appears to be a new interstitial lung disease. The patient spent about by pulmonary critical care. And when she is more stable bronchoscopy will be planned. At this time metabolic therapy is continuing with ertapenem for her prior isolated pathogens. She is improved with her extensive diuresis. Continues a leukocytosis with receiving large doses of steroid therapy She is less anxious and less short of breath but is having some difficulties with a high doses of steroids affecting her mental status. Leukocytosis has improved Contemplation for rehab after discharge which may allow her Dressing changes of been requested with the addition of the foam dressing to the right elbow. other than some significant agitation from the doses of steroids she is improving. Status: Acute (2) Diabetic foot ulcer associated with type 2 diabetes mellitus, with fat layer exposed Status: Acute (3) Smoking Status: Acute (4) Rheumatoid arthritis Status: Acute
[2016-06-03] MEDS: LOSARTAN 50 MG TAB PO SCH (20:18)
[2016-06-03] MEDS: PANTOPRAZOLE 40 MG TABLET PO SCH (20:18)
[2016-06-03] MEDS: ASPIRIN 81 MG CHEW PO SCH (20:18)
[2016-06-03] MEDS: FLUCONAZOLE 100 MG TAB PO SCH (20:18)
[2016-06-03] MEDS: POTASSIUM CHLORIDE ORAL LIQUID 40 MEQ/30 ML CUP PO SCH (20:19)
[2016-06-03 21:40] LABS: Glucose,Whole Blood 124 mg/dL (75-99)
[2016-06-04] MEDS: oxyCODONE-APAP 7.5-325MG 1 EACH TAB PO PRN ×5 (02:23→23:06)
[2016-06-04] MEDS: hydrOXYzine PAMOATE 25 MG CAP PO PRN ×4 (02:25→23:07)
[2016-06-04 07:28] LABS: Glucose,Whole Blood 66 mg/dL (75-99)
[2016-06-04] MEDS: IPRATROPIUM-ALBUTEROL 3 ML NEB INHALATION SCH ×4 (07:41→19:42)
[2016-06-04] MEDS: SYMBICORT 160-4.5 MCG INHALER INHALATION SCH ×2 (07:42→19:41)
[2016-06-04 07:46] LABS: Glucose,Whole Blood 70 mg/dL (75-99)
[2016-06-04] MEDS: INSULIN LISPRO (humaLOG) 300 UNIT/3 ML VIAL SQ SCH ×4 (07:54→22:45)
[2016-06-04] MEDS: metFORMIN 500 MG TAB PO SCH ×2 (07:54→17:12)
[2016-06-04] MEDS ORDERED: predniSONE 10 MG TAB PO SCH (09:00)
[2016-06-04] MEDS: ERTAPENEM 1 GM in SODIUM CHLORIDE 0.9% 50 ML IVPB SCH (10:07)
[2016-06-04] MEDS: PYRIDOXINE 50 MG TAB PO SCH ×3 (10:08→22:22)
[2016-06-04] MEDS: FOLIC ACID 1 MG TAB PO SCH (10:08)
[2016-06-04] MEDS: METOPROLOL TARTRATE 25 MG TAB PO SCH ×2 (10:08→22:23)
[2016-06-04] MEDS: LOPERAMIDE 2 MG CAP PO SCH ×2 (10:09→22:48)
[2016-06-04] MEDS: ENOXAPARIN 40 MG/0.4 ML SYRINGE SQ SCH (10:11)
[2016-06-04] MEDS: FUROSEMIDE 10 MG/ML 4 ML VIAL IV SCH (10:11)
[2016-06-04] MEDS: GLIMEPIRIDE 4 MG TAB PO SCH ×3 (10:11→22:22)
[2016-06-04] MEDS: CALCIUM CARB-VIT D 500MG-200UN 1 EACH TAB PO SCH ×2 (10:12→22:24)
[2016-06-04] MEDS: NYSTATIN 100,000 UNIT/GM POWD 15 GM TOPICAL SCH ×2 (10:13→17:11)
[2016-06-04] MEDS: NICOTINE 21MG/24HR PATCH TRANSDERM SCH (10:19)
[2016-06-04] MEDS: NITROGLYCERIN OINT 1 INCH/GM PACKET TOPICAL SCH ×4 (10:19→22:22)
--- NOTE | 2016-06-04 12:03 | P.PN ---
Subjective This is a 50-year-old female who was admitted about 6 days ago. Her primary doctor's Dr. Spring. She was seen by Dr. Opal Canchola yesterday. She was showing slight improvement to him. 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 Again she is feeling better. Less short of breath. Progress note dated 06/04/2016 This is a 50-year-old female who was admitted on May 28. She is feeling better. She saw Dr. Concepcion over the weekend. The patient feels better. The patient/short of breath. Minimal cough. 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 Again from my perspective she is doing much better. Objective - Vital Signs Vital signs: Vital Signs Temp 96.7 F L 06/04/16 07:00 Pulse 103 H 06/04/16 11:42 Resp 20 06/04/16 07:00 BP 114/80 06/04/16 07:00 Pulse Ox 95 06/04/16 07:00 Intake & Output 06/03/16 06/04/16 06/04/16 18:59 06:59 18:59 Intake Total 290 Balance 290 Weight 79.4 kg Intake: Oral 290 Other: Voiding Method Bedside Commode Bedside Commode # Voids 2 3 - Exam No acute distress, oriented 3. She is wearing nasal O2. She has a classic cushingoid face E some chronic steroid use. HEENT examination is grossly unremarkable. Neck supple. Full range of motion. Cardiovascular examination reveals regular rhythm rate. Lungs reveal some bibasilar crackles. Breath sounds are equal. May be a bit restricted in her breathing. Abdomen is obese. Extremities are intact. She does have obvious deformities of rheumatoid arthritis. She also has a classic Brooks hump of chronic steroid use. - Labs CBC & Chem 7: 06/02/16 06:10 06/02/16 06:10 Labs: Abnormal Lab Results - Last 24 Hours (Table) 06/03/16 06/03/16 06/03/16 Range/Units 12:21 16:48 21:32 POC Glucose (mg/dL) 141 H 115 H 124 H (75-99) mg/dL 06/04/16 06/04/16 Range/Units 07:21 07:42 POC Glucose (mg/dL) 66 L 70 L (75-99) mg/dL Assessment and Plan (1) Pulmonary fibrosis Status: Acute (2) Acute exacerbation of chronic obstructive airways disease Status: Acute (3) Respiratory failure with hypoxia and hypercapnia Status: Acute (4) Rheumatoid arthritis Status: Acute Plan: Plan The patient's medications are reviewed. Additional recommendations and suggestions are forthcoming. The patient does not appear to need bronchoscopy at this time. Additional recommendations and suggestions are forthcoming. Plan dated 06/04/2016 The patient will continue on her current medications. I suspect discharge in next 24-48 hours. She may have to be discharged to rehab facility for additional strengthening and additional training. We'll continue to follow. No additional recommendations are made. Prognosis is guarded. Time with Patient: Less than 30
[2016-06-04 12:18] LABS: Glucose,Whole Blood 280 mg/dL (75-99)
[2016-06-04] MEDS: ASCORBIC ACID 500 MG TAB PO SCH (13:15)
[2016-06-04] MEDS ORDERED: INSULIN LISPRO (humaLOG) 300 UNIT/3 ML VIAL SQ ONE (13:18)
--- NOTE | 2016-06-04 15:48 | P.PN ---
Subjective This is a 50-year-old pleasant female patient of Dr. Spring and Dr. Downing. She has underlying history of rheumatid arthritis, Sjogren's, Raynaud's, diabetes mellitus type 2, hyperlipidemia, hypertension, rheumatoid lung, chronic immunosuppression, cervical stenosis with upper extremity weakness, impaired balance impaired gait. She had a recent hospitalization from May 09 through 05/15/2016 at which time she was treated for abscess formation left axilla and left elbow status post debridement with Dr. Luo. She was discharged with a wound VAC in place. She has been returning to the [facility] for ertapenem 1 g to complete 30 days. She also follows with Dr. Downing in the wound healing Center and her last appointment was yesterday. Patient states that she developed suddenly shortness of breath. She does have lower extremity edema and chronic venous stasis changes to the lower extremities which has not changed. She denies having any fevers at home. She came into [facility] emergency center for evaluation. It is noted the patient continues to smoke. Chest x-ray shows pulmonary edema. Urinalysis was positive for blood. ALT 59, alkaline phosphatase 159. Troponins 0.047, 0.045 and 0.039. Patient was diagnosed with heart failure and admitted to the selective care unit. Consults requested with cardiology. She has been started on Lasix 40 mg IV every 8 hours. The d-dimer 0.79. Echocardiogram reveals mild concentric left ventricular hypertrophy, mild mitral regurgitation, mild tricuspid regurgitation, no pulmonary hypertension. EF 50-55%. 05/30: Patient developed respiratory distress last evening and transferred into intensive care unit. She was unable to tolerate BiPAP due to anxiety. Patient' s blood sugars were quite elevated and she refused insulin drip. Consult has been added for Dr. Concepcion for intensive care management and pulmonary medicine with concern for rheumatoid lung.. Patient is now agreeable to have insulin drip. Yesterday she was started on Solu-Medrol 60 mg and this has been changed to hydrocortisone 100 mg IV every [address] Concepcion. 05/31: Patient has shortness of breath and cough today. Blood sugar dropped to 52. Metformin has been discontinued. Patient is off insulin drip. She did eat breakfast today. Diamox added. Patient will be transferred selective care. 06/03: Patient has been transferred to the [facility] floor. She remains on site Cortef 50 mg every 8 hours. We'll plan to start prednisone in the morning and 40 mg. Lasix is 40 mg IV daily. IV fluids changed to saline lock. Patient is agreeable to speak with case management regarding subacute rehab. 06/04: Patient is now on prednisone for which we will change to her home dosing of 10 mg 3 times daily which she prefers. Telemetry will be discontinued. Long discussion with patient regarding need for subacute rehab. Patient voices concern that she will lose her house. Social work has been asked to talk to her about this concern. Anticipate she will be ready for discharge tomorrow. Objective - Vital Signs Vital signs: Vital Signs Temp 96.7 F L 06/04/16 07:00 Pulse 98 06/04/16 13:00 Resp 20 06/04/16 07:00 BP 101/53 06/04/16 13:00 Pulse Ox 100 06/04/16 13:00 Intake & Output 06/03/16 06/04/16 06/04/16 18:59 06:59 18:59 Intake Total 290 Balance 290 Weight 79.4 kg Intake: Oral 290 Other: Voiding Method Bedside Commode Bedside Commode # Voids 2 3 2 - Exam General appearance: Present: cooperative, no acute distress, obese - EENT Eyes: Present: anicteric sclerae, PERRLA, dentition normal ENT: Present: hearing grossly normal, NA/AT, normal oropharynx - Neck Neck: Present: normal ROM - Respiratory Respiratory: bilateral: Scattered coarse rhonchi and expiratory wheeze, no accessory muscle usagea - Cardiovascular Rhythm: regular Heart sounds: normal: S1, S2, 2+ pedal edema - Gastrointestinal General gastrointestinal: Present: normal bowel sounds, soft - Integumentary Integumentary Comment(s): Wound VAC to left axilla wound, dressing in place to the left elbow wound, PICC line right upper arm. Integumentary: Present: normal, normal turgor - Neurologic Neurologic: Present: CNII-XII intact - Psychiatric Psychiatric: Present: A&O x's 3, appropriate affect, intact judgment & insight - Labs CBC & Chem 7: 06/02/16 06:10 06/02/16 06:10 Labs: Abnormal Lab Results - Last 24 Hours (Table) 06/03/16 06/03/16 06/04/16 Range/Units 16:48 21:32 07:21 POC Glucose (mg/dL) 115 H 124 H 66 L (75-99) mg/dL 06/04/16 06/04/16 Range/Units 07:42 12:01 POC Glucose (mg/dL) 70 L 280 H (75-99) mg/dL Assessment and Plan Plan: 1. Acute hypoxic respiratory failure, acute exacerbation of COPD, acute diastolic heart failurel pneumonia not entirely ruled out. Continue Lasix 40 mg IV daily, diamox added, hydrocortisone IV every 8 hours to be changed to oral prednisone in the morning, DuoNeb treatments every [address] Jamey goodson. Concern for rheumatoid lung. Patient is not candidate for bronchoscopy at this point. 2. Abscess left medial humerus, with deep fistulous formation, and axilla, status post I&D. Patient currently has wound VAC to the axilla wound. Wound shelter is [facility]. She follows in the wound center with Dr. Downing. Consult with Dr. Downing. Patient continued on ertapenem. 3. Rheumatoid arthritis is chronically on methotrexate and prednisone 10 mg 3 times a day. Prednisone on hold while patient is taking Solu-Cortef. Patient follows with Dr. Preston as an outpatient 4. Diabetes mellitus type 2 on metformin discontinued. Continue glimepiride and Humalog scale. 5. IBS with diarrhea currently constipated she is on Lomotil 2 mg 4 times a day when necessary no changes were made 6. Decubitus ulcer stage II, present on admission on santyl 7. Chronic pain related to RA and musculoskeletal deformities including spinal stenosis. Continue Percocet, Flexeril. 8. Chronic tobacco dependency at 2 packs per day. Nicotine patch 21 mg per day 9. Hypertension on losartan 100 mg daily 10. DVT prophylaxis with Lovenox 11. GI prophylaxis. Protonix. Discharge plan: Social work consult for subacute rehab Impression and plan of care have been directed as dictated by the signing physician. Tiki Mcpherson nurse practitioner acting as scribe for signing physician. Time with Patient: Greater than 30
[2016-06-04] MEDS: predniSONE 10 MG TAB PO SCH (17:11)
[2016-06-04 17:14] LABS: Glucose,Whole Blood 256 mg/dL (75-99)
[2016-06-04] MEDS: SODIUM CHLORIDE 0.9% 1,000 ML IV SCH (17:16)
--- NOTE | 2016-06-04 20:32 | P.PN ---
Subjective Principal diagnosis: Shortness of breath This is a 50-year-old pleasant female patient well known to ID services due to her recent hospitalization from May 09 through 05/15/2016 at which time she was treated for abscess formation left axilla and left elbow status post debridement with Dr. Luo. She was discharged with a wound VAC in place. She has been returning to the [facility] for ertapenem 1 g to complete 30 days. She follows with Dr. Downing in the wound healing Center and her last appointment was yesterday. She denies having any problems with her wounds at home. She denies any problems with her PICC line. No fever or chills. Patient states that she developed suddenly shortness of breath. She does have lower extremity edema and chronic venous stasis changes to the lower extremities which has not changed. She came into [facility] emergency center for evaluation. It is noted the patient continues to smoke. Chest x-ray shows pulmonary edema. Urinalysis was positive for blood. ALT 59, alkaline phosphatase 159. Troponins 0.047, 0.045 and 0.039. Patient was diagnosed with heart failure and COPD exacerbation and admitted to the selective care unit. Cardiology consult in place. She has been started on Lasix 40 mg IV every 8 hours, Solu-Medrol and DuoNeb treatments. The d-dimer 0.79. Echocardiogram reveals mild concentric left ventricular hypertrophy, mild mitral regurgitation, mild tricuspid regurgitation, no pulmonary hypertension. EF 50-55%. She has been resumed on ertapenem. Her main in intensive care unit. As an extensive diuresis and is feeling considerably better. She is no longer in basia respiratory distress. Still feels somewhat poorly. Calm today less agitated, appears to be agreeing to go to extended care less short of breath today again no other new acute complaints. Objective - Vital Signs Vital signs: Vital Signs Temp 97.5 F L 06/04/16 15:00 Pulse 100 06/04/16 19:53 Resp 16 06/04/16 16:00 BP 128/78 06/04/16 15:00 Pulse Ox 96 06/04/16 15:00 Intake & Output 06/04/16 06/04/16 06/05/16 06:59 18:59 06:59 Intake Total 290 490 Balance 290 490 Intake: Oral 290 490 Other: Voiding Method Bedside Commode Bedside Commode # Voids 3 2 - Exam Gen: This is a 50-year-old female. She is sitting up at the edge of the bed and appears to be in no acute distress. HEENT: Head is atraumatic, normocephalic. Pupils equal, round. Sclerae is anicteric. NECK: Supple. No JVD. No lymphadenopathy. No thyromegaly. LUNGS: Scattered coarse rhonchi as well as inspiratory and expirator wheezes. No intercostal retractions. HEART: Regular rate and rhythm. No murmur. ABDOMEN: Soft. Bowel sounds are present. No masses. No tenderness. EXTREMITIES: 2+ pedal edema. Chronic venous stasis changes. Wound VAC was removed from the axillary area. Is packed with saline dressing in place. Doing well at this time. Ulcer to the left elbow was been treated with the opticell as has the right ankle wound. optifoam will be utilized to the new irritation to the right elbow area.the ulcerations are evaluated and have improvement NEUROLOGICAL: Patient is awake, alert and oriented x3 - Labs CBC & Chem 7: 06/02/16 06:10 06/02/16 06:10 Labs: Abnormal Lab Results - Last 24 Hours (Table) 06/03/16 06/04/16 06/04/16 Range/Units 21:32 07:21 07:42 POC Glucose (mg/dL) 124 H 66 L 70 L (75-99) mg/dL 06/04/16 06/04/16 Range/Units 12:01 17:12 POC Glucose (mg/dL) 280 H 256 H (75-99) mg/dL Laboratory Results WBC 7.8 k/uL (3.8-10.6) 06/02/16 06:10 RBC 3.92 m/uL (3.80-5.40) 06/02/16 06:10 Hgb 11.8 gm/dL (11.4-16.0) 06/02/16 06:10 Hct 38.5 % (34.0-46.0) 06/02/16 06:10 MCV 98.2 fL (80.0-100.0) 06/02/16 06:10 MCH 30.1 pg (25.0-35.0) 06/02/16 06:10 MCHC 30.6 g/dL (31.0-37.0) L 06/02/16 06:10 RDW 16.0 % (11.5-15.5) H 06/02/16 06:10 Plt Count 264 k/uL (150-450) 06/02/16 06:10 Neutrophils % 92 % 06/02/16 06:10 Lymphocytes % 4 % 06/02/16 06:10 Monocytes % 3 % 06/02/16 06:10 Eosinophils % 0 % 06/02/16 06:10 Basophils % 2 % 06/02/16 06:10 Neutrophils # 7.1 k/uL (1.3-7.7) 06/02/16 06:10 Lymphocytes # 0.3 k/uL (1.0-4.8) L 06/02/16 06:10 Monocytes # 0.2 k/uL (0-1.0) 06/02/16 06:10 Eosinophils # 0.0 k/uL (0-0.7) 06/02/16 06:10 Basophils # 0.1 k/uL (0-0.2) 06/02/16 06:10 Hypochromasia Slight 06/02/16 06:10 Anisocytosis Slight 06/02/16 06:10 Macrocytosis Slight 06/02/16 06:10 PT 10.8 sec (9.0-12.0) 05/28/16 16:28 INR 1.1 (<1.1) 05/28/16 16:28 APTT 22.1 sec (22.0-30.0) 05/28/16 16:28 D-Dimer 0.79 mg/L FEU (<0.60) H 05/29/16 09:08 Sodium 138 mmol/L (137-145) 06/02/16 06:10 Potassium 4.0 mmol/L (3.5-5.1) 06/02/16 06:10 Chloride 94 mmol/L (98-107) L 06/02/16 06:10 Carbon Dioxide 41 mmol/L (22-30) H* 06/02/16 06:10 Anion Gap 3 mmol/L 06/02/16 06:10 BUN 23 mg/dL (7-17) H 06/02/16 06:10 Creatinine 0.60 mg/dL (0.52-1.04) 06/02/16 06:10 Est GFR (MDRD) Af Amer >60 (>60 ml/min/1.73 sqM) 06/02/16 06:10 Est GFR (MDRD) Non-Af >60 (>60 ml/min/1.73 sqM) 06/02/16 06:10 Glucose 210 mg/dL (74-99) H 06/02/16 06:10 POC Glucose (mg/dL) 256 mg/dL (75-99) H 06/04/16 17:12 POC Glu Clam Shucking Machine Tender Lata Rodriguez 06/04/16 17:[address] Glu mg/dL 203 mg/dL 05/28/16 16:28 Hemoglobin A1c 8.7 % (4.2-6.1) H 05/28/16 16:28 Plasma Lactic Acid Rony 1.5 mmol/L (0.7-2.0) 05/28/16 16:28 Calcium 8.8 mg/dL (8.4-10.2) 06/02/16 06:10 Phosphorus 3.6 mg/dL (2.5-4.5) 06/02/16 06:10 Magnesium 2.0 mg/dL (1.6-2.3) 06/02/16 06:10 Total Bilirubin 0.3 mg/dL (0.2-1.3) 05/28/16 16:28 AST 30 U/L (14-36) 05/28/16 16:28 ALT 59 U/L (9-52) H 05/28/16 16:28 Alkaline Phosphatase 159 U/L (38-126) H 05/28/16 16:28 Total Creatine Kinase 56 U/L (30-135) 05/28/16 16:28 CK-MB (CK-2) 2.6 ng/mL (0.0-2.4) H* 05/29/16 06:13 CK-MB (CK-2) Rel Index 5.9 05/28/16 16:28 Troponin I 0.039 ng/mL (0.000-0.034) H* 05/29/16 11:57 NT-Pro-B Natriuret Pep 355 pg/mL 05/28/16 16:28 Total Protein 5.7 g/dL (6.3-8.2) L 05/28/16 16:28 Albumin 3.2 g/dL (3.5-5.0) L 05/28/16 16:28 Urine Color Yellow 05/28/16 15:42 Urine Appearance Clear (Clear) 05/28/16 15:42 Urine pH 5.5 (5.0-8.0) 05/28/16 15:42 Ur Specific Brandon 1.019 (1.001-1.035) 05/28/16 15:42 Urine Protein 1+ (Negative) H 05/28/16 15:42 Urine Glucose (UA) Negative (Negative) 05/28/16 15:42 Urine Ketones Negative (Negative) 05/28/16 15:42 Urine Blood Moderate (Negative) H 05/28/16 15: Urine Nitrate Negative (Negative) 05/28/16 15: Urine Bilirubin Negative (Negative) 05/28/16 15:42 Urine Urobilinogen <2.0 mg/dL (<2.0) 05/28/16 15:42 Ur Leukocyte Esterase Negative (Negative) 05/28/16:42 Urine RBC >182 /hpf (0-5) H 05/28/16 15:42 Urine WBC 9 /hpf (0-5) H 05/28/16 15:42 Ur Squamous Epith Cells 1 /hpf (0-4) 05/28/16 15:42 Urine Mucus Occasional /hpf (None) H 05/28/16 15:42 Assessment and Plan (1) Respiratory failure with hypoxia and hypercapnia Narrative/Plan: 50-year-old female who was multiple medical troubles including rheumatoid arthritis, COPD with what appears to be a new interstitial lung disease. The patient spent about by pulmonary critical care. And when she is more stable bronchoscopy will be planned. At this time metabolic therapy is continuing with ertapenem for her prior isolated pathogens. She is improved with her extensive diuresis. Continues a leukocytosis with receiving large doses of steroid therapy She is less anxious and less short of breath but is having some difficulties with a high doses of steroids affecting her mental status. Leukocytosis has improved Contemplation for rehab after discharge which may allow her further improvement does not appear she'll be able to care for herself at home independently. Dressing changes of been requested with the addition of the foam dressing to the right elbow. other than some significant agitation from the doses of steroids she is improving. As far as wound care if she will be staying in hospital for the next 48 hours may restart the negative pressure therapy system to the left axillary wound.. Otherwise may restart when she is off to extended care. Continue the other dressing changes as before. Status: Acute (2) Diabetic foot ulcer associated with type 2 diabetes mellitus, with fat layer exposed Status: Acute (3) Smoking Status: Acute (4) Rheumatoid arthritis Status: Acute
[2016-06-04 21:00] LABS: Glucose,Whole Blood 195 mg/dL (75-99)
[2016-06-04] MEDS: PANTOPRAZOLE 40 MG TABLET PO SCH (22:22)
[2016-06-04] MEDS: POTASSIUM CHLORIDE ORAL LIQUID 40 MEQ/30 ML CUP PO SCH (22:22)
[2016-06-04] MEDS: ASPIRIN 81 MG CHEW PO SCH (22:23)
[2016-06-04] MEDS: LOSARTAN 50 MG TAB PO SCH (22:24)
[2016-06-05] MEDS: NYSTATIN 100,000 UNIT/GM POWD 15 GM TOPICAL SCH ×3 (01:14→16:46)
[2016-06-05] MEDS: predniSONE 10 MG TAB PO SCH ×3 (01:14→16:46)
[2016-06-05] MEDS: hydrOXYzine PAMOATE 25 MG CAP PO PRN ×3 (06:47→21:21)
[2016-06-05] MEDS: oxyCODONE-APAP 7.5-325MG 1 EACH TAB PO PRN ×4 (06:47→21:20)
[2016-06-05 07:28] LABS: Glucose,Whole Blood 120 mg/dL (75-99)
[2016-06-05] MEDS: INSULIN LISPRO (humaLOG) 300 UNIT/3 ML VIAL SQ SCH ×4 (08:41→21:22)
[2016-06-05] MEDS: SYMBICORT 160-4.5 MCG INHALER INHALATION SCH ×2 (09:05→19:50)
[2016-06-05] MEDS: IPRATROPIUM-ALBUTEROL 3 ML NEB INHALATION SCH ×4 (09:05→19:49)
[2016-06-05] MEDS: metFORMIN 500 MG TAB PO SCH ×2 (09:24→16:47)
[2016-06-05] MEDS: ENOXAPARIN 40 MG/0.4 ML SYRINGE SQ SCH (09:26)
[2016-06-05] MEDS: FUROSEMIDE 10 MG/ML 4 ML VIAL IV SCH (09:26)
[2016-06-05] MEDS: CALCIUM CARB-VIT D 500MG-200UN 1 EACH TAB PO SCH ×2 (09:26→21:21)
[2016-06-05] MEDS: GLIMEPIRIDE 4 MG TAB PO SCH ×2 (09:27→21:21)
[2016-06-05] MEDS: METOPROLOL TARTRATE 25 MG TAB PO SCH ×2 (09:28→21:20)
[2016-06-05] MEDS: NICOTINE 21MG/24HR PATCH TRANSDERM SCH (09:28)
[2016-06-05] MEDS: NITROGLYCERIN OINT 1 INCH/GM PACKET TOPICAL SCH ×4 (09:29→21:23)
[2016-06-05] MEDS: PYRIDOXINE 50 MG TAB PO SCH ×3 (09:29→21:20)
[2016-06-05] MEDS: ERTAPENEM 1 GM in SODIUM CHLORIDE 0.9% 50 ML IVPB SCH (09:30)
[2016-06-05] MEDS: LOPERAMIDE 2 MG CAP PO SCH ×2 (09:30→21:24)
--- NOTE | 2016-06-05 11:29 | P.PN ---
Subjective This is a 50-year-old female who was admitted about 6 days ago. Her primary doctor's Dr. Spring. She was seen by Dr. Opal Canchola yesterday. She was showing slight improvement to him. 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 Again she is feeling better. Less short of breath. Progress note dated 06/04/2016 This is a 50-year-old female who was admitted on May 28. She is feeling better. She saw Dr. Concepcion over the weekend. The patient feels better. The patient/short of breath. Minimal cough. 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 Again from my perspective she is doing much better. Progress note dated 06/05/2016 The patient continues to show improvement. Was admitted on May 28. Feeling less short of breath. She is a 50-year-old female with a history of multiple medical problems including hypoxia make respiratory failure underlying interstitial lung disease COPD rheumatoid lung and possible pneumonia. Again from the pulmonary perspective doing much better. Objective - Vital Signs Vital signs: Vital Signs Temp 97.1 F L 06/05/16 07:00 Pulse 92 06/05/16 09:15 Resp 22 06/05/16 07:00 BP 124/61 06/05/16 07:00 Pulse Ox 96 06/05/16 07:00 Intake & Output 06/04/16 06/05/16 06/05/16 18:59 06:59 18:59 Intake Total 490 Balance 490 Intake: Oral 490 Other: Voiding Method Bedside Commode Bedside Commode # Voids 2 2 1 # Bowel Movements 0 - Exam No acute distress, oriented 3. She is wearing nasal O2. She has a classic cushingoid face E some chronic steroid use. HEENT examination is grossly unremarkable. Neck supple. Full range of motion. Cardiovascular examination reveals regular rhythm rate. Lungs reveal some bibasilar crackles. Breath sounds are equal. May be a bit restricted in her breathing. Abdomen is obese. Extremities are intact. She does have obvious deformities of rheumatoid arthritis. She also has a classic [place] hump of chronic steroid use. - Labs CBC & Chem 7: 06/02/16 06:10 06/02/16 06:10 Labs: Abnormal Lab Results - Last 24 Hours (Table) 06/04/16 06/04/16 06/04/16 Range/Units 12:01 17:12 20:59 POC Glucose (mg/dL) 280 H 256 H 195 H (75-99) mg/dL 06/05/16 Range/Units 07:12 POC Glucose (mg/dL) 120 H (75-99) mg/dL Assessment and Plan (1) Pulmonary fibrosis Status: Acute (2) Acute exacerbation of chronic obstructive airways disease Status: Acute (3) Respiratory failure with hypoxia and hypercapnia Status: Acute (4) Rheumatoid arthritis Status: Acute Plan: Plan The patient's medications are reviewed. Additional recommendations and suggestions are forthcoming. The patient does not appear to need bronchoscopy at this time. Additional recommendations and suggestions are forthcoming. Plan dated 06/04/2016 The patient will continue on her current medications. I suspect discharge in next 24-48 hours. She may have to be discharged to rehab facility for additional strengthening and additional training. We'll continue to follow. No additional recommendations are made. Prognosis is guarded. Plan dated 06/05/2016 The patient should be discharged in the near future. I think she is at her baseline. No additional recommendations are made. We'll continue to follow. Prognosis is guarded. Time with Patient: Less than 30
[2016-06-05 12:03] LABS: Glucose,Whole Blood 217 mg/dL (75-99)
[2016-06-05] MEDS: FOLIC ACID 1 MG TAB PO SCH (12:30)
[2016-06-05] MEDS: ASCORBIC ACID 500 MG TAB PO SCH (12:30)
--- NOTE | 2016-06-05 15:00 | P.DS ---
Providers Date of admission: 05/28/16 17:15 Expected date of discharge: 06/05/16 Attending physician: Nydia Christiansen Consults: 05/28/16 19:09 Consult Physician Routine Consulting Provider: Mt Downing Consult Reason/Comments: Previous known reasons.-wounds Do you want consulting provider notified?: Yes, Notify in am 05/29/16 19:07 Consult Physician Routine Consulting Provider: Joe Concepcion Consult Reason/Comments: icu managent, pulmonary edema Do you want consulting provider notified?: Yes Primary care physician: [facility] Course: This is a 50-year-old pleasant female patient of Dr. Spring and Dr. Downing. She has underlying history of rheumatid arthritis, Sjogren's, Raynaud's, diabetes mellitus type 2, hyperlipidemia, hypertension, rheumatoid lung, chronic immunosuppression, cervical stenosis with upper extremity weakness, impaired balance impaired gait. She had a recent hospitalization from May 09 through 05/15/2016 at which time she was treated for abscess formation left axilla and left elbow status post debridement with Dr. Luo. She was discharged with a wound VAC in place. She has been returning to the [facility] for ertapenem 1 g to complete 30 days. She also follows with Dr. Downing in the wound healing Center and her last appointment was yesterday. Patient states that she developed suddenly shortness of breath. She does have lower extremity edema and chronic venous stasis changes to the lower extremities which has not changed. She denies having any fevers at home. She came into [facility] emergency center for evaluation. It is noted the patient continues to smoke. Chest x-ray shows pulmonary edema. Urinalysis was positive for blood. ALT 59, alkaline phosphatase 159. Troponins 0.047, 0.045 and 0.039. Patient was diagnosed with heart failure and admitted to the selective care unit. Consults requested with cardiology. She has been started on Lasix 40 mg IV every 8 hours. The d-dimer 0.79. Echocardiogram reveals mild concentric left ventricular hypertrophy, mild mitral regurgitation, mild tricuspid regurgitation, no pulmonary hypertension. EF 50-55%. 05/30: Patient developed respiratory distress last evening and transferred into intensive care unit. She was unable to tolerate BiPAP due to anxiety. Patient' s blood sugars were quite elevated and she refused insulin drip. Consult has been added for Dr. Concepcion for intensive care management and pulmonary medicine with concern for rheumatoid lung.. Patient is now agreeable to have insulin drip. Yesterday she was started on Solu-Medrol 60 mg and this has been changed to hydrocortisone 100 mg IV every [address] Concepcion. 05/31: Patient has shortness of breath and cough today. Blood sugar dropped to 52. Metformin has been discontinued. Patient is off insulin drip. She did eat breakfast today. Diamox added. Patient will be transferred selective care. 06/03: Patient has been transferred to the [facility] floor. She remains on site Cortef 50 mg every 8 hours. We'll plan to start prednisone in the morning and 40 mg. Lasix is 40 mg IV daily. IV fluids changed to saline lock. Patient is agreeable to speak with case management regarding subacute rehab. 06/04: Patient is now on prednisone for which we will change to her home dosing of 10 mg 3 times daily which she prefers. Telemetry will be discontinued. Long discussion with patient regarding need for subacute rehab. Patient voices concern that she will lose her house. Social work has been asked to talk to her about this concern. Anticipate she will be ready for discharge tomorrow. 06/05: Patient met with social work yesterday regarding financial issues. Patient has friend at the bedside who is a nurse and patient is planning to go home with her. Chaitanya has been made aware the patient may failed outpatient treatment and will hang onto her information in case she needs to be admitted after discharge. Patient will be discharged with home care in place and will be following up in the [facility] for IV antibiotics with ertapenem as well as in the wound healing center with Dr. Downing. Discharge diagnoses: 1. Acute hypoxic respiratory failure, acute exacerbation of COPD, acute diastolic heart failure, pneumonia not entirely ruled out. 2. Abscess left medial humerus, with deep fistulous formation, and axilla, status post I&D. 3. Rheumatoid arthritis is chronically on methotrexate and prednisone 10 mg 3 times a day. 4. Diabetes mellitus type 2 5. IBS with diarrhea 6. Decubitus ulcer stage II, present on admission 7. Chronic pain related to RA and musculoskeletal deformities including spinal stenosis. 8. Chronic tobacco dependency at 2 packs per day. 9. Hypertension Discharge plan: [facility] Impression and plan of care have been directed as dictated by the signing physician. Tiki Mcpherson nurse practitioner acting as scribe for signing physician. Patient Condition at Discharge: Good Plan - Discharge Summary New Discharge Prescriptions: Budesonide-Formot 160-4.5 Mcg [Symbicort 160-4.5 Mcg Inhaler] 2 puff INHALATION RT-BID #1 puff Furosemide [Lasix] 40 mg PO DAILY #30 tablet Ipratropium-Albuterol Nebulize [Duoneb 0.5 mg-3 mg/3 ml Soln] 3 ml INHALATION RT -QID #120 ampul.neb Metoprolol Tartrate [Lopressor] 25 mg PO BID #60 tab Nicotine 21Mg/24Hr Patch [Habitrol] 1 patch TRANSDERM DAILY #30 patch Nystatin 100,000 Unit/gm Powd [Mycostatin Powder] 1 applic TOPICAL TID #100 gm Potassium Chloride ER [K-Dur 10] 20 meq PO DAILY PRN #30 tab.er.prt PRN Reason: muscle cramps,twitches oxyCODONE-APAP 7.5-325MG [Percocet 7.5-325 mg] 1 tab PO Q4HR PRN #90 tab PRN Reason: Pain Discharge Medication List Aspirin 81 mg PO HS 01/03/15 [History] Ca/D3/Mag/Zinc/Crow/Jorge/Mgbor [Caltrate 600+D3+Min Chew Tab] 1 tab PO BID 01/03 [History] Folic Acid 1 mg PO DAILY 01/03/15 [History] Glimepiride [Amaryl] 4 mg PO BID 01/03/15 [History] Methotrexate Sodium [Methotrexate] 25 mg PO TH 01/03/15 [History] Omeprazole [PriLOSEC] 40 mg PO HS 01/03/15 [History] predniSONE 10 mg PO TID 01/03/15 [History] Cyclobenzaprine [Flexeril] 10 mg PO Q8H PRN 03/07/15 [History] Pyridoxine [Vitamin B-6] 50 mg PO TID 03/06/16 [History] Triamcinolone 0.5% Cream [Kenalog 0.5% Cream] 1 applic TOPICAL DAILY PRN [History] Albuterol Inhaler [Ventolin Hfa Inhaler] 2 puff INHALATION Q6HR PRN 05/09/16 [ History] Ascorbic Acid [Vitamin C] 500 mg PO DAILY 05/09/16 [History] Diphenoxylate HCl/Atropine [Lomotil] 2 tab PO QID PRN 05/09/16 [History] Loperamide HCl [Imodium A-D] 2 mg PO BID 05/09/16 [History] [place]-3 Acid Ethyl Esters [Lovaza] 1 gm PO QID 05/09/16 [History] Telmisartan [Micardis] 40 mg PO HS 05/09/16 [History] hydrOXYzine PAMOATE [Vistaril] 25 mg PO Q6HR PRN 05/09/16 [History] metFORMIN HCL [Glucophage] 500 mg PO BID-W/MEALS tab 05/14/16 [Rx] Fluconazole [Diflucan] 200 mg PO Q72H 05/25/16 [History] Ertapenem [INVanz] 1 gm IVPB Q24H #10 bag 06/03/16 [Rx] INSULIN LISPRO (humaLOG) [humaLOG (formulary)] 0 unit SQ ACHS vial 06/04/16 [Rx ] Budesonide-Formot 160-4.5 Mcg [Symbicort 160-4.5 Mcg Inhaler] 2 puff INHALATION RT-BID #1 puff 06/05/16 [Rx] Furosemide [Lasix] 40 mg PO DAILY #30 tablet 06/05/16 [Rx] Ipratropium-Albuterol Nebulize [Duoneb 0.5 mg-3 mg/3 ml Soln] 3 ml INHALATION RT -QID #120 ampul.neb 06/05/16 [Rx] Metoprolol Tartrate [Lopressor] 25 mg PO BID #60 tab 06/05/16 [Rx] Nicotine 21Mg/24Hr Patch [Habitrol] 1 patch TRANSDERM DAILY #30 patch 06/05/16 [ Rx] Nystatin 100,000 Unit/gm Powd [Mycostatin Powder] 1 applic TOPICAL TID #100 gm 06/05/16 [Rx] Potassium Chloride ER [K-Dur 10] 20 meq PO DAILY PRN #30 tab.er.prt 06/05/16 [Rx ] oxyCODONE-APAP 7.5-325MG [Percocet 7.5-325 mg] 1 tab PO Q4HR PRN #90 tab [Rx] Follow up Appointment(s)/Referral(s): Mt Downing MD [STAFF PHYSICIAN] - 1 Week (in [facility]aling Center) Mt Spring MD [Primary Care Provider] - 1 Week [facility], [NON-STAFF] - [facility], [REFERRING] - Ambulatory/Diagnostic Orders: Basic Metabolic Panel [LAB.AMB] Location: Determined By Patient Complete Blood Count w/diff [LAB.AMB] Location: Determined By Patient Patient Instructions/Handouts: Type 2 Diabetes in Adults (DC) Discharge Disposition: HOME WITH HOME HEALTH SERVICES
[2016-06-05] MEDS: SODIUM CHLORIDE 0.9% 1,000 ML IV SCH (16:46)
[2016-06-05 17:00] LABS: Glucose,Whole Blood 138 mg/dL (75-99)
[2016-06-05 20:51] LABS: Glucose,Whole Blood 211 mg/dL (75-99)
[2016-06-05] MEDS: PANTOPRAZOLE 40 MG TABLET PO SCH (21:20)
[2016-06-05] MEDS: LOSARTAN 50 MG TAB PO SCH (21:20)
[2016-06-05] MEDS: ASPIRIN 81 MG CHEW PO SCH (21:21)
[2016-06-05] MEDS: POTASSIUM CHLORIDE ORAL LIQUID 40 MEQ/30 ML CUP PO SCH (21:22)
--- NOTE | 2016-06-05 21:58 | P.PN ---
Subjective Principal diagnosis: Shortness of breath This is a 50-year-old pleasant female patient well known to ID services due to her recent hospitalization from May 09 through 05/15/2016 at which time she was treated for abscess formation left axilla and left elbow status post debridement with Dr. Luo. She was discharged with a wound VAC in place. She has been returning to the [facility] for ertapenem 1 g to complete 30 days. She follows with Dr. Downing in the wound healing Center and her last appointment was yesterday. She denies having any problems with her wounds at home. She denies any problems with her PICC line. No fever or chills. Patient states that she developed suddenly shortness of breath. She does have lower extremity edema and chronic venous stasis changes to the lower extremities which has not changed. She came into [facility] emergency center for evaluation. It is noted the patient continues to smoke. Chest x-ray shows pulmonary edema. Urinalysis was positive for blood. ALT 59, alkaline phosphatase 159. Troponins 0.047, 0.045 and 0.039. Patient was diagnosed with heart failure and COPD exacerbation and admitted to the selective care unit. Cardiology consult in place. She has been started on Lasix 40 mg IV every 8 hours, Solu-Medrol and DuoNeb treatments. The d-dimer 0.79. Echocardiogram reveals mild concentric left ventricular hypertrophy, mild mitral regurgitation, mild tricuspid regurgitation, no pulmonary hypertension. EF 50-55%. She has been resumed on ertapenem. Her main in intensive care unit. As an extensive diuresis and is feeling considerably better. She is no longer in basia respiratory distress. Still feels somewhat poorly. Calm today less agitated, appears to being discharged to a home setting with the care of her friend in the family. less short of breath today again no other new acute complaints. Objective - Vital Signs Vital signs: Vital Signs Temp 97.1 F L 06/05/16 15:00 Pulse 88 06/05/16 20:02 Resp 22 06/05/16 15:00 BP 105/55 06/05/16 15:00 Pulse Ox 95 06/05/16 15:00 Intake & Output 06/05/16 06/05/16 06/06/16 06:59 18:59 06:59 Intake Total 480 Balance 480 Intake: Oral 480 Other: Voiding Method Bedside Commode # Voids 2 1 # Bowel Movements 0 - Exam Gen: This is a 50-year-old female. She is sitting up at the edge of the bed and appears to be in no acute distress. HEENT: Head is atraumatic, normocephalic. Pupils equal, round. Sclerae is anicteric. NECK: Supple. No JVD. No lymphadenopathy. No thyromegaly. LUNGS: Scattered coarse rhonchi as well as inspiratory and expirator wheezes. No intercostal retractions. HEART: Regular rate and rhythm. No murmur. ABDOMEN: Soft. Bowel sounds are present. No masses. No tenderness. EXTREMITIES: 2+ pedal edema. Chronic venous stasis changes. Wound VAC was removed from the axillary area. Is packed with saline dressing in place. Doing well at this time. Ulcer to the left elbow was been treated with the opticell as has the right ankle wound. optifoam will be utilized to the new irritation to the right elbow area.the ulcerations are evaluated and have improvement NEUROLOGICAL: Patient is awake, alert and oriented x3 - Labs CBC & Chem 7: 06/02/16 06:10 06/02/16 06:10 Labs: Abnormal Lab Results - Last 24 Hours (Table) 06/05/16 06/05/16 06/05/16 Range/Units 07:12 11:55 16:44 POC Glucose (mg/dL) 120 H 217 H 138 H (75-99) mg/dL 06/05/16 Range/Units 20:50 POC Glucose (mg/dL) 211 H (75-99) mg/dL Laboratory Results WBC 7.8 k/uL (3.8-10.6) 06/02/16 06:10 RBC 3.92 m/uL (3.80-5.40) 06/02/16 06:10 Hgb 11.8 gm/dL (11.4-16.0) 06/02/16 06:10 Hct 38.5 % (34.0-46.0) 06/02/16 06:10 MCV 98.2 fL (80.0-100.0) 06/02/16 06:10 MCH 30.1 pg (25.0-35.0) 06/02/16 06:10 MCHC 30.6 g/dL (31.0-37.0) L 06/02/16 06:10 RDW 16.0 % (11.5-15.5) H 06/02/16 06:10 Plt Count 264 k/uL (150-450) 06/02/16 06:10 Neutrophils % 92 % 06/02/16 06:10 Lymphocytes % 4 % 06/02/16 06:10 Monocytes % 3 % 06/02/16 06:10 Eosinophils % 0 % 06/02/16 06:10 Basophils % 2 % 06/02/16 06:10 Neutrophils # 7.1 k/uL (1.3-7.7) 06/02/16 06:10 Lymphocytes # 0.3 k/uL (1.0-4.8) L 06/02/16 06:10 Monocytes # 0.2 k/uL (0-1.0) 06/02/16 06:10 Eosinophils # 0.0 k/uL (0-0.7) 06/02/16 06:10 Basophils # 0.1 k/uL (0-0.2) 06/02/16 06:10 Hypochromasia Slight 06/02/16 06:10 Anisocytosis Slight 06/02/16 06:10 Macrocytosis Slight 06/02/16 06:10 PT 10.8 sec (9.0-12.0) 05/28/16 16:28 INR 1.1 (<1.1) 05/28/16 16:28 APTT 22.1 sec (22.0-30.0) 05/28/16 16:28 D-Dimer 0.79 mg/L FEU (<0.60) H 05/29/16 09:08 Sodium 138 mmol/L (137-145) 06/02/16 06:10 Potassium 4.0 mmol/L (3.5-5.1) 06/02/16 06:10 Chloride 94 mmol/L (98-107) L 06/02/16 06:10 Carbon Dioxide 41 mmol/L (22-30) H* 06/02/16 06:10 Anion Gap 3 mmol/L 06/02/16 06:10 BUN 23 mg/dL (7-17) H 06/02/16 06:10 Creatinine 0.60 mg/dL (0.52-1.04) 06/02/16 06:10 Est GFR (MDRD) Af Amer >60 (>60 ml/min/1.73 sqM) 06/02/16 06:10 Est GFR (MDRD) Non-Af >60 (>60 ml/min/1.73 sqM) 06/02/16 06:10 Glucose 210 mg/dL (74-99) H 06/02/16 06:10 POC Glucose (mg/dL) 211 mg/dL (75-99) H 06/05/16 20:50 POC Glu [employer] LENORE Rianna Fong 06/05/16 20:[address] Glu mg/dL 203 mg/dL 05/28/16 16:28 Hemoglobin A1c 8.7 % (4.2-6.1) H 05/28/16 16:28 Plasma Lactic Acid Rony 1.5 mmol/L (0.7-2.0) 05/28/16 16:28 Calcium 8.8 mg/dL (8.4-10.2) 06/02/16 06:10 Phosphorus 3.6 mg/dL (2.5-4.5) 06/02/16 06:10 Magnesium 2.0 mg/dL (1.6-2.3) 06/02/16 06:10 Total Bilirubin 0.3 mg/dL (0.2-1.3) 05/28/16 16:28 AST 30 U/L (14-36) 05/28/16 16:28 ALT 59 U/L (9-52) H 05/28/16 16:28 Alkaline Phosphatase 159 U/L (38-126) H 05/28/16 16:28 Total Creatine Kinase 56 U/L (30-135) 05/28/16 16:28 CK-MB (CK-2) 2.6 ng/mL (0.0-2.4) H* 05/29/16 06:13 CK-MB (CK-2) Rel Index 5.9 05/28/16 16:28 Troponin I 0.039 ng/mL (0.000-0.034) H* 05/29/16 11:57 NT-Pro-B Natriuret Pep 355 pg/mL 05/28/16 16:28 Total Protein 5.7 g/dL (6.3-8.2) L 05/28/16 16:28 Albumin 3.2 g/dL (3.5-5.0) L 05/28/16 16:28 Urine Color Yellow 05/28/16 15:42 Urine Appearance Clear (Clear) 05/28/16 15:42 Urine pH 5.5 (5.0-8.0) 05/28/16 15:42 Ur Specific [place] 1.019 (1.001-1.035) 05/28/16 15:42 Urine Protein 1+ (Negative) H 05/28/16 15:42 Urine Glucose (UA) Negative (Negative) 05/28/16 15:42 Urine Ketones Negative (Negative) 05/28/16 15:42 Urine Blood Moderate (Negative) H 05/28/16 15:42 Urine Nitrate Negative (Negative) 05/28/16 15:42 Urine Bilirubin Negative (Negative) 05/28/16 15:42 Urine Urobilinogen <2.0 mg/dL (<2.0) 05/28/16 15:42 Ur Leukocyte Esterase Negative (Negative) 05/28/16 15:42 Urine RBC >182 /hpf (0-5) H 05/28/16 15:42 Urine WBC 9 /hpf (0-5) H 05/28/16 15:42 Ur Squamous Epith Cells 1 /hpf (0-4) 05/28/16 15:42 Urine Mucus Occasional /hpf (None) H 05/28/16 15:42 Assessment and Plan (1) Respiratory failure with hypoxia and hypercapnia Narrative/Plan: 50-year-old female who was multiple medical troubles including rheumatoid arthritis, COPD with what appears to be a new interstitial lung disease. The patient spent about by pulmonary critical care. And when she is more stable bronchoscopy will be planned. At this time metabolic therapy is continuing with ertapenem for her prior isolated pathogens. She is improved with her extensive diuresis. Continues a leukocytosis with receiving large doses of steroid therapy She is less anxious and less short of breath but is having some difficulties with a high doses of steroids affecting her mental status. Leukocytosis has improved Dressing changes of been requested with the addition of the foam dressing to the right elbow. other than some significant agitation from the doses of steroids she is improving. As far as wound care if she will be staying in hospital for the next 48 hours may restart the negative pressure therapy system to the left axillary wound.. Otherwise may restart when she is sent home with home care. Continue the other dressing changes as before. Arrangements are made for her to go to a friend's home. Unclear if home oxygen has been ordered but will be required giving her current oxygen requirements. After discharge light the wound healing center if she can be transported there. The last point of concern would be her intravenous antibiotic therapy. She's been receiving ertapenem for her complex abscess to her left axillary area.. If intravenous antibiotic therapy cannot be arranged for home there is a possibility of moxifloxacin 40 mg a day for the home setting. Status: Acute (2) Diabetic foot ulcer associated with type 2 diabetes mellitus, with fat layer exposed Status: Acute (3) Smoking Status: Acute (4) Rheumatoid arthritis Status: Acute
[2016-06-06] MEDS: oxyCODONE-APAP 7.5-325MG 1 EACH TAB PO PRN ×3 (01:00→12:48)
[2016-06-06] MEDS: SYMBICORT 160-4.5 MCG INHALER INHALATION SCH (07:15)
[2016-06-06] MEDS: IPRATROPIUM-ALBUTEROL 3 ML NEB INHALATION SCH ×3 (07:15→14:40)
[2016-06-06 07:27] LABS: Glucose,Whole Blood 117 mg/dL (75-99)
[2016-06-06] MEDS: INSULIN LISPRO (humaLOG) 300 UNIT/3 ML VIAL SQ SCH ×2 (07:42→12:39)
[2016-06-06] MEDS: metFORMIN 500 MG TAB PO SCH (07:43)
[2016-06-06] MEDS: predniSONE 10 MG TAB PO SCH ×3 (07:43→15:54)
[2016-06-06] MEDS: NICOTINE 21MG/24HR PATCH TRANSDERM SCH (07:43)
[2016-06-06] MEDS: METOPROLOL TARTRATE 25 MG TAB PO SCH (07:44)
[2016-06-06] MEDS: ENOXAPARIN 40 MG/0.4 ML SYRINGE SQ SCH (07:44)
[2016-06-06] MEDS: PYRIDOXINE 50 MG TAB PO SCH ×2 (07:44→15:54)
[2016-06-06] MEDS: GLIMEPIRIDE 4 MG TAB PO SCH (07:44)
[2016-06-06] MEDS: NITROGLYCERIN OINT 1 INCH/GM PACKET TOPICAL SCH ×2 (07:45→12:39)
[2016-06-06] MEDS: CALCIUM CARB-VIT D 500MG-200UN 1 EACH TAB PO SCH (07:46)
[2016-06-06] MEDS: NYSTATIN 100,000 UNIT/GM POWD 15 GM TOPICAL SCH ×3 (07:47→15:54)
[2016-06-06] MEDS: FUROSEMIDE 10 MG/ML 4 ML VIAL IV SCH (07:47)
[2016-06-06] MEDS: LOPERAMIDE 2 MG CAP PO SCH (07:54)
[2016-06-06] MEDS: ERTAPENEM 1 GM in SODIUM CHLORIDE 0.9% 50 ML IVPB SCH (09:00)
[2016-06-06 12:27] LABS: Glucose,Whole Blood 183 mg/dL (75-99)
[2016-06-06] MEDS: METHOTREXATE SODIUM 2.5 MG TAB PO SCH (12:37)
[2016-06-06] MEDS: ASCORBIC ACID 500 MG TAB PO SCH (12:38)
[2016-06-06] MEDS: FOLIC ACID 1 MG TAB PO SCH (12:38)
--- NOTE | 2016-06-06 13:36 | P.PN ---
Subjective This is a 50-year-old female who was admitted about 6 days ago. Her primary doctor's Dr. Spring. She was seen by Dr. Opal Canchola yesterday. She was showing slight improvement to him. 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 Again she is feeling better. Less short of breath. Progress note dated 06/04/2016 This is a 50-year-old female who was admitted on May 28. She is feeling better. She saw Dr. Concepcion over the weekend. The patient feels better. The patient/short of breath. Minimal cough. 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 Again from my perspective she is doing much better. Progress note dated 06/05/2016 The patient continues to show improvement. Was admitted on May 28. Feeling less short of breath. She is a 50-year-old female with a history of multiple medical problems including hypoxia make respiratory failure underlying interstitial lung disease COPD rheumatoid lung and possible pneumonia. Again from the pulmonary perspective doing much better. Progress note dated 06/06/2016 The patient is going to be discharged home today. The patient continues to show improvement. She is a 50-year-old female with a history of multiple medical problems including hypoxia make respiratory failure interstitial lung disease secondary to rheumatoid arthritis COPD and possible pneumonia. Her pulmonary status has stabilized significantly. As mentioned, she'll be discharged home. She does have an appointment in the office for follow-up. Objective - Vital Signs Vital signs: Vital Signs Temp 97.3 F L 06/06/16 07:00 Pulse 98 06/06/16 11:18 Resp 24 06/06/16 08:00 BP 148/72 06/06/16 07:00 Pulse Ox 92 L 06/06/16 08:30 Intake & Output 06/05/16 06/06/16 06/06/16 18:59 06:59 18:59 Intake Total 480 240 Balance 480 240 Intake: Oral 480 240 Other: Voiding Method Bedside Commode # Voids 1 2 # Bowel Movements 0 - Exam No acute distress, oriented 3. She is wearing nasal O2. She has a classic cushingoid face E some chronic steroid use. HEENT examination is grossly unremarkable. Neck supple. Full range of motion. Cardiovascular examination reveals regular rhythm rate. Lungs reveal some bibasilar crackles. Breath sounds are equal. May be a bit restricted in her breathing. Abdomen is obese. Extremities are intact. She does have obvious deformities of rheumatoid arthritis. She also has a classic [place] hump of chronic steroid use. - Labs CBC & Chem 7: 06/02/16 06:10 06/02/16 06:10 Labs: Abnormal Lab Results - Last 24 Hours (Table) 06/05/16 06/05/16 06/06/16 Range/Units 16:44 20:50 07:22 POC Glucose (mg/dL) 138 H 211 H 117 H (75-99) mg/dL 06/06/16 Range/Units 12:23 POC Glucose (mg/dL) 183 H (75-99) mg/dL Assessment and Plan (1) Pulmonary fibrosis Status: Acute (2) Acute exacerbation of chronic obstructive airways disease Status: Acute (3) Respiratory failure with hypoxia and hypercapnia Status: Acute (4) Rheumatoid arthritis Status: Acute Plan: Plan The patient's medications are reviewed. Additional recommendations and suggestions are forthcoming. The patient does not appear to need bronchoscopy at this time. Additional recommendations and suggestions are forthcoming. Plan dated 06/04/2016 The patient will continue on her current medications. I suspect discharge in next 24-48 hours. She may have to be discharged to rehab facility for additional strengthening and additional training. We'll continue to follow. No additional recommendations are made. Prognosis is guarded. Plan dated 06/05/2016 The patient should be discharged in the near future. I think she is at her baseline. No additional recommendations are made. We'll continue to follow. Prognosis is guarded. Plan dated 06/06/2016 The patient's doing well. Will be discharged home today. He has follow-up in the office with Dr. Concepcion. Additional recommendations suggestions are forthcoming. Time with Patient: Less than 30
[2016-06-06 14:46] VITALS: BP 127/59; RESP 23; TEMP 98
[2016-06-06 16:05] VITALS: PULSE 99
--- NOTE | 2016-06-06 21:54 | P.PN ---
Subjective Principal diagnosis: Shortness of breath This is a 50-year-old pleasant female patient well known to ID services due to her recent hospitalization from May 09 through 05/15/2016 at which time she was treated for abscess formation left axilla and left elbow status post debridement with Dr. Luo. She was discharged with a wound VAC in place. She has been returning to the [facility] for ertapenem 1 g to complete 30 days. She follows with Dr. Downing in the wound healing Center and her last appointment was yesterday. She denies having any problems with her wounds at home. She denies any problems with her PICC line. No fever or chills. Patient states that she developed suddenly shortness of breath. She does have lower extremity edema and chronic venous stasis changes to the lower extremities which has not changed. She came into [facility] emergency center for evaluation. It is noted the patient continues to smoke. Chest x-ray shows pulmonary edema. Urinalysis was positive for blood. ALT 59, alkaline phosphatase 159. Troponins 0.047, 0.045 and 0.039. Patient was diagnosed with heart failure and COPD exacerbation and admitted to the selective care unit. Cardiology consult in place. She has been started on Lasix 40 mg IV every 8 hours, Solu-Medrol and DuoNeb treatments. The d-dimer 0.79. Echocardiogram reveals mild concentric left ventricular hypertrophy, mild mitral regurgitation, mild tricuspid regurgitation, no pulmonary hypertension. EF 50-55%. She has been resumed on ertapenem. Her main in intensive care unit. As an extensive diuresis and is feeling considerably better. She is no longer in basia respiratory distress. Still feels somewhat poorly. Calm today less agitated, appears to being discharged to a home setting with the care of her friend in the family. less short of breath today again no other new acute complaints. Objective - Vital Signs Vital signs: Vital Signs Temp 98.0 F 06/06/16 14:45 Pulse 99 06/06/16 15:58 Resp 23 06/06/16 15:58 BP 127/59 06/06/16 14:45 Pulse Ox 98 06/06/16 14:45 Intake & Output 06/06/16 06/06/16 06/07/16 06:59 18:59 06:59 Intake Total 480 Balance 480 Intake: Oral 480 Other: Voiding Method Bedside Commode # Voids 2 2 - Exam Gen: This is a 50-year-old female. She is sitting up at the edge of the bed and appears to be in no acute distress. HEENT: Head is atraumatic, normocephalic. Pupils equal, round. Sclerae is anicteric. NECK: Supple. No JVD. No lymphadenopathy. No thyromegaly. LUNGS: Scattered coarse rhonchi as well as inspiratory and expirator wheezes. No intercostal retractions. HEART: Regular rate and rhythm. No murmur. ABDOMEN: Soft. Bowel sounds are present. No masses. No tenderness. EXTREMITIES: 2+ pedal edema. Chronic venous stasis changes. Wound VAC was removed from the axillary area. Is packed with saline dressing in place. Doing well at this time. Ulcer to the left elbow was been treated with the opticell as has the right ankle wound. optifoam will be utilized to the new irritation to the right elbow area.the ulcerations are evaluated and have improvement NEUROLOGICAL: Patient is awake, alert and oriented x3 - Labs CBC & Chem 7: 06/02/16 06:10 06/02/16 06:10 Labs: Abnormal Lab Results - Last 24 Hours (Table) 06/06/16 06/06/16 Range/Units 07:22 12:23 POC Glucose (mg/dL) 117 H 183 H (75-99) mg/dL Assessment and Plan (1) Respiratory failure with hypoxia and hypercapnia Narrative/Plan: 50-year-old female who was multiple medical troubles including rheumatoid arthritis, COPD with what appears to be a new interstitial lung disease. The patient spent about by pulmonary critical care. And when she is more stable bronchoscopy will be planned. At this time metabolic therapy is continuing with ertapenem for her prior isolated pathogens. She is improved with her extensive diuresis. Continues a leukocytosis with receiving large doses of steroid therapy She is less anxious and less short of breath but is having some difficulties with a high doses of steroids affecting her mental status. Leukocytosis has improved Dressing changes of been requested with the addition of the foam dressing to the right elbow. other than some significant agitation from the doses of steroids she is improving. As far as wound care if she will be staying in hospital for the next 48 hours may restart the negative pressure therapy system to the left axillary wound.. Otherwise may restart when she is sent home with home care. Continue the other dressing changes as before. Arrangements are made for her to go to a friend's home. Unclear if home oxygen has been ordered but will be required giving her current oxygen requirements. After discharge light the wound healing center if she can be transported there. The last point of concern would be her intravenous antibiotic therapy. She's been receiving ertapenem for her complex abscess to her left axillary area. This has been arranged for home. She'll be going home to stay with her friend at the friend's home. If this fails within likely go to extended care. The patient is at great risk of rapid decline of her status which she is aware of. Status: Acute (2) Diabetic foot ulcer associated with type 2 diabetes mellitus, with fat layer exposed Status: Acute (3) Smoking Status: Acute (4) Rheumatoid arthritis Status: Acute
== END 2016-06-06 17:44 | disposition home health service (06) | DRG 291 ==
LOC: EC 15:07 → 6SEL 17:15 → 6ICU 05-29 18:45 → 4MS4W 06-01 12:08
PROVIDERS: ADMIT Family Medicine; ATTEND Family Medicine
DX: I50.33 Acute on chronic diastolic (congestive) heart failure (principal); J18.9 Pneumonia, unspecified organism; J96.01 Acute respiratory failure with hypoxia; J96.02 Acute respiratory failure with hypercapnia; J44.0 Chronic obstructive pulmonary disease with (acute) lower respiratory infection; J44.1 Chronic obstructive pulmonary disease with (acute) exacerbation; L02.412 Cutaneous abscess of left axilla; L02.414 Cutaneous abscess of left upper limb; L89.152 Pressure ulcer of sacral region, stage 2; E11.621 Type 2 diabetes mellitus with foot ulcer; J84.10 Pulmonary fibrosis, unspecified; E11.65 Type 2 diabetes mellitus with hyperglycemia; M35.00 Sjogren syndrome, unspecified; E78.5 Hyperlipidemia, unspecified; F17.200 Nicotine dependence, unspecified, uncomplicated; F32.9 Major depressive disorder, single episode, unspecified; F41.9 Anxiety disorder, unspecified; G89.29 Other chronic pain; I08.1 Rheumatic disorders of both mitral and tricuspid valves; I10 Essential (primary) hypertension; I73.00 Raynaud's syndrome without gangrene; I87.8 Other specified disorders of veins; K21.9 Gastro-esophageal reflux disease without esophagitis; K58.0 Irritable bowel syndrome with diarrhea; M05.10 Rheumatoid lung disease with rheumatoid arthritis of unspecified site; M19.90 Unspecified osteoarthritis, unspecified site; E66.9 Obesity, unspecified; M48.02 Spinal stenosis, cervical region; R15.9 Full incontinence of feces; N39.41 Urge incontinence; I83.90 Asymptomatic varicose veins of unspecified lower extremity; K64.9 Unspecified hemorrhoids; K58.1 Irritable bowel syndrome with constipation; R26.9 Unspecified abnormalities of gait and mobility; L97.502 Non-pressure chronic ulcer of other part of unspecified foot with fat layer exposed; M06.9 Rheumatoid arthritis, unspecified; Z68.27 Body mass index [BMI] 27.0-27.9, adult; Z79.84 Long term (current) use of oral hypoglycemic drugs; Z79.82 Long term (current) use of aspirin; Z79.52 Long term (current) use of systemic steroids; Z79.899 Other long term (current) drug therapy; Z88.0 Allergy status to penicillin; Z91.040 Latex allergy status; Z82.49 Family history of ischemic heart disease and other diseases of the circulatory system
CPT/HCPCS: 36415; 71010; 71020; 71275; 80048; 80053; 81001; 82550; 82553; 83036; 83605; 83735; 83880; 84100; 84132; 84484; 85025; 85379; 85610; 85730; 93005; 93306; 94640; 94660; 94760; 99291

== ENCOUNTER → 2016-10-01 | Outpatient (CLI) | payer MEDICARE ==
--- NOTE | 2016-10-01 17:25 | XR ---
EXAMINATION TYPE: XR chest 2V DATE OF EXAM: 10/01/2016 4:46 PM COMPARISON: Prior chest x-ray 01 June 2016 HISTORY: Chest pain TECHNIQUE: Frontal and lateral views of the chest are obtained. FINDINGS: The heart is enlarged. Chest wall deformity is stable on the right. PICC line has been rem ludwig. There is no evident pneumothorax or pleural effusion. Multiple wedge compression deformities in the thoracic spine are likely osteoporotic compression fractures and resultant kyphosis. Interstitiu m is increased. IMPRESSION: There may be some underlying interstitial lung disease. There is cardiomegaly. Multiple unhealed right-sided rib fractures are likely not healed. Osteoporotic compression deformities appear chronic in the thoracic spine.
== END ==
LOC: RADXRMAIN 16:26
PROVIDERS: ATTEND Internal Medicine Geriatric Medicine
DX: I51.7 Cardiomegaly (principal)
CPT/HCPCS: 71020

== ENCOUNTER 2017-02-06 14:29 | Inpatient (IN) | payer MEDICARE ==
[2017-02-06] MEDS ORDERED: SODIUM CHLORIDE 0.9% 1,000 ML IV STA (14:37)
[2017-02-06 14:51] LABS: Anisocytosis Slight; Basophils % (A) 0 %; CH 32.4; CHCM 35.1; Eosinophils % (A) 0 %; HCT 32.8 % (34.0-46.0); HGB 10.7 gm/dL (11.4-16.0); Luc # (Auto) 0.03; Luc % (Auto) 1; Lymphocytes # (A) 0.3 k/uL (1.0-4.8); Lymphocytes % (A) 7 %; MCH 30.2 pg (25.0-35.0); MCHC 32.6 g/dL (31.0-37.0); MCV 92.6 fL (80.0-100.0); Mean Platelet Volume 7.8; Monocytes # (A) 0.2 k/uL (0-1.0); Monocytes % (A) 3 %; Neutrophils % (A) 89 %; RBC 3.54 m/uL (3.80-5.40); WBC 4.5 k/uL (3.8-10.6); WBC (Perox) 4.82
[2017-02-06 14:58] LABS: INR 1.1 (<1.2); Partial Thromboplastin Time 22.4 sec (22.0-30.0)
[2017-02-06 14:59] LABS: ALT 69 U/L (9-52); AST 36 U/L (14-36); Alkaline Phosphatase 287 U/L (38-126); Anion Gap 11 mmol/L; Blood Urea Nitrogen 32 mg/dL (7-17); Calcium 8.7 mg/dL (8.4-10.2); Carbon Dioxide 32 mmol/L (22-30); Glucose 271 mg/dL (74-99); Magnesium 1.3 mg/dL (1.6-2.3); Non-African American GFR(MDRD) >60 (>60 ml/min/1.73 sqM); Potassium 3.7 mmol/L (3.5-5.1); Total Bilirubin 0.5 mg/dL (0.2-1.3); Total Protein 4.9 g/dL (6.3-8.2)
[2017-02-06 15:03] LABS: Chloride 72 mmol/L (98-107); Sodium 115 mmol/L (137-145)
[2017-02-06 15:22] LABS: Troponin I 0.056 ng/mL (0.000-0.034)
--- NOTE | 2017-02-06 16:05 | XR ---
EXAMINATION TYPE: XR chest 2V DATE OF EXAM: 02/06/2017 COMPARISON: 10/01/2016 HISTORY: Chest pain TECHNIQUE: Frontal and lateral views of the chest are obtained. FINDINGS: Exam is technically limited. Persistent chronic chest wall deformity is appreciated with sia wing medially of the ribs and chronic pleural thickening. Cardiac silhouette is again enlarged. Biapi annika airspace disease is present as well as pulmonary vascular congestion, mild in degree. There is an exaggerated thoracic kyphosis and generalized severe osteopenia with questionable compression deform ities throughout the thoracic spine, poorly visualized. IMPRESSION: Suboptimal examination. Biapical airspace disease and probable mild pulmonary vascular c ongestion. Airspace disease may relate to focal edema and/or pneumonia.
[2017-02-06] MEDS ORDERED: SODIUM CHLORIDE 0.9% 500 ML IV STA (16:13)
--- NOTE | 2017-02-06 16:22 | XR ---
EXAMINATION TYPE: XR abdomen 1V DATE OF EXAM: 02/06/2017 4:00 PM CLINICAL HISTORY: Weakness and fall with possible rectal bleeding TECHNIQUE: Single supine image of the abdomen is obtained. COMPARISON: None. FINDINGS: Scattered gas is seen in non-distended small bowel loops. Gas and fecal material is seen in non-distended colon. Colon measures up to 5.8 cm and is within normal limits. There is a levoscoliot ic curvature of the lumbosacral spine with compensatory dextroscoliotic curvature of the visualized t horacic spine. Moderate osteoarthropathy is seen of the bilateral femoral acetabular joints displayed as cephalad joint space narrowing and acetabular sclerosis. There is no visceromegaly, pneumoperiton eum, or abnormal calcification appreciated. The lung bases are described in the chest radiograph of t he same date. IMPRESSION: Gaseous filled loops of small and large bowel may relate to ileus. No enlarged bowel to s uggest obstruction.
[2017-02-06] MEDS ORDERED: HYDROmorphone 1 MG/ML 1 ML SYRINGE IVP STA (16:55)
[2017-02-06] MEDS ORDERED: predniSONE 10 MG TAB PO STA (16:57)
--- NOTE | 2017-02-06 17:03 | ED ---
General Adult HPI - General Chief complaint: Fall Stated complaint: Fall Time Seen by Provider: 02/06/17 14:29 Source: patient, family, EMS, RN notes reviewed, old records reviewed Mode of arrival: EMS Limitations: physical limitation - History of Present Illness Initial comments: This is a 51-year-old female history of rheumatoid arthritis CHF pulmonary hypertension who is had increased weakness over last week or so. She probably fell last evening but did not sustain any injuries she's here today because of shortness of breath. She also started developing some rectal bleeding at least yesterday though the patient is family member states thinks it was longer. She' s also decreased oral intake shortness of breath no fevers chills or sweats reported. - Related Data Home Medications Medication Instructions Recorded Confirmed Ca/D3/Mag/Zinc/Crow/Jorge/Mgbor 1 tab PO BID 01/03/15 02/06/17 [Caltrate 600+D3+Min Chew Tab] Folic Acid 2 mg PO DAILY 01/03/15 02/06/17 Methotrexate Sodium [Methotrexate] 25 mg PO TH 01/03/15 02/06/17 Omeprazole [PriLOSEC] 40 mg PO DAILY 01/03/15 02/06/17 predniSONE 10 mg PO TID 01/03/15 02/06/17 Cyclobenzaprine [Flexeril] 10 mg PO Q8H PRN 03/07/15 02/06/17 Pyridoxine [Vitamin B-6] 50 mg PO TID 03/06/16 02/06/17 Triamcinolone 0.5% Cream [Kenalog 1 applic TOPICAL BID 03/06/16 02/06/17 0.5% Cream] Albuterol Inhaler [Ventolin Hfa 2 puff INHALATION RT-Q6H PRN 05/09/16 02/06/17 Inhaler] Ascorbic Acid [Vitamin C] 500 mg PO DAILY 05/09/16 02/06/17 Loperamide HCl [Imodium A-D] 2 mg PO QID PRN 05/09/16 02/06/17 Canal [place]-3 Acid Ethyl Esters [Lovaza] 1 gm PO QID 05/09/16 02/06/17 Telmisartan [Micardis] 40 mg PO DAILY 05/09/16 02/06/17 hydrOXYzine PAMOATE [Vistaril] 25 mg PO Q6HR PRN 05/09/16 02/06/17 Glimepiride [Amaryl] 4 mg PO BID 07/02/16 02/06/17 Metolazone [Zaroxolyn] 2.5 mg PO DAILY 07/02/16 02/06/17 Ondansetron [Zofran] 4 mg PO Q8HR PRN 07/02/16 02/06/17 Fluticasone/Salmeterol [Advair 1 puff INHALATION RT-BID 12/31/16 02/06/17 250-50 Diskus] Metoprolol Tartrate [Lopressor] 50 mg PO BID 12/31/16 02/06/17 Aspirin EC [Ecotrin Low Dose] 81 mg PO DAILY 02/06/17 02/06/17 Celecoxib [CeleBREX] 200 mg PO BID PRN 02/06/17 02/06/17 Diphenoxylate HCl/Atropine 1 tab PO TID PRN 02/06/17 02/06/17 [Lomotil] HYDROcodone/APAP 10-325MG [[place] 1 tab PO Q6H PRN 02/06/17 02/06/17 10-325] Awlxsxgi-Hcmypjodp-Hp Otic 4 drops BOTH EARS BID 02/06/17 02/06/17 [Cortisporin Otic Soln] Nystatin 100,000 Unit/gm Powd 1 applic TOPICAL DAILY 02/06/17 02/06/17 [Mycostatin Powder] Potassium 99 mg PO DAILY 02/06/17 02/06/17 Potassium Chloride ER [K-Dur 20] 20 meq PO DAILY 02/06/17 02/06/17 Previous Rx's Medication Instructions Recorded metFORMIN HCL [Glucophage] 500 mg PO BID-W/MEALS tab 05/14/16 Furosemide [Lasix] 40 mg PO DAILY #30 tablet 06/05/16 Ipratropium-Albuterol Nebulize 3 ml INHALATION RT-QID #120 06/05/16 [Duoneb 0.5 mg-3 mg/3 ml Soln] ampul.neb Nicotine 21Mg/24Hr Patch [Habitrol] 1 patch TRANSDERM DAILY #30 patch 06/05/16 Allergies Allergy/AdvReac Type Severity Reaction Status Date / Time latex Allergy Mild Swelling Verified 02/06/17 15:58 Penicillins Allergy Rash/Hives Verified 02/06/17 15:58 Review of Systems ROS Statement: Those systems with pertinent positive or pertinent negative responses have been documented in the HPI. ROS Other: All systems not noted in ROS Statement are negative. Past Medical History Past Medical History: Diabetes Mellitus, Hyperlipidemia, Hypertension, Rheumatoid Arthritis (RA), Hypertension, Respiratory Disorder, Rheumatoid Arthritis (RA) Additional Past Medical History / Comment(s): sjogrens, raynauds, urinary urgency and incontinence, bowel incontinence, wound rt foot plantar surface, immunosuppressed, ventral hernia, rheumatic lung, rheumatic fever as a child, varicose veins, current steroid,pm>2yrs, severe cervical stenosis-bilat. neuro deficits in arms, PCN resistant, pleural pain, bleeding peptic ulcer,coffee ground emesis,hemmroids, heart rate usually runs 100-120 History of Any Multi-Drug Resistant Organisms: None Reported Past Surgical History: Adenoidectomy, Heart Catheterization, Hernia Repair, Orthopedic Surgery, Tonsillectomy Additional Past Surgical History / Comment(s): closed reduction rt elbow as a child,laser vein surgery lt leg. Past Anesthesia/Blood Transfusion Reactions: Previous Problems w/ Anesthesia Additional Past Anesthesia/Blood Transfusion Reaction / Comment(s): pt states experienced swelling of throat with anesthesia as a child with tonsil removal- no further swelling problems with anesthesia,Severe Cervical Stenosis, family hx of blood transfusion reaction with mother and brother-rx rash,hives Past Psychological History: Anxiety, Depression Smoking Status: Current every day smoker Past Alcohol Use History: Rare - Past Family History Brother(s) Family Medical History: Coronary Artery Disease (CAD) Mother Family Medical History: Diabetes Mellitus Additional Family Medical History / Comment(s): with Castro's Disease Father Family Medical History: Coronary Artery Disease (CAD), Diabetes Mellitus, Hyperlipidemia, Vascular Disorder Additional Family Medical History / Comment(s): at age 89 General Exam - General Exam Comments Initial Comments: This is a well-developed asthenic appearing female. Limitations: physical limitation General appearance: alert, lethargic Head exam: Present: atraumatic, normocephalic, normal inspection ENT exam: Present: mucous membranes dry Neck exam: Present: normal inspection. Absent: tenderness, meningismus, lymphadenopathy Respiratory exam: Present: decreased breath sounds (She does demonstrate kyphosis.) Cardiovascular Exam: Present: normal rhythm, tachycardia GI/Abdominal exam: Present: soft, normal bowel sounds. Absent: distended, tenderness, guarding, rebound, rigid Rectal exam: Present: heme (+) stool, other (A positive stool there is red blood on the fingertip after rectal exam. He also has stage I and stage II pressure sores noted in the perianal region.) Extremities exam: Present: full ROM, normal capillary refill, other (He does demonstrate skin slippages and multiple bruising all extremities.) Back exam: Present: other (Kyphosis is noted) Neurological exam: Present: alert, oriented X3, CN II-XII intact Psychiatric exam: Present: normal affect, normal mood Skin exam: Present: warm (Multiple areas of bruising pressure sores some skin slippages), other Course Vital Signs 02/06/17 02/06/17 02/06/17 14:30 14:49 16:38 Temperature 97.0 F L Pulse Rate 116 H 104 H Pulse Rate [ 116 H Pulse Oximetery ] Respiratory 20 23 18 Rate Blood Pressure 138/75 123/68 O2 Sat by Pulse 88 L 100 Oximetry 02/06/17 16:42 Temperature Pulse Rate 100 Pulse Rate [ Pulse Oximetery ] Respiratory 17 Rate Blood Pressure 118/65 O2 Sat by Pulse 96 Oximetry - Reevaluation(s) Reevaluation #1: 02/06/17 17:06 I did reevaluate patient several occasions did discuss [employer] her and her family. Patient will be admitted to ICU for acute care she will be started on 3 % saline at 50 mL an hour as per Dr. Concepcion. The case was discussed with Dr. Noel. Medical Decision Making - Lab Data Result diagrams: 02/06/17 14:30 02/06/17 14:30 Lab Results 02/06/17 02/06/17 02/06/17 Range/Units 14:30 14:30 14:30 WBC 4.5 (3.8-10.6) k/uL RBC 3.54 L (3.80-5.40) m/uL Hgb 10.7 L (11.4-16.0) gm/dL Hct 32.8 L (34.0-46.0) % MCV 92.6 (80.0-100.0) fL MCH 30.2 (25.0-35.0) pg MCHC 32.6 (31.0-37.0) g/dL RDW 17.0 H (11.5-15.5) % Plt Count 268 (150-450) k/uL Neutrophils % 89 % Lymphocytes % 7 % Monocytes % 3 % Eosinophils % 0 % Basophils % 0 % Neutrophils # 4.0 (1.3-7.7) k/uL Lymphocytes # 0.3 L (1.0-4.8) k/uL Monocytes # 0.2 (0-1.0) k/uL Eosinophils # 0.0 (0-0.7) k/uL Basophils # 0.0 (0-0.2) k/uL Anisocytosis Slight PT 11.0 (9.0-12.0) sec INR 1.1 (<1.2) APTT 22.4 (22.0-30.0) sec Sodium (137-145) mmol/L Potassium (3.5-5.1) mmol/L Chloride (98-107) mmol/L Carbon Dioxide (22-30) mmol/L Anion Gap mmol/L BUN (7-17) mg/dL Creatinine (0.52-1.04) mg/dL Est GFR (MDRD) Af Amer (>60 ml/min/1.73 sqM) Est GFR (MDRD) Non-Af (>60 ml/min/1.73 sqM) Glucose (74-99) mg/dL Calcium (8.4-10.2) mg/dL Magnesium (1.6-2.3) mg/dL Total Bilirubin (0.2-1.3) mg/dL AST (14-36) U/L ALT (9-52) U/L Alkaline Phosphatase (38-126) U/L Total Creatine Kinase 86 (30-135) U/L CK-MB (CK-2) 4.0 H* (0.0-2.4) ng/mL CK-MB (CK-2) Rel Index 4.7 Troponin I 0.056 H* (0.000-0.034) ng/mL Total Protein (6.3-8.2) g/dL Albumin (3.5-5.0) g/dL Stool Occult Blood (Negative) Blood Type Blood Type Recheck Antibody Screen Spec Expiration Date 02/06/17 02/06/1717 Range/Units 14:30 14:30 16:29 WBC (3.8-10.6) k/uL RBC (3.80-5.40) m/uL Hgb (11.4-16.0) gm/dL Hct (34.0-46.0) % MCV (80.0-100.0) fL MCH (25.0-35.0) pg MCHC (31.0-37.0) g/dL RDW (11.5-15.5) % Plt Count (150-450) k/uL Neutrophils % % Lymphocytes % % Monocytes % % Eosinophils % % Basophils % % Neutrophils # (1.3-7.7) k/uL Lymphocytes # (1.0-4.8) k/uL Monocytes # (0-1.0) k/uL Eosinophils # (0-0.7) k/uL Basophils # (0-0.2) k/uL Anisocytosis PT (9.0-12.0) sec INR (<1.2) APTT (22.0-30.0) sec Sodium 115 L* (137-145) mmol/L Potassium 3.7 (3.5-5.1) mmol/L Chloride 72 L* (98-107) mmol/L Carbon Dioxide 32 H (22-30) mmol/L Anion Gap 11 mmol/L BUN 32 H (7-17) mg/dL Creatinine 0.70 (0.52-1.04) mg/dL Est GFR (MDRD) Af Amer >60 (>60 ml/min/1.73 sqM) Est GFR (MDRD) Non-Af >60 (>60 ml/min/1.73 sqM) Glucose 271 H (74-99) mg/dL Calcium 8.7 (8.4-10.2) mg/dL Magnesium 1.3 L (1.6-2.3) mg/dL Total Bilirubin 0.5 (0.2-1.3) mg/dL AST 36 (14-36) U/L ALT 69 H (9-52) U/L Alkaline Phosphatase 287 H (38-126) U/L Total Creatine Kinase (30-135) U/L CK-MB (CK-2) (0.0-2.4) ng/mL CK-MB (CK-2) Rel Index Troponin I (0.000-0.034) ng/mL Total Protein 4.9 L (6.3-8.2) g/dL Albumin 2.7 L (3.5-5.0) g/dL Stool Occult Blood Positive H (Negative) Blood Type A Negative Blood Type Recheck CABO Indicated Antibody Screen NEGATIVE Spec Expiration Date 02/09/2017 - 2330 Critical Care Time Critical Care Time: Yes Critical Care Time: 31 minutes of critical care time which includes initial presentation with history physical labs x-rays also included monitoring the EMS run and discussed with paramedics. Review of old charting available. Reevaluation patient on several occasions discussion with admitting physician and consult. Discussed with family members. Admission orders and documentation of the above Disposition Clinical Impression: Fall, Hyponatremia syndrome, GI bleed, Elevated troponin, Anemia Disposition: ADMITTED IP TO THIS [facility] Condition: Serious Referrals: [facility] MD [Primary Care Provider] - 1-2 days
[2017-02-06] MEDS ORDERED: NALOXONE 0.4 MG/ML 1 ML VIAL IV PRN (17:11)
[2017-02-06] MEDS ORDERED: SODIUM CHLORIDE 0.9% 1,000 ML IV SCH (17:15)
[2017-02-06] MEDS: SODIUM CHLORIDE 3%(HYPERTONIC) 500 ML IV SCH (17:35)
[2017-02-06 18:30] LABS: Glucose,Whole Blood 267 mg/dL (75-99)
[2017-02-06] MEDS ORDERED: VANCOMYCIN 1,000 MG in SODIUM CHLORIDE 0.9% 250 ML IVPB STA (19:12)
[2017-02-06] MEDS ORDERED: LOPERAMIDE 2 MG CAP PO PRN (20:17)
[2017-02-06] MEDS ORDERED: MELOXICAM 7.5 MG TAB PO PRN (20:17)
[2017-02-06] MEDS ORDERED: CYCLOBENZAPRINE 10 MG TAB PO PRN (20:17)
[2017-02-06] MEDS ORDERED: ONDANSETRON 4 MG TAB PO PRN (20:17)
[2017-02-06] MEDS: IPRATROPIUM-ALBUTEROL 3 ML NEB INHALATION SCH ×2 (20:34→23:17)
[2017-02-06] MEDS ORDERED: POTASSIUM CHLORIDE ER 20 MEQ TAB.ER PO STA (20:42)
--- NOTE | 2017-02-06 20:44 | P.HPIM ---
History of Present Illness H&P Date: 02/06/17 Chief Complaint: Weakness cough persistent fell at home This is a 50-year-old pleasant female patient of Dr. Spring and Dr. Downing. She has underlying history of rheumatid arthritis, Sjogren's, Raynaud's, diabetes mellitus type 2, hyperlipidemia, hypertension, rheumatoid lung, chronic immunosuppression, cervical stenosis with upper extremity weakness, impaired balance impaired gait. She presented hospital eyes she has gotten so weak, and had gone to the bathroom and had sleep from the wheelchair, has been down for unknown length of time, however it's been quite a while most likely 4-5 hr, she also reports having shortness of breath as her last nebulized treatment was 16 hours or so s she also has had diminished appetite, chronic cough with wheezing , weight loss of 100 pounds over the past one year,, patient denies any fever, she has chronic IBS with diarrhea for quite Lomotil, however the day prior to admission, patient had specks of blood in the stool, patient does not have any [employer] alert and was sent in [facility] through EMS transportation. Patient resides at home alone, multiple stages off ulcers are noted in both extremities sacrum, groin, eczema bilateral, elbows bilateral, blisters in the toes. Patient denies any head concussion. Her last dose for methotrexate was this Friday 2 days prior to admission provided by Dr. Preston In the emergency room, hemoglobin was noted 10.7 from a previous of 12 in June 2016, Dr. Downing count 4.5, serum sodium was 115 from a previous of 130 weeks ago creatinine 0.7, BUN elevated at 32, troponin slightly elevated at 0.056 albumin of 2.7, Hemoccult-positive chest x-ray shows suboptimal examination biapical airspace disease and probably mild pulmonary vascular congestion, EKG shows sinus tachycardia 110, no acute ST-T wave changes, x-rays of the abdomen shows gaseous filled loops of small and large bowel mainly related to ileus, no large bowel to suggest obstruction no perforation.. Diaz catheter was placed the day prior to admission from home care nursing visit Patient was subsequently admitted to ICU with IV saline 3% running at 50 mL an hour consultations with Dr. Concepcion from critical medicine, Dr. Downing from infectious disease, Dr. Brian from nephrology, patient was started on IV vancomycin and IV meropenem with nebulized treatments and IV hydrocortisone Review of Systems Constitutional: Reports as per HPI, Reports anorexia, Reports chronic pain, Reports fatigue, Reports lethargy, Reports poor appetite, Reports weight loss Ears, nose, mouth and throat: Reports as per HPI, Denies ant. neck pain, Denies bleeding gums, Denies dental pain, Denies dysphagia, Denies epistaxis, Denies headache, Denies hoarseness, Denies mouth pain, Denies nasal congestion, Denies nasal discharge, Denies neck fullness/pressure, Denies neck lump, Denies nose pain, Denies odynophagia, Denies post-nasal drip, Denies sinus pain, Denies sinus pressure, Denies swelling in mouth, Denies swelling in throat, Denies sore throat, Denies vertigo, Denies voice changes Cardiovascular: Reports as per HPI, Denies chest pain, Denies claudication, Denies decreased exercise tolerance, Denies dyspnea on exertion, Denies edema, Denies high blood pressure, Denies irregular heart beat, Denies leg edema, Denies lightheadedness, Denies orthopnea, Denies palpitations, Denies paroxysmal nocturnal dyspnea, Denies phlebitis, Denies rapid heart beat, Denies shortness of breath, Denies syncope Respiratory: Reports as per HPI Gastrointestinal: Reports as per HPI, Denies abdominal pain, Denies belching, Denies bloating, Denies BRBPR, Denies change in bowel habits, Denies coffee ground emesis, Denies constipation, Denies diarrhea, Denies dyspepsia, Denies early satiety, Denies excessive gas, Denies heartburn, Denies hematemesis, Denies hematochezia, Denies indigestion, Denies jaundice, Denies lactose intolerance, Denies loss of appetite, Denies melena, Denies nausea, Denies vomiting Genitourinary: Reports as per HPI Menstruation: Reports as per HPI, Reports postmenopausal, Denies amenorrhea, Denies amenorrhea on BC, Denies currently menstrual, Denies cycle < 21 days, Denies cycle > 35 days, Denies cycle variable, Denies menses 1-7 days, Denies menses 8 or > days, Denies menses variable, Denies period heavy, Denies period light, Denies period normal, Denies period spotting, Denies post hysterectomy, Denies premenarcheal Musculoskeletal: Reports as per HPI, Reports gait dysfunction, Reports loss of height, Reports low back pain, Reports morning stiffness, Reports myalgias Integumentary: Reports as per HPI, Denies acne, Denies boils, Denies brittle nails, Denies change in hair/nails, Denies color changes, Denies darkening of skin, Denies depigmentation, Denies dryness, Denies foot/leg ulcers, Denies growths, Denies hirsutism, Denies lesions, Denies onychomycosis, Denies pruritus , Denies rash, Denies sores, Denies striae, Denies unusual bruising, Denies wounds Neurological: Reports as per HPI, Reports lack of coordination, Reports memory loss Psychiatric: Reports as per HPI, Reports change in sleep habits, Reports insomnia, Denies anhedonia, Denies anxiety, Denies anxiety attacks, Denies change in appetite, Denies change in libido, Denies confusion, Denies depression , Denies difficulty concentrating, Denies disorientation, Denies hallucinations , Denies hopelessness, Denies hypersomnia, Denies irritability, Denies memory loss, Denies mood swings, Denies paranoia, Denies sadness/tearfulness, Denies sleep disturbances, Denies suicidal ideation Endocrine: Reports as per HPI, Denies cold intolerance, Denies deepening of the voice, Denies excessive sweating, Denies excessive thirst, Denies fatigue, Denies flushing, Denies heat intolerance, Denies high blood sugars, Denies increase in ring/shoe/hat size, Denies low blood sugars, Denies nocturia, Denies palpitations, Denies polydipsia, Denies polyphagia, Denies polyuria, Denies proptosis, Denies recent glucocorticoid use, Denies thyroid mass, Denies weight change Hematologic/Lymphatic: Reports as per HPI, Denies easy bleeding, Denies easy bruising, Denies lymphadenopathy, Denies lymphedema, Denies thrombophilia Allergic/Immunologic: Reports as per HPI Past Medical History Past Medical History: Diabetes Mellitus, Hyperlipidemia, Hypertension, Rheumatoid Arthritis (RA), Hypertension, Respiratory Disorder, Rheumatoid Arthritis (RA) Additional Past Medical History / Comment(s): sjogrens, raynauds, urinary urgency and incontinence, bowel incontinence, wound rt foot plantar surface, immunosuppressed, ventral hernia, rheumatic lung, rheumatic fever as a child, varicose veins, current steroid,pm>2yrs, severe cervical stenosis-bilat. neuro deficits in arms, PCN resistant, pleural pain, bleeding peptic ulcer,coffee ground emesis,hemmroids, heart rate usually runs 100-120 History of Any Multi-Drug Resistant Organisms: None Reported Past Surgical History: Adenoidectomy, Heart Catheterization, Hernia Repair, Orthopedic Surgery, Tonsillectomy Additional Past Surgical History / Comment(s): closed reduction rt elbow as a child,laser vein surgery lt leg. Past Anesthesia/Blood Transfusion Reactions: Previous Problems w/ Anesthesia Additional Past Anesthesia/Blood Transfusion Reaction / Comment(s): pt states experienced swelling of throat with anesthesia as a child with tonsil removal- no further swelling problems with anesthesia,Severe Cervical Stenosis, family hx of blood transfusion reaction with mother and brother-rx rash,hives Past Psychological History: Anxiety, Depression Smoking Status: Current every day smoker Past Alcohol Use History: Rare - Past Family History Brother(s) Family Medical History: Coronary Artery Disease (CAD) Mother Family Medical History: Diabetes Mellitus Additional Family Medical History / Comment(s): with Castro's Disease Father Family Medical History: Coronary Artery Disease (CAD), Diabetes Mellitus, Hyperlipidemia, Vascular Disorder Additional Family Medical History / Comment(s): at age 89 Medications and Allergies Home Medications Medication Instructions Recorded Confirmed Type Ca/D3/Mag/Zinc/Crow/Jorge/Mgbor 1 tab PO BID 01/03/15 02/06/17 History [Caltrate 600+D3+Min Chew Tab] Folic Acid 2 mg PO DAILY 01/03/15 02/06/17 History Methotrexate Sodium [Methotrexate] 25 mg PO TH 01/03/15 02/06/17 History Omeprazole [PriLOSEC] 40 mg PO DAILY 01/03/15 02/06/17 History predniSONE 10 mg PO TID 01/03/15 02/06/17 History Cyclobenzaprine [Flexeril] 10 mg PO Q8H PRN 03/07/15 02/06/17 History Pyridoxine [Vitamin B-6] 50 mg PO TID 03/06/16 02/06/17 History Triamcinolone 0.5% Cream [Kenalog 1 applic TOPICAL BID 03/06/16 02/06/17 History 0.5% Cream] Albuterol Inhaler [Ventolin Hfa 2 puff INHALATION RT-Q6H PRN 05/09/16 02/06/17 History Inhaler] Ascorbic Acid [Vitamin C] 500 mg PO DAILY 05/09/16 02/06/17 History Loperamide HCl [Imodium A-D] 2 mg PO QID PRN 05/09/16 02/06/17 History [place]-3 Acid Ethyl Esters [Lovaza] 1 gm PO QID 05/09/16 02/06/17 History Telmisartan [Micardis] 40 mg PO DAILY 05/09/16 02/06/17 History hydrOXYzine PAMOATE [Vistaril] 25 mg PO Q6HR PRN 05/09/16 02/06/17 History metFORMIN HCL [Glucophage] 500 mg PO BID-W/MEALS tab 05/14/16 02/06/17 Rx Furosemide [Lasix] 40 mg PO DAILY #30 tablet 06/05/16 02/06/17 Rx Ipratropium-Albuterol Nebulize 3 ml INHALATION RT-QID #120 06/05/16 02/06/17 Rx [Duoneb 0.5 mg-3 mg/3 ml Soln] ampul.neb Nicotine 21Mg/24Hr Patch [Habitrol] 1 patch TRANSDERM DAILY #30 patch 06/05/16 02/06/17 Rx Glimepiride [Amaryl] 4 mg PO BID 07/02/16 02/06/17 History Metolazone [Zaroxolyn] 2.5 mg PO DAILY 07/02/16 02/06/17 History Ondansetron [Zofran] 4 mg PO Q8HR PRN 07/02/16 02/06/17 History Fluticasone/Salmeterol [Advair 1 puff INHALATION RT-BID 12/31/16 02/06/17 History 250-50 Diskus] Metoprolol Tartrate [Lopressor] 50 mg PO BID 12/31/16 02/06/17 History Aspirin EC [Ecotrin Low Dose] 81 mg PO DAILY 02/06/17 02/06/17 History Celecoxib [CeleBREX] 200 mg PO BID PRN 02/06/17 02/06/17 History Diphenoxylate HCl/Atropine 1 tab PO TID PRN 02/06/17 02/06/17 History [Lomotil] HYDROcodone/APAP 10-325MG [[place] 1 tab PO Q6H PRN 02/06/17 02/06/17 History 10-325] Lvomzazw-Nckslxbbe-Aj Otic 4 drops BOTH EARS BID 02/06/17 02/06/17 History [Cortisporin Otic Soln] Nystatin 100,000 Unit/gm Powd 1 applic TOPICAL DAILY 02/06/17 02/06/17 History [Mycostatin Powder] Potassium 99 mg PO DAILY 02/06/17 02/06/17 History Potassium Chloride ER [K-Dur 20] 20 meq PO DAILY 02/06/17 02/06/17 History Allergies Allergy/AdvReac Type Severity Reaction Status Date / Time latex Allergy Mild Swelling Verified 02/06/17 15:58 Penicillins Allergy Rash/Hives Verified 02/06/17 15:58 Physical Exam Vitals: Vital Signs Temp Pulse Pulse Resp BP Pulse Ox 02/06/17 17:59 97.5 F L 105 H 20 132/75 95 02/06/17 17:13 97.4 F L 108 H 24 118/73 96 02/06/17 16:42 100 17 118/65 96 02/06/17 16:38 104 H 18 123/68 100 02/06/17 14:49 116 H 23 02/06/17 14:30 97.0 F L 116 H 20 138/75 88 L Intake and Output 02/06/17 02/06/17 02/06/17 06:59 14:59 22:59 Other: Voiding Method Indwelling Catheter Weight 65.771 kg Patient Weight 02/07/17 06:59 Weight 65.771 kg - Constitutional General appearance: average body habitus, cooperative, no acute distress - EENT Eyes: anicteric sclerae, EOMI, PERRLA, dentition normal, normal appearance ENT: NA/AT, normal oropharynx - Neck Neck: no lymphadenopathy, normal ROM, no other, no rigidity, no stridor, no thyromegaly - Respiratory Respiratory: bilateral: CTA, diminished, rales, wheezing, negative: dullness, rhonchi - Cardiovascular Rhythm: regular Heart sounds: normal: S1, S2 Abnormal Heart Sounds: no systolic murmur, no diastolic murmur, no rub, no S3 Gallop, no S4 Gallop, no click, no other - Gastrointestinal General gastrointestinal: normal bowel sounds, soft - Integumentary Integumentary: decreased turgor, normal - Neurologic Neurologic: CNII-XII intact - Musculoskeletal Musculoskeletal: generalized weakness, strength equal bilaterally - Psychiatric Psychiatric: A&O x's 3, appropriate affect, intact judgment & insight Results CBC & Chem 7: 02/06/17 14:30 02/06/17 14:30 Labs: Abnormal Lab Results - Last 24 Hours (Table) 02/06/17 02/06/17 02/06/17 Range/Units 14:30 14:30 14:30 RBC 3.54 L (3.80-5.40) m/uL Hgb 10.7 L (11.4-16.0) gm/dL Hct 32.8 L (34.0-46.0) % RDW 17.0 H (11.5-15.5) % Lymphocytes # 0.3 L (1.0-4.8) k/uL Sodium 115 L* (137-145) mmol/L Chloride 72 L* (98-107) mmol/L Carbon Dioxide 32 H (22-30) mmol/L BUN 32 H (7-17) mg/dL Glucose 271 H (74-99) mg/dL Magnesium 1.3 L (1.6-2.3) mg/dL ALT 69 H (9-52) U/L Alkaline Phosphatase 287 H (38-126) U/L CK-MB (CK-2) 4.0 H* (0.0-2.4) ng/mL Troponin I 0.056 H* (0.000-0.034) ng/mL Total Protein 4.9 L (6.3-8.2) g/dL Albumin 2.7 L (3.5-5.0) g/dL Stool Occult Blood (Negative) 02/06/17 Range/Units 16:29 RBC (3.80-5.40) m/uL Hgb (11.4-16.0) gm/dL Hct (34.0-46.0) % RDW (11.5-15.5) % Lymphocytes # (1.0-4.8) k/uL Sodium (137-145) mmol/L Chloride (98-107) mmol/L Carbon Dioxide (22-30) mmol/L BUN (7-17) mg/dL Glucose (74-99) mg/dL Magnesium (1.6-2.3) mg/dL ALT (9-52) U/L Alkaline Phosphatase (38-126) U/L CK-MB (CK-2) (0.0-2.4) ng/mL Troponin I (0.000-0.034) ng/mL Total Protein (6.3-8.2) g/dL Albumin (3.5-5.0) g/dL Stool Occult Blood Positive H (Negative) Thrombosis Risk Factor Assmnt - DVT/VTE Prophylaxis DVT/VTE Prophylaxis: Pharmacologic Prophylaxis ordered - Choose All That Apply Each Factor Represents 1 point: Age 41-60 years, Heart failure (<1month), Sepsis (< 1month) Each Risk Factor Represents 2 Points: Patient confined to bed Thrombosis Risk Factor Assessment Total Risk Factor Score: 5 Thrombosis Risk Factor Assessment Level: High Risk Assessment and Plan Plan: 1. Acute hypoxic respiratory failure, acute pneumonia, acquired against aspiration acute exacerbation of COPD, acute diastolic heart failure complicated by iimmununosuppression from methotrexate , ICU management secondary to critical hyponatremia, provide nebulized albuterol Atrovent treatments, IV hydrocortisone 100 mg every 8 hours, 3% saline at 50 mL an hour, meropenem 50 mg daily 8 hours and IV vancomycin Consult with Dr. Concepcion territory account manager Dr. Downing from infectious disease and Dr. Brian nephrology. We'll evaluate for d-dimer, patient would be considered high risk for thromboembolism , CTA of the chest will be performed if elevated, as the patient's dehydrated, we would hold off IV Lasix and would be provided on a when necessary basis depending on clinical symptoms 2. Critical hyponatremia secondary to hypovolemic hyponatremia from diminished oral intake IV 3% saline as provided to 50 mL an hour lites checked every 6 hours 2. Multiple pressure ulcers different locations in the extremities upper and lower extremity and sacrum, stages 2-3, all noted with pictures of present prior to admission as well as with deep fistulous formation, and axilla, status post I&D follows at the wound care center. Wound jail [facility]. She follows in the wound center with Dr. Downing. Consult with Dr. Downing. Patient continued on meropenem IV vancomycin 3. Rheumatoid arthritis is chronically on methotrexate and prednisone 10 mg 3 times a day. Patient follows with Dr. Preston as an outpatient methotrexate on hold, stress dose of hydrocortisone secondary to chronic prednisone, 4. Diabetes mellitus type 2 on metformin, hold glimepiride secondary to diminished appetite, and Humalog scale recent A1c 7.4, 5. Acute lower GI bleed IBS with diarrhea she is on Lomotil 2 mg 4 times a day when necessary no changes were made. will obtain C. diff toxin evaluation stool WBC culture moment monitor for blood losses, might need general surgery evaluation should the bleeding continue, and if noticeable blood losses are noted. 6. Impaired debility with falls at home, evaluate for rhabdomyolysis, as the patient had fallen without assistance over 16 hours community ambulation would be will wheelchair transfers at home, walker outside the home 7. Chronic pain related to RA and musculoskeletal deformities including spinal stenosis. Continue Percocet, Flexeril. 8. CKD stage 1 monitor for rhabdomyolysis regarding falls, monitor for hypotension 9. Chronic anemia secondary to chronic illness, acute blood loss is expected secondary to recent GI losses from one day prior to admission, none currently 9. Hypertension on Micardis 40 mg daily, Lasix, 10. DVT prophylaxis with Lovenox 11. GI prophylaxis. Protonix. Discharge plan: Social work consult for subacute rehab Patient will be admitted to the hospital for a minimum of 2 night stay.
[2017-02-06 20:59] LABS: Appearance,Urine Clear (Clear); Bacteria,Urine Rare /hpf; Bilirubin,Urine Negative (Negative); Glucose,Urine (UA) 2+ (Negative); Ketones,Urine Negative (Negative); Leukocyte Esterase,Urine Trace (Negative); Mucus,Urine Rare /hpf; Nitrite,Urine Negative (Negative); PH, Urine 6.5 (5.0-8.0); Particle Count 3941; Protein,Urine Trace (Negative); RBC,Urine 9 /hpf (0-5); Specific Gravity,Urine 1.012 (1.001-1.035); UA Billing (MACRO vs. MICRO) MICRO; Urobilinogen,Urine <2.0 mg/dL (<2.0); WBC,Urine 4 /hpf (0-5)
[2017-02-06 21:00] LABS: ALT 56 U/L (9-52); AST 27 U/L (14-36); Alkaline Phosphatase 228 U/L (38-126); Anion Gap 5 mmol/L; Blood Urea Nitrogen 26 mg/dL (7-17); Carbon Dioxide 34 mmol/L (22-30); Glucose 217 mg/dL (74-99); Non-African American GFR(MDRD) >60 (>60 ml/min/1.73 sqM); Potassium 3.5 mmol/L (3.5-5.1); Total Bilirubin 0.3 mg/dL (0.2-1.3); Total Protein 4.1 g/dL (6.3-8.2)
[2017-02-06 21:01] LABS: Chloride 78 mmol/L (98-107); Sodium 117 mmol/L (137-145)
[2017-02-06 21:15] LABS: Creatine Kinase MB 2.7 ng/mL (0.0-2.4); Troponin I 0.05 ng/mL (0.000-0.034)
[2017-02-06] MEDS: HYDROmorphone 1 MG/ML 1 ML SYRINGE IVP PRN (21:28)
[2017-02-06] MEDS: METOPROLOL TARTRATE 50 MG TAB PO SCH (21:28)
[2017-02-06 21:48] LABS: Vitamin B12 >1000 pg/mL (239-931)
[2017-02-06 22:17] LABS: CH 31.5; CHCM 33.8; HCT 27.7 % (34.0-46.0); HDW 3.08; MCH 30.7 pg (25.0-35.0); MCHC 32.8 g/dL (31.0-37.0); MCV 93.7 fL (80.0-100.0); Mean Platelet Volume 7.1; RBC 2.95 m/uL (3.80-5.40); RDW 15.9 % (11.5-15.5); WBC 3.6 k/uL (3.8-10.6)
[2017-02-06 22:19] LABS: HGB 9.1 gm/dL (11.4-16.0)
[2017-02-06] MEDS: MEROPENEM 500 MG in SODIUM CHLORIDE 0.9% 50 ML IVPB SCH (23:05)
[2017-02-06] MEDS: HYDROCORTISONE SUCCINATE 100 MG/2 ML VIAL IV SCH (23:05)
[2017-02-06] MEDS ORDERED: Magnesium Replacement Protocol 1 EACH MISC MISCELLANE PRN (23:21)
[2017-02-06] MEDS: MAGNESIUM SULFATE-D5W PMX 1 GM in DEXTROSE/WATER 1 100ML.BAG IVPB SCH (23:59)
[2017-02-07] MEDS: MAGNESIUM SULFATE-D5W PMX 1 GM in DEXTROSE/WATER 1 100ML.BAG IVPB SCH ×2 (01:00→02:31)
[2017-02-07] MEDS: HYDROmorphone 1 MG/ML 1 ML SYRINGE IVP PRN ×6 (02:31→23:32)
[2017-02-07] MEDS: SODIUM CHLORIDE 0.9% 1,000 ML IV SCH ×2 (02:32→17:36)
[2017-02-07 03:19] LABS: Creatine Kinase MB 2.3 ng/mL (0.0-2.4)
[2017-02-07 03:29] LABS: Troponin I 0.035 ng/mL (0.000-0.034)
[2017-02-07] MEDS: IPRATROPIUM-ALBUTEROL 3 ML NEB INHALATION SCH ×5 (03:57→19:24)
[2017-02-07 04:44] LABS: Anisocytosis Slight; Basophils % (A) 0 %; CH 31.9; CHCM 33.6; Eosinophils % (A) 0 %; HDW 3.09; HGB 8.9 gm/dL (11.4-16.0); Luc # (Auto) 0.02; Luc % (Auto) 1; Lymphocytes # (A) 0.2 k/uL (1.0-4.8); Lymphocytes % (A) 6 %; MCH 30.5 pg (25.0-35.0); MCHC 31.9 g/dL (31.0-37.0); MCV 95.7 fL (80.0-100.0); Mean Platelet Volume 8.8; Monocytes # (A) 0.1 k/uL (0-1.0); Monocytes % (A) 4 %; Neutrophils # (A) 3.2 k/uL (1.3-7.7); Neutrophils % (A) 90 %; RBC 2.93 m/uL (3.80-5.40); RDW 16.6 % (11.5-15.5); WBC 3.6 k/uL (3.8-10.6); WBC (Perox) 3.97
[2017-02-07 04:50] LABS: ALT 53 U/L (9-52); AST 39 U/L (14-36); Alkaline Phosphatase 203 U/L (38-126); Anion Gap 7 mmol/L; Bilirubin, Delta 0.1 mg/dL (0.0-0.2); Blood Urea Nitrogen 24 mg/dL (7-17); Calcium 8.1 mg/dL (8.4-10.2); Carbon Dioxide 33 mmol/L (22-30); Chloride 82 mmol/L (98-107); Creatine Kinase 59 U/L (30-135); Glucose 164 mg/dL (74-99); Magnesium 2.7 mg/dL (1.6-2.3); Non-African American GFR(MDRD) >60 (>60 ml/min/1.73 sqM); Potassium 3.7 mmol/L (3.5-5.1); Sodium 122 mmol/L (137-145); Total Bilirubin 0.2 mg/dL (0.2-1.3); Total Protein 4.6 g/dL (6.3-8.2)
[2017-02-07 05:00] LABS: Glucose,Whole Blood 183 mg/dL (75-99)
[2017-02-07] MEDS: SODIUM CHLORIDE 3%(HYPERTONIC) 500 ML IV SCH ×2 (05:53→17:48)
[2017-02-07 07:17] LABS: Magnesium 2.4 mg/dL (1.6-2.3)
[2017-02-07] MEDS ORDERED: PANTOPRAZOLE 40 MG TABLET PO SCH (07:30)
--- NOTE | 2017-02-07 07:34 | XR ---
EXAMINATION TYPE: XR chest 1V DATE OF EXAM: 02/07/2017 COMPARISON: 01/29/2017 HISTORY: Pneumonia TECHNIQUE: Single frontal view of the chest is obtained. FINDINGS: Confluent airspace disease is seen within the right midlung, left upper lung, and right silverman prahilar region. Right suprahilar opacity has improved in the interim. Chronic deformity of the thora cic cage is noted. At least moderate pulmonary vascular congestion is seen. Patient's chin obscures t he lung apex. Cardiomediastinal silhouette is poorly defined but appears enlarged on the prior exam. Nonvisualization of the right costophrenic angle may relate to small pleural effusion or airspace dis ease. IMPRESSION: Multifocal airspace disease, more confluent in the right midlung and improved in the rig ht suprahilar region and persistent in the left upper lung. Finding may relate to multifocal pneumoni a with component of shifting atelectasis and/or confluent pulmonary edema given there is at least mil d pulmonary vascular congestion and small pleural effusion on the right. Continued follow-up to kajal ution is recommended to ensure no underlying pulmonary mass
[2017-02-07] MEDS: SYMBICORT 80-4.5 MCG INHALER INHALATION SCH ×2 (08:14→19:24)
[2017-02-07 08:27] LABS: Glucose,Whole Blood 111 mg/dL (75-99)
[2017-02-07] MEDS: ENOXAPARIN 40 MG/0.4 ML SYRINGE SQ SCH (08:29)
[2017-02-07] MEDS: METOPROLOL TARTRATE 50 MG TAB PO SCH ×2 (08:30→20:41)
[2017-02-07] MEDS: metFORMIN 500 MG TAB PO SCH ×3 (08:30→17:38)
[2017-02-07] MEDS: HYDROCORTISONE SUCCINATE 100 MG/2 ML VIAL IV SCH ×3 (08:30→23:33)
[2017-02-07] MEDS: PANTOPRAZOLE 40 MG/10 ML VIAL IV SCH (08:30)
[2017-02-07] MEDS: ASPIRIN 81 MG PO SCH (08:30)
[2017-02-07] MEDS: FOLIC ACID 1 MG TAB PO SCH (08:30)
[2017-02-07] MEDS: MEROPENEM 500 MG in SODIUM CHLORIDE 0.9% 50 ML IVPB SCH ×3 (08:32→23:32)
[2017-02-07] MEDS ORDERED: POTASSIUM CHLORIDE ER 20 MEQ TAB.ER PO SCH (09:00)
[2017-02-07] MEDS ORDERED: METOLAZONE 2.5 MG TAB PO SCH (09:00)
[2017-02-07 09:53] VITALS: BMI 25.7
--- NOTE | 2017-02-07 11:03 | P.NPCON ---
History of Present Illness - Reason for Consult hyponatremia - History of Present Illness Reason for consultation: Hyponatremia History of present illness: Patient is a 51-year-old female seen in renal consultation for hyponatremia. Her sodium level was 1:15 on admission and she was started on 3% saline. Her sodium level this morning is up to 123. She is off 3% saline and is currently maintained on normal saline at 75 mL an hour. Patient has history of rheumatoid arthritis and is maintained on prednisone as well as methotrexate as an outpatient. She is also noted to have sores on her lower extremity. Apparently the patient fell at home and was down for a few hours. There is no evidence of rhabdomyolysis. She states the last 2 or 3 days her oral intake has been poor but she has been drinking quite a bit of fluids. She also has history of CHF and is maintained on Lasix as well as metolazone at home which she's been taking. She also takes NSAIDs as needed for pain. Her creatinine is 0.57 from this morning. She denies any prior history of kidney disease. She did have diarrhea prior to admission but resolved now. She had some of her breakfast this morning. She is also currently being treated with IV antibiotics for pneumonia. Vital signs are stable. General: The patient appeared well nourished and normally developed. HEENT: Head exam is unremarkable. Neck is without jugular venous distension. LUNGS: Lungs are clear to auscultation and percussion. Breath sounds decreased. HEART: Rate and Rhythm are regular. First and second heart sounds normal. No murmurs, rubs or gallops. ABDOMEN: Abdominal exam reveals normal bowel sounds. Non-tender and non- distended. No evidence of peritonitis. EXTREMITITES: Trace edema. Tender to touch. Erythema noted. Past Medical History Past Medical History: Diabetes Mellitus, Hyperlipidemia, Hypertension, Rheumatoid Arthritis (RA), Hypertension, Respiratory Disorder, Rheumatoid Arthritis (RA) Additional Past Medical History / Comment(s): sjogrens, raynauds, urinary urgency and incontinence, bowel incontinence, wound rt foot plantar surface, immunosuppressed, ventral hernia, rheumatic lung, rheumatic fever as a child, varicose veins, current steroid,pm>2yrs, severe cervical stenosis-bilat. neuro deficits in arms, PCN resistant, pleural pain, bleeding peptic ulcer,coffee ground emesis,hemmroids, heart rate usually runs 100-120 History of Any Multi-Drug Resistant Organisms: None Reported Past Surgical History: Adenoidectomy, Heart Catheterization, Hernia Repair, Orthopedic Surgery, Tonsillectomy Additional Past Surgical History / Comment(s): closed reduction rt elbow as a child,laser vein surgery lt leg. Past Anesthesia/Blood Transfusion Reactions: Previous Problems w/ Anesthesia Additional Past Anesthesia/Blood Transfusion Reaction / Comment(s): pt states experienced swelling of throat with anesthesia as a child with tonsil removal- no further swelling problems with anesthesia,Severe Cervical Stenosis, family hx of blood transfusion reaction with mother and brother-rx rash,hives Past Psychological History: Anxiety, Depression Smoking Status: Current every day smoker Past Alcohol Use History: Rare - Past Family History Brother(s) Family Medical History: Coronary Artery Disease (CAD) Mother Family Medical History: Diabetes Mellitus Additional Family Medical History / Comment(s): with Castro's Disease Father Family Medical History: Coronary Artery Disease (CAD), Diabetes Mellitus, Hyperlipidemia, Vascular Disorder Additional Family Medical History / Comment(s): at age 89 Medications and Allergies Home Medications Medication Instructions Recorded Confirmed Type Ca/D3/Mag/Zinc/Crow/Jorge/Mgbor 1 tab PO BID 01/03/15 02/06/17 History [Caltrate 600+D3+Min Chew Tab] Folic Acid 2 mg PO DAILY 01/03/15 02/06/17 History Methotrexate Sodium [Methotrexate] 25 mg PO TH 01/03/15 02/06/17 History Omeprazole [PriLOSEC] 40 mg PO DAILY 01/03/15 02/06/17 History predniSONE 10 mg PO TID 01/03/15 02/06/17 History Cyclobenzaprine [Flexeril] 10 mg PO Q8H PRN 03/07/15 02/06/17 History Pyridoxine [Vitamin B-6] 50 mg PO TID 03/06/16 02/06/17 History Triamcinolone 0.5% Cream [Kenalog 1 applic TOPICAL BID 03/06/16 02/06/17 History 0.5% Cream] Albuterol Inhaler [Ventolin Hfa 2 puff INHALATION RT-Q6H PRN 05/09/16 02/06/17 History Inhaler] Ascorbic Acid [Vitamin C] 500 mg PO DAILY 05/09/16 02/06/17 History Loperamide HCl [Imodium A-D] 2 mg PO QID PRN 05/09/16 02/06/17 History Raymond-3 Acid Ethyl Esters [Lovaza] 1 gm PO QID 05/09/16 02/06/17 History Telmisartan [Micardis] 40 mg PO DAILY 05/09/16 02/06/17 History hydrOXYzine PAMOATE [Vistaril] 25 mg PO Q6HR PRN 05/09/16 02/06/17 History metFORMIN HCL [Glucophage] 500 mg PO BID-W/MEALS tab 05/14/16 02/06/17 Rx Furosemide [Lasix] 40 mg PO DAILY #30 tablet 06/05/16 02/06/17 Rx Ipratropium-Albuterol Nebulize 3 ml INHALATION RT-QID #120 06/05/16 02/06/17 Rx [Duoneb 0.5 mg-3 mg/3 ml Soln] ampul.neb Nicotine 21Mg/24Hr Patch [Habitrol] 1 patch TRANSDERM DAILY #30 patch 06/05/16 02/06/17 Rx Glimepiride [Amaryl] 4 mg PO BID 07/02/16 02/06/17 History Metolazone [Zaroxolyn] 2.5 mg PO DAILY 07/02/16 02/06/17 History Ondansetron [Zofran] 4 mg PO Q8HR PRN 07/02/16 02/06/17 History Fluticasone/Salmeterol [Advair 1 puff INHALATION RT-BID 12/31/16 02/06/17 History 250-50 Diskus] Metoprolol Tartrate [Lopressor] 50 mg PO BID 12/31/16 02/06/17 History Aspirin EC [Ecotrin Low Dose] 81 mg PO DAILY 02/06/17 02/06/17 History Celecoxib [CeleBREX] 200 mg PO BID PRN 02/06/17 02/06/17 History Diphenoxylate HCl/Atropine 1 tab PO TID PRN 02/06/17 02/06/17 History [Lomotil] HYDROcodone/APAP 10-325MG [[place] 1 tab PO Q6H PRN 02/06/17 02/06/17 History 10-325] Esejmjzc-Hxismqjyn-Xp Otic 4 drops BOTH EARS BID 02/06/17 02/06/17 History [Cortisporin Otic Soln] Nystatin 100,000 Unit/gm Powd 1 applic TOPICAL DAILY 02/06/17 02/06/17 History [Mycostatin Powder] Potassium 99 mg PO DAILY 02/06/17 02/06/17 History Potassium Chloride ER [K-Dur 20] 20 meq PO DAILY 02/06/17 02/06/17 History Allergies Allergy/AdvReac Type Severity Reaction Status Date / Time latex Allergy Mild Swelling Verified 02/06/17 15:58 Penicillins Allergy Rash/Hives Verified 02/06/17 15:58 Physical Exam Vitals: Vital Signs Temp Pulse Pulse Resp BP BP Pulse Ox 02/07/17 08:34 94 02/07/17 08:16 92 96 02/07/17 07:00 104 H 28 H 113/65 92 L 02/07/17 06:00 102 H 18 97/68 60 L 02/07/17 05:00 90 32 H 119/64 91 L 02/07/17 04:12 82 02/07/17 04:00 73 14 104/58 97 02/07/17 03:57 74 02/07/17 03:00 73 15 107/60 95 02/07/17 02:00 73 9 L 100/56 98 02/07/17 01:00 77 12 93/53 98 02/07/17 00:09 79 11 L 97/58 98 02/07/17 00:00 89 30 H 109/63 96 02/06/17 23:40 90 40 H 116/69 93 L 02/06/17 23:28 82 02/06/17 23:20 77 18 117/70 100 02/06/17 23:17 82 02/06/17 22:40 89 108/61 93 L 02/06/17 22:00 98 9 L 108/61 96 02/06/17 21:00 98.2 F 106 H 20 123/68 94 L 02/06/17 20:47 101 H 02/06/17 20:35 101 H 02/06/17 19:00 111 H 137/63 88 L 02/06/17 18:02 98.2 F 101 H 19 123/68 97 02/06/17 17:59 97.5 F L 105 H 20 132/75 95 02/06/17 17:13 97.4 F L 108 H 24 118/73 96 02/06/17 16:42 100 17 118/65 96 02/06/17 16:38 104 H 18 123/68 100 02/06/17 14:49 116 H 23 02/06/17 14:30 97.0 F L 116 H 20 138/75 88 L Intake and Output 02/06/17 02/07/17 02/07/17 22:59 06:59 14:59 Intake Total 200 625 175 Output Total 190 495 90 Balance 10 130 85 Intake: IV 200 625 175 Meropenem 500 mg In 100 Sodium Chloride 0.9% 50 ml @ 100 mls/hr IVPB Q8HR [facility] Rx#:[id number] Sodium Chloride 0.9% 1, 525 75 000 ml @ 75 mls/hr IV . [id number] [facility] Rx#:[id number] Sodium Chloride 3%( 200 100 Hypertonic) 500 ml @ 50 mls/hr IV .Q10H [facility] Rx#: [id number] Output: Urine 190 495 90 Other: Voiding Method Indwelling Catheter Indwelling Catheter Weight 65.7 kg 63.9 kg 63.9 kg Patient Weight 02/08/17 06:59 Weight 63.9 kg Results - Lab Results Most recent lab results Calcium 8.1 mg/dL (8.4-10.2) L 02/07/17 04:28 Phosphorus 4.0 mg/dL (2.5-4.5) 02/07/17 04:28 Magnesium 2.4 mg/dL (1.6-2.3) H 02/07/17 06:39 02/07/17 04:24 02/07/17 08:30 Assessment and Plan Plan: Assessment: #1. Hypovolemic hyponatremia secondary to poor oral intake and further worsened with the use of diuretics. Patient was taking Lasix as well as metolazone at home. She also admits to drinking quite a bit amount of soda as well as water patient further worsened her hyponatremia. Her urine sodium was on the lower end at 27 with urine osmolality of 443. Sodium level was 115 on admission and is up to 123 this morning. No evidence of hypothyroidism. She is currently also receiving IV hydrocortisone. #2. Pneumonia in the setting of immunosuppression currently maintained on IV antibiotics. #3. Diastolic CHF. Appears compensated at this time. #4. Rheumatoid arthritis maintained on prednisone and methotrexate. #5. Multiple pressure ulcers. Infectious disease has been consulted. #6. Anemia. Question of GI bleed. Rule out iron deficiency. Plan: Continue with normal saline to be run at 75 mL an hour. Repeat sodium level at noon today. I will put her on a 1.5 L fluid restriction. Encouraged oral intake. She does have history of CHF so need to be cautious with IV fluids. Will decrease the rate later today. Follow-up cultures. Antibiotics per infectious disease recommendations. Check iron studies. Avoid rapid correction of sodium. Thank you for the consultation. I will continue to follow the patient with you during her hospital stay.
--- NOTE | 2017-02-07 12:24 | ECHOF ---
Referral Reason:dysp[simon, pul htn, ef MEASUREMENTS -------- HEIGHT: 157.5 cm WEIGHT: 65.3 kg BP: 97/68 RVIDd: 3.2 cm (< 3.3) IVSd: 1.4 cm (0.6 - 1.1) LVIDd: 5.0 cm (3.9 - 5.3) LVPWd: 1.5 cm (0.6 - 1.1) IVSs: 2.2 cm LVIDs: 3.3 cm LVPWs: 1.8 cm LA Diam: 3.3 cm (2.7 - 3.8) LAESV Index (A-L): 16.34 ml/m Ao Diam: 3.5 cm (2.0 - 3.7) AV Cusp: 2.0 cm (1.5 - 2.6) MV EXCURSION: 21.866 mm (> 18.000) MV EF SLOPE: 219 mm/s (70 - 150) MV E Dontae: 0.69 m/s MV DecT: 140 ms MV A Dontae: 0.56 m/s MV E/A Ratio: 1.24 RAP: 5.00 mmHg RVSP: 36.61 mmHg FINDINGS -------- Sinus rhythm. This was a technically adequate study. The left ventricular size is normal. There is moderate concentric left ventricular hypertrophy. Overall left ventricular systolic function is normal with, an EF between 60 - 65 %. The right ventricle is normal in size. Normal LA size by volume 22+/-6 ml/m2. The right atrium is normal in size. The aortic valve is trileaflet and appears structurally normal. The mitral valve is normal. The tricuspid valve appears structurally normal. There is no pulmonic regurgitation present. The aortic root size is normal. Normal inferior vena cava with normal inspiratory collapse consistent with estimated right atrial pressure of 5 mmHg. There is no pericardial effusion. CONCLUSIONS -------- 1. Sinus rhythm. 2. The mitral valve is normal. 3. The tricuspid valve appears structurally normal. 4. There is no pulmonic regurgitation present. 5. The aortic root size is normal. 6. Normal inferior vena cava with normal inspiratory collapse consistent with estimated right atrial pressure of 5 mmHg. 7. There is no pericardial effusion. 8. This was a technically adequate study. 9. The left ventricular size is normal. 10. There is moderate concentric left ventricular hypertrophy. 11. Overall left ventricular systolic function is normal with, an EF between 60 - 65 %. 12. The right ventricle is normal in size. 13. Normal LA size by volume 22+/-6 ml/m2. 14. The right atrium is normal in size. 15. The aortic valve is trileaflet and appears structurally normal. [employer] SPECIALIST: Renay Wray RDCS
[2017-02-07 12:53] LABS: Glucose,Whole Blood 79 mg/dL (75-99)
[2017-02-07] MEDS: HYDROcodone/APAP 10-325MG 1 EACH TAB PO PRN ×2 (14:06→20:41)
[2017-02-07] MEDS: NICOTINE 21MG/24HR PATCH TRANSDERM SCH (14:06)
[2017-02-07] MEDS: LOSARTAN 50 MG TAB PO SCH (14:06)
--- NOTE | 2017-02-07 15:56 | P.PN ---
Subjective This is a 50-year-old pleasant female patient of Dr. Spring and Dr. Downing. She has underlying history of rheumatid arthritis, Sjogren's, Raynaud's, diabetes mellitus type 2, hyperlipidemia, hypertension, rheumatoid lung, chronic immunosuppression, cervical stenosis with upper extremity weakness, impaired balance impaired gait. She presented hospital eyes she has gotten so weak, and had gone to the bathroom and had sleep from the wheelchair, has been down for unknown length of time, however it's been quite a while most likely 4-5 hr, she also reports having shortness of breath as her last nebulized treatment was 16 hours or so s she also has had diminished appetite, chronic cough with wheezing , weight loss of 100 pounds over the past one year,, patient denies any fever, she has chronic IBS with diarrhea for quite Lomotil, however the day prior to admission, patient had specks of blood in the stool, patient does not have any [employer] alert and was sent in [facility] through EMS transportation. Patient resides at home alone, multiple stages off ulcers are noted in both extremities sacrum, groin, eczema bilateral, elbows bilateral, blisters in the toes. Patient denies any head concussion. Her last dose for methotrexate was this Friday 2 days prior to admission provided by Dr. Preston In the emergency room, hemoglobin was noted 10.7 from a previous of 12 in June 2016, Dr. Downing count 4.5, serum sodium was 115 from a previous of 130 weeks ago creatinine 0.7, BUN elevated at 32, troponin slightly elevated at 0.056 albumin of 2.7, Hemoccult-positive chest x-ray shows suboptimal examination biapical airspace disease and probably mild pulmonary vascular congestion, EKG shows sinus tachycardia 110, no acute ST-T wave changes, x-rays of the abdomen shows gaseous filled loops of small and large bowel mainly related to ileus, no large bowel to suggest obstruction no perforation.. Diaz catheter was placed the day prior to admission from home care nursing visit Patient was subsequently admitted to ICU with IV saline 3% running at 50 mL an hour consultations with Dr. Concepcion from critical medicine, Dr. Downing from infectious disease, Dr. Brian from nephrology, patient was started on IV vancomycin and IV meropenem with nebulized treatments and IV hydrocortisone 02/07: Patient remains in intensive care unit. Sodium is at 123 she has not had any bowel movements and she has been admitted. She is requesting her hydrocodone P resumed. Echocardiogram has been obtained which shows ejection fraction of 60-65%, moderate concentric left ventricular hypertrophy. Patient has been seen by Dr. Pizarro with recommendations to continue IV fluids at 75 mL per hour. Repeat sodium at noon and continue 1.[address] Downing is on consult and patient is currently on IV antibiotics of meropenem and vancomycin. Objective - Vital Signs Vital signs: Vital Signs Temp 98 F 02/07/17 08:00 Pulse 88 02/07/17 11:43 Resp 11 L 02/07/17 10:00 BP 111/68 02/07/17 10:00 Pulse Ox 97 02/07/17 10:00 Intake & Output 02/06/17 02/07/17 02/07/17 18:59 06:59 18:59 Intake Total 825 325 Output Total 685 165 Balance 140 160 Weight 65.7 kg 63.9 kg 63.9 kg Intake: IV 825 325 Meropenem 500 mg In 100 Sodium Chloride 0.9% 50 ml @ 100 mls/hr IVPB Q8HR [facility] Rx#:[id number] Sodium Chloride 0.9% 1, 525 225 000 ml @ 75 mls/hr IV . [id number] [facility] Rx#:[id number] Sodium Chloride 3%( 300 Hypertonic) 500 ml @ 50 mls/hr IV .Q10H [facility] Rx#: [id number] Output: Urine 685 165 Other: Voiding Method Indwelling Catheter Indwelling Catheter Indwelling Catheter - Exam General appearance: average body habitus, cooperative, no acute distress - EENT Eyes: anicteric sclerae, EOMI, PERRLA, dentition normal, normal appearance ENT: NA/AT, normal oropharynx - Neck Neck: no lymphadenopathy, normal ROM, no other, no rigidity, no stridor, no thyromegaly - Respiratory Respiratory: bilateral: CTA, diminished, rales, wheezing, negative: dullness, rhonchi - Cardiovascular Rhythm: regular Heart sounds: normal: S1, S2 Abnormal Heart Sounds: no systolic murmur, no diastolic murmur, no rub, no S3 Gallop, no S4 Gallop, no click, no other - Gastrointestinal General gastrointestinal: normal bowel sounds, soft - Integumentary Integumentary: decreased turgor, normal - Neurologic Neurologic: CNII-XII intact - Musculoskeletal Musculoskeletal: generalized weakness, strength equal bilaterally - Psychiatric Psychiatric: A&O x's 3, appropriate affect, intact judgment & insight - Labs CBC & Chem 7: 02/07/17 04:24 02/07/17 12:34 Labs: Abnormal Lab Results - Last 24 Hours (Table) 02/06/17 02/06/17 02/06/17 Range/Units 14:30 14:30 14:30 WBC (3.8-10.6) k/uL RBC 3.54 L (3.80-5.40) m/uL Hgb 10.7 L (11.4-16.0) gm/dL Hct 32.8 L (34.0-46.0) % RDW 17.0 H (11.5-15.5) % Lymphocytes # 0.3 L (1.0-4.8) k/uL Sodium 115 L* (137-145) mmol/L Chloride 72 L* (98-107) mmol/L Carbon Dioxide 32 H (22-30) mmol/L BUN 32 H (7-17) mg/dL Glucose 271 H (74-99) mg/dL POC Glucose (mg/dL) (75-99) mg/dL Osmolality (280-301) mosm/kg Calcium (8.4-10.2) mg/dL Magnesium 1.3 L (1.6-2.3) mg/dL AST (14-36) U/L ALT 69 H (9-52) U/L Alkaline Phosphatase 287 H (38-126) U/L CK-MB (CK-2) 4.0 H* (0.0-2.4) ng/mL Troponin I 0.056 H* (0.000-0.034) ng/mL Total Protein 4.9 L (6.3-8.2) g/dL Albumin 2.7 L (3.5-5.0) g/dL Vitamin B12 (239-931) pg/mL TSH (0.465-4.680) mIU/L Urine Protein (Negative) Urine Glucose (UA) (Negative) Urine Blood (Negative) Ur Leukocyte Esterase (Negative) Urine RBC (0-5) /hpf Urine Bacteria (None) /hpf Hyaline Casts (0-2) /lpf Urine Mucus (None) /hpf Ur Random Sodium (30-90) mmol/L Stool Occult Blood (Negative) 02/06/17 02/06/17 02/06/17 Range/Units 16:29 18:29 20:29 WBC (3.8-10.6) k/uL RBC (3.80-5.40) m/uL Hgb (11.4-16.0) gm/dL Hct (34.0-46.0) % RDW (11.5-15.5) % Lymphocytes # (1.0-4.8) k/uL Sodium 117 L* (137-145) mmol/L Chloride 78 L* (98-107) mmol/L Carbon Dioxide 34 H (22-30) mmol/L BUN 26 H (7-17) mg/dL Glucose 217 H (74-99) mg/dL POC Glucose (mg/dL) 267 H (75-99) mg/dL Osmolality 262 L (280-301) mosm/kg Calcium 8.0 L (8.4-10.2) mg/dL Magnesium (1.6-2.3) mg/dL AST (14-36) U/L ALT 56 H (9-52) U/L Alkaline Phosphatase 228 H (38-126) U/L CK-MB (CK-2) (0.0-2.4) ng/mL Troponin I (0.000-0.034) ng/mL Total Protein 4.1 L (6.3-8.2) g/dL Albumin 2.2 L (3.5-5.0) g/dL Vitamin B12 >1000 H (239-931) pg/mL TSH (0.465-4.680) mIU/L Urine Protein (Negative) Urine Glucose (UA) (Negative) Urine Blood (Negative) Ur Leukocyte Esterase (Negative) Urine RBC (0-5) /hpf Urine Bacteria (None) /hpf Hyaline Casts (0-2) /lpf Urine Mucus (None) /hpf Ur Random Sodium (30-90) mmol/L Stool Occult Blood Positive H (Negative) 02/06/17 02/06/17 02/06/17 Range/Units 20:29 20:29 20:44 WBC 3.6 L (3.8-10.6) k/uL RBC 2.95 L (3.80-5.40) m/uL Hgb 9.1 L D (11.4-16.0) gm/dL Hct 27.7 L (34.0-46.0) % RDW 15.9 H (11.5-15.5) % Lymphocytes # (1.0-4.8) k/uL Sodium (137-145) mmol/L Chloride (98-107) mmol/L Carbon Dioxide (22-30) mmol/L BUN (7-17) mg/dL Glucose (74-99) mg/dL POC Glucose (mg/dL) (75-99) mg/dL Osmolality (280-301) mosm/kg Calcium (8.4-10.2) mg/dL Magnesium (1.6-2.3) mg/dL AST (14-36) U/L ALT (9-52) U/L Alkaline Phosphatase (38-126) U/L CK-MB (CK-2) 2.7 H* (0.0-2.4) ng/mL Troponin I 0.050 H* (0.000-0.034) ng/mL Total Protein (6.3-8.2) g/dL Albumin (3.5-5.0) g/dL Vitamin B12 (239-931) pg/mL TSH (0.465-4.680) mIU/L Urine Protein (Negative) Urine Glucose (UA) (Negative) Urine Blood (Negative) Ur Leukocyte Esterase (Negative) Urine RBC (0-5) /hpf Urine Bacteria (None) /hpf Hyaline Casts (0-2) /lpf Urine Mucus (None) /hpf Ur Random Sodium 27 L (30-90) mmol/L Stool Occult Blood (Negative) 02/06/17 02/06/17 02/07/17 Range/Units 20:44 22:28 00:22 WBC (3.8-10.6) k/uL RBC (3.80-5.40) m/uL Hgb (11.4-16.0) gm/dL Hct (34.0-46.0) % RDW (11.5-15.5) % Lymphocytes # (1.0-4.8) k/uL Sodium 118 L* 121 L (137-145) mmol/L Chloride (98-107) mmol/L Carbon Dioxide (22-30) mmol/L BUN (7-17) mg/dL Glucose (74-99) mg/dL POC Glucose (mg/dL) (75-99) mg/dL Osmolality (280-301) mosm/kg Calcium (8.4-10.2) mg/dL Magnesium (1.6-2.3) mg/dL AST (14-36) U/L ALT (9-52) U/L Alkaline Phosphatase (38-126) U/L CK-MB (CK-2) (0.0-2.4) ng/mL Troponin I (0.000-0.034) ng/mL Total Protein (6.3-8.2) g/dL Albumin (3.5-5.0) g/dL Vitamin B12 (239-931) pg/mL TSH (0.465-4.680) mIU/L Urine Protein Trace H (Negative) Urine Glucose (UA) 2+ H (Negative) Urine Blood Small H (Negative) Ur Leukocyte Esterase Trace H (Negative) Urine RBC 9 H (0-5) /hpf Urine Bacteria Rare H (None) /hpf Hyaline Casts 4 H (0-2) /lpf Urine Mucus Rare H (None) /hpf Ur Random Sodium (30-90) mmol/L Stool Occult Blood (Negative) 02/07/17 02/07/17 02/07/17 Range/Units 02:14 02:14 04:24 WBC 3.6 L (3.8-10.6) k/uL RBC 2.93 L (3.80-5.40) m/uL Hgb 8.9 L (11.4-16.0) gm/dL Hct 28.0 L (34.0-46.0) % RDW 16.6 H (11.5-15.5) % Lymphocytes # 0.2 L (1.0-4.8) k/uL Sodium 120 L* (137-145) mmol/L Chloride (98-107) mmol/L Carbon Dioxide (22-30) mmol/L BUN (7-17) mg/dL Glucose (74-99) mg/dL POC Glucose (mg/dL) (75-99) mg/dL Osmolality (280-301) mosm/kg Calcium (8.4-10.2) mg/dL Magnesium (1.6-2.3) mg/dL AST (14-36) U/L ALT (9-52) U/L Alkaline Phosphatase (38-126) U/L CK-MB (CK-2) (0.0-2.4) ng/mL Troponin I 0.035 H* (0.000-0.034) ng/mL Total Protein (6.3-8.2) g/dL Albumin (3.5-5.0) g/dL Vitamin B12 (239-931) pg/mL TSH (0.465-4.680) mIU/L Urine Protein (Negative) Urine Glucose (UA) (Negative) Urine Blood (Negative) Ur Leukocyte Esterase (Negative) Urine RBC (0-5) /hpf Urine Bacteria (None) /hpf Hyaline Casts (0-2) /lpf Urine Mucus (None) /hpf Ur Random Sodium (30-90) mmol/L Stool Occult Blood (Negative) 02/07/17 02/07/17 02/07/17 Range/Units 04:28 04:58 06:39 WBC (3.8-10.6) k/uL RBC (3.80-5.40) m/uL Hgb (11.4-16.0) gm/dL Hct (34.0-46.0) % RDW (11.5-15.5) % Lymphocytes # (1.0-4.8) k/uL Sodium 122 L 123 L (137-145) mmol/L Chloride 82 L (98-107) mmol/L Carbon Dioxide 33 H (22-30) mmol/L BUN 24 H (7-17) mg/dL Glucose 164 H (74-99) mg/dL POC Glucose (mg/dL) 183 H (75-99) mg/dL Osmolality (280-301) mosm/kg Calcium 8.1 L (8.4-10.2) mg/dL Magnesium 2.7 H 2.4 H (1.6-2.3) mg/dL AST 39 H (14-36) U/L ALT 53 H (9-52) U/L Alkaline Phosphatase 203 H (38-126) U/L CK-MB (CK-2) (0.0-2.4) ng/mL Troponin I (0.000-0.034) ng/mL Total Protein 4.6 L (6.3-8.2) g/dL Albumin 2.4 L (3.5-5.0) g/dL Vitamin B12 (239-931) pg/mL TSH 0.240 L (0.465-4.680) mIU/L Urine Protein (Negative) Urine Glucose (UA) (Negative) Urine Blood (Negative) Ur Leukocyte Esterase (Negative) Urine RBC (0-5) /hpf Urine Bacteria (None) /hpf Hyaline Casts (0-2) /lpf Urine Mucus (None) /hpf Ur Random Sodium (30-90) mmol/L Stool Occult Blood (Negative) 02/07/17 02/07/17 Range/Units 08:24 08:30 WBC (3.8-10.6) k/uL RBC (3.80-5.40) m/uL Hgb (11.4-16.0) gm/dL Hct (34.0-46.0) % RDW (11.5-15.5) % Lymphocytes # (1.0-4.8) k/uL Sodium 123 L (137-145) mmol/L Chloride (98-107) mmol/L Carbon Dioxide (22-30) mmol/L BUN (7-17) mg/dL Glucose (74-99) mg/dL POC Glucose (mg/dL) 111 H (75-99) mg/dL Osmolality (280-301) mosm/kg Calcium (8.4-10.2) mg/dL Magnesium (1.6-2.3) mg/dL AST (14-36) U/L ALT (9-52) U/L Alkaline Phosphatase (38-126) U/L CK-MB (CK-2) (0.0-2.4) ng/mL Troponin I (0.000-0.034) ng/mL Total Protein (6.3-8.2) g/dL Albumin (3.5-5.0) g/dL Vitamin B12 (239-931) pg/mL TSH (0.465-4.680) mIU/L Urine Protein (Negative) Urine Glucose (UA) (Negative) Urine Blood (Negative) Ur Leukocyte Esterase (Negative) Urine RBC (0-5) /hpf Urine Bacteria (None) /hpf Hyaline Casts (0-2) /lpf Urine Mucus (None) /hpf Ur Random Sodium (30-90) mmol/L Stool Occult Blood (Negative) Assessment and Plan Plan: 1. Acute hypoxic respiratory failure, acute pneumonia, acquired against aspiration acute exacerbation of COPD, acute diastolic heart failure complicated by iimmununosuppression from methotrexate , ICU management secondary to critical hyponatremia, provide nebulized albuterol Atrovent treatments, IV hydrocortisone 100 mg every 8 hours, 0.9 saline at 75 mL an hour , meropenem 50 mg daily 8 hours and IV vancomycin Consult with Dr. Concepcion as[address] Downing from infectious disease and Dr. Brian nephrology. 2. Critical hyponatremia secondary to hypovolemic hyponatremia from diminished oral intake IV saline as provided to 75 mL an hour 2. Multiple pressure ulcers different locations in the extremities upper and lower extremity and sacrum, stages 2-3, all noted with pictures of present prior to admission as well as with deep fistulous formation, and axilla, status post I&D follows at the wound care center. Wound penitentiary is [facility]. She follows in the wound center with Dr. Downing. Consult with Dr. Downing. Patient continued on meropenem IV vancomycin 3. Rheumatoid arthritis is chronically on methotrexate and prednisone 10 mg 3 times a day. Patient follows with Dr. Preston as an outpatient methotrexate on hold, stress dose of hydrocortisone secondary to chronic prednisone, 4. Diabetes mellitus type 2 on metformin, hold glimepiride secondary to diminished appetite, and Humalog scale recent A1c 7.4, 5. Acute lower GI bleed IBS with diarrhea she is on Lomotil 2 mg 4 times a day when necessary no changes were made. will obtain C. diff toxin evaluation stool WBC culture moment monitor for blood losses, might need general surgery evaluation should the bleeding continue, and if noticeable blood losses are noted. 6. Impaired debility with falls at home, evaluate for rhabdomyolysis, as the patient had fallen without assistance over 16 hours community ambulation would be will wheelchair transfers at home, walker outside the home 7. Chronic pain related to RA and musculoskeletal deformities including spinal stenosis. Continue Percocet, Flexeril. 8. CKD stage 1 monitor for rhabdomyolysis regarding falls, monitor for hypotension 9. Chronic anemia secondary to chronic illness, acute blood loss is expected secondary to recent GI losses from one day prior to admission, none currently 9. Hypertension on Micardis 40 mg daily, Lasix, 10. DVT prophylaxis with Lovenox 11. GI prophylaxis. Protonix. Discharge plan: Social work consult for subacute rehab Impression and plan of care have been directed as dictated by the signing physician. Tiki Mcpherson nurse practitioner acting as scribe for signing physician.
[2017-02-07 16:10] LABS: Iron Saturation 3.56 (12.00-45.00)
--- NOTE | 2017-02-07 17:15 | P.CONS ---
History of Present Illness - Reason for Consult Consult date: 02/07/17 - Chief Complaint Fall and weakness - History of Present Illness 51-year-old female who is a long-standing history of many medical troubles and includes diabetes mellitus type 2 poorly controlled hyperlipidemia hypertension and rheumatoid arthritis is had a marked decline of her physical status over the last 6 months. She was last hospitalized in May of this year at which point in time she had significant respiratory failure. Since that time she's had a stay in the psychiatric hospital at [facility] and eventually was discharged to her home. She continues to decline in her home setting. She's not had multiple falls. Had another fall and was found by the EMS on her commode and it had a large bowel movement with evidence of blood. She was transported to hospital with evidence of sepsis was burn intensive care unit. She is evidence of significant worsening of her respiratory status and concerns pneumonia. Infectious consultation for pneumonia in her many wounds. The patient is crying consistently at this point in time because she just can't do any longer at home. She is very sad about this she may lose her home. Review of Systems Constitutional: Denies chills, Denies fever Eyes: denies blurred vision, denies pain Ears, nose, mouth and throat: Denies headache, Denies sore throat Cardiovascular: Reports leg edema, Reports shortness of breath, Denies chest pain Respiratory: Reports cough, Reports cough with sputum, Reports dyspnea, Reports wheezing Gastrointestinal: Denies abdominal pain, Denies diarrhea, Denies nausea, Denies vomiting Genitourinary: Denies dysuria, Denies hematuria Musculoskeletal: Denies myalgias Integumentary: Reports wounds, Denies pruritus, Denies rash Neurological: Denies numbness, Denies weakness Psychiatric: Denies anxiety, Denies depression Endocrine: Denies fatigue, he has lost about 100 pounds in the last 18 months Past Medical History Past Medical History: Diabetes Mellitus, Hyperlipidemia, Hypertension, Rheumatoid Arthritis (RA), Hypertension, Respiratory Disorder, Rheumatoid Arthritis (RA) Additional Past Medical History / Comment(s): sjogrens, raynauds, urinary urgency and incontinence, bowel incontinence, wound rt foot plantar surface, immunosuppressed, ventral hernia, rheumatic lung, rheumatic fever as a child, varicose veins, current steroid,pm>2yrs, severe cervical stenosis-bilat. neuro deficits in arms, PCN resistant, pleural pain, bleeding peptic ulcer,coffee ground emesis,hemmroids, heart rate usually runs 100-120 History of Any Multi-Drug Resistant Organisms: None Reported Past Surgical History: Adenoidectomy, Heart Catheterization, Hernia Repair, Orthopedic Surgery, Tonsillectomy Additional Past Surgical History / Comment(s): closed reduction rt elbow as a child,laser vein surgery lt leg. Past Anesthesia/Blood Transfusion Reactions: Previous Problems w/ Anesthesia Additional Past Anesthesia/Blood Transfusion Reaction / Comm: pt states experienced swelling of throat with anesthesia as a child with tonsil removal- no further swelling problems with anesthesia,Severe Cervical Stenosis, family hx of blood transfusion reaction with mother and brother-rx rash,hives Past Psychological History: Anxiety, Depression Additional Psychological History / Comment(s): retired nurse. Ongoing tobacco use. No alcohol use or recreational drug use. No international travel. No experience. No animal exposures. Has no support at home Smoking Status: Current every day smoker (Has been smoking since 1979) Past Alcohol Use History: Rare - Past Family History Brother(s) Family Medical History: Coronary Artery Disease (CAD) Mother Family Medical History: Diabetes Mellitus Additional Family Medical History / Comment(s): with Castro's Disease Father Family Medical History: Coronary Artery Disease (CAD), Diabetes Mellitus, Hyperlipidemia, Vascular Disorder Additional Family Medical History / Comment(s): at age 89 Medications and Allergies Home Medications and Allergies Comment(s): Current Medications Hydrocodone Bitart/Acetaminophen (Bellwood 10) 1 each PO Q6H PRN PRN Reason: Pain Last Admin: 02/07/17 14:06 Dose: 1 each Albuterol/Ipratropium (Duoneb 0.5 Mg-3 Mg/3 Ml Soln) 3 ml INHALATION RT-QID [facility] Last Admin: 02/07/17 16:19 Dose: 3 ml Ascorbic Acid (Vitamin C) 500 mg PO 1200 [facility] Aspirin (Aspirin) 81 mg PO DAILY [facility] Last Admin: 02/07/17 08:30 Dose: 81 mg Budesonide/Formoterol Fumarate (Symbicort 80-4.5 Mcg Inhaler) 2 puff INHALATION RT-BID [facility] Last Admin: 02/07/17 08:14 Dose: 2 puff Cyclobenzaprine HCl (Flexeril) 10 mg PO Q8H PRN PRN Reason: Pain Diphenoxylate HCl/Atropine (Lomotil) 1 each PO TID PRN PRN Reason: Diarrhea Enoxaparin Sodium (Lovenox) 40 mg SQ DAILY [facility] Last Admin: 02/07/17 08:29 Dose: 40 mg Folic Acid (Folic Acid) 2 mg PO DAILY@1200 [facility] Last Admin: 02/07/17 08:30 Dose: 2 mg Hydrocortisone Sodium Succinate (Solu-Cortef) 100 mg IV Q8HR [facility] Last Admin: 02/07/17 08:30 Dose: 100 mg Hydromorphone HCl (Dilaudid) 1 mg IVP Q2HR PRN PRN Reason: Pain Scale 6 to 7 Last Admin: 02/07/17 10:41 Dose: 1 mg Sodium Chloride (Hypertonic) (Saline 3% (Hypertonic)) 500 mls @ 50 mls/hr IV .Q10H [facility] PRN Reason: Protocol Stop: 02/07/17 17:17 Last Admin: 02/07/17 05:53 Dose: Not Given Meropenem 500 mg/ Sodium (Chloride) 50 mls @ 100 mls/hr IVPB Q8HR [facility] Last Admin: 02/07/17 08:32 Dose: 100 mls/hr Sodium Chloride (Saline 0.9%) 1,000 mls @ 50 mls/hr IV .Q20H [facility] Last Admin: 02/07/17 02:32 Dose: 75 mls/hr Loperamide HCl (Imodium) 2 mg PO QID PRN PRN Reason: Diarrhea Losartan Potassium (Cozaar) 100 mg PO DAILY [facility] Last Admin: 02/07/17 14:06 Dose: Not Given Metformin HCl (Glucophage) 500 mg PO BID-W/MEALS [facility] Last Admin: 02/07/17 08:30 Dose: 500 mg Metoprolol Tartrate (Lopressor) 50 mg PO BID [facility] Last Admin: 02/07/17 08:30 Dose: 50 mg Miscellaneous Information (Magnesium Per Protocol) 1 each MISCELLANE DAILY PRN ; Protocol PRN Reason: Per Protocol Naloxone HCl (Narcan) 0.2 mg IV Q2M PRN PRN Reason: Opioid Reversal Nicotine (Habitrol 21mg/24hr Patch) 1 patch TRANSDERM DAILY [facility] Last Admin: 02/07/17 14:06 Dose: 1 patch Nystatin (Mycostatin Powder) 1 applic TOPICAL DAILY [facility] Ondansetron HCl (Zofran) 4 mg PO Q8HR PRN PRN Reason: Nausea And Vomiting Pantoprazole Sodium (Protonix) 40 mg IV DAILY [facility] Last Admin: 02/07/17 08:30 Dose: 40 mg Home Medications Medication Instructions Recorded Confirmed Type Ca/D3/Mag/Zinc/Crow/Jorge/Mgbor 1 tab PO BID 01/03/15 02/06/17 History [Caltrate 600+D3+Min Chew Tab] Folic Acid 2 mg PO DAILY 01/03/15 02/06/17 History Methotrexate Sodium [Methotrexate] 25 mg PO TH 01/03/15 02/06/17 History Omeprazole [PriLOSEC] 40 mg PO DAILY 01/03/15 02/06/17 History predniSONE 10 mg PO TID 01/03/15 02/06/17 History Cyclobenzaprine [Flexeril] 10 mg PO Q8H PRN 03/07/15 02/06/17 History Pyridoxine [Vitamin B-6] 50 mg PO TID 03/06/16 02/06/17 History Triamcinolone 0.5% Cream [Kenalog 1 applic TOPICAL BID 03/06/16 02/06/17 History 0.5% Cream] Albuterol Inhaler [Ventolin Hfa 2 puff INHALATION RT-Q6H PRN 05/09/16 02/06/17 History Inhaler] Ascorbic Acid [Vitamin C] 500 mg PO DAILY 05/09/16 02/06/17 History Loperamide HCl [Imodium A-D] 2 mg PO QID PRN 05/09/16 02/06/17 History Lawton-3 Acid Ethyl Esters [Lovaza] 1 gm PO QID 05/09/16 02/06/17 History Telmisartan [Micardis] 40 mg PO DAILY 05/09/16 02/06/17 History hydrOXYzine PAMOATE [Vistaril] 25 mg PO Q6HR PRN 05/09/16 02/06/17 History metFORMIN HCL [Glucophage] 500 mg PO BID-W/MEALS tab 05/14/16 02/06/17 Rx Furosemide [Lasix] 40 mg PO DAILY #30 tablet 06/05/16 02/06/17 Rx Ipratropium-Albuterol Nebulize 3 ml INHALATION RT-QID #120 06/05/16 02/06/17 Rx [Duoneb 0.5 mg-3 mg/3 ml Soln] ampul.neb Nicotine 21Mg/24Hr Patch [Habitrol] 1 patch TRANSDERM DAILY #30 patch 06/05/16 02/06/17 Rx Glimepiride [Amaryl] 4 mg PO BID 07/02/16 02/06/17 History Metolazone [Zaroxolyn] 2.5 mg PO DAILY 07/02/16 02/06/17 History Ondansetron [Zofran] 4 mg PO Q8HR PRN 07/02/16 02/06/17 History Fluticasone/Salmeterol [Advair 1 puff INHALATION RT-BID 12/31/16 02/06/17 History 250-50 Diskus] Metoprolol Tartrate [Lopressor] 50 mg PO BID 12/31/16 02/06/17 History Aspirin EC [Ecotrin Low Dose] 81 mg PO DAILY 02/06/17 02/06/17 History Celecoxib [CeleBREX] 200 mg PO BID PRN 02/06/17 02/06/17 History Diphenoxylate HCl/Atropine 1 tab PO TID PRN 02/06/17 02/06/17 History [Lomotil] HYDROcodone/APAP 10-325MG [Bellwood 1 tab PO Q6H PRN 02/06/17 02/06/17 History 10-325] [id number] Otic 4 drops BOTH EARS BID 02/06/17 02/06/17 History [Cortisporin Otic Soln] Nystatin 100,000 Unit/gm Powd 1 applic TOPICAL DAILY 02/06/17 02/06/17 History [Mycostatin Powder] Potassium 99 mg PO DAILY 02/06/17 02/06/17 History Potassium Chloride ER [K-Dur 20] 20 meq PO DAILY 02/06/17 02/06/17 History Allergies Allergy/AdvReac Type Severity Reaction Status Date / Time latex Allergy Mild Swelling Verified 02/06/17 15:58 Penicillins Allergy Rash/Hives Verified 02/06/17 15:58 Physical Exam Vitals: Vital Signs Temp Pulse Pulse Resp BP BP Pulse Ox 02/07/17 16:30 100 02/07/17 16:20 98 02/07/17 16:00 98.1 F 106 H 27 H 111/63 96 02/07/17 15:00 97 29 H 118/63 95 02/07/17 14:00 86 19 100/58 97 02/07/17 13:00 95 29 H 107/62 94 L 02/07/17 12:00 98.2 F 85 30 H 93 L 02/07/17 11:43 88 02/07/17 11:31 81 02/07/17 11:00 79 28 H 99/67 93 L 02/07/17 10:00 83 11 L 111/68 97 02/07/17 09:00 92 18 127/72 95 02/07/17 08:34 94 02/07/17 08:16 92 96 02/07/17 08:00 98 F 91 12 118/68 97 02/07/17 07:00 104 H 28 H 113/65 92 L 02/07/17 06:00 102 H 18 97/68 60 L 02/07/17 05:00 90 32 H 119/64 91 L 02/07/17 04:12 82 02/07/17 04:00 73 14 104/58 97 02/07/17 03:57 74 02/07/17 03:00 73 15 107/60 95 02/07/17 02:00 73 9 L 100/56 98 02/07/17 01:00 77 12 93/53 98 02/07/17 00:09 79 11 L 97/58 98 02/07/17 00:00 89 30 H 109/63 96 02/06/17 23:40 90 40 H 116/69 93 L 02/06/17 23:28 82 02/06/17 23:20 77 18 117/70 100 02/06/17 23:17 82 02/06/17 22:40 89 108/61 93 L 02/06/17 22:00 98 9 L 108/61 96 02/06/17 21:00 98.2 F 106 H 20 123/68 94 L 02/06/17 20:47 101 H 02/06/17 20:35 101 H 02/06/17 19:00 111 H 137/63 88 L 02/06/17 18:02 98.2 F 101 H 19 123/68 97 02/06/17 17:59 97.5 F L 105 H 20 132/75 95 02/06/17 17:13 97.4 F L 108 H 24 118/73 96 Intake and Output 02/07/17 02/07/17 02/07/17 06:59 14:59 22:59 Intake Total 625 525 100 Output Total 495 295 80 Balance 130 230 20 Intake: IV 625 525 100 Meropenem 500 mg In 100 Sodium Chloride 0.9% 50 ml @ 100 mls/hr IVPB Q8HR [facility] Rx#:[id number] Sodium Chloride 0.9% 1, 525 425 100 000 ml @ 50 mls/hr IV . Q20H [facility] Rx#:[id number] Sodium Chloride 3%( 100 Hypertonic) 500 ml @ 50 mls/hr IV .Q10H [facility] Rx#: [id number] Output: Urine 495 295 80 Other: Voiding Method Indwelling Catheter Indwelling Catheter Indwelling Catheter Weight 63.9 kg 63.9 kg Patient Weight 02/08/17 06:59 Weight 63.9 kg 51-year-old female who appears to be acutely ill this crying readily. He is quite disheveled from her normal position. HEENT: Anicteric conjunctiva are pink and moist nasal mucosa grossly intact without significant lesions, there is no thrush. Neck: The neck is supple without significant lymphadenopathy or thyromegaly. Lungs: Good bilateral air entry without significant crackles or wheezing. There is no significant bronchial sounds. There is no egophony or dullness. Heart: Regular rate and rhythm with an audible S1-S2, no S3 no S4. There is no significant murmur click or rub, PMI was nondisplaced. Abdomen: Positive bowel sounds soft and nontender without palpable masses or organomegaly. There was no guarding or rebound. Extremities: The right arm has evidence of no open lesions. Left arm is evidence of the left elbow lesions in the heels abscess to the axillary area. Right lower extremity reveals evidence of the right heel blister and ulceration Neuro: Awake alert oriented to person place and time. Has generalized weakness Affect almost continuous crying Results Results: Laboratory Results WBC 3.6 k/uL (3.8-10.6) L 02/07/17 04:24 RBC 2.93 m/uL (3.80-5.40) L 02/07/17 04:24 Hgb 8.9 gm/dL (11.4-16.0) L 02/07/17 04:24 Hct 28.0 % (34.0-46.0) L 02/07/17 04:24 MCV 95.7 fL (80.0-100.0) 02/07/17 04:24 MCH 30.5 pg (25.0-35.0) 02/07/17 04:24 MCHC 31.9 g/dL (31.0-37.0) 02/07/17 04:24 RDW 16.6 % (11.5-15.5) H 02/07/17 04:24 Plt Count 205 k/uL (150-450) 02/07/17 04:24 Neutrophils % 90 % 02/07/17 04:24 Lymphocytes % 6 % 02/07/17 04:24 Monocytes % 4 % 02/07/17 04:24 Eosinophils % 0 % 02/07/17 04:24 Basophils % 0 % 02/07/17 04:24 Neutrophils # 3.2 k/uL (1.3-7.7) 02/07/17 04:24 Lymphocytes # 0.2 k/uL (1.0-4.8) L 02/07/17 04:24 Monocytes # 0.1 k/uL (0-1.0) 02/07/17 04:24 Eosinophils # 0.0 k/uL (0-0.7) 02/07/17 04:24 Basophils # 0.0 k/uL (0-0.2) 02/07/17 04:24 Anisocytosis Slight 02/07/17 04:24 PT 11.0 sec (9.0-12.0) 02/06/17 14:30 INR 1.1 (<1.2) 02/06/17 14:30 APTT 22.4 sec (22.0-30.0) 02/06/17 14:30 D-Dimer 0.41 mg/L FEU (<0.60) 02/06/17 20:40 Sodium 123 mmol/L (137-145) L 02/07/17 12:34 Potassium 3.7 mmol/L (3.5-5.1) 02/07/17 04:28 Chloride 82 mmol/L (98-107) L 02/07/17 04:28 Carbon Dioxide 33 mmol/L (22-30) H 02/07/17 04:28 Anion Gap 7 mmol/L 02/07/17 04:28 BUN 24 mg/dL (7-17) H 02/07/17 04:28 Creatinine 0.57 mg/dL (0.52-1.04) 02/07/17 04:28 Est GFR (MDRD) Af Amer >60 (>60 ml/min/1.73 sqM) 02/07/17 04:28 Est GFR (MDRD) Non-Af >60 (>60 ml/min/1.73 sqM) 02/07/17 04:28 Glucose 164 mg/dL (74-99) H 02/07/17 04:28 POC Glucose (mg/dL) 79 mg/dL (75-99) 02/07/17 12:32 POC Glu Mid Level Business Analyst ID Cait Chavarria 02/07/17 12:32 Osmolality 262 mosm/kg (280-301) L 02/06/17 20:29 Calcium 8.1 mg/dL (8.4-10.2) L 02/07/17 04:28 Phosphorus 4.0 mg/dL (2.5-4.5) 02/07/17 04:28 Magnesium 2.4 mg/dL (1.6-2.3) H 02/07/17 06:39 Total Bilirubin 0.2 mg/dL (0.2-1.3) 02/07/17 04:28 Conjugated Bilirubin 0.0 mg/dL (0.0-0.3) 02/07/17 04:28 Unconjugated Bilirubin 0.1 mg/dL (0.0-1.1) 02/07/17 04:28 Delta Bilirubin 0.1 mg/dL (0.0-0.2) 02/07/17 04:28 AST 39 U/L (14-36) H 02/07/17 04:28 ALT 53 U/L (9-52) H 02/07/17 04:28 Alkaline Phosphatase 203 U/L (38-126) H 02/07/17 04:28 Creatine Kinase 59 U/L (30-135) 02/07/17 04:28 Total Creatine Kinase 86 U/L (30-135) 02/06/17 14:30 CK-MB (CK-2) 2.3 ng/mL (0.0-2.4) 02/07/17 02:14 CK-MB (CK-2) Rel Index 4.7 02/06/17 14:30 Troponin I 0.035 ng/mL (0.000-0.034) H* 02/07/17 02:14 NT-Pro-B Natriuret Pep 1030 pg/mL 02/07/17 04:24 Total Protein 4.6 g/dL (6.3-8.2) L 02/07/17 04:28 Albumin 2.4 g/dL (3.5-5.0) L 02/07/17 04:28 Vitamin B12 >1000 pg/mL (239-931) H 02/06/17 20:29 TSH 0.240 mIU/L (0.465-4.680) L 02/07/17 04:28 Free T4 1.00 ng/dL (0.78-2.19) 02/07/17 04:28 Urine Color Yellow 02/06/17 20:44 Urine Appearance Clear (Clear) 02/06/17 20:44 Urine pH 6.5 (5.0-8.0) 02/06/17 20:44 Ur Specific [place] 1.012 (1.001-1.035) 02/06/17 20:44 Urine Protein Trace (Negative) H 02/06/17 20:44 Urine Glucose (UA) 2+ (Negative) H 02/06/17 20:44 Urine Ketones Negative (Negative) 02/06/17 20:44 Urine Blood Small (Negative) H 02/06/17 20:44 Urine Nitrite Negative (Negative) 02/06/17 20:44 Urine Bilirubin Negative (Negative) 02/06/17 20:44 Urine Urobilinogen <2.0 mg/dL (<2.0) 02/06/17 20:44 Ur Leukocyte Esterase Trace (Negative) H 02/06/17 20:44 Urine RBC 9 /hpf (0-5) H 02/06/17 20:44 Urine WBC 4 /hpf (0-5) 02/06/17 20:44 Urine Bacteria Rare /hpf (None) H 02/06/17 20:44 Hyaline Casts 4 /lpf (0-2) H 02/06/17 20:44 Urine Mucus Rare /hpf (None) H 02/06/17 20:44 Urine Osmolality 443 mosm/kg (50-1400) 02/06/17 20:44 Ur Random Sodium 27 mmol/L (30-90) L 02/06/17 20:44 Stool Occult Blood Positive (Negative) H 02/06/17 16:29 Blood Type A Negative 02/06/17 14:30 Blood Type Confirm A Negative 02/06/17 17:08 Blood Type Recheck CABO Indicated 02/06/17 14:30 Antibody Screen NEGATIVE 02/06/17 14:30 Spec Expiration Date 02/09/2017232902/06/17 14:30 CBC & Chem 7: 02/07/17 04:24 02/07/17 12:34 Labs: Abnormal Lab Results - Last 24 Hours (Table) 02/06/17 02/06/17 02/06/17 Range/Units 18:29 20:29 20:29 WBC (3.8-10.6) k/uL RBC (3.80-5.40) m/uL Hgb (11.4-16.0) gm/dL Hct (34.0-46.0) % RDW (11.5-15.5) % Lymphocytes # (1.0-4.8) k/uL Sodium 117 L* (137-145) mmol/L Chloride 78 L* (98-107) mmol/L Carbon Dioxide 34 H (22-30) mmol/L BUN 26 H (7-17) mg/dL Glucose 217 H (74-99) mg/dL POC Glucose (mg/dL) 267 H (75-99) mg/dL Osmolality 262 L (280-301) mosm/kg Calcium 8.0 L (8.4-10.2) mg/dL Magnesium (1.6-2.3) mg/dL AST (14-36) U/L ALT 56 H (9-52) U/L Alkaline Phosphatase 228 H (38-126) U/L CK-MB (CK-2) 2.7 H* (0.0-2.4) ng/mL Troponin I 0.050 H* (0.000-0.034) ng/mL Total Protein 4.1 L (6.3-8.2) g/dL Albumin 2.2 L (3.5-5.0) g/dL Vitamin B12 >1000 H (239-931) pg/mL TSH (0.465-4.680) mIU/L Urine Protein (Negative) Urine Glucose (UA) (Negative) Urine Blood (Negative) Ur Leukocyte Esterase (Negative) Urine RBC (0-5) /hpf Urine Bacteria (None) /hpf Hyaline Casts (0-2) /lpf Urine Mucus (None) /hpf Ur Random Sodium (30-90) mmol/L 02/06/17 02/06/17 02/06/17 Range/Units 20:29 20:44 20:44 WBC 3.6 L (3.8-10.6) k/uL RBC 2.95 L (3.80-5.40) m/uL Hgb 9.1 L D (11.4-16.0) gm/dL Hct 27.7 L (34.0-46.0) % RDW 15.9 H (11.5-15.5) % Lymphocytes # (1.0-4.8) k/uL Sodium (137-145) mmol/L Chloride (98-107) mmol/L Carbon Dioxide (22-30) mmol/L BUN (7-17) mg/dL Glucose (74-99) mg/dL POC Glucose (mg/dL) (75-99) mg/dL Osmolality (280-301) mosm/kg Calcium (8.4-10.2) mg/dL Magnesium (1.6-2.3) mg/dL AST (14-36) U/L ALT (9-52) U/L Alkaline Phosphatase (38-126) U/L CK-MB (CK-2) (0.0-2.4) ng/mL Troponin I (0.000-0.034) ng/mL Total Protein (6.3-8.2) g/dL Albumin (3.5-5.0) g/dL Vitamin B12 (239-931) pg/mL TSH (0.465-4.680) mIU/L Urine Protein Trace H (Negative) Urine Glucose (UA) 2+ H (Negative) Urine Blood Small H (Negative) Ur Leukocyte Esterase Trace H (Negative) Urine RBC 9 H (0-5) /hpf Urine Bacteria Rare H (None) /hpf Hyaline Casts 4 H (0-2) /lpf Urine Mucus Rare H (None) /hpf Ur Random Sodium 27 L (30-90) mmol/L 02/06/17 02/07/17 02/07/17 Range/Units 22:28 00:22 02:14 WBC (3.8-10.6) k/uL RBC (3.80-5.40) m/uL Hgb (11.4-16.0) gm/dL Hct (34.0-46.0) % RDW (11.5-15.5) % Lymphocytes # (1.0-4.8) k/uL Sodium 118 L* 121 L (137-145) mmol/L Chloride (98-107) mmol/L Carbon Dioxide (22-30) mmol/L BUN (7-17) mg/dL Glucose (74-99) mg/dL POC Glucose (mg/dL) (75-99) mg/dL Osmolality (280-301) mosm/kg Calcium (8.4-10.2) mg/dL Magnesium (1.6-2.3) mg/dL AST (14-36) U/L ALT (9-52) U/L Alkaline Phosphatase (38-126) U/L CK-MB (CK-2) (0.0-2.4) ng/mL Troponin I 0.035 H* (0.000-0.034) ng/mL Total Protein (6.3-8.2) g/dL Albumin (3.5-5.0) g/dL Vitamin B12 (239-931) pg/mL TSH (0.465-4.680) mIU/L Urine Protein (Negative) Urine Glucose (UA) (Negative) Urine Blood (Negative) Ur Leukocyte Esterase (Negative) Urine RBC (0-5) /hpf Urine Bacteria (None) /hpf Hyaline Casts (0-2) /lpf Urine Mucus (None) /hpf Ur Random Sodium (30-90) mmol/L 02/07/17 02/07/17 02/07/17 Range/Units 02:14 04:24 04:28 WBC 3.6 L (3.8-10.6) k/uL RBC 2.93 L (3.80-5.40) m/uL Hgb 8.9 L (11.4-16.0) gm/dL Hct 28.0 L (34.0-46.0) % RDW 16.6 H (11.5-15.5) % Lymphocytes # 0.2 L (1.0-4.8) k/uL Sodium 120 L* 122 L (137-145) mmol/L Chloride 82 L (98-107) mmol/L Carbon Dioxide 33 H (22-30) mmol/L BUN 24 H (7-17) mg/dL Glucose 164 H (74-99) mg/dL POC Glucose (mg/dL) (75-99) mg/dL Osmolality (280-301) mosm/kg Calcium 8.1 L (8.4-10.2) mg/dL Magnesium 2.7 H (1.6-2.3) mg/dL AST 39 H (14-36) U/L ALT 53 H (9-52) U/L Alkaline Phosphatase 203 H (38-126) U/L CK-MB (CK-2) (0.0-2.4) ng/mL Troponin I (0.000-0.034) ng/mL Total Protein 4.6 L (6.3-8.2) g/dL Albumin 2.4 L (3.5-5.0) g/dL Vitamin B12 (239-931) pg/mL TSH 0.240 L (0.465-4.680) mIU/L Urine Protein (Negative) Urine Glucose (UA) (Negative) Urine Blood (Negative) Ur Leukocyte Esterase (Negative) Urine RBC (0-5) /hpf Urine Bacteria (None) /hpf Hyaline Casts (0-2) /lpf Urine Mucus (None) /hpf Ur Random Sodium (30-90) mmol/L 02/07/17 02/07/17 02/07/17 Range/Units 04:58 06:39 08:24 WBC (3.8-10.6) k/uL RBC (3.80-5.40) m/uL Hgb (11.4-16.0) gm/dL Hct (34.0-46.0) % RDW (11.5-15.5) % Lymphocytes # (1.0-4.8) k/uL Sodium 123 L (137-145) mmol/L Chloride (98-107) mmol/L Carbon Dioxide (22-30) mmol/L BUN (7-17) mg/dL Glucose (74-99) mg/dL POC Glucose (mg/dL) 183 H 111 H (75-99) mg/dL Osmolality (280-301) mosm/kg Calcium (8.4-10.2) mg/dL Magnesium 2.4 H (1.6-2.3) mg/dL AST (14-36) U/L ALT (9-52) U/L Alkaline Phosphatase (38-126) U/L CK-MB (CK-2) (0.0-2.4) ng/mL Troponin I (0.000-0.034) ng/mL Total Protein (6.3-8.2) g/dL Albumin (3.5-5.0) g/dL Vitamin B12 (239-931) pg/mL TSH (0.465-4.680) mIU/L Urine Protein (Negative) Urine Glucose (UA) (Negative) Urine Blood (Negative) Ur Leukocyte Esterase (Negative) Urine RBC (0-5) /hpf Urine Bacteria (None) /hpf Hyaline Casts (0-2) /lpf Urine Mucus (None) /hpf Ur Random Sodium (30-90) mmol/L 02/07/17 02/07/17 Range/Units 08:30 12:34 WBC (3.8-10.6) k/uL RBC (3.80-5.40) m/uL Hgb (11.4-16.0) gm/dL Hct (34.0-46.0) % RDW (11.5-15.5) % Lymphocytes # (1.0-4.8) k/uL Sodium 123 L 123 L (137-145) mmol/L Chloride (98-107) mmol/L Carbon Dioxide (22-30) mmol/L BUN (7-17) mg/dL Glucose (74-99) mg/dL POC Glucose (mg/dL) (75-99) mg/dL Osmolality (280-301) mosm/kg Calcium (8.4-10.2) mg/dL Magnesium (1.6-2.3) mg/dL AST (14-36) U/L ALT (9-52) U/L Alkaline Phosphatase (38-126) U/L CK-MB (CK-2) (0.0-2.4) ng/mL Troponin I (0.000-0.034) ng/mL Total Protein (6.3-8.2) g/dL Albumin (3.5-5.0) g/dL Vitamin B12 (239-931) pg/mL TSH (0.465-4.680) mIU/L Urine Protein (Negative) Urine Glucose (UA) (Negative) Urine Blood (Negative) Ur Leukocyte Esterase (Negative) Urine RBC (0-5) /hpf Urine Bacteria (None) /hpf Hyaline Casts (0-2) /lpf Urine Mucus (None) /hpf Ur Random Sodium (30-90) mmol/L Microbiology - Last 24 Hours (Table) 02/06/17 20:44 Urine Culture - Preliminary Urine,Catheterized Microbiology 02/06/17 20:44 Urine,Catheterized Urine Culture - Preliminary Assessment and Plan (1) Fall Status: Acute (2) Skin ulcer of multiple sites Narrative/Plan: 51-year-old female well known to the service and is getting center presents to Hospital after a fall and profound weakness. Hospital with concerns of sepsis and pneumonia. Currently receiving antimicrobial therapy with meropenem which she is tolerating well. This will continue. Cultures are in process. He has not she has multiple lesions including left elbow right heel and buttocks area. Zinc the buttocks. The Optisol to the heel. After foam to the elbow and axillary area will be utilized. She is in a specialty bed. She would do well to have addition of a antidepressant and Effexor will be tried in low dose. She's having significant areas of decreased infection and fluconazole be given systemically isn't topical nystatin power to be applied to the groin area as needed. Status: Acute (3) Pneumonia Status: Acute
[2017-02-07 17:30] LABS: Glucose,Whole Blood 83 mg/dL (75-99)
--- NOTE | 2017-02-07 17:33 | P.CNPUL ---
History of Present Illness Consult date: 02/07/17 Requesting physician: Mitra Noel Reason for consult: other (ICU management, acute hypoxic respiratory failure, pneumonia, COPD, interstitial lung disease) Chief complaint: Weakness and shortness of breath, chronic cough. History of present illness: This is a 51-year-old female familiar to my service from previous admission, patient is known to have history of multiple medical problems including rheumatoid lungs, interstitial lung disease/nonspecific interstitial pneumonitis related to rheumatoid arthritis. History of Sjogren's, rheumatoid arthritis, hyperlipidemia, type 2 diabetes, cervical stenosis and chronic upper extremities weakness with impaired gait and balance. Patient was brought in with multiple complaints including profound weakness, she fell asleep while she was on the wheelchair, patient has been complaining of worsening shortness of breath, in spite of multiple updraft treatments. Intermittent cough, wheezing, and weight loss of over 100 pounds over the last one year. Patient also noted some specks of blood in her stool. Patient also has history of multiple stages of ulcers noted in her lower extremities, sacrum, and groin. She also has bilateral blistering of toes. At any rate patient was brought in by EMS to the ER with all these complaints. Looking back at this patient's notes and previous history, I saw on consultation back in May of 2016. At that time the patient had acute hypoxic respiratory failure secondary to interstitial lung disease and underlying pneumonia. As well as COPD exacerbation. I was tempted to consider bronchoscopy on the patient at the time, however the patient was felt to be too much of a high risk for bronchoscopy and transbronchial biopsy. Patient did surprisingly well at the time with antibiotics, diuretics, bronchodilators, and high doses of steroids. Did not require intubation and mechanical ventilation at the time. In the ER, patient had abnormal labs showing sodium of 115, slightly elevated troponin, she had positive Hemoccult stools, possible ileus based on x-rays of the abdomen, and she was noted to have abnormal chest x-ray with biapical airspace disease, it is not clear how much of this is infection related, versus CHF, versus interstitial lung disease worsening. Upon my notification about this patient, I recommended 3% saline, 50 ML per hour over a period of 10 hours. Antibiotics loo, patient was placed on vancomycin and Merrem as per Dr. Downing, and she also received IV hydrocortisone/stress doses. I saw her in the ICU, and the patient seemed to be a bit more comfortable, and her sodium was up to 123. IV fluid was kept at 75 mL per hour in the form of 0.9 normal saline. Patient did receive some 500 mL of 3% saline upon admission. Review of Systems 14 point review of systems were obtained, please refer to pertinent positives in the HPI, otherwise remaining systems are negative. Past Medical History Past Medical History: Diabetes Mellitus, Hyperlipidemia, Hypertension, Rheumatoid Arthritis (RA), Hypertension, Respiratory Disorder, Rheumatoid Arthritis (RA) Additional Past Medical History / Comment(s): sjogrens, raynauds, urinary urgency and incontinence, bowel incontinence, wound rt foot plantar surface, immunosuppressed, ventral hernia, rheumatic lung, rheumatic fever as a child, varicose veins, current steroid,pm>2yrs, severe cervical stenosis-bilat. neuro deficits in arms, PCN resistant, pleural pain, bleeding peptic ulcer,coffee ground emesis,hemmroids, heart rate usually runs 100-120 History of Any Multi-Drug Resistant Organisms: None Reported Past Surgical History: Adenoidectomy, Heart Catheterization, Hernia Repair, Orthopedic Surgery, Tonsillectomy Additional Past Surgical History / Comment(s): closed reduction rt elbow as a child,laser vein surgery lt leg. Past Anesthesia/Blood Transfusion Reactions: Previous Problems w/ Anesthesia Additional Past Anesthesia/Blood Transfusion Reaction / Comment(s): pt states experienced swelling of throat with anesthesia as a child with tonsil removal- no further swelling problems with anesthesia,Severe Cervical Stenosis, family hx of blood transfusion reaction with mother and brother-rx rash,hives Past Psychological History: Anxiety, Depression Smoking Status: Current every day smoker Past Alcohol Use History: Rare - Past Family History Brother(s) Family Medical History: Coronary Artery Disease (CAD) Mother Family Medical History: Diabetes Mellitus Additional Family Medical History / Comment(s): with Castro's Disease Father Family Medical History: Coronary Artery Disease (CAD), Diabetes Mellitus, Hyperlipidemia, Vascular Disorder Additional Family Medical History / Comment(s): at age 89 Medications and Allergies Home Medications Medication Instructions Recorded Confirmed Type Ca/D3/Mag/Zinc/Crow/Jorge/Mgbor 1 tab PO BID 01/03/15 02/06/17 History [Caltrate 600+D3+Min Chew Tab] Folic Acid 2 mg PO DAILY 01/03/15 02/06/17 History Methotrexate Sodium [Methotrexate] 25 mg PO TH 01/03/15 02/06/17 History Omeprazole [PriLOSEC] 40 mg PO DAILY 01/03/15 02/06/17 History predniSONE 10 mg PO TID 01/03/15 02/06/17 History Cyclobenzaprine [Flexeril] 10 mg PO Q8H PRN 03/07/15 02/06/17 History Pyridoxine [Vitamin B-6] 50 mg PO TID 03/06/16 02/06/17 History Triamcinolone 0.5% Cream [Kenalog 1 applic TOPICAL BID 03/06/16 02/06/17 History 0.5% Cream] Albuterol Inhaler [Ventolin Hfa 2 puff INHALATION RT-Q6H PRN 05/09/16 02/06/17 History Inhaler] Ascorbic Acid [Vitamin C] 500 mg PO DAILY 05/09/16 02/06/17 History Loperamide HCl [Imodium A-D] 2 mg PO QID PRN 05/09/16 02/06/17 History [place]-3 Acid Ethyl Esters [Lovaza] 1 gm PO QID 05/09/16 02/06/17 History Telmisartan [Micardis] 40 mg PO DAILY 05/09/16 02/06/17 History hydrOXYzine PAMOATE [Vistaril] 25 mg PO Q6HR PRN 05/09/16 02/06/17 History metFORMIN HCL [Glucophage] 500 mg PO BID-W/MEALS tab 05/14/16 02/06/17 Rx Furosemide [Lasix] 40 mg PO DAILY #30 tablet 06/05/16 02/06/17 Rx Ipratropium-Albuterol Nebulize 3 ml INHALATION RT-QID #120 06/05/16 02/06/17 Rx [Duoneb 0.5 mg-3 mg/3 ml Soln] ampul.neb Nicotine 21Mg/24Hr Patch [Habitrol] 1 patch TRANSDERM DAILY #30 patch 06/05/16 02/06/17 Rx Glimepiride [Amaryl] 4 mg PO BID 07/02/16 02/06/17 History Metolazone [Zaroxolyn] 2.5 mg PO DAILY 07/02/16 02/06/17 History Ondansetron [Zofran] 4 mg PO Q8HR PRN 07/02/16 02/06/17 History Fluticasone/Salmeterol [Advair 1 puff INHALATION RT-BID 12/31/16 02/06/17 History 250-50 Diskus] Metoprolol Tartrate [Lopressor] 50 mg PO BID 12/31/16 02/06/17 History Aspirin EC [Ecotrin Low Dose] 81 mg PO DAILY 02/06/17 02/06/17 History Celecoxib [CeleBREX] 200 mg PO BID PRN 02/06/17 02/06/17 History Diphenoxylate HCl/Atropine 1 tab PO TID PRN 02/06/17 02/06/17 History [Lomotil] HYDROcodone/APAP 10-325MG [[place] 1 tab PO Q6H PRN 02/06/17 02/06/17 History 10-325] Hpvjuqpx-Owksnzhtw-Qz Otic 4 drops BOTH EARS BID 02/06/17 02/06/17 History [Cortisporin Otic Soln] Nystatin 100,000 Unit/gm Powd 1 applic TOPICAL DAILY 02/06/17 02/06/17 History [Mycostatin Powder] Potassium 99 mg PO DAILY 02/06/17 02/06/17 History Potassium Chloride ER [K-Dur 20] 20 meq PO DAILY 02/06/17 02/06/17 History Allergies Allergy/AdvReac Type Severity Reaction Status Date / Time latex Allergy Mild Swelling Verified 02/06/17 15:58 Penicillins Allergy Rash/Hives Verified 02/06/17 15:58 Physical Exam Vitals: Vital Signs Temp Pulse Pulse Resp BP BP Pulse Ox 02/07/17 16:30 100 02/07/17 16:20 98 02/07/17 16:00 98.1 F 106 H 27 H 111/63 96 02/07/17 15:00 97 29 H 118/63 95 02/07/17 14:00 86 19 100/58 97 02/07/17 13:00 95 29 H 107/62 94 L 02/07/17 12:00 98.2 F 85 30 H 93 L 02/07/17 11:43 88 02/07/17 11:31 81 02/07/17 11:00 79 28 H 99/67 93 L 02/07/17 10:00 83 11 L 111/68 97 02/07/17 09:00 92 18 127/72 95 02/07/17 08:34 94 02/07/17 08:16 92 96 02/07/17 08:00 98 F 91 12 118/68 97 02/07/17 07:00 104 H 28 H 113/65 92 L 02/07/17 06:00 102 H 18 97/68 60 L 02/07/17 05:00 90 32 H 119/64 91 L 02/07/17 04:12 82 02/07/17 04:00 73 14 104/58 97 02/07/17 03:57 74 02/07/17 03:00 73 15 107/60 95 02/07/17 02:00 73 9 L 100/56 98 02/07/17 01:00 77 12 93/53 98 02/07/17 00:09 79 11 L 97/58 98 02/07/17 00:00 89 30 H 109/63 96 02/06/17 23:40 90 40 H 116/69 93 L 02/06/17 23:28 82 02/06/17 23:20 77 18 117/70 100 02/06/17 23:17 82 02/06/17 22:40 89 108/61 93 L 02/06/17 22:00 98 9 L 108/61 96 02/06/17 21:00 98.2 F 106 H 20 123/68 94 L 02/06/17 20:47 101 H 02/06/17 20:35 101 H 02/06/17 19:00 111 H 137/63 88 L 02/06/17 18:02 98.2 F 101 H 19 123/68 97 02/06/17 17:59 97.5 F L 105 H 20 132/75 95 Intake and Output 02/07/17 02/07/17 02/07/17 06:59 14:59 22:59 Intake Total 625 525 100 Output Total 495 295 80 Balance 130 230 20 Intake: IV 625 525 100 Meropenem 500 mg In 100 Sodium Chloride 0.9% 50 ml @ 100 mls/hr IVPB Q8HR [facility] Rx#:[id number] Sodium Chloride 0.9% 1, 525 425 100 000 ml @ 50 mls/hr IV . Q20H [facility] Rx#:[id number] Sodium Chloride 3%( 100 Hypertonic) 500 ml @ 50 mls/hr IV .Q10H [facility] Rx#: [id number] Output: Urine 495 295 80 Other: Voiding Method Indwelling Catheter Indwelling Catheter Indwelling Catheter Weight 63.9 kg 63.9 kg Patient Weight 02/08/17 06:59 Weight 63.9 kg General appearance: Physical examination revealed a 51-year-old female in no distress, looks frail and chronically ill, deformities of rheumatoid arthritis noted. Head exam: Slightly cushingoid, atraumatic, normocephalic. ENT exam: Dry mucous membranes, normal nasal mucosa. Throat is clear. Neck exam: No thyromegaly, no stridor, no neck masses, no cervical lymphadenopathy. Respiratory exam: Diminished breath sound bilaterally, minimal fine crackles at the bases, no rhonchi, no wheezes..) Cardiovascular Exam: Normal S1 and S2, no S3 gallop, no murmur. GI/Abdominal exam: Soft, nontender, no megaly, no rebound, no guarding. Positive bowel sounds. Rectal exam: Deferred, patient had a positive Hemoccult stools in the ER.) Extremities exam: The right arm has evidence of no open lesions. Left arm is evidence of the left elbow lesions in the heels abscess to the axillary area. Right lower extremity reveals evidence of the right heel blister and ulceration Back exam: No flank tenderness noted. Rheumatoid arthritis deformities noted bilaterally. Neurological exam: No gross focal neurologic deficit. Psychiatric exam: Present: normal affect, normal mood Skin exam: Multiple areas of ulcerations and the blistering noted as noted above. Results - Laboratory Findings CBC and BMP: 02/07/17 04:24 02/07/17 12:34 PT/INR, D-dimer PT 11.0 sec (9.0-12.0) 02/06/17 14:30 INR 1.1 (<1.2) 02/06/17 14:30 D-Dimer 0.41 mg/L FEU (<0.60) 02/06/17 20:40 Abnormal lab findings: Abnormal Labs 02/06/17 02/06/17 02/06/17 14:30 14:30 14:30 WBC RBC 3.54 L Hgb 10.7 L Hct 32.8 L RDW 17.0 H Lymphocytes # 0.3 L Sodium 115 L* Chloride 72 L* Carbon Dioxide 32 H BUN 32 H Glucose 271 H POC Glucose (mg/dL) Osmolality Calcium Magnesium 1.3 L AST ALT 69 H Alkaline Phosphatase 287 H CK-MB (CK-2) 4.0 H* Troponin I 0.056 H* Total Protein 4.9 L Albumin 2.7 L Vitamin B12 TSH Urine Protein Urine Glucose (UA) Urine Blood Ur Leukocyte Esterase Urine RBC Urine Bacteria Hyaline Casts Urine Mucus Ur Random Sodium Stool Occult Blood 02/06/17 02/06/17 02/06/17 16:29 18:29 20:29 WBC RBC Hgb Hct RDW Lymphocytes # Sodium 117 L* Chloride 78 L* Carbon Dioxide 34 H BUN 26 H Glucose 217 H POC Glucose (mg/dL) 267 H Osmolality 262 L Calcium 8.0 L Magnesium AST ALT 56 H Alkaline Phosphatase 228 H CK-MB (CK-2) Troponin I Total Protein 4.1 L Albumin 2.2 L Vitamin B12 >1000 H TSH Urine Protein Urine Glucose (UA) Urine Blood Ur Leukocyte Esterase Urine RBC Urine Bacteria Hyaline Casts Urine Mucus Ur Random Sodium Stool Occult Blood Positive H 02/06/17 02/06/17 02/06/17 20:29 20:29 20:44 WBC 3.6 L RBC 2.95 L Hgb 9.1 L D Hct 27.7 L RDW 15.9 H Lymphocytes # Sodium Chloride Carbon Dioxide BUN Glucose POC Glucose (mg/dL) Osmolality Calcium Magnesium AST ALT Alkaline Phosphatase CK-MB (CK-2) 2.7 H* Troponin I 0.050 H* Total Protein Albumin Vitamin B12 TSH Urine Protein Urine Glucose (UA) Urine Blood Ur Leukocyte Esterase Urine RBC Urine Bacteria Hyaline Casts Urine Mucus Ur Random Sodium 27 L Stool Occult Blood 02/06/17 02/06/17 02/07/17 20:44 22:28 00:22 WBC RBC Hgb Hct RDW Lymphocytes # Sodium 118 L* 121 L Chloride Carbon Dioxide BUN Glucose POC Glucose (mg/dL) Osmolality Calcium Magnesium AST ALT Alkaline Phosphatase CK-MB (CK-2) Troponin I Total Protein Albumin Vitamin B12 TSH Urine Protein Trace H Urine Glucose (UA) 2+ H Urine Blood Small H Ur Leukocyte Esterase Trace H Urine RBC 9 H Urine Bacteria Rare H Hyaline Casts 4 H Urine Mucus Rare H Ur Random Sodium Stool Occult Blood 09/29/17 09/29/17 09/29/17 02:14 02:14 04:24 WBC 3.6 L RBC 2.93 L Hgb 8.9 L Hct 28.0 L RDW 16.6 H Lymphocytes # 0.2 L Sodium 120 L* Chloride Carbon Dioxide BUN Glucose POC Glucose (mg/dL) Osmolality Calcium Magnesium AST ALT Alkaline Phosphatase CK-MB (CK-2) Troponin I 0.035 H* Total Protein Albumin Vitamin B12 TSH Urine Protein Urine Glucose (UA) Urine Blood Ur Leukocyte Esterase Urine RBC Urine Bacteria Hyaline Casts Urine Mucus Ur Random Sodium Stool Occult Blood 02/07/17 02/07/17 02/07/17 04:28 04:58 06:39 WBC RBC Hgb Hct RDW Lymphocytes # Sodium 122 L 123 L Chloride 82 L Carbon Dioxide 33 H BUN 24 H Glucose 164 H POC Glucose (mg/dL) 183 H Osmolality Calcium 8.1 L Magnesium 2.7 H 2.4 H AST 39 H ALT 53 H Alkaline Phosphatase 203 H CK-MB (CK-2) Troponin I Total Protein 4.6 L Albumin 2.4 L Vitamin B12 TSH 0.240 L Urine Protein Urine Glucose (UA) Urine Blood Ur Leukocyte Esterase Urine RBC Urine Bacteria Hyaline Casts Urine Mucus Ur Random Sodium Stool Occult Blood 02/07/17 02/07/17 02/07/17 08:24 08:30 12:34 WBC RBC Hgb Hct RDW Lymphocytes # Sodium 123 L 123 L Chloride Carbon Dioxide BUN Glucose POC Glucose (mg/dL) 111 H Osmolality Calcium Magnesium AST ALT Alkaline Phosphatase CK-MB (CK-2) Troponin I Total Protein Albumin Vitamin B12 TSH Urine Protein Urine Glucose (UA) Urine Blood Ur Leukocyte Esterase Urine RBC Urine Bacteria Hyaline Casts Urine Mucus Ur Random Sodium Stool Occult Blood - Diagnostic Findings Chest x-ray: image reviewed (It is rather suboptimal examination, biapical airspace disease is suspected, prominence of the pulmonary vasculature noted, may relate to pneumonia, interstitial lung disease, and CHF.) Assessment and Plan Plan: Impression: 1 acute hypoxic respiratory failure, multifactorial. I believe the patient clearly has interstitial lung disease, underlying pulmonary infection is strongly suspected in the form of bilateral pneumonia, community-acquired, although aspiration is likely considering the patient has been so weak and even falling asleep while she was on her wheelchair. Not to mention that the patient presented with profound hyponatremia contributing to her worsening mental status upon presentation. Patient is also immunosuppressed, receiving treatment for rheumatoid arthritis, and makes her at a high risk for pulmonary infection. 2 acute hypovolemic hyponatremia responding well to 3% saline and now 75 mL per hour of 0.9 normal saline. 3 history of rheumatoid arthritis and some component of interstitial lung disease/rheumatoid lungs. 4 type 2 diabetes, on treatment. 5 multiple pressure ulcers in multiple areas of upper and lower extremities, history of axillary abscesses requiring drainage history of chronic wound infection requiring ongoing care by infectious disease and wound debridement by Dr. Downing on outpatient basis. 6 medical debility, multifactorial, related to her multiple complex medical problems as noted above. 7 history of cervical stenosis and bilateral upper extremities weakness. 8 anemia of chronic disease 9 history of hypertension 10 acute lower GI bleeding and history of irritable bowel syndrome. Recommendation: I fully agree with the present treatment plan including antibiotics, IV fluids, watch closely her pulmonary status, may or may not use diuretics at this point. We'll continue to follow closely. If her pulmonary condition gets any worse, may consider bronchoscopy and BAL. Time with Patient: Greater than 30
[2017-02-07] MEDS: DIPHENOX-ATROP 2.5-0.025 MG 1 EACH TAB PO PRN (17:37)
[2017-02-07] MEDS: FLUCONAZOLE 100 MG TAB PO SCH (17:50)
[2017-02-07 20:47] LABS: Glucose,Whole Blood 101 mg/dL (75-99)
[2017-02-07] MEDS ORDERED: [UNRECOGNIZED DRUG - OTHER] PO SCH (21:00)
[2017-02-08] MEDS: HYDROcodone/APAP 10-325MG 1 EACH TAB PO PRN ×4 (03:56→23:08)
[2017-02-08] MEDS: HYDROmorphone 1 MG/ML 1 ML SYRINGE IVP PRN (04:25)
[2017-02-08 04:46] LABS: Anisocytosis Slight; Basophils % (A) 0 %; CH 31.6; CHCM 32.7; Eosinophils % (A) 0 %; HCT 29.7 % (34.0-46.0); HDW 3.26; HGB 9.1 gm/dL (11.4-16.0); Hypochromasia Slight; Luc # (Auto) 0.04; Luc % (Auto) 1; Lymphocytes # (A) 0.2 k/uL (1.0-4.8); Lymphocytes % (A) 7 %; MCH 29.9 pg (25.0-35.0); MCHC 30.7 g/dL (31.0-37.0); MCV 97.4 fL (80.0-100.0); Macrocytosis Slight; Mean Platelet Volume 7.9; Monocytes # (A) 0.1 k/uL (0-1.0); Monocytes % (A) 3 %; Neutrophils # (A) 2.9 k/uL (1.3-7.7); Neutrophils % (A) 88 %; RBC 3.05 m/uL (3.80-5.40); RDW 16.5 % (11.5-15.5); WBC 3.3 k/uL (3.8-10.6); WBC (Perox) 3.64
[2017-02-08 05:00] LABS: ALT 61 U/L (9-52); AST 34 U/L (14-36); Alkaline Phosphatase 239 U/L (38-126); Anion Gap 7 mmol/L; Bilirubin, Delta 0.2 mg/dL (0.0-0.2); Blood Urea Nitrogen 23 mg/dL (7-17); Calcium 8.5 mg/dL (8.4-10.2); Carbon Dioxide 32 mmol/L (22-30); Chloride 85 mmol/L (98-107); Creatine Kinase 48 U/L (30-135); Glucose 68 mg/dL (74-99); Magnesium 2.2 mg/dL (1.6-2.3); Non-African American GFR(MDRD) >60 (>60 ml/min/1.73 sqM); Phosphorus 3.5 mg/dL (2.5-4.5); Potassium 3.7 mmol/L (3.5-5.1); Sodium 124 mmol/L (137-145); Total Bilirubin 0.2 mg/dL (0.2-1.3); Total Protein 4.7 g/dL (6.3-8.2)
[2017-02-08 05:26] LABS: Glucose,Whole Blood 73 mg/dL (75-99)
[2017-02-08] MEDS ORDERED: Potassium Replacement Protocol 1 EACH MISC MISCELLANE PRN (05:36)
[2017-02-08] MEDS ORDERED: POTASSIUM CHLORIDE ORAL LIQUID 40 MEQ/30 ML CUP NG-TUBE SCH ×2 (06:00→07:00)
[2017-02-08] MEDS ORDERED: POTASSIUM CHLORIDE ER 20 MEQ TAB.ER PO SCH (06:00)
[2017-02-08] MEDS: IPRATROPIUM-ALBUTEROL 3 ML NEB INHALATION SCH ×4 (07:47→21:07)
[2017-02-08] MEDS: SYMBICORT 80-4.5 MCG INHALER INHALATION SCH ×2 (07:47→21:07)
[2017-02-08 07:56] LABS: Glucose,Whole Blood 83 mg/dL (75-99)
--- NOTE | 2017-02-08 08:23 | XR ---
EXAMINATION TYPE: XR chest 1V DATE OF EXAM: 02/08/2017 HISTORY: Pneumonia. REFERENCE: Previous study dated 02/07/2017. FINDINGS: Lung volumes are prominent. The heart is enlarged. There is vascular congestion. There is p atchy bilateral airspace disease. This may represent confluent edema or pneumonia. The overall appear ance has improved slightly from previous. IMPRESSION: 1. COPD. 2. FINDINGS CONSISTENT WITH CONGESTIVE HEART FAILURE. 3. I CANNOT EXCLUDE SUPERIMPOSED PNEUMONIA. 4. THE OVERALL APPEARANCE OF THE LUNGS HAS IMPROVED.
[2017-02-08] MEDS: METOPROLOL TARTRATE 50 MG TAB PO SCH ×2 (09:07→20:39)
[2017-02-08] MEDS: metFORMIN 500 MG TAB PO SCH ×2 (09:07→17:15)
[2017-02-08] MEDS: ASCORBIC ACID 500 MG TAB PO SCH (09:07)
[2017-02-08] MEDS: ASPIRIN 81 MG PO SCH (09:07)
[2017-02-08] MEDS: FOLIC ACID 1 MG TAB PO SCH (09:07)
[2017-02-08] MEDS: PANTOPRAZOLE 40 MG/10 ML VIAL IV SCH (09:08)
[2017-02-08] MEDS: ENOXAPARIN 40 MG/0.4 ML SYRINGE SQ SCH (09:08)
[2017-02-08] MEDS: HYDROCORTISONE SUCCINATE 100 MG/2 ML VIAL IV SCH ×3 (09:08→23:08)
[2017-02-08] MEDS: FLUCONAZOLE 100 MG TAB PO SCH (09:09)
[2017-02-08] MEDS: NICOTINE 21MG/24HR PATCH TRANSDERM SCH (09:10)
[2017-02-08] MEDS ORDERED: NYSTATIN 100,000 UNIT/ML SUSP 500,000 UNIT/5 ML CUP PO SCH (09:30)
[2017-02-08] MEDS: NYSTATIN 100,000 UNIT/GM POWD 15 GM TOPICAL SCH (09:38)
[2017-02-08] MEDS: MEROPENEM 500 MG in SODIUM CHLORIDE 0.9% 50 ML IVPB SCH ×2 (09:38→17:52)
[2017-02-08] MEDS: DIPHENOX-ATROP 2.5-0.025 MG 1 EACH TAB PO PRN ×2 (09:41→20:35)
--- NOTE | 2017-02-08 09:45 | P.PN ---
Subjective This is a 51-year-old female seen in consultation because of severe hyponatremia , she came in with a sodium of 115. She is deemed to have hypovolemic hyponatremia from decreased intake and diuretics. She improved with IV normal saline sodium improved to 123 yesterday and is 124 today. Her workup has shown creatinine was 0.7 BUN was 32 potassium 3.7 bicarb 32 at the time of admission. Uric acid was not available. Blood sugar was slightly high at 271. Urine osmolality was 443 and urine sodium 27. There was a lag of several hours between the urine test and a serum test therefore leading into the urine test is somewhat difficult given multiple interventions might have been done during those hours including IV fluids. Additionally she has been on steroids as an outpatient and on methotrexate. Today on 02/08/2017 much pain because of her rheumatoid arthritis. Her breathing is somewhat labored and is perhaps slightly better. Her chest x-ray shows bilateral infiltrates. Severe oral candidiasis. She started on Diflucan. She is known with diabetes. Objective - Vital Signs Vital signs: Vital Signs Temp 98 F 02/08/17 08:00 Pulse 89 02/08/17 09:00 Resp 14 02/08/17 09:00 BP 112/77 02/08/17 09:00 Pulse Ox 93 L 02/08/17 09:00 Intake & Output 02/07/17 02/08/17 02/08/17 18:59 06:59 18:59 Intake Total 725 875 275 Output Total 463 600 90 Balance 262 275 185 Weight 63.9 kg 70.6 kg Intake: IV 725 650 150 Meropenem 500 mg In 100 50 Sodium Chloride 0.9% 50 ml @ 100 mls/hr IVPB Q8HR [facility] Rx#:[id number] Sodium Chloride 0.9% 1, 625 600 150 000 ml @ 50 mls/hr IV . Q20H [facility] Rx#:[id number] Oral 225 125 Output: Urine 463 600 90 Other: Voiding Method Indwelling Catheter Indwelling Catheter On examination she is awake alert oriented. She is somewhat small built. HEENT exam no JVP neck is supple no facial asymmetry pupils are equal. Oral cavity is significant for severe thrush. Lungs are significant for bilateral coarse crackles at bases fair air entry No dullness to percussion Heart sounds are unremarkable no murmur rub gallop Abdomen soft nontender slightly distended Extremity exam was minimal edema with some blebs on her right great toe. Neurologically awake alert oriented but profoundly weak. Her range of motion is severely limited because of pain - Labs CBC & Chem 7: 02/08/17 04:25 02/08/17 04:25 Labs: Abnormal Lab Results - Last 24 Hours (Table) 02/07/17 02/07/17 02/07/17 Range/Units 12:34 18:57 20:45 WBC (3.8-10.6) k/uL RBC (3.80-5.40) m/uL Hgb (11.4-16.0) gm/dL Hct (34.0-46.0) % MCHC (31.0-37.0) g/dL RDW (11.5-15.5) % Lymphocytes # (1.0-4.8) k/uL Sodium 123 L 123 L (137-145) mmol/L Chloride (98-107) mmol/L Carbon Dioxide (22-30) mmol/L BUN (7-17) mg/dL Glucose (74-99) mg/dL POC Glucose (mg/dL) 101 H (75-99) mg/dL ALT (9-52) U/L Alkaline Phosphatase (38-126) U/L Total Protein (6.3-8.2) g/dL Albumin (3.5-5.0) g/dL 02/08/17 02/08/17 02/08/17 Range/Units 04:25 04:25 05:24 WBC 3.3 L (3.8-10.6) k/uL RBC 3.05 L (3.80-5.40) m/uL Hgb 9.1 L (11.4-16.0) gm/dL Hct 29.7 L (34.0-46.0) % MCHC 30.7 L (31.0-37.0) g/dL RDW 16.5 H (11.5-15.5) % Lymphocytes # 0.2 L (1.0-4.8) k/uL Sodium 124 L (137-145) mmol/L Chloride 85 L (98-107) mmol/L Carbon Dioxide 32 H (22-30) mmol/L BUN 23 H (7-17) mg/dL Glucose 68 L (74-99) mg/dL POC Glucose (mg/dL) 73 L (75-99) mg/dL ALT 61 H (9-52) U/L Alkaline Phosphatase 239 H (38-126) U/L Total Protein 4.7 L (6.3-8.2) g/dL Albumin 2.4 L (3.5-5.0) g/dL Microbiology - Last 24 Hours (Table) 02/07/17 08:21 Gram Stain - Preliminary Sputum 02/06/17 20:44 Urine Culture - Preliminary Urine,Catheterized Assessment and Plan Plan: Impression 1. Hyponatremia likely from hypovolemia, responding to IV saline and her sodium improved from 1:15 to 123 as of yesterday but with the reduction of IV fluids her sodium improved to only 124 over the last 24 hours. Concurrent blood sugar this morning is 68 and 83 on the same time. 2. Severe rheumatoid arthritis on immunosuppressive medications. 3. Oral thrush. 4. Bilateral lung infiltrates. Possibility of congestive heart failure cannot be completely excluded. 5. Diabetes mellitus. 6. Mild degree of metabolic alkalosis likely from steroids. Recommendation. 1. Will check orthostatic changes. 2. Start salt tablets 1 g 3 times a day. 3. Start Lasix 20 every 12 for 2 doses only 4. Monitor electrolytes eyes and O's closely.
[2017-02-08] MEDS ORDERED: DIPHENOX-ATROP 2.5-0.025 MG 1 EACH TAB PO PRN (10:01)
[2017-02-08] MEDS: CLOTRIMAZOLE TROCHE 10 MG TROCHE MUCOUS MEM SCH ×3 (11:03→20:39)
[2017-02-08] MEDS: FUROSEMIDE 10 MG/ML 2 ML VIAL IV SCH ×2 (11:04→20:40)
--- NOTE | 2017-02-08 12:25 | P.PN ---
Subjective Principal diagnosis: Acute hypoxic respiratory failure, multifactorial. This is a 51-year-old female familiar to my service from previous admission, patient is known to have history of multiple medical problems including rheumatoid lungs, interstitial lung disease/nonspecific interstitial pneumonitis related to rheumatoid arthritis. History of Sjogren's, rheumatoid arthritis, hyperlipidemia, type 2 diabetes, cervical stenosis and chronic upper extremities weakness with impaired gait and balance. Patient was brought in with multiple complaints including profound weakness, she fell asleep while she was on the wheelchair, patient has been complaining of worsening shortness of breath, in spite of multiple updraft treatments. Intermittent cough, wheezing, and weight loss of over 100 pounds over the last one year. Patient also noted some specks of blood in her stool. Patient also has history of multiple stages of ulcers noted in her lower extremities, sacrum, and groin. She also has bilateral blistering of toes. At any rate patient was brought in by EMS to the ER with all these complaints. Looking back at this patient's notes and previous history, I saw on consultation back in May of 2016. At that time the patient had acute hypoxic respiratory failure secondary to interstitial lung disease and underlying pneumonia. As well as COPD exacerbation. I was tempted to consider bronchoscopy on the patient at the time, however the patient was felt to be too much of a high risk for bronchoscopy and transbronchial biopsy. Patient did surprisingly well at the time with antibiotics, diuretics, bronchodilators, and high doses of steroids. Did not require intubation and mechanical ventilation at the time. In the ER, patient had abnormal labs showing sodium of 115, slightly elevated troponin, she had positive Hemoccult stools, possible ileus based on x-rays of the abdomen, and she was noted to have abnormal chest x-ray with biapical airspace disease, it is not clear how much of this is infection related, versus CHF, versus interstitial lung disease worsening. Upon my notification about this patient, I recommended 3% saline, 50 ML per hour over a period of 10 hours. Antibiotics loo, patient was placed on vancomycin and Merrem as per Dr. Downing, and she also received IV hydrocortisone/stress doses. I saw her in the ICU, and the patient seemed to be a bit more comfortable, and her sodium was up to 123. IV fluid was kept at 75 mL per hour in the form of 0.9 normal saline. Patient did receive some 500 mL of 3% saline upon admission. Reevaluated today on 02/08/2017, patient seems to be doing a bit better compared to yesterday. Complaining of oral thrush hence the patient was placed on fluconazole, and I added nystatin swish and swallow. Chest x-ray continues to show bilateral interstitial changes, slight improvement noted compared to the admission chest x-ray, patient remains on the same multiple meds including bronchodilators, antibiotics, and steroids. Sodium is up to 124. Renal profile is normal. Hemoglobin is 9.1 with WBC count of 3.3. Objective - Vital Signs Vital signs: Vital Signs Temp 98 F 02/08/17 08:00 Pulse 94 02/08/17 11:38 Resp 24 02/08/17 10:00 BP 132/77 02/08/17 10:00 Pulse Ox 93 L 02/08/17 10:00 Intake & Output 02/07/17 02/08/17 02/08/17 18:59 06:59 18:59 Intake Total 725 875 275 Output Total 463 600 90 Balance 262 275 185 Weight 63.9 kg 70.6 kg Intake: IV 725 650 150 Meropenem 500 mg In 100 50 Sodium Chloride 0.9% 50 ml @ 100 mls/hr IVPB Q8HR [facility] Rx#:[id number] Sodium Chloride 0.9% 1, 625 600 150 000 ml @ 50 mls/hr IV . Q20H [facility] Rx#:[id number] Oral 225 125 Output: Urine 463 600 90 Other: Voiding Method Indwelling Catheter Indwelling Catheter Indwelling Catheter - Exam General appearance: Physical examination revealed a 51-year-old female in no distress, looks frail and chronically ill, deformities of rheumatoid arthritis noted. Head exam: Slightly cushingoid, atraumatic, normocephalic. ENT exam: Dry mucous membranes, normal nasal mucosa. Positive oropharyngeal thrush was noted. Neck exam: No thyromegaly, no stridor, no neck masses, no cervical lymphadenopathy. Respiratory exam: Diminished breath sound bilaterally, minimal fine crackles at the bases, no rhonchi, no wheezes..) Cardiovascular Exam: Normal S1 and S2, no S3 gallop, no murmur. GI/Abdominal exam: Soft, nontender, no megaly, no rebound, no guarding. Positive bowel sounds. Large umbilical hernia is noted, chronic in nature. Rectal exam: Deferred, patient had a positive Hemoccult stools in the ER.) Extremities exam: The right arm has evidence of no open lesions. Left arm is evidence of the left elbow lesions in the heels abscess to the axillary area. Right lower extremity reveals evidence of the right heel blister and ulceration Back exam: No flank tenderness noted. Rheumatoid arthritis deformities noted bilaterally. Neurological exam: No gross focal neurologic deficit. Psychiatric exam: Present: normal affect, normal mood Skin exam: Multiple areas of ulcerations and the blistering noted as noted above. - Labs CBC & Chem 7: 02/08/17 04:25 02/08/17 04:25 Labs: Abnormal Lab Results - Last 24 Hours (Table) 02/07/17 02/07/17 02/07/17 Range/Units 12:34 18:57 20:45 WBC (3.8-10.6) k/uL RBC (3.80-5.40) m/uL Hgb (11.4-16.0) gm/dL Hct (34.0-46.0) % MCHC (31.0-37.0) g/dL RDW (11.5-15.5) % Lymphocytes # (1.0-4.8) k/uL Sodium 123 L 123 L (137-145) mmol/L Chloride (98-107) mmol/L Carbon Dioxide (22-30) mmol/L BUN (7-17) mg/dL Glucose (74-99) mg/dL POC Glucose (mg/dL) 101 H (75-99) mg/dL ALT (9-52) U/L Alkaline Phosphatase (38-126) U/L Total Protein (6.3-8.2) g/dL Albumin (3.5-5.0) g/dL 02/08/17 02/08/17 02/08/17 Range/Units 04:25 04:25 05:24 WBC 3.3 L (3.8-10.6) k/uL RBC 3.05 L (3.80-5.40) m/uL Hgb 9.1 L (11.4-16.0) gm/dL Hct 29.7 L (34.0-46.0) % MCHC 30.7 L (31.0-37.0) g/dL RDW 16.5 H (11.5-15.5) % Lymphocytes # 0.2 L (1.0-4.8) k/uL Sodium 124 L (137-145) mmol/L Chloride 85 L (98-107) mmol/L Carbon Dioxide 32 H (22-30) mmol/L BUN 23 H (7-17) mg/dL Glucose 68 L (74-99) mg/dL POC Glucose (mg/dL) 73 L (75-99) mg/dL ALT 61 H (9-52) U/L Alkaline Phosphatase 239 H (38-126) U/L Total Protein 4.7 L (6.3-8.2) g/dL Albumin 2.4 L (3.5-5.0) g/dL Microbiology - Last 24 Hours (Table) 02/07/17 08:21 Gram Stain - Preliminary Sputum Sputum Culture - Preliminary 02/06/17 20:44 Urine Culture - Preliminary Urine,Catheterized Assessment and Plan Plan: Impression: 1 acute hypoxic respiratory failure, multifactorial. I believe the patient clearly has interstitial lung disease, underlying pulmonary infection is strongly suspected in the form of bilateral pneumonia, community-acquired, although aspiration is likely considering the patient has been so weak and even falling asleep while she was on her wheelchair. Not to mention that the patient presented with profound hyponatremia contributing to her worsening mental status upon presentation. Patient is also immunosuppressed, receiving treatment for rheumatoid arthritis, and makes her at a high risk for pulmonary infection. 2 acute hypovolemic hyponatremia improving with treatment. 3 history of rheumatoid arthritis and some component of interstitial lung disease/rheumatoid lungs. 4 type 2 diabetes, on treatment. 5 multiple pressure ulcers in multiple areas of upper and lower extremities, history of axillary abscesses requiring drainage history of chronic wound infection requiring ongoing care by infectious disease and wound debridement by Dr. Downing on outpatient basis. 6 medical debility, multifactorial, related to her multiple complex medical problems as noted above. 7 history of cervical stenosis and bilateral upper extremities weakness. 8 anemia of chronic disease 9 history of hypertension 10 acute lower GI bleeding and history of irritable bowel syndrome. 11 oropharyngeal thrush, patient was placed on fluconazole and on nystatin. Recommendation: Continue present treatment plan, continue supportive care measures, likely will transfer the patient to a regular medical floor today. Time with Patient: Less than 30
--- NOTE | 2017-02-08 12:59 | P.PN ---
Subjective This is a 50-year-old pleasant female patient of Dr. Spring and Dr. Downing. She has underlying history of rheumatid arthritis, Sjogren's, Raynaud's, diabetes mellitus type 2, hyperlipidemia, hypertension, rheumatoid lung, chronic immunosuppression, cervical stenosis with upper extremity weakness, impaired balance impaired gait. She presented hospital eyes she has gotten so weak, and had gone to the bathroom and had sleep from the wheelchair, has been down for unknown length of time, however it's been quite a while most likely 4-5 hr, she also reports having shortness of breath as her last nebulized treatment was 16 hours or so s she also has had diminished appetite, chronic cough with wheezing , weight loss of 100 pounds over the past one year,, patient denies any fever, she has chronic IBS with diarrhea for quite Lomotil, however the day prior to admission, patient had specks of blood in the stool, patient does not have any [employer] alert and was sent in [facility] through EMS transportation. Patient resides at home alone, multiple stages off ulcers are noted in both extremities sacrum, groin, eczema bilateral, elbows bilateral, blisters in the toes. Patient denies any head concussion. Her last dose for methotrexate was this Friday 2 days prior to admission provided by Dr. Preston In the emergency room, hemoglobin was noted 10.7 from a previous of 12 in June 2016, Dr. Downing count 4.5, serum sodium was 115 from a previous of 130 weeks ago creatinine 0.7, BUN elevated at 32, troponin slightly elevated at 0.056 albumin of 2.7, Hemoccult-positive chest x-ray shows suboptimal examination biapical airspace disease and probably mild pulmonary vascular congestion, EKG shows sinus tachycardia 110, no acute ST-T wave changes, x-rays of the abdomen shows gaseous filled loops of small and large bowel mainly related to ileus, no large bowel to suggest obstruction no perforation.. Diaz catheter was placed the day prior to admission from home care nursing visit Patient was subsequently admitted to ICU with IV saline 3% running at 50 mL an hour consultations with Dr. Concepcion from critical medicine, Dr. Downing from infectious disease, Dr. Brian from nephrology, patient was started on IV vancomycin and IV meropenem with nebulized treatments and IV hydrocortisone 02/07: Patient remains in intensive care unit. Sodium is at 123 she has not had any bowel movements and she has been admitted. She is requesting her hydrocodone P resumed. Echocardiogram has been obtained which shows ejection fraction of 60-65%, moderate concentric left ventricular hypertrophy. Patient has been seen by Dr. Pizarro with recommendations to continue IV fluids at 75 mL per hour. Repeat sodium at noon and continue 1.[address] Downing is on consult and patient is currently on IV antibiotics of meropenem and vancomycin. 02/08: Patient was evaluated today. Her sodium today is at 124. Sodium chloride tablets 1 g 3 times a day were added, Lasix 20 mg every 12 also added. She continues to complain of mouth soreness, she is receiving Diflucan and clotrimazole kelly. Repeat chest x-ray showed vascular congestion and improvement from previous x-ray. She also continues to complain of pain, she was receiving Lajas 10/325 mg every 6 hours as needed and Dilaudid 1 mg IV every 2 hours as needed for pain. The patient will be moved out of the ICU today today to a medical floor. Will repeat sodium level tomorrow and continue with current treatments. Objective - Vital Signs Vital signs: Vital Signs Temp 98.6 F 02/08/17 04:00 Pulse 90 02/08/17 07:49 Resp 14 02/08/17 07:00 BP 119/70 02/08/17 07:00 Pulse Ox 95 02/08/17 07:49 Intake & Output 02/07/17 02/08/17 02/08/17 18:59 06:59 18:59 Intake Total 725 875 175 Output Total 463 600 30 Balance 262 275 145 Weight 63.9 kg 70.6 kg Intake: IV 725 650 50 Meropenem 500 mg In 100 50 Sodium Chloride 0.9% 50 ml @ 100 mls/hr IVPB Q8HR [facility] Rx#:[id number] Sodium Chloride 0.9% 1, 625 600 50 000 ml @ 50 mls/hr IV . Q20H [facility] Rx#:[id number] Oral 225 125 Output: Urine 463 600 30 Other: Voiding Method Indwelling Catheter Indwelling Catheter - Exam - Exam General appearance: average body habitus, cooperative, no acute distress - EENT Eyes: anicteric sclerae, EOMI, PERRLA, dentition normal, normal appearance ENT: NA/AT, normal oropharynx - Neck Neck: no lymphadenopathy, normal ROM, no other, no rigidity, no stridor, no thyromegaly - Respiratory Respiratory: bilateral: CTA, diminished, rales, wheezing, negative: dullness, rhonchi - Cardiovascular Rhythm: regular Heart sounds: normal: S1, S2 Abnormal Heart Sounds: no systolic murmur, no diastolic murmur, no rub, no S3 Gallop, no S4 Gallop, no click, no other - Gastrointestinal General gastrointestinal: normal bowel sounds, soft - Integumentary Integumentary: decreased turgor, normal - Neurologic Neurologic: CNII-XII intact - Musculoskeletal Musculoskeletal: generalized weakness, strength equal bilaterally - Psychiatric Psychiatric: A&O x's 3, appropriate affect, intact judgment & insight - Labs CBC & Chem 7: 02/08/17 04:25 02/08/17 04:25 Labs: Abnormal Lab Results - Last 24 Hours (Table) 02/07/17 02/07/17 02/07/17 Range/Units 08:24 08:30 12:34 WBC (3.8-10.6) k/uL RBC (3.80-5.40) m/uL Hgb (11.4-16.0) gm/dL Hct (34.0-46.0) % MCHC (31.0-37.0) g/dL RDW (11.5-15.5) % Lymphocytes # (1.0-4.8) k/uL Sodium 123 L 123 L (137-145) mmol/L Chloride (98-107) mmol/L Carbon Dioxide (22-30) mmol/L BUN (7-17) mg/dL Glucose (74-99) mg/dL POC Glucose (mg/dL) 111 H (75-99) mg/dL ALT (9-52) U/L Alkaline Phosphatase (38-126) U/L Total Protein (6.3-8.2) g/dL Albumin (3.5-5.0) g/dL 02/07/17 02/07/17 02/08/17 Range/Units 18:57 20:45 04:25 WBC 3.3 L (3.8-10.6) k/uL RBC 3.05 L (3.80-5.40) m/uL Hgb 9.1 L (11.4-16.0) gm/dL Hct 29.7 L (34.0-46.0) % MCHC 30.7 L (31.0-37.0) g/dL RDW 16.5 H (11.5-15.5) % Lymphocytes # 0.2 L (1.0-4.8) k/uL Sodium 123 L (137-145) mmol/L Chloride (98-107) mmol/L Carbon Dioxide (22-30) mmol/L BUN (7-17) mg/dL Glucose (74-99) mg/dL POC Glucose (mg/dL) 101 H (75-99) mg/dL ALT (9-52) U/L Alkaline Phosphatase (38-126) U/L Total Protein (6.3-8.2) g/dL Albumin (3.5-5.0) g/dL 02/08/17 02/08/17 Range/Units 04:25 05:24 WBC (3.8-10.6) k/uL RBC (3.80-5.40) m/uL Hgb (11.4-16.0) gm/dL Hct (34.0-46.0) % MCHC (31.0-37.0) g/dL RDW (11.5-15.5) % Lymphocytes # (1.0-4.8) k/uL Sodium 124 L (137-145) mmol/L Chloride 85 L (98-107) mmol/L Carbon Dioxide 32 H (22-30) mmol/L BUN 23 H (7-17) mg/dL Glucose 68 L (74-99) mg/dL POC Glucose (mg/dL) 73 L (75-99) mg/dL ALT 61 H (9-52) U/L Alkaline Phosphatase 239 H (38-126) U/L Total Protein 4.7 L (6.3-8.2) g/dL Albumin 2.4 L (3.5-5.0) g/dL Microbiology - Last 24 Hours (Table) 02/07/17 08:21 Gram Stain - Preliminary Sputum 02/06/17 20:44 Urine Culture - Preliminary Urine,Catheterized Assessment and Plan Plan: 1. Acute hypoxic respiratory failure, acute pneumonia, acquired against aspiration acute exacerbation of COPD, acute diastolic heart failure complicated by iimmununosuppression from methotrexate, ICU management secondary to critical hyponatremia, patient moved to medical floor today, provide nebulized albuterol Atrovent treatments, IV hydrocortisone 100 mg every 8 hours , 0.9 saline at 75 mL an hour, meropenem 50 mg daily 8 hours and IV vancomycin Consult with Dr. Concepcion glass cutter hand Dr. Downing from infectious disease and Dr. Brian nephrology. 2. Critical hyponatremia secondary to hypovolemic hyponatremia from diminished oral intake IV saline as provided to 75 mL an hour, IV Lasix 20 mg every 12 hours and sodium chloride tablet gram 3 times a day added. 2. Multiple pressure ulcers different locations in the extremities upper and lower extremity and sacrum, stages 2-3, all noted with pictures of present prior to admission as well as with deep fistulous formation, and axilla, status post I&D follows at the wound care center. Wound halfway is [facility]. She follows in the wound center with Dr. Downing. Consult with Dr. Downing. Patient continued on meropenem IV vancomycin 3. Rheumatoid arthritis is chronically on methotrexate and prednisone 10 mg 3 times a day. Patient follows with Dr. Preston as an outpatient methotrexate on hold, stress dose of hydrocortisone secondary to chronic prednisone, 4. Diabetes mellitus type 2 on metformin, hold glimepiride secondary to diminished appetite, and Humalog scale recent A1c 7.4, 5. Acute lower GI bleed IBS with diarrhea she is on Lomotil 2 mg 4 times a day when necessary no changes were made. will obtain C. diff toxin evaluation stool WBC culture moment monitor for blood losses, might need general surgery evaluation should the bleeding continue, and if noticeable blood losses are noted. 6. Impaired debility with falls at home, evaluate for rhabdomyolysis, as the patient had fallen without assistance over 16 hours community ambulation would be will wheelchair transfers at home, walker outside the home 7. Chronic pain related to RA and musculoskeletal deformities including spinal stenosis. Continue Percocet, Flexeril. 8. CKD stage 1 monitor for rhabdomyolysis regarding falls, monitor for hypotension 9. Chronic anemia secondary to chronic illness, acute blood loss is expected secondary to recent GI losses from one day prior to admission, none currently 9. Hypertension on Micardis 40 mg daily, Lasix, 10. DVT prophylaxis with Lovenox 11. GI prophylaxis. Protonix. Discharge plan: Social work consult for subacute rehab The above impression and plan of care have been discussed and directed by signing physician. Pati Metzger nurse practitioner acting as scribe for signing physician.
[2017-02-08 13:19] LABS: Glucose,Whole Blood 84 mg/dL (75-99)
[2017-02-08] MEDS: LOSARTAN 50 MG TAB PO SCH (13:45)
[2017-02-08] MEDS ORDERED: LOPERAMIDE 2 MG CAP PO PRN (16:00)
[2017-02-08] MEDS: SODIUM CHLORIDE 0.9% 1,000 ML IV SCH (17:15)
[2017-02-08] MEDS: SODIUM CHLORIDE TAB 1 GM TAB PO SCH ×2 (17:15→20:39)
[2017-02-08 17:48] LABS: Glucose,Whole Blood 85 mg/dL (75-99)
[2017-02-08 19:25] LABS: Glucose,Whole Blood 75 mg/dL (75-99)
[2017-02-08 20:30] LABS: Glucose,Whole Blood 115 mg/dL (75-99)
[2017-02-09] MEDS: MEROPENEM 500 MG in SODIUM CHLORIDE 0.9% 50 ML IVPB SCH ×3 (00:17→15:43)
[2017-02-09 07:11] LABS: Basophils % (A) 0 %; CH 30.3; CHCM 31.3; Eosinophils % (A) 0 %; HCT 26.8 % (34.0-46.0); HDW 3.58; HGB 8.2 gm/dL (11.4-16.0); Hypochromasia Moderate; Luc # (Auto) 0.05; Luc % (Auto) 1; Lymphocytes # (A) 0.3 k/uL (1.0-4.8); Lymphocytes % (A) 9 %; MCH 29.7 pg (25.0-35.0); MCHC 30.5 g/dL (31.0-37.0); MCV 97.5 fL (80.0-100.0); Mean Platelet Volume 7.7; Monocytes # (A) 0.2 k/uL (0-1.0); Monocytes % (A) 5 %; Neutrophils # (A) 3.1 k/uL (1.3-7.7); Neutrophils % (A) 84 %; Poikilocytosis Slight; RBC 2.75 m/uL (3.80-5.40); RDW 15.8 % (11.5-15.5); WBC 3.7 k/uL (3.8-10.6); WBC (Perox) 4.09
[2017-02-09 07:14] LABS: Glucose,Whole Blood 95 mg/dL (75-99)
[2017-02-09 07:22] LABS: Anion Gap 4 mmol/L; Blood Urea Nitrogen 21 mg/dL (7-17); Calcium 8.2 mg/dL (8.4-10.2); Chloride 86 mmol/L (98-107); Creatine Kinase 24 U/L (30-135); Glucose 80 mg/dL (74-99); Magnesium 1.9 mg/dL (1.6-2.3); Non-African American GFR(MDRD) >60 (>60 ml/min/1.73 sqM); Phosphorus 3.1 mg/dL (2.5-4.5); Potassium 3.2 mmol/L (3.5-5.1); Sodium 130 mmol/L (137-145)
[2017-02-09] MEDS: IPRATROPIUM-ALBUTEROL 3 ML NEB INHALATION SCH ×4 (07:27→21:06)
[2017-02-09] MEDS: SYMBICORT 80-4.5 MCG INHALER INHALATION SCH ×2 (07:27→20:57)
[2017-02-09 07:34] LABS: Carbon Dioxide 40 mmol/L (22-30)
[2017-02-09] MEDS: HYDROCORTISONE SUCCINATE 100 MG/2 ML VIAL IV SCH ×2 (08:02→15:42)
[2017-02-09] MEDS: metFORMIN 500 MG TAB PO SCH ×2 (08:02→17:08)
[2017-02-09] MEDS: NICOTINE 21MG/24HR PATCH TRANSDERM SCH (08:04)
[2017-02-09] MEDS: ASPIRIN 81 MG PO SCH (08:04)
[2017-02-09] MEDS: METOPROLOL TARTRATE 50 MG TAB PO SCH ×2 (08:05→22:53)
[2017-02-09] MEDS: LOSARTAN 50 MG TAB PO SCH (08:05)
[2017-02-09] MEDS: FLUCONAZOLE 100 MG TAB PO SCH (08:05)
[2017-02-09] MEDS: SODIUM CHLORIDE TAB 1 GM TAB PO SCH ×3 (08:05→22:54)
[2017-02-09] MEDS: FUROSEMIDE 10 MG/ML 2 ML VIAL IV SCH ×2 (08:06→22:54)
[2017-02-09] MEDS: PANTOPRAZOLE 40 MG/10 ML VIAL IV SCH (08:06)
[2017-02-09] MEDS: ENOXAPARIN 40 MG/0.4 ML SYRINGE SQ SCH (08:07)
[2017-02-09] MEDS: NYSTATIN 100,000 UNIT/GM POWD 15 GM TOPICAL SCH (08:07)
[2017-02-09] MEDS: CLOTRIMAZOLE TROCHE 10 MG TROCHE MUCOUS MEM SCH ×3 (08:07→22:54)
[2017-02-09] MEDS: HYDROcodone/APAP 10-325MG 1 EACH TAB PO PRN (08:22)
--- NOTE | 2017-02-09 09:05 | XR ---
EXAMINATION TYPE: XR chest 1V DATE OF EXAM: 02/09/2017 HISTORY: Pneumonia. REFERENCE: Previous study dated 02/08/2017. FINDINGS: There is worsening, bilateral airspace disease. Heart size is obscured. Pleural spaces appe ar clear. IMPRESSION: WORSENING BILATERAL AIRSPACE DISEASE.
[2017-02-09] MEDS: FOLIC ACID 1 MG TAB PO SCH (11:28)
[2017-02-09] MEDS: ASCORBIC ACID 500 MG TAB PO SCH (11:28)
[2017-02-09 11:37] LABS: Glucose,Whole Blood 141 mg/dL (75-99)
--- NOTE | 2017-02-09 11:40 | US ---
EXAMINATION TYPE: US venous doppler duplex LE DATE OF EXAM: 02/09/2017 11:11 AM COMPARISON: Previous study dated 01/01/2016. CLINICAL HISTORY: edema . Edema, left leg pain, patient on blood thinners SIDE PERFORMED: Bilateral TECHNIQUE: The lower extremity deep venous system is examined utilizing real time linear array sonog luisito with graded compression, doppler sonography and color-flow sonography. VESSELS IMAGED: External Iliac Vein (EIV) Common Femoral Vein Deep Femoral Vein Greater Saphenous Vein * Femoral Vein Popliteal Vein Small Saphenous Vein * Proximal Calf Veins (* superficial vessels) Difficult study due to patient's deep heavy breathing Right Leg: Appears negative for DVT Left Leg: Appears negative for DVT No popliteal fossa lesion is seen. IMPRESSION: THIS EXAMINATION IS NEGATIVE FOR DVT IN BOTH LEGS.
--- NOTE | 2017-02-09 12:03 | P.PN ---
Subjective This is a 50-year-old pleasant female patient of Dr. Spring and Dr. Downing. She has underlying history of rheumatid arthritis, Sjogren's, Raynaud's, diabetes mellitus type 2, hyperlipidemia, hypertension, rheumatoid lung, chronic immunosuppression, cervical stenosis with upper extremity weakness, impaired balance impaired gait. She presented hospital eyes she has gotten so weak, and had gone to the bathroom and had sleep from the wheelchair, has been down for unknown length of time, however it's been quite a while most likely 4-5 hr, she also reports having shortness of breath as her last nebulized treatment was 16 hours or so s she also has had diminished appetite, chronic cough with wheezing , weight loss of 100 pounds over the past one year,, patient denies any fever, she has chronic IBS with diarrhea for quite Lomotil, however the day prior to admission, patient had specks of blood in the stool, patient does not have any [employer] alert and was sent in [facility] through EMS transportation. Patient resides at home alone, multiple stages off ulcers are noted in both extremities sacrum, groin, eczema bilateral, elbows bilateral, blisters in the toes. Patient denies any head concussion. Her last dose for methotrexate was this Friday 2 days prior to admission provided by Dr. Preston In the emergency room, hemoglobin was noted 10.7 from a previous of 12 in June 2016, Dr. Downing count 4.5, serum sodium was 115 from a previous of 130 weeks ago creatinine 0.7, BUN elevated at 32, troponin slightly elevated at 0.056 albumin of 2.7, Hemoccult-positive chest x-ray shows suboptimal examination biapical airspace disease and probably mild pulmonary vascular congestion, EKG shows sinus tachycardia 110, no acute ST-T wave changes, x-rays of the abdomen shows gaseous filled loops of small and large bowel mainly related to ileus, no large bowel to suggest obstruction no perforation.. Diaz catheter was placed the day prior to admission from home care nursing visit Patient was subsequently admitted to ICU with IV saline 3% running at 50 mL an hour consultations with Dr. Concepcion from critical medicine, Dr. Downing from infectious disease, Dr. Brian from nephrology, patient was started on IV vancomycin and IV meropenem with nebulized treatments and IV hydrocortisone 02/07: Patient remains in intensive care unit. Sodium is at 123 she has not had any bowel movements and she has been admitted. She is requesting her hydrocodone P resumed. Echocardiogram has been obtained which shows ejection fraction of 60-65%, moderate concentric left ventricular hypertrophy. Patient has been seen by Dr. Pizarro with recommendations to continue IV fluids at 75 mL per hour. Repeat sodium at noon and continue 1.[address] Downing is on consult and patient is currently on IV antibiotics of meropenem and vancomycin. 02/08: Patient was evaluated today. Her sodium today is at 124. Sodium chloride tablets 1 g 3 times a day were added, Lasix 20 mg every 12 also added. She continues to complain of mouth soreness, she is receiving Diflucan and clotrimazole kelly. Repeat chest x-ray showed vascular congestion and improvement from previous x-ray. She also continues to complain of pain, she was receiving Jeannette 10/325 mg every 6 hours as needed and Dilaudid 1 mg IV every 2 hours as needed for pain. The patient will be moved out of the ICU today today to a medical floor. Will repeat sodium level tomorrow and continue with current treatments. 02/09: Patient was evaluated today, she was noted to be resting in bed. Breathing seems more labored than yesterday, carbon dioxide came back at 40. Patient seems to be a little more drowsy than yesterday as well, although she is alert and oriented and answering questions appropriately. A repeat chest x- ray showed worsening bilateral airspace disease as compared to yesterday's exam. Will obtain ultrasound of bilateral lower extremities and ABG. Patient may need to be placed on BiPAP. Had discussion about CODE STATUS with patient today informed patient that her situation is guarded, patient reports that she does want intubation and CPR. She will remain a full code, although if she does need intubation this may be very difficult due to her cervical stenosis. Objective - Vital Signs Vital signs: Vital Signs Temp 97.9 F 02/08/17 23:48 Pulse 106 H 02/09/17 08:00 Resp 20 02/09/17 08:00 BP 135/62 02/08/17 23:48 Pulse Ox 95 02/08/17 23:48 Intake & Output 02/08/17 02/09/17 02/09/17 18:59 06:59 18:59 Intake Total 275 600 Output Total 90 1999 Balance 185 -1400 Weight 73.5 kg 73.5 kg Intake: IV 150 400 Meropenem 500 mg In 50 Sodium Chloride 0.9% 50 ml @ 100 mls/hr IVPB Q8HR [facility] Rx#:[id number] Sodium Chloride 0.9% 1, 150 350 000 ml @ 50 mls/hr IV . Q20H [facility] Rx#:[id number] Oral 125 200 Output: Urine 90 1999 Uretheral (Diaz) 1999 Other: Voiding Method Indwelling Catheter Indwelling Catheter Indwelling Catheter - Exam - Exam General appearance: average body habitus, cooperative, no acute distress - EENT Eyes: anicteric sclerae, EOMI, PERRLA, dentition normal, normal appearance ENT: NA/AT, normal oropharynx - Neck Neck: no lymphadenopathy, normal ROM, no other, no rigidity, no stridor, no thyromegaly - Respiratory Respiratory: bilateral: CTA, diminished, rales, wheezing, negative: dullness, rhonchi - Cardiovascular Rhythm: regular Heart sounds: normal: S1, S2 Abnormal Heart Sounds: no systolic murmur, no diastolic murmur, no rub, no S3 Gallop, no S4 Gallop, no click, no other - Gastrointestinal General gastrointestinal: normal bowel sounds, soft - Integumentary Integumentary: decreased turgor, normal - Neurologic Neurologic: CNII-XII intact - Musculoskeletal Musculoskeletal: generalized weakness, strength equal bilaterally - Psychiatric Psychiatric: A&O x's 3, appropriate affect, intact judgment & insight - Labs CBC & Chem 7: 02/09/17 06:37 02/09/17 06:37 Labs: Abnormal Lab Results - Last 24 Hours (Table) 02/07/17 02/08/17 02/09/17 Range/Units 08:30 20:16 06:37 WBC 3.7 L (3.8-10.6) k/uL RBC 2.75 L (3.80-5.40) m/uL Hgb 8.2 L (11.4-16.0) gm/dL Hct 26.8 L (34.0-46.0) % MCHC 30.5 L (31.0-37.0) g/dL RDW 15.8 H (11.5-15.5) % Lymphocytes # 0.3 L (1.0-4.8) k/uL Sodium (137-145) mmol/L Potassium (3.5-5.1) mmol/L Chloride (98-107) mmol/L Carbon Dioxide (22-30) mmol/L BUN (7-17) mg/dL POC Glucose (mg/dL) 115 H (75-99) mg/dL Calcium (8.4-10.2) mg/dL Iron 8 L (50-170) ug/dL TIBC 225 L (228-460) ug/dL Iron Saturation 3.56 L (12.00-45.00) Ferritin 566.3 H (10.0-291.0) ng/mL Creatine Kinase (30-135) U/L 02/09/17 02/09/17 Range/Units 06:37 11:35 WBC (3.8-10.6) k/uL RBC (3.80-5.40) m/uL Hgb (11.4-16.0) gm/dL Hct (34.0-46.0) % MCHC (31.0-37.0) g/dL RDW (11.5-15.5) % Lymphocytes # (1.0-4.8) k/uL Sodium 130 L (137-145) mmol/L Potassium 3.2 L (3.5-5.1) mmol/L Chloride 86 L (98-107) mmol/L Carbon Dioxide 40 H* (22-30) mmol/L BUN 21 H (7-17) mg/dL POC Glucose (mg/dL) 141 H (75-99) mg/dL Calcium 8.2 L (8.4-10.2) mg/dL Iron (50-170) ug/dL TIBC (228-460) ug/dL Iron Saturation (12.00-45.00) Ferritin (10.0-291.0) ng/mL Creatine Kinase 24 L (30-135) U/L Microbiology - Last 24 Hours (Table) 02/06/17 20:44 Urine Culture - Final Urine,Catheterized Proteus mirabilis Escherichia coli 02/07/17 08:21 Gram Stain - Final Sputum Sputum Culture - Final Assessment and Plan Plan: 1. Acute hypoxic respiratory failure, acute pneumonia, acquired against aspiration acute exacerbation of COPD, acute diastolic heart failure complicated by iimmununosuppression from methotrexate, provide nebulized albuterol Atrovent treatments, IV hydrocortisone 100 mg every 8 hours, 0.9 saline at 75 mL an hour, meropenem 50 mg daily 8 hours and IV vancomycin Consult with Dr. Concepcion telecommunication systems designer Dr. Downing from infectious disease and Dr. Brian nephrology. 2. Critical hyponatremia secondary to hypovolemic hyponatremia from diminished oral intake IV saline as provided to 75 mL an hour, IV Lasix 20 mg every 12 hours and sodium chloride tablet gram 3 times a day added. Sodium has improved to 130 today. 2. Multiple pressure ulcers different locations in the extremities upper and lower extremity and sacrum, stages 2-3, all noted with pictures of present prior to admission as well as with deep fistulous formation, and axilla, status post I&D follows at the wound care center. Wound senior care is [facility]. She follows in the wound center with Dr. Downing. Consult with Dr. Downing. Patient continued on meropenem IV vancomycin 3. Rheumatoid arthritis is chronically on methotrexate and prednisone 10 mg 3 times a day. Patient follows with Dr. Preston as an outpatient methotrexate on hold, stress dose of hydrocortisone secondary to chronic prednisone, 4. Diabetes mellitus type 2 on metformin, hold glimepiride secondary to diminished appetite, and Humalog scale recent A1c 7.4, 5. Acute lower GI bleed IBS with diarrhea she is on Lomotil 2 mg 4 times a day when necessary no changes were made. will obtain C. diff toxin evaluation stool WBC culture moment monitor for blood losses, might need general surgery evaluation should the bleeding continue, and if noticeable blood losses are noted. 6. Impaired debility with falls at home, evaluate for rhabdomyolysis, as the patient had fallen without assistance over 16 hours community ambulation would be will wheelchair transfers at home, walker outside the home 7. Chronic pain related to RA and musculoskeletal deformities including spinal stenosis. Continue Percocet, Flexeril. 8. CKD stage 1 monitor for rhabdomyolysis regarding falls, monitor for hypotension 9. Chronic anemia secondary to chronic illness, acute blood loss is expected secondary to recent GI losses from one day prior to admission, none currently 9. Hypertension on Micardis 40 mg daily, Lasix, 10. DVT prophylaxis with Lovenox 11. GI prophylaxis. Protonix. Discharge plan: Social work consult for subacute rehab The above impression and plan of care have been discussed and directed by signing physician. Pati Metzger nurse practitioner acting as scribe for signing physician.
[2017-02-09] MEDS: SODIUM CHLORIDE 0.9% 1,000 ML IV SCH (13:03)
--- NOTE | 2017-02-09 13:55 | P.PN ---
Subjective This is a 51-year-old female seen in consultation because of severe hyponatremia , she came in with a sodium of 115. She is deemed to have hypovolemic hyponatremia from decreased intake and diuretics. She improved with IV normal saline sodium improved yesterday to 124 and is further improved to 1:30 today, she was started on salt tablets as well as given Lasix because of possibility that she might have become hypervolemic as her x-rays have significantly showing worsening with bilateral infiltrates.. Her workup had shown creatinine was 0.7 BUN was 32 potassium 3.7 bicarb 32 at the time of admission. Uric acid was not available. Blood sugar was slightly high at 271. Urine osmolality was 443 and urine sodium 27. There was a lag of several hours between the urine test and a serum test therefore leading into the urine test is somewhat difficult given multiple interventions might have been done during those hours including IV fluids. Additionally she has been on steroids as an outpatient and on methotrexate. Today she remains somewhat tired and weak and sleepy but arousable and answers questions and follows commands. She is short of breath. She made 209 0 mL of urine with a negative balance of 12 15 mL's. Her vital signs are stable with blood pressure Slightly low in the 90s to 110 range. She also had severe white lesions multiple on her tongue and is being treated for fungal infections She is known with diabetes. Objective - Vital Signs Vital signs: Vital Signs Temp 97.9 F 02/08/17 23:48 Pulse 106 H 02/09/17 08:00 Resp 20 02/09/17 08:00 BP 135/62 02/08/17 23:48 Pulse Ox 95 02/08/17 23:48 Intake & Output 02/08/17 02/09/17 02/09/17 18:59 06:59 18:59 Intake Total 275 600 590 Output Total 90 2000 Balance 185 -1400 590 Weight 73.5 kg 73.5 kg Intake: IV 150 400 350 Meropenem 500 mg In 50 Sodium Chloride 0.9% 50 ml @ 100 mls/hr IVPB Q8HR [facility] Rx#:[id number] Sodium Chloride 0.9% 1, 150 350 350 000 ml @ 50 mls/hr IV . Q20H [facility] Rx#:[id number] Intake, IV Titration 240 Amount Sodium Chloride 0.9% 1, 240 000 ml @ 50 mls/hr IV . Q20H [facility] Rx#:[id number] Oral 125 200 Output: Urine 90 1999 Uretheral (Diaz) 1999 Other: Voiding Method Indwelling Catheter Indwelling Catheter Indwelling Catheter Examination sleepy but arousable. HEENT exam difficult no JVP noted neck is supple no facial asymmetry Lungs are significant for an occasional coarse crackle at both bases. Less than optimal air entry no dullness to percussion Heart sounds are unremarkable for any murmur rub gallop Abdomen soft nontender Extremity exam was trace edema with thin skin and some bruising Neurologically sleepy but arousable follows commands but profoundly weak - Labs CBC & Chem 7: 02/09/17 06:37 02/09/17 06:37 Labs: Abnormal Lab Results - Last 24 Hours (Table) 02/07/17 02/08/17 02/09/17 Range/Units 08:30 20:16 06:37 WBC 3.7 L (3.8-10.6) k/uL RBC 2.75 L (3.80-5.40) m/uL Hgb 8.2 L (11.4-16.0) gm/dL Hct 26.8 L (34.0-46.0) % MCHC 30.5 L (31.0-37.0) g/dL RDW 15.8 H (11.5-15.5) % Lymphocytes # 0.3 L (1.0-4.8) k/uL Sodium (137-145) mmol/L Potassium (3.5-5.1) mmol/L Chloride (98-107) mmol/L Carbon Dioxide (22-30) mmol/L BUN (7-17) mg/dL POC Glucose (mg/dL) 115 H (75-99) mg/dL Calcium (8.4-10.2) mg/dL Iron 8 L (50-170) ug/dL TIBC 225 L (228-460) ug/dL Iron Saturation 3.56 L (12.00-45.00) Ferritin 566.3 H (10.0-291.0) ng/mL Creatine Kinase (30-135) U/L 02/09/17 02/09/17 Range/Units 06:37 11:35 WBC (3.8-10.6) k/uL RBC (3.80-5.40) m/uL Hgb (11.4-16.0) gm/dL Hct (34.0-46.0) % MCHC (31.0-37.0) g/dL RDW (11.5-15.5) % Lymphocytes # (1.0-4.8) k/uL Sodium 130 L (137-145) mmol/L Potassium 3.2 L (3.5-5.1) mmol/L Chloride 86 L (98-107) mmol/L Carbon Dioxide 40 H* (22-30) mmol/L BUN 21 H (7-17) mg/dL POC Glucose (mg/dL) 141 H (75-99) mg/dL Calcium 8.2 L (8.4-10.2) mg/dL Iron (50-170) ug/dL TIBC (228-460) ug/dL Iron Saturation (12.00-45.00) Ferritin (10.0-291.0) ng/mL Creatine Kinase 24 L (30-135) U/L Microbiology - Last 24 Hours (Table) 02/06/17 20:44 Urine Culture - Final Urine,Catheterized Proteus mirabilis Escherichia coli 02/07/17 08:21 Gram Stain - Final Sputum Sputum Culture - Final Assessment and Plan Plan: Impression 1. Hyponatremia likely from hypovolemia, responding to IV saline and her sodium improved from 115 to 123 to 124 and further to 130 with Lasix and salt combination. 2. Some concern that she has congestive heart failure as she is short of breath has bilateral infiltrates on chest x-ray which is significantly worse compared to a chest x-ray in May 2016. This may be a reflection of bilateral pneumonia as well. 2. Severe rheumatoid arthritis on immunosuppressive medications. 3. Oral thrush. 4. Bilateral lung infiltrates. Possibility of congestive heart failure cannot be completely excluded. 5. Diabetes mellitus. 6. Mild degree of metabolic alkalosis likely from steroids. Worse today with bicarb being 40. 7. Mild hypokalemia secondary to diuresis Recommendation. 1. Will check orthostatic changes. Call me with the results 2. Continue salt tablets 1 g 3 times a day. 3. Will give Lasix 20 every 12 for 2 doses only, this will be a second day in a row. 4. Monitor electrolytes I and O's closely. 5. Check BnP
[2017-02-09] MEDS: POTASSIUM CHLORIDE ER 10 MEQ TAB.ER.PRT PO SCH ×2 (14:30→22:53)
[2017-02-09 16:11] VITALS: TEMP 97.5
[2017-02-09 16:35] LABS: Glucose,Whole Blood 170 mg/dL (75-99)
[2017-02-09 17:12] LABS: ABG Base Excess 13.4 mmol/L; ABG HCO3 38 mmol/L (21-25); ABG PCO2 55 mmHg (35-45); ABG PH 7.46 (7.35-7.45); ABG PO2 105 mmHg (83-108); ABG TCO2 40 mmol/L (19-24)
[2017-02-09 20:31] VITALS: BP 88/50; RESP 31
[2017-02-09 20:37] LABS: Glucose,Whole Blood 281 mg/dL (75-99)
[2017-02-09 21:01] LABS: Glucose,Whole Blood 318 mg/dL (75-99)
[2017-02-09 21:23] VITALS: PULSE 123
[2017-02-09] MEDS ORDERED: ATROPINE OPHTH SOLN 1% 5ML BTL SUBLINGUAL PRN (21:42)
[2017-02-09] MEDS ORDERED: ONDANSETRON 4 MG/2 ML VIAL IVP PRN (21:42)
[2017-02-09] MEDS ORDERED: SCOPOLAMINE 1.5MG/72HR PATCH TRANSDERM PRN (21:42)
[2017-02-09] MEDS: MORPHINE SULFATE 2 MG/ML SYRINGE IV PRN ×2 (21:59→22:33)
[2017-02-09] MEDS ORDERED: MORPHINE SULFATE (100 MG/2 ML) 100 MG in SODIUM CHLORIDE 0.9% 100 ML IV SCH (22:30)
[2017-02-10] MEDS: HYDROCORTISONE SUCCINATE 100 MG/2 ML VIAL IV SCH (00:02)
[2017-02-10] MEDS: MEROPENEM 500 MG in SODIUM CHLORIDE 0.9% 50 ML IVPB SCH (00:02)
[2017-02-10] MEDS: MORPHINE SULFATE 2 MG/ML SYRINGE IV PRN (00:15)
[2017-02-10] MEDS ORDERED: LOSARTAN 50 MG TAB PO SCH (09:00)
--- NOTE | 2017-02-10 15:06 | P.DS ---
Providers Date of admission: 02/06/17 17:11 Expected date of discharge: 02/10/17 Attending physician: Mitra Noel MD Consults: 02/06/17 17:11 Consult Physician Routine Consulting Provider: Carmen Brian Consult Reason/Comments: Hyponatremia Do you want consulting provider notified?: Yes Consult Physician Stat Consulting Provider: Joe Concepcion Consult Reason/Comments: ICU care Do you want consulting provider notified?: Already Contacted 02/06/17 19:04 Consult Physician Routine Consulting Provider: Mt Downing Consult Reason/Comments: Multiple wounds Do you want consulting provider notified?: Yes Primary care physician: [facility] Course: This is a 50-year-old pleasant female patient of Dr. Spring and Dr. Downing. She has underlying history of rheumatid arthritis, Sjogren's, Raynaud's, diabetes mellitus type 2, hyperlipidemia, hypertension, rheumatoid lung, chronic immunosuppression, cervical stenosis with upper extremity weakness, impaired balance impaired gait. She presented hospital eyes she has gotten so weak, and had gone to the bathroom and had sleep from the wheelchair, has been down for unknown length of time, however it's been quite a while most likely 4-5 hr, she also reports having shortness of breath as her last nebulized treatment was 16 hours or so s she also has had diminished appetite, chronic cough with wheezing , weight loss of 100 pounds over the past one year,, patient denies any fever, she has chronic IBS with diarrhea for quite Lomotil, however the day prior to admission, patient had specks of blood in the stool, patient does not have any [employer] alert and was sent in [facility] through EMS transportation. Patient resides at home alone, multiple stages off ulcers are noted in both extremities sacrum, groin, eczema bilateral, elbows bilateral, blisters in the toes. Patient denies any head concussion. Her last dose for methotrexate was this Friday 2 days prior to admission provided by Dr. Preston In the emergency room, hemoglobin was noted 10.7 from a previous of 12 in June 2016, Dr. Downing count 4.5, serum sodium was 115 from a previous of 130 weeks ago creatinine 0.7, BUN elevated at 32, troponin slightly elevated at 0.056 albumin of 2.7, Hemoccult-positive chest x-ray shows suboptimal examination biapical airspace disease and probably mild pulmonary vascular congestion, EKG shows sinus tachycardia 110, no acute ST-T wave changes, x-rays of the abdomen shows gaseous filled loops of small and large bowel mainly related to ileus, no large bowel to suggest obstruction no perforation.. Diaz catheter was placed the day prior to admission from home care nursing visit Patient was subsequently admitted to ICU with IV saline 3% running at 50 mL an hour consultations with Dr. Concepcion from critical medicine, Dr. Downing from infectious disease, Dr. Brian from nephrology, patient was started on IV vancomycin and IV meropenem with nebulized treatments and IV hydrocortisone 02/07: Patient remains in intensive care unit. Sodium is at 123 she has not had any bowel movements and she has been admitted. She is requesting her hydrocodone P resumed. Echocardiogram has been obtained which shows ejection fraction of 60-65%, moderate concentric left ventricular hypertrophy. Patient has been seen by Dr. Pizarro with recommendations to continue IV fluids at 75 mL per hour. Repeat sodium at noon and continue 1.[address] Downing is on consult and patient is currently on IV antibiotics of meropenem and vancomycin. 02/08: Patient was evaluated today. Her sodium today is at 124. Sodium chloride tablets 1 g 3 times a day were added, Lasix 20 mg every 12 also added. She continues to complain of mouth soreness, she is receiving Diflucan and clotrimazole kelly. Repeat chest x-ray showed vascular congestion and improvement from previous x-ray. She also continues to complain of pain, she was receiving Wildorado 10/325 mg every 6 hours as needed and Dilaudid 1 mg IV every 2 hours as needed for pain. The patient will be moved out of the ICU today today to a medical floor. Will repeat sodium level tomorrow and continue with current treatments. 02/09: Patient was evaluated today, she was noted to be resting in bed. Breathing seems more labored than yesterday, carbon dioxide came back at 40. Patient seems to be a little more drowsy than yesterday as well, although she is alert and oriented and answering questions appropriately. A repeat chest x- ray showed worsening bilateral airspace disease as compared to yesterday's exam. Will obtain ultrasound of bilateral lower extremities and ABG. Patient may need to be placed on BiPAP. Had discussion about CODE STATUS with patient today informed patient that her situation is guarded, patient reports that she does want intubation and CPR. She will remain a full code, although if she does need intubation this may be very difficult due to her cervical stenosis. 02/10: Patient's condition continued today to deteriorate during the night and patient was made comfort care and was transferred under Dr. Concepcion's service to the oncology unit where she eventually passed on February 10. Please see nursing documentation for details. Discharge diagnoses: 1. Acute hypoxic respiratory failure, acute pneumonia, acquired against aspiration acute exacerbation of COPD, acute diastolic heart failure complicated by iimmununosuppression from methotrexate 2. Critical hyponatremia secondary to hypovolemic hyponatremia from diminished oral intake 2. Multiple pressure ulcers different locations in the extremities upper and lower extremity and sacrum, stages 2-3, all noted with pictures of present prior to admission as well as with deep fistulous formation, and axilla, status post I&D follows at the wound care center. 3. Rheumatoid arthritis is chronically on methotrexate and prednisone 4. Diabetes mellitus type 2 5. Acute lower GI bleed IBS with diarrhea 6. Impaired debility with falls at home 7. Chronic pain related to RA and musculoskeletal deformities including spinal stenosis. 8. CKD stage 1 9. Chronic anemia secondary to chronic illness, acute blood loss is expected secondary to recent GI losses 10. Hypertension Discharge plan: Patient transitioned to [facility] Impression and plan of care have been directed as dictated by the signing physician. Tiki Mcpherson nurse practitioner acting as scribe for signing physician. Patient Condition at Discharge: Undetermined Plan - Discharge Summary New Discharge Prescriptions: No Action predniSONE 10 mg PO TID Folic Acid 2 mg PO DAILY Methotrexate Sodium [Methotrexate] 25 mg PO TH Omeprazole [PriLOSEC] 40 mg PO DAILY Ca/D3/Mag/Zinc/Crow/Jorge/Mgbor [Caltrate 600+D3+Min Chew Tab] 1 tab PO BID Cyclobenzaprine [Flexeril] 10 mg PO Q8H PRN PRN Reason: Pain Triamcinolone 0.5% Cream [Kenalog 0.5% Cream] 1 applic TOPICAL BID Pyridoxine [Vitamin B-6] 50 mg PO TID Telmisartan [Micardis] 40 mg PO DAILY Albuterol Inhaler [Ventolin Hfa Inhaler] 2 puff INHALATION RT-Q6H PRN PRN Reason: Shortness Of Breath Coffey-3 Acid Ethyl Esters [Lovaza] 1 gm PO QID Ascorbic Acid [Vitamin C] 500 mg PO DAILY hydrOXYzine PAMOATE [Vistaril] 25 mg PO Q6HR PRN PRN Reason: itching Loperamide HCl [Imodium A-D] 2 mg PO QID PRN PRN Reason: Diarrhea metFORMIN HCL [Glucophage] 500 mg PO BID-W/MEALS tab Furosemide [Lasix] 40 mg PO DAILY #30 tablet Ipratropium-Albuterol Nebulize [Duoneb 0.5 mg-3 mg/3 ml Soln] 3 ml INHALATION RT-QID #120 ampul.neb Nicotine 21Mg/24Hr Patch [Habitrol] 1 patch TRANSDERM DAILY #30 patch Ondansetron [Zofran] 4 mg PO Q8HR PRN PRN Reason: Nausea And Vomiting Metolazone [Zaroxolyn] 2.5 mg PO DAILY Glimepiride [Amaryl] 4 mg PO BID Metoprolol Tartrate [Lopressor] 50 mg PO BID Fluticasone/Salmeterol [Advair 250-50 Diskus] 1 puff INHALATION RT-BID Diphenoxylate HCl/Atropine [Lomotil] 1 tab PO TID PRN PRN Reason: Diarrhea Nystatin 100,000 Unit/gm Powd [Mycostatin Powder] 1 applic TOPICAL DAILY HYDROcodone/APAP 10-325MG [Wildorado 10-325] 1 tab PO Q6H PRN PRN Reason: Pain Rknsituz-Ixvtmqrgy-Mu Otic [Cortisporin Otic Soln] 4 drops BOTH EARS BID Celecoxib [CeleBREX] 200 mg PO BID PRN PRN Reason: Pain Potassium 99 mg PO DAILY Aspirin EC [Ecotrin Low Dose] 81 mg PO DAILY Potassium Chloride ER [K-Dur 20] 20 meq PO DAILY Discharge Medication List Ca/D3/Mag/Zinc/Crow/Jorge/Mgbor [Caltrate 600+D3+Min Chew Tab] 1 tab PO BID 01/03 [History] Folic Acid 2 mg PO DAILY 01/03/15 [History] Methotrexate Sodium [Methotrexate] 25 mg PO TH 01/03/15 [History] Omeprazole [PriLOSEC] 40 mg PO DAILY 01/03/15 [History] predniSONE 10 mg PO TID 01/03/15 [History] Cyclobenzaprine [Flexeril] 10 mg PO Q8H PRN 03/07/15 [History] Pyridoxine [Vitamin B-6] 50 mg PO TID 03/06/16 [History] Triamcinolone 0.5% Cream [Kenalog 0.5% Cream] 1 applic TOPICAL BID 03/06/16 [ History] Albuterol Inhaler [Ventolin Hfa Inhaler] 2 puff INHALATION RT-Q6H PRN 05/09/16 [ History] Ascorbic Acid [Vitamin C] 500 mg PO DAILY 05/09/16 [History] Loperamide HCl [Imodium A-D] 2 mg PO QID PRN 05/09/16 [History] Coffey-3 Acid Ethyl Esters [Lovaza] 1 gm PO QID 05/09/16 [History] Telmisartan [Micardis] 40 mg PO DAILY 05/09/16 [History] hydrOXYzine PAMOATE [Vistaril] 25 mg PO Q6HR PRN 05/09/16 [History] metFORMIN HCL [Glucophage] 500 mg PO BID-W/MEALS tab 05/14/16 [Rx] Furosemide [Lasix] 40 mg PO DAILY #30 tablet 06/05/16 [Rx] Ipratropium-Albuterol Nebulize [Duoneb 0.5 mg-3 mg/3 ml Soln] 3 ml INHALATION RT -QID #120 ampul.neb 06/05/16 [Rx] Nicotine 21Mg/24Hr Patch [Habitrol] 1 patch TRANSDERM DAILY #30 patch 06/05/16 [ Rx] Glimepiride [Amaryl] 4 mg PO BID 07/02/16 [History] Metolazone [Zaroxolyn] 2.5 mg PO DAILY 07/02/16 [History] Ondansetron [Zofran] 4 mg PO Q8HR PRN 07/02/16 [History] Fluticasone/Salmeterol [Advair 250-50 Diskus] 1 puff INHALATION RT-BID 12/31/16 [History] Metoprolol Tartrate [Lopressor] 50 mg PO BID 12/31/16 [History] Aspirin EC [Ecotrin Low Dose] 81 mg PO DAILY 02/06/17 [History] Celecoxib [CeleBREX] 200 mg PO BID PRN 02/06/17 [History] Diphenoxylate HCl/Atropine [Lomotil] 1 tab PO TID PRN 02/06/17 [History] HYDROcodone/APAP 10-325MG [Wildor[place] 10-325] 1 tab PO Q6H PRN 02/06/17 [History] Qczjwnws-Kmxmnutik-Vx Otic [Cortisporin Otic Soln] 4 drops BOTH EARS BID [History] Nystatin 100,000 Unit/gm Powd [Mycostatin Powder] 1 applic TOPICAL DAILY [History] Potassium 99 mg PO DAILY 02/06/17 [History] Potassium Chloride ER [K-Dur 20] 20 meq PO DAILY 02/06/17 [History] Follow up Appointment(s)/Referral(s): Mt Spring MD [Primary Care Provider] - 1-2 days Discharge Disposition[facility]CH TO [facility]
== END 2017-02-10 01:05 | disposition hospice, inpatient (51) | DRG 177 ==
LOC: EC 14:29 → 6ICU 17:11 → 5MS5E 02-08 16:25 → 6ICU 02-09 20:43
PROVIDERS: ADMIT Internal Medicine; ATTEND Internal Medicine
DX: J69.0 Pneumonitis due to inhalation of food and vomit (principal); J96.01 Acute respiratory failure with hypoxia; I50.33 Acute on chronic diastolic (congestive) heart failure; B37.89 Other sites of candidiasis; E87.3 Alkalosis; L89.152 Pressure ulcer of sacral region, stage 2; B37.0 Candidal stomatitis; I13.0 Hypertensive heart and chronic kidney disease with heart failure and stage 1 through stage 4 chronic kidney disease, or unspecified chronic kidney disease; J44.1 Chronic obstructive pulmonary disease with (acute) exacerbation; E87.1 Hypo-osmolality and hyponatremia; K92.2 Gastrointestinal hemorrhage, unspecified; D62 Acute posthemorrhagic anemia; J84.9 Interstitial pulmonary disease, unspecified; E11.22 Type 2 diabetes mellitus with diabetic chronic kidney disease; I27.20 Pulmonary hypertension, unspecified; M35.00 Sjogren syndrome, unspecified; M48.02 Spinal stenosis, cervical region; L89.022 Pressure ulcer of left elbow, stage 2; L89.612 Pressure ulcer of right heel, stage 2; L89.010 Pressure ulcer of right elbow, unstageable; R15.9 Full incontinence of feces; M05.10 Rheumatoid lung disease with rheumatoid arthritis of unspecified site; D63.8 Anemia in other chronic diseases classified elsewhere; E78.5 Hyperlipidemia, unspecified; E86.0 Dehydration; E87.6 Hypokalemia; F17.200 Nicotine dependence, unspecified, uncomplicated; F32.9 Major depressive disorder, single episode, unspecified; F41.9 Anxiety disorder, unspecified; G89.29 Other chronic pain; I73.00 Raynaud's syndrome without gangrene; K58.0 Irritable bowel syndrome with diarrhea; L30.9 Dermatitis, unspecified; N18.1 Chronic kidney disease, stage 1; T38.0X5A Adverse effect of glucocorticoids and synthetic analogues, initial encounter; T50.2X5A Adverse effect of carbonic-anhydrase inhibitors, benzothiadiazides and other diuretics, initial encounter; I83.90 Asymptomatic varicose veins of unspecified lower extremity; R39.15 Urgency of urination; R32 Unspecified urinary incontinence; R26.9 Unspecified abnormalities of gait and mobility; Z88.0 Allergy status to penicillin; Z91.040 Latex allergy status; Z79.52 Long term (current) use of systemic steroids; Z79.84 Long term (current) use of oral hypoglycemic drugs; Z79.899 Other long term (current) drug therapy; Z79.82 Long term (current) use of aspirin; Z82.49 Family history of ischemic heart disease and other diseases of the circulatory system; W19.XXXA Unspecified fall, initial encounter; Y92.009 Unspecified place in unspecified non-institutional (private) residence as the place of occurrence of the external cause
CPT/HCPCS: 36415; 36600; 71010; 71020; 74000; 80048; 80053; 80076; 81001; 82272; 82550; 82553; 82607; 82728; 82805; 83540; 83550; 83735; 83880; 83930; 83935; 84100; 84295; 84300; 84439; 84443; 84484; 85025; 85027; 85379; 85610; 85730; 86850; 86900; 86901; 87070; 87077; 87086; 87186; 87205; 93005; 93306; 93970; 94640; 96361; 96374; 99291